=== PATIENT | male | born 1980 | race Caucasian/White ===

== ENCOUNTER 2023-01-18 10:36 | Outpatient (OUT) | payer OTHER, SELFPAY ==
--- NOTE | 2023-01-18 | MR_ITS ---
The [address] [address] Patient Name: SHERIN WHITE MRN: [id number] date: 1980 Sex: M Assigned Patient Location: [facility] Current Patient Location: [facility] Accession/Order Number: [id number] Exam Date: 01/18/2023 11:15 Report Date: 01/18/2023 23:07 At the request of: NOHEMY ALFORD Procedure: MR ankle RT wo con EXAM: MR ankle RT wo con HISTORY: Postoperative ankle pain. COMPARISON: X-rays 07/14/2021 TECHNIQUE: Multiplanar, multi sequential MRI sequences were performed. FINDINGS: Patient is undergone prior open reduction internal fixation of the distal fibula. There appears to been removal of the hardware. The screw tracks are still clearly visualized within the distal aspect of the lateral malleolus as well as the distal fibula. Postoperative changes within the overlying subcutaneous soft tissues. No visualized fracture, dislocation, subluxation or osseous lesion. No joint effusion. The superficial subcutaneous soft tissues are free of edema, hematoma, mass or cyst. The tarsal tunnel and carlyn pedis exhibit no edema, hematoma, mass or cyst. The visualized articular surfaces exhibit no discrete chondral or osteochondral abnormality. The posterior tibial, flexor digitorum longus, flexor hallucis longus, peroneus longus, peroneus brevis and anterior tendons exhibit no thickening, tear, edema or tenosynovial collections. The anterior talofibular, calcaneofibular, posterior talofibular, anterior and posterior inferior tibiofibular, intermalleolar, deltoid and spring ligamentous complexes exhibit no thickening, tear or edema. No gross visualized irregularity of the syndesmotic ligament. The Achilles tendon, sinus tarsi and plantar aponeurosis exhibit no thickening, tear or edema. No muscle edema, hematoma, atrophy or fatty infiltration. MR/MR ankle RT wo con IMPRESSION: Postoperative changes with no visualized abnormality. Electronically authenticated by: BRANDO PITT Date: 01/18/2023 23:07
--- NOTE | 2023-01-18 | XR_ITS ---
[address] [address] Patient Name: SHERIN WHITE MRN: [id number] date: 1980 Sex: M Assigned Patient Location: [facility] Current Patient Location: [facility] Accession/Order Number: [id number] Exam Date: 01/18/2023 10:52 Report Date: 01/18/2023 11:13 At the request of: NOHEMY ALFORD Procedure: XR foreign body eye EXAMINATION: XR foreign body eye HISTORY: Foreign body eye COMPARISON: No relevant comparison available. FINDINGS: ORBITS: Negative for a metallic foreign body. OTHER: Negative. XR/XR foreign body eye IMPRESSION: No metallic foreign body in the orbits Electronically authenticated by: BRANDO SMITH Date: 01/18/2023 11:13
== END 2023-01-18 10:37 | disposition home or self-care (01) ==
LOC: RAD 10:39
PROVIDERS: PCP Nurse Practitioner; Visit Provider Nurse Practitioner Family
DX: S82.831A Other fracture of upper and lower end of right fibula, initial encounter for closed fracture (principal)
CPT/HCPCS: 70030; 73721

== ENCOUNTER 2023-01-29 13:59 | Outpatient (OUT) | payer OTHER, SELFPAY ==
--- NOTE | 2023-01-29 16:12 | PM.CN ---
Consult Note: HPI Data of Consult Patient: new to practice Consult date: 01/29/23 Requesting Physician: Catarino Palafox MD Primary Care Provider: Shaikh Meet MD Consult Narrative Reason for consult: right ankle pain Narrative: 42yom who presents for evaluation. worsening right ankle pain. previous workplace injury in july 2021, has had subsequent ankle surgeries. continues to have right ankle pain. has undergone 62 sessions of physical therapy, which have not provided lasting relief. uses flexeril, cymbalta, tramadol, with some benefit. ankle MRI reviewed, which shows only expected postoperative changes. cc:: CC: Catarino Palafox MD Review of Systems ROS Status of ROS 10 or more systems reviewed and unremarkable except as noted in history and below Meds Home Medications and Allergies Home Medications Medication Instructions Recorded Confirmed Type cyclobenzaprine 10 mg tablet 10 mg PO DAILY PRN muscle spasm 01/29/23 01/29/23 History duloxetine 60 mg capsule,delayed 60 mg PO DAILY 01/29/23 01/29/23 History release sildenafil 25 mg tablet 25 mg PO DAILY PRN sexual activity 01/29/23 01/29/23 History sumatriptan 10 mg/actuation nasal 20 mg intranasal Q2H PRN migraine 01/29/23 01/29/23 History spray headache Allergies Allergy/AdvReac Type Severity Reaction Status Date / Time No Known Drug Allergies Allergy Verified 01/29/23 15:33 Exam Narrative Exam Narrative: Psych-alert and oriented x 3. Attentive and appropriate, constitutionally normal, displays normal mood and affect per situation.? There are no obvious deficits in memory, reasoning, or intellect.? Skin-no obvious rashes, bruising, erythema noted to the patient's area of pain. Extremities- extremities are warm with minimal edema and palpable pulses. Tenderness to palpation in right ankle. Slight discoloring and cool temperature noted in right ankle. Lumbar-no significant tenderness to palpation noted in the lumbar spine and paraspinal musculature.? Pain is elicited with extension, and lateral rotation of the lumbar spine. Range of motion is slightly diminished with these motions due to pain. Coordination remains intact.? Gait remains non-antalgic. Assessment and Plan Assessment and Plan (1) Other fracture of upper and lower end of right fibula, initial encounter for closed fracture: Plan 42yom who presents for evaluation. failed conservative measures, as noted. imaging reviewed. given symptoms and injury history, prudent to attempt right lumbar sympathetic nerve block x2 with minimal sedation to provide analgesia. he is in agreement. medications reviewed. will have him trial lyrica 50mg tid. follow up after procedure.
== END 2023-01-29 14:00 | disposition home or self-care (01) ==
LOC: PM 14:00
PROVIDERS: PCP Internal Medicine; Visit Provider Anesthesiology
DX: S82.831A Other fracture of upper and lower end of right fibula, initial encounter for closed fracture (principal)
CPT/HCPCS: G0463

== ENCOUNTER 2023-02-19 06:29 | Day surgery (SDC) | payer OTHER, SELFPAY ==
[2023-02-19 07:03] VITALS: BP 137/87; PULSE 71; RESP 16; TEMP 36.8; O2SAT 97
[2023-02-19] MEDS: 0.9 % SODIUM CHLORIDE 500 ML IV (07:08)
[2023-02-19] MEDS: 0.9 % SODIUM CHLORIDE 10 ML 5 ML INJ (07:36)
[2023-02-19] MEDS: LIDOCAINE HCL 2% PF 100 MG/5 ML VIAL INJ (07:37)
[2023-02-19] MEDS: IOHEXOL 240 MG/ML - 10 ML VIAL INJ (07:37)
[2023-02-19] MEDS: BUPIVACAINE HCL 0.25% PF 25 MG/10 ML VIAL 5 ML INJ (07:37)
[2023-02-19] MEDS: TRIAMCINOLONE ACETONIDE 40 MG/ML VIAL INJ (07:38)
--- NOTE | 2023-02-19 07:41 | W.PM.PROCNOT ---
Date of procedure: 02/19/23 Pre-op diagnosis: CRPS, right lower extremity Post-op diagnosis: same as pre-op Procedure: Procedure: Right lumbar sympathetic plexus block Medications: Bupivacaine 0.25% 4cc, normal saline 0.9% 5cc, dexamethasone 10mg The patient was seen and examined in the preoperative holding area.? Informed consent was obtained and placed on the chart.? Patient was brought to the medical procedure unit and placed in the prone position where a timeout was completed verifying the correct patient, procedure site, position, and planned special equipment using sterile aseptic technique.? Under direct fluoroscopic visualization a 25-gauge Quincke tipped spinal needle was advanced to the right anterolateral aspect of the L3 vertebral body where Omnipaque dye was injected to show adequate spread.? There was no evidence of vascular or neurologic uptake.? The above-mentioned injectate was then placed in five 2 mL aliquots preceded by negative aspiration. The needle was removed and the surgery site was covered. The same procedure, with the same steps, was then completed on the opposite side. Patient was taken to the postprocedural recovery area and monitored for an appropriate length of time before found suitable for discharge in the accompaniment of a responsible adult. Anesthesia: Moderate Sedation Surgeon: Catarino Palafox Pathology: none sent Condition: stable Disposition: same day
[2023-02-19 07:43] VITALS: BP 113/70; PULSE 76; RESP 13; TEMP 36.6; O2SAT 96
[2023-02-19 07:44] VITALS: BP 118/67; PULSE 77; RESP 14; TEMP 36.6; O2SAT 96
== END 2023-02-19 08:08 | disposition home or self-care (01) ==
PROVIDERS: PCP Nurse Practitioner; Visit Provider Anesthesiology
DX: S82.831A Other fracture of upper and lower end of right fibula, initial encounter for closed fracture (principal)
CPT/HCPCS: 64520; 77002; J2704; Q9966

== ENCOUNTER 2023-03-12 06:53 | Day surgery (SDC) | payer OTHER, SELFPAY ==
[2023-03-12 07:13] VITALS: BP 149/85; PULSE 82; RESP 16; TEMP 36.9; O2SAT 98
[2023-03-12] MEDS: 0.9 % SODIUM CHLORIDE 500 ML IV (07:26)
[2023-03-12] MEDS: BUPIVACAINE HCL 0.25% PF 25 MG/10 ML VIAL 9 ML INJ (07:38)
[2023-03-12] MEDS: TRIAMCINOLONE ACETONIDE 40 MG/ML VIAL INJ (07:39)
[2023-03-12] MEDS: LIDOCAINE HCL 2% PF 100 MG/5 ML VIAL INJ (07:39)
[2023-03-12] MEDS: IOHEXOL 240 MG/ML - 10 ML VIAL INJ (07:40)
--- NOTE | 2023-03-12 07:43 | W.PM.PROCNOT ---
Date of procedure: 03/12/23 Pre-op diagnosis: Complex regional pain syndrome, right lower extremity Post-op diagnosis: same as pre-op Procedure: Procedure: Right lumbar sympathetic nerve block Medications: Bupivacaine 0.25% 8cc, kenalog 80mg The patient was seen and examined in the preoperative holding area.? Informed consent was obtained and placed on the chart.? Patient was brought to the medical procedure unit and placed in the prone position where a timeout was completed verifying the correct patient, procedure site, position, and planned special equipment using sterile aseptic technique.? Under direct fluoroscopic visualization a 25-gauge Quincke tipped spinal needle was advanced to the right anterolateral aspect of the L3 vertebral body where Omnipaque dye was injected to show adequate spread.? There was no evidence of vascular or neurologic uptake.? The above-mentioned injectate was then placed in five 2 mL aliquots preceded by negative aspiration. The needle was removed and the surgery site was covered. The same procedure, with the same steps, was then completed on the opposite side. Patient was taken to the postprocedural recovery area and monitored for an appropriate length of time before found suitable for discharge in the accompaniment of a responsible adult. Anesthesia: Moderate Sedation Surgeon: Catarino Palafox Pathology: none sent Condition: stable Disposition: no change
[2023-03-12 07:46] VITALS: BP 125/79; PULSE 77; RESP 15; TEMP 36.3; O2SAT 97
[2023-03-12 07:55] VITALS: BP 132/82; PULSE 82; RESP 16; TEMP 36.3; O2SAT 98
== END 2023-03-12 08:10 | disposition home or self-care (01) ==
PROVIDERS: PCP Nurse Practitioner; Visit Provider Anesthesiology
DX: S82.831A Other fracture of upper and lower end of right fibula, initial encounter for closed fracture (principal)
CPT/HCPCS: 64520; J2704; Q9966

== ENCOUNTER 2023-03-21 08:58 | Outpatient (OUT) | payer OTHER, SELFPAY ==
--- NOTE | 2023-03-21 | XR_ITS ---
The [address] [address] Patient Name: SHERIN WHITE MRN: [id number] date: 1980 Sex: M Assigned Patient Location: RAD Current Patient Location: [facility] Accession/Order Number: [id number] Exam Date: 03/21/2023 09:15 Report Date: 03/21/2023 17:57 At the request of: WILLIAM BOBBY Procedure: XR ankle RT min 3V Exam: Radiographs: XR ankle RT min 3V Reason for exam: Right ankle pain Comparison: MRI dated 01/18/2023 XR/XR ankle RT min 3V IMPRESSION: Changes of prior distal fibula plate and screw internal fixation. Tiny retained metallic foreign bodies along the distal fibula. Remainder of the right ankle radiographs is unremarkable. Electronically authenticated by: MAITE JOHNSON Date: 03/21/2023 17:57
== END 2023-03-21 08:59 | disposition home or self-care (01) ==
LOC: RAD 08:58
PROVIDERS: PCP Nurse Practitioner; Visit Provider Podiatrist Foot & Ankle Surgery
DX: M25.571 Pain in right ankle and joints of right foot (principal)
CPT/HCPCS: 73610

== ENCOUNTER 2023-03-22 13:06 | Outpatient (OUT) | payer SELFPAY ==
--- NOTE | 2023-03-22 13:25 | P.CN_ITS ---
Consult Note: HPI Data of Consult Patient: known to practice within the last 3 years Consult date: 01/29/23 Requesting Physician: Kerry Connolly NP Primary Care Provider: MEGHAN BAIN Consult Narrative Reason for consult: f/u Narrative: 42yom who presents for evaluation. worsening right ankle pain. previous workplace injury in july 2021, has had subsequent ankle surgeries. continues to have right ankle pain. has undergone 62 sessions of physical therapy, which have not provided lasting relief. uses flexeril, cymbalta, tramadol, with some benefit. Pain today 5/10 and CRISTHIAN improved at 26% today. Patient reporting 40% ongoing improvement as a result of sympathetic nerve blocks. Is now considering surgical repair with Dr Stafford. Has been tolerating lyrica 75mg BID well without side effects. cc:: CC: Kerry Connolly NP Review of Systems ROS Status of ROS 10 or more systems reviewed and unremarkable except as noted in history and below PFSH PFSH Medical History Asthma ?J45.909 - Unspecified asthma, uncomplicated (ICD-10) Surgical History History of ankle surgery ?Z98.890 - Other specified postprocedural states (ICD-10) History of appendectomy ?Z90.49 - Acquired absence of other specified parts of digestive tract (ICD- 10) History of carpal tunnel release ?Z98.890 - Other specified postprocedural states (ICD-10) History of elbow surgery ?Z98.890 - Other specified postprocedural states (ICD-10) History of kidney surgery ?Z98.890 - Other specified postprocedural states (ICD-10) Meds Home Medications and Allergies Home Medications Medication Instructions Recorded Confirmed Type cyclobenzaprine 10 mg tablet 10 mg PO DAILY PRN muscle spasm 01/29/23 03/12/23 History duloxetine 60 mg capsule,delayed 60 mg PO DAILY 01/29/23 03/12/23 History release sildenafil 25 mg tablet 25 mg PO DAILY PRN sexual activity 01/29/23 03/12/23 History sumatriptan 10 mg/actuation nasal 20 mg intranasal Q2H PRN migraine 01/29/23 03/12/23 History spray headache pregabalin 50 mg capsule 50 mg PO Q8H 02/14/23 03/12/23 History tramadol 50 mg tablet 50 mg PO Q8H PRN pain 02/14/23 03/12/23 History ibuprofen 800 mg tablet 800 mg PO Q12H PRN pain 02/19/23 03/12/23 History Allergies Allergy/AdvReac Type Severity Reaction Status Date / Time No Known Drug Allergies Allergy Verified 03/12/23 07:10 Exam Narrative Exam Narrative: Psych-alert and oriented x 3. Attentive and appropriate, constitutionally normal, displays normal mood and affect per situation.? There are no obvious deficits in memory, reasoning, or intellect.? Skin-no obvious rashes, bruising, erythema noted to the patient's area of pain. Extremities- extremities are warm with minimal edema and palpable pulses. Tenderness to palpation in right ankle. Slight discoloring and cool temperature noted in right ankle. Lumbar-no significant tenderness to palpation noted in the lumbar spine and paraspinal musculature.? Pain is elicited with extension, and lateral rotation of the lumbar spine. Range of motion is slightly diminished with these motions due to pain. Coordination remains intact.? Gait remains non-antalgic. Assessment and Plan Assessment and Plan (1) Other fracture of upper and lower end of right fibula, initial encounter for closed fracture: Plan continue f/u with Dr Stafford, pt considering surgical repair increase lyrica to 100mg BID discussed topical lidocaine if transdermal therapeutics cream 6a to right ankle TID does not get approved f/u 3 months for medication management, pt will call sooner if needed
== END 2023-03-22 13:07 | disposition home or self-care (01) ==
LOC: PM 13:08
PROVIDERS: PCP Nurse Practitioner; Visit Provider Nurse Practitioner
DX: S82.831A Other fracture of upper and lower end of right fibula, initial encounter for closed fracture (principal)
CPT/HCPCS: G0463

== ENCOUNTER 2023-07-05 12:18 | Outpatient (OUT) | payer OTHER, SELFPAY ==
--- OUTSIDE RECORDS SUMMARY | 2023-07-05 12:22 | XMS_ITS | CCD ---
Author Name Unknown Address [address] [place] [address] Organization [facility] Care Team Providers Care Operating Room Technician Name Role Phone FAWRAISSA, PARSONS Consulting Unavailable FAWWAD, PARSONS Primary Care Unavailable FAWWAD, PARSONS Admitting Unavailable FAWRAISSA, PARSONS Attending Unavailable MARKER, DR ESCUDERO Attending Unavailable MARKER, DR ESCUDERO Consulting Unavailable MARKER, DR ESCUDERO Admitting Unavailable FAWWAD, PARSONS Primary Care Unavailable ANDREINA KWAN Consulting Unavailable SAUL, DR TWYLA Lauren Admitting Unavailable FAWWAD, PARSONS Primary Care Unavailable SAUL, DR TWYLA Lauren Attending Unavailable SAUL, DR TWYLA Lauren Consulting Unavailable FAWWAD, PARSONS Primary Care Unavailable SAUL, DR TWYLA Lauren Admitting Unavailable SAUL, DR TWYLA Lauren Attending Unavailable SAUL, DR TWYLA Lauren Consulting Unavailable TARAN SAUNDERS Consulting Unavailable FAWWAD, PARSONS Attending Unavailable FAWWAD, PARSONS Primary Care Unavailable FAWWAD, PARSONS Admitting Unavailable EBRAHEIM, DREW Admitting Unavailable SELF, REFERRED Primary Care Unavailable EBRAHEIM, DREW Attending Unavailable SELF, REFERRED Referring Unavailable Yolande Chapman Primary Care Physician VENKAT SIFUENTES Attending Unavailable VENKAT SIFUENTES Attending Unavailable LUCERO ROGERS Attending Unavailable BEAR, VENKAT Attending Unavailable LUCERO ROGERS Admitting Unavailable ROGERS, LUCERO Attending Unavailable ROGERS, CHRISTOPHER Attending Unavailable ROGERS, CHRISTOPHER Attending Unavailable BEAR, VENKAT Referring Unavailable BEAR, VENKAT Referring Unavailable BEAR, VENKAT Referring Unavailable BEAR, VENKAT Referring Unavailable Vivienne CAMEJO, Catarino Anton Attending Unavailable Vivienne CAMEJO, Catarino Anton Attending Unavailable Vivienne CAMEJO, Catarino Anton Attending Unavailable Wittenauer, DO Aishwarya S. Attending Unavaila ble Adela, MANAGER CARDIOVASCULAR Yolande L Attending Unavailable Adela, MANAGER CARDIOVASCULAR Yolande L Attending Unavailable Wittenauer, DO Aishwarya S. Admitting Unavaila ble Wittenauer, DO Aishwarya S. Attending Unavaila ble Wittenauer, DO Aishwarya S. Referring Unavaila ble Adela, MANAGER CARDIOVASCULAR Yolande L Admitting Unavailable Adela, MANAGER CARDIOVASCULAR Yolande L Attending Unavailable Adela, MANAGER CARDIOVASCULAR Yolande L Admitting Unavailable Adela, MANAGER CARDIOVASCULAR Yolande L Attending Unavailable Medications Current Medications Medication Drug Class(es) Dates Sig (Normalized) Sig (Original) cyclobenzaprine hydrochloride 10 mg oral tablet (3 sources) Muscle Relaxant Start: 11-28-2022 cyclobenzaprine 10 mg Tab See Instructions, PRN for spasm, 1 tab(s) Oral at work for spasm, # 30 tab(s), Refills(s) 1, Pharmacy: [facility]/pharmacy #[id number], 183.5, cm, 11/13/22 11:51:00 EDT, Height/Length Dosing, 75, kg, 11/13/22 11:51:00 EDT, Weight Dosing Start Date: 11/28/22 Status: Ordered Start: 11-13-2022 take 1 tablet by mya th three times daily cyclobenzaprine 10 mg Tab 10 mg = 1 tab(s), Oral, TID, PRN for spasm, pt taking one when at work, # 30 tab(s), Refills(s) 0 Start Date: 11/13/22 Status: Ordered SUMAtriptan 100 mg oral tablet (3 sources) Serotonin-1b and Serotonin-1d Receptor Agonist Start: 12-19-2022 take 1 tablet by mouth every two hours as needed for headache, then take 2 tablets by mouth once daily as needed for headache Imitrex 100 mg Tab 100 mg = 1 tab(s), Oral, As Directed, PRN Migraine headache, may repeat dose in 2 hours if needed . take onset migraine. max 200mg per day, # 18 tab(s), Refills(s) 1, Pharmacy: [facility]/pharmacy #[id number], 183.5, cm, 11/13/22 11:51:00 EDT, Height/Length Dosing... Start Date: 12/19/22 Status: Ordered Start: 11-13-2022 take 1 tablet by mya th every two hours as needed for headache SUMAtriptan 25 mg Tab 25 mg = 1 tab(s), Oral, As Directed, PRN Migraine headache, may repeat dose in 2 hours if needed, # 9 tab(s), Refills(s) 0, Pharmacy: [facility]/pharmacy #[id number], 183.5, cm, 11/13/22 11:51:00 EDT, Height/Length Dosing, 75, kg, 11/13/22 11:51:00 EDT, Weight Dosing Start Date: 11/13/22 Status: Ordered Vitamin D3 2000 intl units oral Tab (1 source) Start: 11-13-2022 take 1 tablet by mouth once daily Vitamin D3 2000 intl units oral Tab 50 mcg, Oral, Daily, tab(s), Refills(s) 0 Start Date: 11/13/22 Status: Ordered Completed/Discontinued Medications Medication Drug Class(es) Dates Sig (Normalized) Sig (Original) DULoxetine 60 mg delayed release oral capsule (3 sources) Serotonin and Norepinephrine Reuptake Inhibitor Start: 11-13-2022 take 1 capsule by mouth once daily duloxetine 60 mg oral delayed release capsule 30 EA, TAKE 1 CAPSULE BY MOUTH EVERY DAY, Refills(s) 0 Start Date: 11/13/22 Status: Ordered ibuprofen 800 mg oral tablet (3 sources) Nonsteroidal Anti-inflammatory Drug Start: 11-13-2022 take 1 tablet by mouth three times daily as needed for pain ibuprofen 800 mg Tab 90 EA, TAKE 1 TABLET BY MOUTH THREE TIMES A DAY NEEDED FOR MILD PAIN, Refills(s) 0 Start Date: 11/13/22 Status: Ordered traMADol hydrochloride 50 mg oral tablet (3 sources) Opioid Agonist Start: 11-13-2022 take 1-2 tablets by mouth three times daily as needed traMADOL 50 mg Tab 42 EA, TAKE 1 TO 2 TABLETS BY MOUTH 3 TIMES A DAY NEEDED, Refills(s) 0 Start Date: 11/13/22 Status: Ordered Problems Active Problems Problem Classification Problem Date Documented Date Episodic/Chronic E Codes: Other specified and classifiable (1 source) Caught, crushed, jammed, or pinched between moving objects, initial encounter; Translations: [CAUGHT CRUSH/PINCH BTWN MOV OBJ INT] Onset: 07-15-2021 Episodic Headache; including migraine (4 sources) Migraine; Translations: [Migraine, unspecified, not intractable, without status migrainosus] Onset: 12-19-2022 11-13-2022 Chronic Malaise and fatigue (3 sources) Fatigue 11-13-2022 Episodic Other male genital disorders (3 sources) Impotence 11-13-2022 Chronic Other nervous system disorders (1 source) Other chronic pain; Translations: [OTHER CHRONIC PAIN] Onset: 06-27-2021 Chronic Residual codes; unclassified (2 sources) Presence of functional implant, unspecified; Translations: [Presence of functional implant, unspecified] Onset: 08-04-2022 Chronic Spondylosis; intervertebral disc disorders; other back problems (1 source) Intervertebral disc prolapse; Translations: [Other intervertebral disc displacement, lumbar region] Onset: 12-19-2022 Chronic Spondylosis; intervertebral disc disorders; other back problems (8 sources) Intervertebral disc disorders with radiculopathy, lumbar region; Translations: [Radiculopathy, lumbar region] Onset: 05-10-2021 Episodic Unclassified (1 source) LOW BACK PAIN, UNSPECIFIED; Translations: [LOW BACK PAIN, UNSPECIFIED] Onset: 06-27-2021 Unclassified (3 sources) Displacement of lumbar intervertebral disc 11-13-2022 Unclassified (3 sources) Patient encounter status 11-13-2022 Past or Other Problems Problem Classification Problem Date Documented Da te Episodic/Chronic Fracture of lower limb (12 sources) Other fracture of upper and lower end of right fibula, initial encounter for closed fracture; Translations: [Other fracture of upper and lower end of right fibula, subsequent encounter for closed fracture with routine healing] Onset: 07-14-2021 Episodic Other non-traumatic joint disorders (2 sources) Pain in right ankle and joints of right foot; Translations: [Pain in right ankle and joints of right foot] Onset: 04-18-2022 Episodic Other non-traumatic joint disorders (2 sources) Effusion, right ankle; Translations: [Effusion, right ankle] Onset: 04-18-2022 Episodic Results Test Name Value Interpretation Reference Range Facil jose d RAD - MISCon 03-22-2023 RAD - MISC [id number] #1.00TIFF Normal [facility] Operative Reporton 3 Operative Report [id number] #1.00TIFF Normal [facility] Operative Reporton 3 Operative Report [id number] #1.00TIFF Normal [facility] RAD - MRI Reporton 3 RAD - MRI Report [id number] #1.00CD:127 Normal [facility] Refillon 01-14-2023 Refill [id number] Sulaiman White 1980 M Date Provider Department Center 01/14/2023 VENKAT DEL ANGEL MP ORTHO [facility] No family history on file Reason for Visit and Comments: Med Refill [[id number]] Normal [facility] CT Head or Brain w/o Contras ton 01-12-2023 CT Head or Brain w/o Contrast Exam Date/Time: 01/11/2023 12:15 EDT Reason for Exam: G43.909;Headache Report IMPRESSION: NEGATIVE CT SCAN OF THE BRAIN. CLINICAL HISTORY: Headache, G43.909. COMMENT: Unenhanced images were obtained. The ventricles and basal cisterns and cortical sulci appear within normal limits. There is no mass effect nor midline shift. No abnormal attenuation within the brain is noted. There is no evidence of recent intracranial hemorrhage nor extra-axial hematoma. No mass lesion is evident. No skull fracture is noted. All CT scans at this facility use dose modulation, iterative reconstruction, and/or weight based dosing when appropriate to reduce radiation dose to as low as reasonably achievable. Ordering Provider: Aishwarya Montano FINAL REPORT Dictated: 01/12/2023 3:23 pm Godfrey Keys M.D. Signed (Electronic Signature): 01/12/2023 3:23 pm Signed by: Godfrey Keys M.D. Transcribed by: ARUN Technologist: JENNIFER Normal [facility] Consent for Treatmenton 12-14 Consent for Treatment [id number] #1.00CD:127 Normal [facility] Family Medicine Video Visit - Telehealthon 01-07-2023 Family Medicine Video Visit - Telehealth Chief Complaint Telehealth Visit HPI Staff Pt is c/o a migraine that started yesterday morning, states he had to call off of work. He is c/o sound and light sensitivity. Pt states he is having shooting pains from his head into his neck.He tried the Sumatriptan twice yesterday with no relief. Then tried Tramadol and Flexeril with no relief, finally he tried Ibuprofen 800 mg and Tylenol which did give him enough relief to fall asleep last night. Pt states he is laying in bed taking it easy trying to keep the pain at a minimum. Pt will need a work note. Pt will get a fax number to his HR, will call with it after the visit. History of Present Illness Patient presents today for migraine and herniated disc. The patient reports experiencing discomfort in his shoulder and back, and he is currently experiencing tunnel vision that impairs his ability to see clearly. He mentions using sumatriptan for relief, taking it 2 times, which provided partial relief initially. However, his symptoms reemerged after something triggered them again. He had a delayed sleep schedule, going to bed at around 4:30 AM. He tried various methods to alleviate his symptoms. The patient has a long history of experiencing headaches, although yesterday's episode, 12/18/2022, was particularly distressing. He appeared to be extremely debilitated, and his discomfort was so severe that he was unable to lie down. The pressure associated with the headache prevented him from finding relief through resting. As the day progressed, the intensity of the headache seemed to ease a bit, especially later in the afternoon during dinner. During this time, he did not experience nausea or vomiting. He is new to using sumatriptan. While the pain appears to be somewhat reduced today, 12/19/2022, he has not been very mobile. His partner thinks that unfavorable weather conditions might have played a role in exacerbating his symptoms. His partner described his appearance as quite concerning and mentioned being awake all night to monitor him. At one point, he was observed in a sitting-up position, suggesting that even sleep was disrupted due to the pain. The severity of this migraine episode has left the patient in an incredibly debilitated state, possibly one of the worst migraines he has experienced. He suffered a severe ankle injury on 07/2022, leading to a shattered ankle while at work. Following this injury, he faced challenges with lower back issues, likely influenced by his ankle recovery. He continues to consult with an industrial automation specialist for his ankle condition. Given his recent migraine episode, there was a query about dosing for the migraine medication sumatriptan. He had already taken 2 doses of 50 mg each within a timeframe of fewer than 24 hours. He and his partner were unsure whether to consider an increase in dosage, particularly since he only had 25 mg tablets. They recognized the intricacies of migraine medications and were contemplating the best course of action. They wondered if consulting with the nurse practitioner before would be necessary to adjust the prescription, or if it could be done through a new prescription request. The patient's preferred pharmacy is [facility] in [place]. Physical Exam GENERAL: He is alert and oriented x3. He seems to be in good physical condition. EYES: He does hold his eyelids slightly low like he is in pain. THROAT: Trachea appears to be midline. NEUROLOGIC: Cranial nerves II through XII look grossly intact. INTEGUMENTARY: Skin is in good color. MUSCULOSKELETAL: He has good muscle mass on video exam. EXTREMITIES: Upper extremities have a normal range of motion. Assessment/Plan 1. Migraine (G43.909: Migraine, unspecified, not intractable, without status migrainosus) CT of the head ordered. Increased his dose of his Imitrex to 100 mg up to 200 mg daily. Advised how to use the Imitrex based on the insert package. Excused to work for up to 5 days as needed but may return to work if he becomes migraine free and has a release. Recommended that he follow up with his PCP especially if he is not improving on a daily basis. 2. Herniated intervertebral disc of lumbar spine (M51.26: Other intervertebral disc displacement, lumbar region) He has his Ultram and takes ibuprofen products as needed. Currently stable, but this may also be triggering some of his migraines medications problems. Patient to follow up with his regularly yearly wellness exams. Total time spent preparing the chart, conducting of the encounter with the patient and family and time spent documenting, reviewing, and ordering tests was 25 minutes. Portions of this record may have been created with voice recognition artificial intelligence software, specifically Jamgo, Ziptr and or Thera[employer] Experience. Substitutions may have occurred due to the inherent limitations of voice recognition and artificial intelligence software. Documentation s (more content not included)... Normal [facility] Comment on above: Result Comment: Elec tronically Signed By: Aishwarya Montano DO\.br\Date and Time Signed: 01/07/23 18:21 EDT Insurance Correspondenceon 0 12-21-2022 Insurance Correspondence [id number] #1.00CD:127 Normal [facility] Ambulatory Visit Summaryon 0 12-19-2022 Ambulatory Visit Summary SAIRA WHITE :1980 Visit Date:12/19/2022 Ambulatory Visit Instructions Your Diagnosis Migraine Herniated intervertebral disc of lumbar spine Your Care Team Attending Physician - Aishwarya Mnotano DO Primary Care Physician - Yolande Carmnoa This Is Your Medications List cyclobenzaprine (cyclobenzaprine 10 mg Tab) duloxetine (duloxetine 60 mg oral delayed release capsule) ibuprofen (ibuprofen 800 mg Tab) sumatriptan (Imitrex 100 mg Tab) tramadol (traMADOL 50 mg Tab) Procedures Performed Right ankle injury (2022), Right ankle injury (2021), Appendectomy, Carpal tunnel, Right elbow. What to do next You Need to Complete the Following CT Head or Brain w/o Contrast, 12/19/22, Routine, Order for future visit, Transport Mode: Ambulatory, Reason: Headache, No, No, Migraine Normal Worsening headaches, pp_set_radiology_ subspecialty, [facility]\.br\ Medications\.br\ What How Much When Instructions\.br\ Changed sumatriptan (Imitrex 100 mg Tab) 1 Tablets By Mouth As Directed as needed for Migraine headache may repeat dose in 2 hours if needed . take onset migraine. max 200mg per day Pickup at [facility]/pharmacy #[id number]\.br\ Unchanged cyclobenzaprine (cyclobenzaprine 10 mg Tab) See instructions 1 tab(s) Oral at work for spasm \.br\ Unchanged duloxetine (duloxetine 60 mg oral delayed release capsule) 30 EA, TAKE 1 CAPSULE BY MOUTH EVERY DAY \.br\ Unchanged ibuprofen (ibuprofen 800 mg Tab) 90 EA, TAKE 1 TABLET BY MOUTH THREE TIMES A DAY NEEDED FOR MILD PAIN \.br\ Unchanged tramadol (traMADOL 50 mg Tab) 42 EA, TAKE 1 TO 2 TABLETS BY MOUTH 3 TIMES A DAY NEEDED \.br\ Pharmacy Information\.br\ [id number]: [address], [place] [id number] [phone]\.br\ Allergies\.br\ No Known Allergies\.br\ Problems\.br\ Ongoing - Any problem that you are currently receiving treatment for.\.br\ Erectile disorder\.br\ Fatigue\.br\ Herniated intervertebral disc of lumbar spine\.br\ Migraine\.br\ Wellness examination\.br\ \.br\ [facility] Patient Letter FTon 2022 Patient Letter [address] [place] [address] [phone] December 19, 2022 SAIRA [place]ITE [address] [place] [address] : 1980 12/19/2022 Dear Employer, Please excuse patient up to 5 days with Migraine. If migraine resolves early please allow patient back to work early. Electronically Signed Aishwarya Montano D.O. Normal [facility] 36on 12-18-2022 36 Approving, but needs appt for additional refills. Normal [facility] Follow-Upon 12-01-2022 Follow-Up [id number] Sulaiman White 1980 M Date Provider Department Center 12/01/2022 Dee-LUCERO ROGERS MP [facility] No family history on file Level of Service:65717 [place] OFFICE/OUTPATIENT ESTABLISHED LOW MDM 20-29 MIN (GC) Reason for Visit and Comments: Follow-up [236913] Normal [facility] Auto Diffon 11-21-2022 Basophils/100 WBC (Bld) 0.8 % Normal 0.0-2.0 [facility] Comment on above: Order Comment: Order Added by Discern Expert. Performed By: #### 2 [id number], [id number] ####[facility] [address] [place] [address] Basophils/Leukocyte s Auto (Bld) [Pure # fraction] 0.1 E9/L Normal 0.0-0.2 [facility] Comment on above: Order Comment: Order Added by Discern Expert. Performed By: #### 2 908975, [id number] ####[address] [address] Eosinophils/100 WBC (Bld) 4.3 % Normal 0.0-8.0 [facility] Comment on above: Order Comment: Order Added by Discern Expert. Performed By: #### 2 856474, [id number] ####[address] [address] Eosinophils/Leukocy edwige Auto (Bld) [Pure # fraction] 0.4 E9/L Normal 0.0-0.5 [facility] Comment on above: Order Comment: Order Added by Shirley Expert. Performed By: #### 2 622411, [id number] ####[address] [address] Lymphocytes/100 WBC (Bld) 29.0 % Normal 14.0-50.0 [facility] Comment on above: Order Comment: Order Added by Shirley Expert. Performed By: #### 2 893758, [id number] ####[address] [address] Lymphocytes/Leukocy edwige Auto (Bld) [Pure # fraction] 2.4 E9/L Normal 1.0-4.0 [facility] Comment on above: Order Comment: Order Added by Discern Expert. Performed By: #### 2 244780, [id number] ####[address] [address] Monocytes/100 WBC (Bld) 8.7 % Normal 4.0-14.0 [facility] Comment on above: Order Comment: Order Added by Shirley Expert. Performed By: #### 2 777905, [id number] ####[address] [address] Monocytes/Leukocyte s Auto (Bld) [Pure # fraction] 0.7 E9/L Normal 0.2-1.0 [facility] Comment on above: Order Comment: Order Added by Discern Expert. Performed By: #### 2 669539, [id number] ####[address] [address] Neutrophils/100 WBC (Bld) 57.2 % Normal 36.0-75.0 [facility] Comment on above: Order Comment: Order Added by Discern Expert. Performed By: #### 2 378915, [id number] ####[address] [address] Neutrophils/Leukocy edwige Auto (Bld) [Pure # fraction] 4.8 E9/L Normal 2.0-7.5 [facility] Comment on above: Order Comment: Order Added by Discern Expert. Performed By: #### 2 237760, [id number] ####[address] [address] CBC w/ Auto Diffon 3 Erythrocyte distribution width (RBC) [Ratio] 12.9 % Normal 10.9-14.2 [facility] Comment on above: Performed By: #### 2 539617, [id number] ####[address] [address] Hematocrit (Bld) [Volume fraction] 40.0 % Normal 37.7-49.0 [facility] Comment on above: Performed By: #### 2 218120, 8558170 ####[address] [address] Hemoglobin (Bld) [Mass/Vol] 13.7 g/dL Normal 13.5-17.5 [facility] Comment on above: Performed By: #### 2 607445, 2262711 ####[address] [address] MCH (RBC) [Entitic mass] 32.1 pg Normal 27.0-34.0 [facility] Comment on above: Performed By: #### 2 124590, [id number] ####[address] [address] MCHC (RBC) [Mass/Vol] 34.2 g/dL Normal 31.4-36.0 [facility] Comment on above: Performed By: #### 2 020376, [id number] ####[address] [address] MCV (RBC) [Entitic vol] 94.1 fL Normal 80.0-100.0 [facility] Comment on above: Performed By: #### 2 353976, 3265396 ####[address] [address] Platelet mean volume (Bld) [Entitic vol] 8.5 fL Normal 6.4-10.8 [facility] Comment on above: Performed By: #### 2 509267, 9855152 ####[address] [address] Platelets (Bld) [#/Vol] 261.0 E9/L Normal 150.0-500.0 [facility] Comment on above: Performed By: #### 2 330909, 7295104 ####[place] [id number] RBC (Bld) [#/Vol] 4.2 E12/L Low 4.3-5.9 [facility] Comment on above: Performed By: #### 2 624631, 0767406 ####[address] [address] WBC corrected for nucl RBC Auto (Bld) [#/Vol] 8.4 E9/L Normal 4.0-11.0 [facility] Comment on above: Performed By: #### 2 802330, 8613990 ####[address] [address] Nurse Consultation Noteon Nurse Consultation Note Physical Exam pt here for re draw due to lavender tube not being sent to lab. This visit no charge Assessment/Plan Fatigue (R53.83: Other fatigue) Wellness examination (Z00.00: Encounter for general adult medical examination without abnormal findings) Medications cyclobenzaprine 10 mg Tab, 10 mg= 1 tab(s), Oral, TID, PRN duloxetine 60 mg oral delayed release capsule ibuprofen 800 mg Tab SUMAtriptan 25 mg Tab, 25 mg= 1 tab(s), Oral, As Directed, PRN traMADOL 50 mg Tab Vitamin D3 2000 intl units oral Tab, 50 mcg, Oral, Daily Allergies No Known Allergies Normal [facility] Physician Orderon 11-21-2022 Physician Order [id number]#1.00CD:127 Normal [facility] Provider Letteron 11-21-2022 Provider Letter November 21, 2022 SAIRA WHITE [address] [place] [id number] : 1980 Dear Saira , We have been trying to reach you with no success. It is important that you return our call regarding your referral to our office from Safia Chapman upon receiving this letter. Also, at the time of your call, please provide us with your current information. Thank you for your prompt attention to this matter. Sincerely, [facility] [phone] Normal [facility] Physician Referralon 023 Physician Referral [id number]#1.00CD:127 Normal [facility] Testost Totalon 11-16-2022 Testosterone [Mass/Vol] 630 ng/dL Invalid Interpretation Code [id number] [facility] Comment on above: Result Comment: Adul t male reference interval is based on a population of healthy nonobese males (BMI <30) between 19 and 39 years old. Kiley et.al. JCEM 2017,102;0643-6699. PMID: [id number]. Performed at: [facility] [id number] PhD Giovanny Bahena Performed By: #### 2 [id number], [id number], [id number], [id number], [id number], [id number] ####[facility] [address] [place] [address] Ambulatory Visit Summaryon 0 11-13-2022 Ambulatory Visit Summary SAIRA WHITE :1980 Visit Date:11/13/2022 Ambulatory Visit Instructions Your Diagnosis Wellness examination Fatigue Erectile disorder Migraine Herniated intervertebral disc of lumbar spine BMI 22.0-22.9, adult Smoker Your Care Team Attending Physician - Yolande Carmona Primary Care Physician - Yolande Carmona This Is Your Medications List cholecalciferol (Vitamin D3 2000 intl units oral Tab) cyclobenzaprine (cyclobenzaprine 10 mg Tab) duloxetine (duloxetine 60 mg oral delayed release capsule) ibuprofen (ibuprofen 800 mg Tab) sumatriptan (SUMAtriptan 25 mg Tab) tramadol (traMADOL 50 mg Tab) Procedures Performed Right ankle injury (2022), Right ankle injury (2021), Appendectomy, Carpal tunnel, Right elbow. Discharge Vitals Temperature (Oral) 36.7 ?C Heart Rate (Peripheral) 98 Respiratory Rate 18 Blood Pressure 130/90 Height 183.5 cm Height 72 in Weight 75.0 kg Weight 165 lb BMI 22.27 Medications What How Much When Why Instructions New sumatriptan (SUMAtriptan 25 mg Tab) 1 Tablets By Mouth As Directed as needed for Migraine headache Wellness examination Fatigue Erectile disorder Migraine BMI 22.0-22.9, adult Smoker may repeat dose in 2 hours if needed Pickup at [facility]/pharmacy #[id number] Unchanged cholecalciferol (Vitamin D3 2000 intl units oral Tab) 50 Microgram By Mouth Every day Unchanged cyclobenzaprine (cyclobenzaprine 10 mg Tab) 1 Tablets By Mouth 3 times a day as needed for for spasm pt taking one when at work Unchanged duloxetine (duloxetine 60 mg oral delayed release capsule) 30 EA, TAKE 1 CAPSULE BY MOUTH EVERY DAY Unchanged ibuprofen (ibuprofen 800 mg Tab) 90 EA, TAKE 1 TABLET BY MOUTH THREE TIMES A DAY NEEDED FOR MILD PAIN Unchanged tramadol (traMADOL 50 mg Tab) 42 EA, TAKE 1 TO 2 TABLETS BY MOUTH 3 TIMES A DAY NEEDED Pharmacy Information [id number]: [address] [place] [address], [place] [phone] Allergies No Known Allergies Problems Ongoing - Any problem that you are currently receiving treatment for. Erectile disorder Fatigue Herniated intervertebral disc of lumbar spine Migraine Wellness examination Normal [facility] CHEMISTRYOrdered By: SYSTEM SYSTEM on 11-13-2022 Albumin [Mass/Vol] 4.4 g/dL Normal 3.3 - 5.0 gm/dL [facility]isol Albumin/Globulin [Mass ratio] 1.3 {ratio} Normal 1.1 - 2.2 [facility] ALP [Catalytic activity/Vol] 58 [iU]/d Normal 21 - 98 Int._Unit/L [facility] ALT No additional P-5'-P [Catalytic activity/Vol] 16 [iU]/d Normal 6 - 46 Int._Unit/L [facility] Anion gap [Moles/Vol] 14 mmol/L Normal 6 - 16 mEq/L [facility] AST [Catalytic activity/Vol] 23 [iU]/d Normal 5 - 43 Int._Unit/L [facility] Bilirubin [Mass/Vol] 0.4 mg/dL Normal 0.0 - 1.1 mg/dL [facility] Calcium [Mass/Vol] 9.5 mg/dL Normal 8.9 - 11.1 mg/dL [facility] Chloride [Moles/Vol] 102 mmol/L Normal 101 - 111 mmol/L [facility] Cholesterol [Mass/Vol] 233 mg/dL High 120 - 200 mg/dL [facility] Cholesterol in HDL [Mass/Vol] 46 mg/dL Invalid Interpretation Code [facility] Cholesterol in LDL [Mass/Vol] 167 mg/dL High <=129mg/dL [facility] Cholesterol in VLDL [Mass/Vol] 19 mg/dL Normal 7 - 40 mg/dL [facility] CO2 [Moles/Vol] 27 mmol/L Normal 21 - 31 mmol/L [facility] Creatinine [Mass/Vol] 1.2 mg/dL Normal 0.5 - 1.3 mg/dL [facility] GFR/1.73 sq M.predicted among non-blacks MDRD (S/P/Bld) [Vol rate/Area] 76 mL/min/1.73 m2 Normal >=59mL/min/1.73 m2 [facility] Chem S Globulin (S) [Mass/Vol] 3.3 g/dL Normal 1.4 - 4.0 gm/dL [facility] Glucose [Mass/Vol] 77 mg/dL Normal 55 - 199 mg/dL [facility] Potassium [Moles/Vol] 4.7 mmol/L Normal 3.5 - 5.3 mmol/L [facility] Prostate specific Ag [Mass/Vol] 0.6 ng/mL Normal 0.1 - 3.5 ng/mL [facility] Protein [Mass/Vol] 7.7 g/dL Normal 6.0 - 7.8 gm/dL [facility] Sodium [Moles/Vol] 138 mmol/L Normal 135 - 145 mmol/L [facility] Triglyceride [Mass/Vol] 95 mg/dL Normal <=149mg/dL [facility] TSH Qn 3.86 m[IU]/L Normal 0.34 - 5.60 mcIU/mL [facility] Urea nitrogen [Mass/Vol] 18 mg/dL Normal 5 - 21 mg/dL [facility] Urea nitrogen/Creatinine [Mass ratio] 15 mg/mg Normal 10 - 20 [facility] CMPon 11-13-2022 Albumin [Mass/Vol] 4.4 g/dL Normal 3.3-5.0 [facility] Comment on above: Performed By: #### 2 173223, [id number], 4586654, 22635125, 83963012, 0568693 ####[facility] [address] [place] [address] Albumin/Globulin (S) [Mass conc ratio] 1.3 Normal 1.1-2.2 [facility] Comment on above: Performed By: #### 2 991944, 76275675, 7970180, 05495885, 46545589, 8824440 ####[facility] [address] [place] [address] ALP [Catalytic activity/Vol] 58 Int._Unit/L Normal 21-98 [facility] Comment on above: Performed By: #### 2 872064, 44911405, 3878375, 32994411, 43114262, 7570025 ####[facility] [address] [place] [address] ALT No additional P-5'-P [Catalytic activity/Vol] 16 Int._Unit/L Normal 6-46 [facility] Comment on above: Performed By: #### 2 606910, 29672049, 8887419, 88317302, 96767822, 6085004 ####[facility] [address] [place] [address] Anion gap [Moles/Vol] 14 mmol/L Normal 6-16 [facility] Comment on above: Performed By: #### 2 527779, 54766006, 9999367, 45591408, 92550297, 3080997 ####[facility] [address] [place] [address] AST [Catalytic activity/Vol] 23 Int._Unit/L Normal 5-43 [facility] Comment on above: Performed By: #### 2 323912, 26642424, 3596614, 15434098, 48758941, 1575482 ####[facility] [address] [place] [address] Bilirubin [Mass/Vol] 0.4 mg/dL Normal 0.0-1.1 [facility] Comment on above: Performed By: #### 2 473129, 49825647, 0258782, 63036416, 31803713, 6269117 ####[facility] [address] [place] [address] Calcium [Mass/Vol] 9.5 mg/dL Normal 8.9-11.1 [facility] Comment on above: Performed By: #### 2 224004, 30208295, 9706268, 78415127, 41557145, 1367363 ####[facility] [address] [place] [address] Chloride [Moles/Vol] 102 mmol/L Normal 101-111 [facility] Comment on above: Performed By: #### 2 144854, 03542443, 9264226, 82412982, 33147163, 6593205 ####[facility] [address] [place] [address] CO2 [Moles/Vol] 27 mmol/L Normal 21-31 [facility] Comment on above: Performed By: #### 2 093442, 24016961, 2708339, 78157970, 51440860, 6481071 ####[facility] [address] [place] [address] Creatinine [Mass/Vol] 1.2 mg/dL Normal 0.5-1.3 [facility] Comment on above: Performed By: #### 2 855978, 76683104, 1128992, 31192956, 71340852, 6797383 ####[facility] [address] [place] [address] Globulin (S) [Mass/Vol] 3.3 g/dL Normal 1.4-4.0 [facility] Comment on above: Performed By: #### 2 076516, 91000657, 5867357, 08321912, 91363297, 2729203 ####[facility] [address] [place] [address] Glucose [Mass/Vol] 77 mg/dL Normal 55-199 [facility] Comment on above: Result Comment: If t his glucose result represents a fasting glucose, interpretation should refer to the following reference range: 55-99 mg/dL Performed By: #### 2 630569, 30721369, 8205728, 82935177, 25631810, 7265455 ####[facility] [address] [place] [address] Potassium [Moles/Vol] 4.7 mmol/L Normal 3.5-5.3 [facility] Comment on above: Performed By: #### 2 548318, 45160426, 4819502, 26918422, 73727613, 6023022 ####[facility] [address] [place] [address] Protein [Mass/Vol] 7.7 g/dL Normal 6.0-7.8 [facility] Comment on above: Performed By: #### 2 811335, 51481767, 5735933, 32096796, 49955180, 2940336 ####[facility] [address] [place] [address] Sodium [Moles/Vol] 138 mmol/L Normal 135-145 [facility] Comment on above: Performed By: #### 2 910862, 38053675, 1384478, 03351311, 39317979, 7588144 ####[facility] [address] [place] [address] Urea nitrogen [Mass/Vol] 18 mg/dL Normal 5-21 [facility] Comment on above: Performed By: #### 2 005982, 59773628, 4493237, 85729895, 98861979, 3934541 ####[facility] [address] [place] [address] Urea nitrogen/Creatinine [Mass ratio] 15 No Units Normal 10-20 [facility] Comment on above: Performed By: #### 2 852634, 05506332, 1058953, 19031389, 58110895, 2709599 ####[facility] [address] [place] [address] Family Medicine Office/Clini c Noteon 11-13-2022 Family Medicine Office/Clinic Note Chief Complaint pt here to establish care HPI Staff Saira is a 42 year old male presenting to establish care Establish Care: History: Any previous diagnosis: Migraines History of seeing any specialist: Has When was your last doctors visit: Last provider: Dr fink in [place] Any recent labs: Over a year ago Health Maintenance UTD: Colonoscopy: no PSA: no Acute: Current issues/complaints: Migraines- Intermittent 4 or 5 a month does, light does bother him a dark room is helpful, caffeine and Excedrin migraine. Will sometimes get tunnel vision. Back pain: Has been seen by pain management has herniated Disc L4/L5 did see Orthopedic surgeon once in [place] but missed second appointment due to a broken ankle. Would like referral to another Orthopedic surgeon . Pt had dry needling done about 4 times and helped for at least 3 or 4 days after. pt has done therapy in the past History of Present Illness pt presents today to establish care. has several issues he would like to discuss. mostly he is in need of a referral for herniated disc at l4/L5 Review of Systems PHQ Score Initial Depression Screen Score: 0 ROS - Provider Constitutional: no fever, no chills, no sweats, no fatigue, low sex drive Respiratory: no shortness of breath, no cough, no orthopnea, no wheezing. Cardiovascular: no chest pain, no palpitations, no edema. Neurologic: yes headache, no dizziness, no numbness, no weakness. migraine headaches GI: diarrhea after eating musculoskeletal: low to mid back pain Physical Exam Vitals & Measurements T: 36.7 ?C(Oral) HR: 98(Peripheral) RR: 18 BP: 130/90 SpO2: 97% HT: 72 in HT: 183.5 cm WT: 75.0 kg WT: 165 lb BMI: 22.27 General: alert, no acute distress ENMT: oral mucosa moist, no pharyngeal erythema or exudate Cardiovascular: regular rate and rhythm, normal peripheral perfusion Respiratory: Lungs CTA, respirations non labored Extremities: no deformity, no trauma Neurological: oriented x 4, LOC appropriate for age, CN II-XII intact, motor strength equal & normal bilaterally, speech normal Assessment/Plan 1. Wellness examination (Z00.00: Encounter for general adult medical examination without abnormal findings) pt presents today to establish care Ordered: sumatriptan, 25 mg = 1 tab(s), Oral, As Directed, PRN Migraine headache, may repeat dose in 2 hours if needed, # 9 tab(s), Refills(s) 0, Pharmacy: [facility]/pharmacy #[id number], 183.5, cm, 11/13/22 11:51:00 EDT, Height/Length Dosing, 75, kg, 11/13/22 11:51:00 EDT, Weight Dosing CBC w/ Auto Diff Comprehensive Metabolic Panel [facility] External Ambulatory Referral [facility] Internal Ambulatory Referral Lab Specimen Collect [id number] Lipid Panel PSA Screen, Total Testosterone Level Total TSH With T4fr Reflex 2. Fatigue (R53.83: Other fatigue) pt c/o fatigue Ordered: sumatriptan, 25 mg = 1 tab(s), Oral, As Directed, PRN Migraine headache, may repeat dose in 2 hours if needed, # 9 tab(s), Refills(s) 0, Pharmacy: [facility]/pharmacy #[id number], 183.5, cm, 11/13/22 11:51:00 EDT, Height/Length Dosing, 75, kg, 11/13/22 11:51:00 EDT, Weight Dosing CBC w/ Auto Diff Comprehensive Metabolic Panel [facility] External Ambulatory Referral [facility] Internal Ambulatory Referral Lab Specimen Collect [id number] Lipid Panel PSA Screen, Total Testosterone Level Total TSH With T4fr Reflex 3. Erectile disorder (N52.9: Male erectile dysfunction, unspecified) pt is taking cymbalta. educted him that ED is a side effect. but will check labs today Ordered: sumatriptan, 25 mg = 1 tab(s), Oral, As Directed, PRN Migraine headache, may repeat dose in 2 hours if needed, # 9 tab(s), Refills(s) 0, Pharmacy: [facility]/pharmacy #[id number], 183.5, cm, 11/13/22 11:51:00 EDT, Height/Length Dosing, 75, kg, 11/13/22 11:51:00 EDT, Weight Dosing CBC w/ Auto Diff Comprehensive Metabolic Panel [facility] External Ambulatory Referral [facility] Internal Ambulatory Referral Lab Specimen Collect [id number] Lipid Panel PSA Screen, Total Testosterone Level Total TSH With T4fr Reflex 4. Migraine (G43.909: Migraine, unspecified, not intractable, without status migrainosus) pt gets migraines has tunnel vision sometimes. takes OTC migraine medication and will drink caffeine with little relief. Ordered: sumatriptan, 25 mg = 1 tab(s), Oral, As Directed, PRN Migraine headache, may repeat dose in 2 hours if needed, # 9 tab(s), Refills(s) 0, Pharmacy: [facility]/pharmacy #[id number], 183.5, cm, 11/13/22 11:51:00 EDT, Height/Length Dosing, 75, kg, 11/13/22 11:51:00 EDT, Weight Dosing [facility] External Ambulatory Referral [facility] Internal Ambulatory Referral 5. Herniated intervertebral disc of lumbar spine (M51.26: Other intervertebral disc displacement, lumbar region) pt had MRI at [facility] in [place] and was seeing someone for herniated L4/L5. Had one appointment then injured his ankle and had to have surgery and PT for that so he but the back pain on the back burner. He would like to see someone local. Will refer to [facility] access ortho Ordered (more content not included)... Normal [facility] Comment on above: Result Comment: Elec tronically Signed By: Yoladne Carmona\.br\Date and Time Signed: 11/13/22 12:57 EDT Lipid Panelon 11-13-2022 Cholesterol [Mass/Vol] 233 mg/dL High 120-200 [facility] Comment on above: Performed By: #### 2 132691, 23877453, 3455329, 57981648, 94217351, 5677703 ####[facility] [address] [place] [address] Cholesterol in HDL [Mass/Vol] 46 mg/dL Invalid Interpretation Code [facility] Comment on above: Result Comment: HDL > or equal to 60 mg/dL: Low cardiovascular risk HDL < 40 mg/dL : High cardiovascular risk Performed By: #### 2 891591, 34145459, 7374914, 78357743, 89347816, 1318150 ####[facility] [address] [place] [address] Cholesterol in LDL [Mass/Vol] 167 mg/dL High <=129 [facility] Comment on above: Performed By: #### 2 254159, 92423314, 7290848, 55966484, 95309624, 6985351 ####[facility] [address] [place] [address] Cholesterol in VLDL [Mass/Vol] 19 mg/dL Normal 7-40 [facility] Comment on above: Performed By: #### 2 289962, 52510128, 7600151, 27948790, 90202417, 3330196 ####[facility] [address] [place] [address] Triglyceride [Mass/Vol] 95 mg/dL Normal <=149 [facility] Comment on above: Performed By: #### 2 363111, 34636125, 4790223, 34298327, 70994250, 4377235 ####[facility] [address] [place] [address] PSA Screen, Totalon 11-14-19 23 Prostate specific Ag [Mass/Vol] 0.6 ng/mL Normal 0.1-3.5 [facility] Comment on above: Result Comment: The concentration of PSA determined by different manufacturers can vary due to differences in assay methods and reagent specificity. Values obtained from different assay methods cannot be used interchangeably. The methodology used for this result was chemiluminescence using [employer]'s Access Hy[employer]itech PSA reagent. Performed By: #### 2 000265, 73472981, 7742107, 01365716, 47656054, 0733728 ####[facility] [address] [place] [address] TSH With T4fr Reflexon 11-13 TSH Qn 3.86 m[IU]/L Normal 0.34-5.60 [facility] Comment on above: Performed By: #### 2 693220, 94697611, 3533682, 72657361, 43804774, 2626612 ####[facility] [address] [place] [address] eGFRon 11-13-2022 GFR/1.73 sq M.predicted among non-blacks MDRD (S/P/Bld) [Vol rate/Area] 76 mL/min/1.73 m2 Normal >=59 [facility] Comment on above: Order Comment: Order added by Discern Expert. Result Comment: Pipefitter Helper amita kidney disease could be indicated at eGFR's of less than 60 mL/min/1.73m2. Kidney failure is indicated at less than 15 mL/min/1.73m2. Performed By: #### 2 755646, 15723354, 8274378, 70390924, 22470023, 8783803 ####[facility] [address] [place] [address] Follow-Upon 08-30-2022 Follow-Up [id number] Sulaiman White 1980 M Date Provider Department Center 08/30/2022 421-LUCERO ROGERS MP ORTHO MPORTHO No family history on file Level of Service:30719 [place] POSTOP FOLLOW UP VISIT RELATED TO ORIGINAL PX Reason for Visit and Comments: Follow-up [056657] - [facility] R ankle follow up [facility] 36on 08-21-2022 36 Approving, but needs appt for additional refills. [facility] HPon 08-16-2022 HP H&P reviewed. The patient was examined and there are no changes to the H&P. [facility] OPNOTEon 08-16-2022 [facility] ORTHOPAEDIC SURGERY OPERATIVE REPORT Date of Surgery: 08/16/2022 Surgeon: Lucero Rogers MD Squaring Machine Operator: Smita Burton MD Preoperative Diagnosis: Symptomatic retained orthopedic hardware in right ankle Postoperative Diagnosis: Symptomatic retained orthopedic hardware in right ankle Procedures Performed: Removal of hardware from right distal fibula Anesthesia: General anesthesia IV Fluids: Per anesthesia record Tourniquet Time: n/a Estimated Blood Loss: Minimal Complications: None immediately apparent Implants: None implanted. Yohan 8-hole 1/3rd semitubular plate with 6 corresponding screws removed. Specimens: None Intraoperative Findings: Hardware in left distal fibula successfully removed. No immediate complications. Indications For Procedure: Sulaiman White is a 42 y.o. male who sustained a right distal fibula fracture at work in July 2021. He subsequently underwent ORIF on 07/20/[address] Howard. Over the last few months, he has had increasing lateral ankle pain with a popping sensation. Removal of hardware was offered to help improve his symptoms. Risks, benefits, and alternatives were discussed at length, and patient agreed to proceed with surgery. Procedure Detail: The patient was met in the preoperative holding area where their identity, procedure to be performed, and correct operative site were identified. The operative site was marked with the attending's initials. The patient was taken back to the operative theater where they were placed under general anesthesia without complication. The patient's right lower extremity was then prepped and draped in the usual sterile fashion. A preoperative timeout was performed, confirming the patient's identity, procedure to be performed, and correct operative site. Everyone present was in agreement. Preoperative antibiotics were administered. Prior to incision, 7mL of 0.5% marcaine with epinephrine were injected into the soft tissues over the lateral ankle. Using the patient's previous incisions, 2 incisions over the distal fibula were made, each measuring about 5 cm in length. Distally, sharp dissection was carried out down to the lateral malleolus, where the plate and screws were identified. More proximally, blunt dissection was used to dissect through the scar tissue and avoid potential damage to the superficial peroneal nerve, which was not identified during the case. Once the level of the plate had been reached both proximally and distally, the overlying soft tissue was stripped off with a Vaughan. The screw heads were revealed, and a hand screwdriver was used to remove the 3 screws in the distal fibula shaft and 3 screws in the lateral malleolus (6 screws total). A freer was then inserted under the plate proximally and was levered up to loosen it from the bone. This was then able to be removed through the distal incision. A rongeur was used to remove any bony protrusions. Both wounds were copiously irrigated. A deep dermal layer was approximated with 2-0 Vicryl, and the skin was closed with 3-0 Nylon. A sterile dry dressing was applied. The drapes were taken down and the patient was awoken from anesthesia without complication. They were transferred back to their hospital bed and taken to PACU in stable condition. Postoperative Plan: Patient will be discharged from PACU once medically appropriate. He will be weightbearing as tolerated to the right lower extremity, although we did recommend decreasing his activity over the next few days while recovering from surgery. He may remove his dressing from the right ankle in 5 days. He will be prescribed a short course of narcotic pain medications per protocol. He should also ice and elevate his right ankle as needed. Patient will follow-up with Dr. Rogers in clinic in 2 weeks for suture removal and clinical check. Dr. Lucero Rogers MD was present for the entirety of the case. Smita Burton MD Orthopaedic Surgery Resident, PGY-2 08/16/22 Normal [facility] POCT GLUCOSE METER UNSOLICIT ED RESULTSon 08-16-2022 Glucose [Mass/Vol] 98 mg/dL Normal 70-105 [facility] Comment on above: Result Comment: lweb [email or web address] Performed By: #### L [id number] ####[facility] ([facility]AK[facility])[address] [place] [address] Follow-Upon 08-04-2022 Follow-Up [id number] Sulaiman White 1980 M Date Provider Department Center 08/04/2022 421-LUCERO ROGERS MP ORTHO MPORTHO No family history on file Level of Service:04228 [place] OFFICE/OUTPATIENT ESTABLISHED MOD MDM 30-39 MIN (GC,57) Reason for Visit and Comments: Pain [136] Normal [facility] HPon 08-04-2022 HP Subjective Chief complaint: Chief Complaint Patient presents with Right Ankle - Pain 08/04/22 Sulaiman White is a 42 y.o. year old male [facility] presenting for evaluation of right ankle pain and popping s/p right distal fibula ORIF, DOS: 07/20/2021. Patient reports that over the past couple of months he has been having increasing pain localized to the lateral aspect of the ankle as well as some symptoms of popping or clicking over one of his lateral tendons. He states that this has been getting progressively worse. Activity makes this pain worse. Patient has been weightbearing as tolerated to his right lower extremity. He is also been attending physical therapy and home exercises without much relief of his symptoms. Denies any radiation of this pain proximally or distally into the toes. Denies any numbness or tingling of the right ankle or foot. Denies any fevers, chills, shortness of breath, chest pain. Previous Treatments: physical therapy and home exercises ROS: Denies fevers, chills, and other constitutional symptoms. Denies shortness of breath. One half PPD smoker. Patient History History reviewed. No pertinent surgical history. History reviewed. No pertinent past medical history. Objective General: Body mass index is 21.77 kg/m???. There were no vitals filed for this visit. No acute distress, comfortable Respiratory: Unlabored breathing with normal rate, no cough Cardiovascular: Warm well perfused extremities Psych: Appropriate mood behavior Right Foot: Inspection- no ecchymosis, no edema, prior surgical incision appears well-healed and well approximated without signs of dehiscence. No surrounding erythematous changes. no hind foot deformity, no midfoot deformity, no forefoot deformity Tender to palpation over posterior and anterior aspects of lateral malleolus Nontender to palpation over rest of ankle and foot. Ankle ROM: Dorsiflexion- 15??? Plantarflexion- 40??? Inversion-deferred Eversion-deferred No overt signs of peroneal tendon subluxation on exam. However, some evidence of Strength: Ankle Dorsiflexion 4/5 Plantarflexion 4/5 Sensation: intact over superficial peroneal, deep peroneal and tibial nerve distributions Gait: heel toe pattern Imaging: We have personally reviewed the following images and our independent interpretation is as follows: Radiographs of right ankle taken on 07/25/2022 demonstrate(s) stable hardware without osteolysis Assessment/Plan Sulaiman White is a 42 y.o. year old male with Retained orthopedic hardware s/p ORIF right distal fibula fracture, DOS: 07/20/2021. Discussed the nature of the disease as well as treatment options including conservative vs surgical interventions Conservative interventions including: Continued PT, stretching, home exercises Surgical interventions including: Hardware removal right ankle -Following long discussion of the risk, benefits, and alternatives to surgical treatment, patient has elected to proceed with hardware removal of the right ankle - C9 completed 08/02 -Preop labs pending -Consent obtained today in clinic, electronic -Return to clinic for surgical intervention, tentatively plan for August 16, 2022 -Call the orthopedic office any questions or concerns Cody Brock MD Orthopedic Surgery Resident Physician Pager: [phone] 08/04/22 9:04 AM By using the attestations below, the signing clinician agrees that I have read and verify that the documentation has been personally reviewed by me and ensure that the documentation accurately reflects the encounter. GC: I personally saw this patient on the day of the encounter, performed the urban portion(s) of the service and participated in the management and confirm the resident's documentation. Please note there may be an additional personal documentation from me. Normal [facility] Labon 08-04-2022 Lab [id number] Sulaiman White 1980 M Date Provider Department Center 08/04/2022 2244-[facility] MP LAB RESOURCE MP DRAW Medical Pavi No family history on file Normal [facility] MRSA/MSSA DNA NASALon 2022 MRSA DNA Negative Normal Negative [facility] Comment on above: Performed By: #### L [id number] ####[facility] H[facility] LAB (BEAKER)[address] [place] [address] MSSA DNA Negative Normal Negative [facility] Comment on above: Performed By: #### L [id number] ####[facility] LAB (GEOVANNY)[address] [place] [address] Prep for Procedureon 023 Prep for Procedure [id number] Melvin Whiteel 1980 M Date Provider Department Center 08/04/2022 LUCERO MUÑOZ MP ORTHO MPORTHO No family history on file [facility] Follow-Upon 07-25-2022 Follow-Up [id number] Melvin Whiteel 1980 M Date Provider Department Center 07/25/2022 VENKAT DEL ANGEL MP ORTHO MPORTHO No family history on file Level of Service:39493 [place] OFFICE/OUTPATIENT ESTABLISHED LOW MDM 20-29 MIN Reason for Visit and Comments: Follow-up [[id number]] - Review of xr [facility] 36on 07-19-2022 36 Approving, but needs appt for additional refills. [facility] 36on 06-19-2022 36 Approving, but needs appt for additional refills. [facility] 36on 05-22-2022 36 Approving, but needs appt for additional refills. [facility] 36on 04-24-2022 36 Approving, but needs appt for additional refills. [facility] Follow-Upon 04-18-2022 Follow-Up [id number] Melvin Whiteel 1980 M Date Provider Department Center 04/18/2022 VENKAT DEL ANGEL MP ORTHO MPORTHO No family history on file Level of Service:51983 [place] OFFICE/OUTPATIENT ESTABLISHED LOW MDM 20-29 MIN Reason for Visit and Comments: Follow-up [[id number]] - [facility] Pt here today for right ankle follow up with xr [facility] Refillon 03-28-2022 Refill [id number] Sulaiman White 1980 M Date Provider Department Center 03/28/2022 VENKAT DEL ANGEL MP ORTHO MPORTHO No family history on file Reason for Visit and Comments: Med Refill [[id number]] [facility] Follow-Upon 02-14-2022 Follow-Up [id number] Sulaiman White 1980 M Date Provider Department Center 02/14/2022 490-VENKAT SIFUENTES MP ORTHO MPORTHO No family history on file Level of Service:70427 [place] OFFICE/OUTPATIENT ESTABLISHED LOW MDM 20-29 MIN Reason for Visit and Comments: Follow-up [[id number]] - Pt present for right ankle pain, with review of xrays Normal [facility] ANKLE RIGHT 3 VWSon 12-24-19 22 ANKLE RIGHT 3 VWS [facility] Department of Radiology [address] [place] [id number] Patient Name: SULAIMAN WHITE : 1980 Sex: M Age: Race: White Pt. Location: 84 Patient Status: D Ordered Date: 12/23/2021 2:15:00 PM Completed Date: 12/23/2021 02:16 PM Requesting Provider: VENKAT SIFUENTES Attending Provider: VENKAT SIFUENTES Report Copy To: Signs & Symptoms: M25.571 Pain in right ankle and joints of right foot I10 History: Christy Comments: Exam: ANKLE RIGHT 3 [facility] ANKLE RIGHT 3 S 12/23/2021 2:16 PM CLINICAL INDICATIONS: M25.571 Pain in right ankle and joints of right foot I10 TECHNOLOGIST COMMENTS: follow/up surgery 07/20/2021 to right ankle QUESTION FOR THE RADIOLOGIST: PROTOCOL: AP,Lateral and Oblique views were obtained. COMPARISON: 11/11/2021 IMPRESSION: Sclerosis and remodeling indicates ongoing healing of the fractured fibula. Plate and screw fixation remains intact. No acute complication. Alignment is maintained Electronically signed: Lexy Burnett. Transcribed by: [email or web address], User Resident: Electronically Signed by: LEXY BURNETT @ 12/25/2021 02:51 PM Normal [facility] ANKLE RIGHT 3 Son 11-12-19 22 ANKLE RIGHT 3 S [facility] Department of Radiology [address] [place] [id number] Patient Name: SULAIMAN WHITE : 1980 Sex: M Age: Race: White Pt. Location: Patient Status: D Ordered Date: 11/11/2021 10:40:00 AM Completed Date: 11/11/2021 10:41 AM Requesting Provider: VENKAT SIFUENTES Attending Provider: VENKAT SIFUENTES Report Copy To: SELF, REFERRED Signs & Symptoms: M25.571 Pain in right ankle and joints of right foot I10 History: Christy Comments: Exam: ANKLE RIGHT 3 [facility] ANKLE RIGHT 3 [facility] 11/11/2021 10:41 AM SIGNS AND SYMPTOMS: M25.571 Pain in right ankle and joints of right foot I10 TECHNOLOGIST COMMENTS: History of right ankle surgery July 20, 2021. Ortho follow up. QUESTION FOR THE RADIOLOGIST: PROTOCOL: AP,Lateral and Oblique views were obtained. COMPARISON: October 12, 2021 FINDINGS: Side plate and screws fixate distal fibular fracture. Fracture lines remain visible. There is been some minor trabecular reorganization however no significant bony bridging. Hardware appears uncomplicated. Minor amount of residual lateral soft tissue swelling. IMPRESSION: * Stable alignment of incompletely healed distal fibular fracture and adjacent soft tissue swelling. Electronically signed: Brent Dooley. Transcribed by: [email or web address], User Resident: BRENT DOOLEY Electronically Signed by: BRENT DOOLEY @ 11/13/2021 02:39 PM I personally read this/these film(s) with this resident Normal [facility] ANKLE RIGHT 3 [facility] 10-13-19 22 ANKLE RIGHT 3 [facility] Department of Radiology [address] [place] [id number] Patient Name: SULAIMAN WHITE : 1980 Sex: M Age: Race: White Pt. Location: Patient Status: D Ordered Date: 10/12/2021 1:20:00 PM Completed Date: 10/12/2021 01:53 PM Requesting Provider: VENKAT SIFUENTES Attending Provider: VENKAT SIFUENTES Report Copy To: SELF, REFERRED Signs & Symptoms: S82.831A Oth fracture of upper and lower end of right fibula, init I10 History: Comments: evaluate Exam: ANKLE RIGHT 3 [facility] ANKLE RIGHT 3 [facility] 10/12/2021 1:53 PM CLINICAL INDICATIONS: S82.831A Oth fracture of upper and lower end of right fibula, init I10 TECHNOLOGIST COMMENTS: right ankle surgery 07/20/21 follow up QUESTION FOR THE RADIOLOGIST: evaluate PROTOCOL: AP,Lateral and Oblique views were obtained. COMPARISON: September 14, 2021 FINDINGS: Hardware is stable. Fracture alignment is stable. No acute complication IMPRESSION: No interval change Electronically signed: Lexy Peterson. Transcribed by: [email or web address], User Resident: Electronically Signed by: LEXY PETERSON @ 10/13/2021 02:03 PM Normal [facility] Comment on above: Order Comment: Evalu ate ANKLE RIGHT 3 [facility] 09-15-19 ANKLE RIGHT 3 [facility] Department of Radiology [address] [place] [phone] Patient Name: SULAIMAN WHITE : 1980 Sex: M Age: Race: White Pt. Location: Patient Status: D Ordered Date: 09/14/2021 1:30:00 PM Completed Date: 09/14/2021 01:34 PM Requesting Provider: VENKAT SIFUENTES Attending Provider: VENKAT SIFUENTES Report Copy To: SELF, REFERRED Signs & Symptoms: S82.831A Oth fracture of upper and lower end of right fibula, init I10 History: Christy Comments: Exam: ANKLE RIGHT 3 [facility] ANKLE RIGHT 3 [facility] 09/14/2021 1:34 PM CLINICAL INDICATIONS: S82.831A Oth fracture of upper and lower end of right fibula, init I10 TECHNOLOGIST COMMENTS: right ankle pain surgery - 07/20/21 f/u Subsequent follow-up of distal right fibular fracture. QUESTION FOR THE RADIOLOGIST: PROTOCOL: AP,Lateral and Oblique views were obtained. COMPARISON: Right ankle radiographs dated 08/29/2021 FINDINGS: No progressive healing appreciated at the site of comminuted fracture through the distal diaphysis of the right fibula. No hardware complications. Ankle mortise is maintained. IMPRESSION: No progressive healing at the site of comminuted fracture through the distal diaphysis of the right fibula. No hardware complications. Electronically signed: Carline Alejandre. Transcribed by: [email or web address], User Resident: Electronically Signed by: CARLINE ALEJANDRE @ 09/16/2021 10:25 AM Normal [facility] ANKLE RIGHT 3 [facility] 08-30-19 ANKLE RIGHT 3 [facility] Department of Radiology [address] [place] [phone] Patient Name: SULAMIAN WHITE : 1980 Sex: M Age: Race: White Pt. Location: Patient Status: D Ordered Date: 07/18/2021 10:05:00 AM Completed Date: 08/29/2021 01:52 PM Requesting Provider: DREW HOWARD Attending Provider: DREW HOWARD Report Copy To: Signs & Symptoms: S82.831A Oth fracture of upper and lower end of right fibula, init I10 History: Comments: Evaluate Exam: ANKLE RIGHT 3 [facility] ANKLE RIGHT 3 [facility] 08/29/2021 1:52 PM CLINICAL INDICATIONS: S82.831A Oth fracture of upper and lower end of right fibula, init I10 TECHNOLOGIST COMMENTS: right ankle surgery 07/20/21 follow up QUESTION FOR THE RADIOLOGIST: Evaluate PROTOCOL: AP,Lateral and Oblique views were obtained. COMPARISON: 08/01/2021 FINDINGS: Lateral plate-screw fixation of comminuted distal fibular fracture unchanged in alignment. Fracture lucencies remain visible. Ankle mortise is intact. No marked soft tissue swelling. Interval removal of the posterior plaster splint IMPRESSION: * Lateral plate-screw fixation of comminuted distal fibular fracture unchanged in alignment. Approved by:Gallo Bonilla08/30/2021 7:42 AM. I, Radha Lane,have reviewed the image(s) and agree with the findings in this report. Electronically signed: Radha Lane. Transcribed by: [email or web address], User Resident: GALLO HAIR Electronically Signed by: RADHA LANE @ 08/30/2021 11:45 AM I personally read this/these film(s) with this resident Normal [facility] Comment on above: Order Comment: Evalu ate FOOT RIGHT 2 [facility] 2 FOOT RIGHT 2 [facility] Department of Radiology [address] [place] [phone] Patient Name: SULAIMAN WHITE : 1980 Sex: M Age: Race: White Pt. Location: Patient Status: D Ordered Date: 08/29/2021 1:15:00 PM Completed Date: 08/29/2021 01:52 PM Requesting Provider: VENKAT SIFUENTES Attending Provider: Report Copy To: Signs & Symptoms: M79.671 Pain in right foot I10 History: Comments: evaluate Exam: FOOT RIGHT 2 [facility] FOOT RIGHT 2 S 08/29/2021 1:52 PM CLINICAL INDICATIONS: M79.671 Pain in right foot I10 TECHNOLOGIST COMMENTS: right ankle surgery 07/20/21 follow up QUESTION FOR THE RADIOLOGIST: evaluate PROTOCOL: AP(PA) and Lateral views were obtained. COMPARISON: 08/01/2021 FINDINGS: No acute fracture. No marked soft tissue swelling. Joint spaces are well-maintained. Lateral plate-screw fixation of distal fibular fracture without evidence of hardware complication. IMPRESSION: * No acute findings. Approved by:Gallo Bonilla08/30/2021 7:39 AM. I, Radha Lane,have reviewed the image(s) and agree with the findings in this report. Electronically signed: Radha Lane. Transcribed by: [email or web address], User Resident: GALLO HAIR Electronically Signed by: RADHA LANE @ 08/30/2021 11:44 AM I personally read this/these film(s) with this resident Normal [facility] Comment on above: Order Comment: Evalu ate ANKLE RIGHT 3 [facility] 08-02-19 22 ANKLE RIGHT 3 S [facility] Department of Radiology [address] [place] [phone] Patient Name: SULAIMAN WHITE : 1980 Sex: M Age: Race: White Pt. Location: Patient Status: Ordered Date: 08/01/2021 9:25:00 AM Completed Date: 08/01/2021 09:40 AM Requesting Provider: DREW HOWARD Attending Provider: Report Copy To: Signs & Symptoms: Z48.89 Encounter for other specified surgical aftercare I10 History: Comments: Evaluate Exam: ANKLE RIGHT 3 [facility] ANKLE RIGHT 3 S 08/01/2021 9:40 AM CLINICAL INDICATIONS: Z48.89 Encounter for other specified surgical aftercare I10 TECHNOLOGIST COMMENTS: Follow up right ankle surgery 07/20/21 QUESTION FOR THE RADIOLOGIST: Evaluate PROTOCOL: AP,Lateral and Oblique views were obtained. COMPARISON: 07/14/2021 FINDINGS: Lateral plate fixation of a comminuted distal fibular fracture in satisfactory alignment. No bony callus formation or osseous bridging noted. Surgical hardware is unremarkable appearing. The ankle mortise and talar dome appear intact. No additional acute fractures are identified. The tibiotalar, talonavicular, and subtalar joints are unremarkable. IMPRESSION: * Interval fixation of a comminuted distal fibular fracture in satisfactory alignment. Approved by:Aristeo Beltrán08/01/2021 9:56 AM. I, Rafy Trejo,have reviewed the image(s) and agree with the findings in this report. Electronically signed: Rafy Trejo. Transcribed by: [email or web address], User Resident: ARISTEO MEYER Electronically Signed by: RAFY TREJO @ 08/01/2021 10:04 AM I personally read this/these film(s) with this resident Normal [facility] Comment on above: Order Comment: Evalu ate FOOT RIGHT 2 [facility] 2 FOOT RIGHT 2 [facility] Department of Radiology [address] [place] [phone] Patient Name: SULAIMAN WHITE : 1980 Sex: M Age: Race: White Pt. Location: 84 Patient Status: O Ordered Date: 08/01/2021 10:10:00 AM Completed Date: 08/01/2021 10:29 AM Requesting Provider: VENKAT SIFUENTES Attending Provider: DREW HOWARD Report Copy To: Signs & Symptoms: M79.671 Pain in right foot I10 History: [place] Comments: Evaluate Exam: FOOT RIGHT 2 VWS FOOT RIGHT 2 VWS 08/01/2021 10:29 AM CLINICAL INDICATIONS: M79.671 Pain in right foot I10 TECHNOLOGIST COMMENTS: Patient complains of right foot pain since 07/20/2021. QUESTION FOR THE RADIOLOGIST: Evaluate PROTOCOL: AP(PA) and Lateral views were obtained. COMPARISON: None Impression: 1. There is no evidence of a fracture, subluxation, or dislocation. Joint space is well-preserved. Electronically signed: Rafy Trejo. Transcribed by: [email or web address], User Resident: Electronically Signed by: RAFY TREJO @ 08/01/2021 10:35 AM Normal [facility] Comment on above: Order Comment: Evalu ate *MRSA/MSSA DNA NASALon 07-20 *MRSA/MSSA DNA NASAL Clinical Report: (D) Specimen: NASAL SWAB Collected: 07/20/2021 17:31 Status: Final Last Updated: 07/20/2021 21:23 (1) No collection time noted on specimen or requisition. The collection time recorded is the time of receipt in the lab. MSSA DNA (Final) Negative MRSA DNA (Final) Negative Normal [facility] Comment on above: Order Comment: Evalu ate Performed By: #### [id number] ####[facility] ANKLE RIGHT 2 Son 07-21-19 ANKLE RIGHT 2 S [facility] Department of Radiology [address] [place] [address] Patient Name: SULAIMAN WHITE : 1980 Sex: M Age: Race: White Pt. Location: OUTP Patient Status: D Ordered Date: 07/20/2021 12:00:00 PM Completed Date: 07/20/2021 01:11 PM Requesting Provider: DREW HOWARD Attending Provider: DREW HOWARD Report Copy To: Signs & Symptoms: ORIF RIGHT FIBULA History: Comments: ORIF RIGHT FIBULA Exam: ANKLE RIGHT 2 [facility] EXAMINATION: ANKLE RIGHT 2 [facility] 07/20/2021 1:11 PM CLINICAL HISTORY: ORIF RIGHT FIBULA TECHNOLOGIST COMMENTS: Dr Howard used 29 seconds of fluoro time for right fibula orif singh c-arm in 1230 out 1310 QUESTION FOR THE RADIOLOGIST: ORIF RIGHT FIBULA TECHNIQUE: AP(PA) and Lateral views were obtained. COMPARISON: Comparison is made with the preoperative right ankle radiographs of 07/14/2021. FINDINGS: C-arm fluoroscopic assistance was provided. 28.6 seconds of the fluoroscopy time was utilized. Estimated radiation dose is 0.8 mGy. Multiple right ankle images in OR are obtained. There is open reduction internal fixation of the distal fibular fracture with plate and screws in place. IMPRESSION: See the discussion above. Electronically signed: Joe Freeman. Transcribed by: [email or web address], User Resident: Electronically Signed by: JOE FREEMAN @ 07/21/2021 07:59 AM Normal [facility] Comment on above: Order Comment: ORIF RIGHT FIBULA Operative Reporton 2 Operative Report MR#: [id number] S [facility] Pt. Name: Sulaiman White Room #: 0C Discharge Date: Birthdate: 1980 OPERATIVE REPORT DATE OF SURGERY: 07/20/2021 SURGEON: Drew Howard M.D. ASSISTANTS: 1. Smita Dean M.D. 2. Kelby Gamez M.D. 3. Andreas Henderson M.D. PREOPERATIVE DIAGNOSIS: Right distal fibular fracture. POSTOPERATIVE DIAGNOSIS: Right distal fibular fracture. PROCEDURE PERFORMED: Open reduction and internal fixation of right distal fibular fracture. ANESTHESIA: General. IV FLUIDS: Per anesthesia record. ESTIMATED BLOOD LOSS: 20 mL. COMPLICATIONS: None. SPECIMENS: None. IMPLANTS: [employer] 8-hole 1/3rd semitubular plate with associated 3.5 mm cortical and 4.0 mm cancellous screws. INDICATIONS FOR PROCEDURE: This is a 41-year-old male who sustained a right distal fibular fracture during a work related injury. The patient was initially seen at outside facility where he was provisionally splinted and referred to our clinic for followup. Upon evaluation in clinic, the patient was confirmed to have a distal fibular fracture. After discussing the risks, benefits, and alternatives to the procedure, the patient elected to proceed with open reduction and internal fixation of his right distal fibula as well as possible syndesmotic fixation if needed. PROCEDURE IN DETAIL: The patient was met in the preoperative holding area where his identity, procedure performed, correct operative site were identified. The operative extremity was marked by the attending initials. The patient was taken back to the operating theater and placed under general anesthesia without complication. The patient's right lower extremity was then prepped and draped in usual sterile fashion. A preoperative time-out was performed confirming the patient's identity, procedure being performed, and correct operative site. Everyone present was in agreement. Preoperative antibiotics were administered. We began by 1st localizing the location of the fracture with fluoroscopy. Due to the significant amount of comminution at the fracture site, we elected to bridge this area and perform [address] our lateral plate in order to preserve fracture hematoma. Once we had identified the levels for incisions, we exsanguinated the limb with the use of an Esmarch bandage followed by inflation of a nonsterile tourniquet. We began by 1st making our 2 laterally based incisions through skin and subcutaneous tissue. Blunt dissection was then taken down to the level of the bone. Care was taken to look for the superficial peroneal nerve, but it was not identified during the approach. Once we had reached bone, we incised the periosteum and bluntly removed this from the bone in the distal and proximal incisions with the use of a urban elevator. We did not disturb the periosteum between the incisions at the level of fracture site. At this time, we selected our 8-hole [employer] 1/3 semitubular plate and passed it along the bone in the 2 incisions from proximal to distal. We then confirmed appropriate plate length and position with AP and lateral fluoroscopy. We did contour the plate distally and proximally to provide good fit on the bone. Once we were confirmed in appropriate position, both upon direct visualization of fluoroscopy, we then placed 2 unicortical cancellous screws distally. These did have adequate purchase. Traction was then applied to the foot in order to restore fibular length. Once this was achieved, we then placed 3 bicortical screws in the proximal aspect of the plate. At this time, fluoroscopy demonstrate continued appropriate reduction. We then placed an additional cancellous screw in the distal aspect of the plate. At this time, we obtained our final AP and lateral images, which demonstrate appropriate fracture reduction and hardware placement. We then performed a stress exam of the ankle and there was no medial clear space widening, nor was there widening of the tibiofibular joint, indicating that the patient did not have a syndesmotic injury at this time that would require stabilization. We then copiously irrigated the wounds with dilute Betadine followed by normal saline. The wounds were then closed in layers with 2-0 Vicryl for the deep dermal layer and 3-0 Novafil for the skin. Sterile dressings were then applied and a well-padded short-leg splint was applied as well. Sterile drapes were taken down and the tourniquet was deflated. The patient was then awoken from anesthesia and transferred to PACU in stable condition. POSTOPERATIVE PLAN: The patient will be nonweightbearing to the right lower extremity. He will be discharged home per PACU once appropriate. The patient was discharged home in a short course of narcotic pain medication protocol as well as stool softener, and short course of antibiotics. The patient will be also b (more content not included)... Normal [facility] POC GLUCOSE LABon 07-20-2021 Glucose [Mass/Vol] 106 mg/dL High 70-100 [facility] Comment on above: Performed By: #### [id number] #### [facility] [address] [facility]. [address] POC SARS COV2 IDon 2 SARS-CoV-2 (COVID-19) RNA RONIT+probe Ql (Unsp spec) Negative Normal NEGATIVE [facility] Comment on above: Result Comment: ID N OW COVID-19 assay performed on the ID NOW Instrument is a rapid molecular in vitro diagnostic test utilizing an isothermal nucleic acid amplification technology intended for the qualitative detection of nucleic acid from the SARS-CoV-2 virus in direct anterior nasal (nasal), nasopharyngeal or throat swabs from individuals who are suspected of COVID-19 by their healthcare provider within the first seven days of the onset of symptoms. Testing is limited to laboratories certified under the Clinical Laboratory Improvement Amendments of 1988 (CLIA), 42 U.S.C. ???263a,that meet the requirements to perform high, moderate, or waived complexity tests. The ID NOW COVID-19 assay is also authorized for use at the Point of Care (POC), i.e., in patient care settings operating under a CLIA Certificate of Waiver, Certificate of Compliance, or Certificate of Accreditation. Performed By: #### 3 1921 #### [facility] [address] *MRSA/MSSA DNA NASALon 07-18 *MRSA/MSSA DNA NASAL Clinical Report: (D) Specimen: NASAL SWAB Collected: 07/18/2021 10:21 Status: Final Last Updated: 07/18/2021 15:35 MSSA DNA (Final) Negative MRSA DNA (Final) Negative Normal [facility] Comment on above: Performed By: #### 3 [id number] #### [facility] [address] [facility]. [address] *SARS-CoV-2 COVID-19on 07-18 SARS-CoV-2 (COVID-19) RNA RONIT+probe Ql (Unsp spec) Not detected Normal Not Detected [facility] Comment on above: Order Comment: The A ptima SARS-CoV-2 assay is a nucleic acid amplification test intended for the qualitative detection of RNA from SARS-CoV-2 isolated and purified from nasopharyngeal (PUBLIC HEALTH EPIDEMIOLOGIST),oropharyngeal (OP), nasal swab, sputum, and bronchoalveolar lavage (BAL) specimens from patients with signs and symptoms of infection who are suspected of COVID-19. Results are for the identification of SARS-CoV-2 RNA. The SARS-CoV-2 RNA is generally detectable during the acute phase of infection. The Aptima SARS-CoV-2 Assay on the [employer] [place] [employer] [place] Fusion system is intended for use by laboratory personnel specifically instructed and trained in the operation of the [place] and [place] system. The Aptima SARS-CoV-2 assay is only for use under the Food and Drug Administration Emergency Use Authorization. Testing is limited to laboratories certified under the Clinical Laboratory Improvement Amendments of 1988 (CLIA), 42 U.S.C. ???263a, to perform high complexity tests. Not Detected: Not detected does not preclude SARS-CoV-2 infection and should not be used as the sole basis for patient management decisions. Not detected results must be combined with clinical observations, patient history, and epidemiological information. Performed By: #### 3 [id number] #### [facility] [address] APTTon 07-18-2021 aPTT Coag (Bld) [Time] 28.9 s Normal 25.0-35.0 [facility] Comment on above: Result Comment: ALL RESULTS MUST BE INTERPRETED WITH RESPECT TO BLOOD DRAWING ARTIFACT OR DILUTION ERROR OF ANTICOAGULANT AT THE TIME OF SAMPLING. THE APTT SHOULD NOT BE USED TO MONITOR UNFRACTIONATED HEPARIN THERAPY, THIS LABORATORY NO LONGER HAS AN ESTABLISHED THERAPEUTIC RANGE BASED ON THE APTT. IT IS RECOMMENDED THAT THE UFH - HEPARIN ASSAY (ANTI-XA ACTIVITY) BE USED FOR THIS PURPOSE. Performed By: #### 5 7307, [id number] ####[facility] [place] [address], [facility] BASIC METABOLIC PANELon 03-0 Calcium [Mass/Vol] 8.9 mg/dL Normal 8.6-10.3 [facility] Comment on above: Performed By: #### 3 727, 75442 ####[facility] [place] [address], [facility] [place] Chloride [Moles/Vol] 102 mmol/L Normal 98-107 [facility] Comment on above: Performed By: #### 3 727, 23422 ####[facility] [place] [address], [facility] [place] CO2 [Moles/Vol] 26 mmol/L Normal 21-31 [facility] Comment on above: Performed By: #### 3 727, 89103 ####[facility] [place] [address], [facility] [place] Creatinine [Mass/Vol] 1.10 mg/dL Normal 0.70-1.30 [facility] Comment on above: Performed By: #### 3 727, 07659 ####[facility] [place] [address], [place] GFR/1.73 sq M.predicted among blacks MDRD (S/P/Bld) [Vol rate/Area] mL/min/{1.73_m2} Normal >60 [facility] Comment on above: Performed By: #### 3 727, 61022 ####[place] [address] [place] [address], [place] GFR/1.73 sq M.predicted among non-blacks MDRD (S/P/Bld) [Vol rate/Area] mL/min/{1.73_m2} Normal >60 [facility] Comment on above: Performed By: #### 3 727, 00745 ####[facility] Glucose [Mass/Vol] 99 mg/dL Normal 70-100 [facility] Comment on above: Performed By: #### 3 727, 73827 ####[facility] [facility].[address] Potassium [Moles/Vol] 4.2 mmol/L Normal 3.5-5.1 [facility] Comment on above: Performed By: #### 3 727, 20525 ####[facility] [facility].[address] Sodium [Moles/Vol] 135 mmol/L Low 136-145 [facility] Comment on above: Performed By: #### 3 727, 67041 ####[facility] [facility].[address] Urea nitrogen [Mass/Vol] 19 mg/dL Normal 7-25 [facility] Comment on above: Performed By: #### 3 727, 46241 ####[facility] [facility].[address] CBC W/DIFFon 07-18-2021 ABS IMM GRANS 0.0 10*3/uL Normal 0.0-0.2 [facility] Comment on above: Performed By: #### 5 3 ####[facility] [facility].[address] ABS NEUTROPHILS 5.5 10*3/uL Normal 1.6-7.6 [facility] Comment on above: Performed By: #### 5 3 ####[facility] Basophils (Bld) [#/Vol] 0.0 10*3/uL Normal 0.0-0.2 [facility] Comment on above: Performed By: #### 5 0103 ####[facility]3000 [facility] [place] [address], [facility] [place] Basophils/100 WBC (Bld) 0.5 % Normal 0.0-1.0 [facility] Comment on above: Performed By: #### 5 3 ####[facility] [place] [address], [facility] [place] Eosinophils (Bld) [#/Vol] 0.2 10*3/uL Normal 0.0-0.5 [facility] Comment on above: Performed By: #### 102 ####[facility] Eosinophils/100 WBC (Bld) 2.9 % Normal 0.0-6.0 [facility] Comment on above: Performed By: #### 5 3 ####[facility] Erythrocyte distribution width (RBC) [Ratio] 12.5 % Normal 11.5-15.0 [facility] Comment on above: Performed By: #### 3 ####[facility] Hematocrit (Bld) [Volume fraction] 38.5 % Low 39.0-50.0 [facility] Comment on above: Performed By: #### 5 3 ####[facility] Hemoglobin (Bld) [Mass/Vol] 13.0 g/dL Normal 13.0-17.0 [facility] Comment on above: Performed By: #### 5 3 ####[facility] IMMATURE GRANS 0.5 % Normal 0.0-1.0 [facility] Comment on above: Performed By: #### 5 0103 ####[address] Lymphocytes (Bld) [#/Vol] 1.8 10*3/uL Normal 1.2-4.0 [facility] Comment on above: Performed By: #### 5 0103 ####[address] Lymphocytes/100 WBC (Bld) 21.9 % Normal 20.0-45.0 [facility] Comment on above: Performed By: #### 5 3 ####[address] MCH (RBC) [Entitic mass] 31.1 pg Normal 27.0-33.0 [facility] Comment on above: Performed By: #### 5 3 ####[address] MCHC (RBC) [Mass/Vol] 33.8 g/dL Normal 32.0-35.0 [facility] Comment on above: Performed By: #### 5 3 ####[address] MCV (RBC) [Entitic vol] 92.1 fL Normal 82.0-98.0 [facility] Comment on above: Performed By: #### 5 3 ####[address] Monocytes (Bld) [#/Vol] 0.6 10*3/uL Normal 0.1-1.0 [facility] Comment on above: Performed By: #### 5 3 ####[facility] [place] [address], [facility] [place] MONOS 7.5 % Normal 5.0-12.0 [facility] Comment on above: Performed By: #### 5 0103 ####[facility] [facility] [place] [address], [facility] [place] Neutrophils/100 WBC (Bld) 66.7 % Normal 40.0-72.0 [facility] Comment on above: Performed By: #### 5 0103 ####[facility] [facility] [place] [address], [facility] [place] Nucleated RBC/100 WBC (Bld) [Ratio] 0 % Normal 0-0 [facility] Comment on above: Performed By: #### 5 0103 ####[facility] [facility] [place] [address], [facility] [place] PLAT CNT 283 10*3/uL Normal 150-400 [facility] Comment on above: Performed By: #### 5 0103 ####[facility] [facility] [place] [address], [facility] [place] RBC (Bld) [#/Vol] 4.18 10*6/uL Low 4.20-5.70 [facility] Comment on above: Performed By: #### 5 0103 ####[facility] [facility] [place] [address], [facility] [place] WBC (Bld) [#/Vol] 8.23 10*3/uL Normal 4.00-10.60 [facility] Comment on above: Performed By: #### 5 0103 ####[facility] [facility].[address] PROTHROMBIN TIMEon 2 INR Coag (PPP) [Relative time] 0.96 {INR} Normal 0.91-1.16 [facility] Comment on above: Result Comment: ACCC P RECOMMENDED INR FOR WARFARIN THERAPY ------ ------- CONDITION INR PROPHYLAXIS OF VENOUS THROMBOSIS 2-3 (HIGH-RISK SURGERY) TREATMENT OF VENOUS THROMBOSIS 2-3 TREATMENT OF PULMONARY EMBOLISM 2-3 PREVENTION OF SYSTEMIC EMBOLISM: 2-3 ACUTE MYOCARDIAL INFARCTION TISSUE HEART VALVES VALVULAR HEART DISEASE ATRIAL FIBRILLATION RECURRENT SYSTEMIC EMBOLISM MECHANICAL HEART VALVE 2.5-3.5 FROM: ORAL ANTICOAGULANTS. MECHANISM OF ACTION, CLINICAL EFFECTIVENESS, AND OPTIMAL THERAPEUTIC RANGE. CHEST 1995;108:231S-246S. Performed By: #### 5 7307, [id number] ####[place] [address] PT Coag (PPP) [Time] 12.7 s Normal 12.3-14.8 [facility] Comment on above: Result Comment: ALL RESULTS MUST BE INTERPRETED WITH RESPECT TO BLOOD DRAWING ARTIFACT OR DILUTION ERROR OF ANTICOAGULANT AT THE TIME OF SAMPLING. Performed By: #### 5 7307, 57025 ####[place] [address] VITAMIN D 25-HYDROXYon 07-18 VITAMIN D 25-OH 18.8 ng/mL Low 30.0-80.0 [facility] Comment on above: Result Comment: >80. 0 Toxicity possible Performed By: #### 3 0728, 34177 ####[address] XR ANKLE RT MIN 3 VIEWSon XR ANKLE RT MIN 3 VIEWS EXAM: XR ANKLE RT MIN 3 VIEWS HISTORY: Arthralgia of the ankle and/or foot COMPARISON: None. TECHNIQUE: 3 views of the right ankle were obtained. FINDINGS: There is a mildly comminuted and minimally displaced fracture through the distal right fibular diametaphysis. The ankle mortise appears to be congruent. There is soft tissue edema overlying the lateral malleolus. There is no significant right ankle joint effusion. IMPRESSION: 1. Mildly comminuted and minimally displaced fracture through the distal right fibular diametaphysis. Electronically authenticated by: Estrellita KWAN Date: 2021-07-14 05:45 Normal [facility] XR Hip Complete Righton 04-13 XR Hip Complete Right HISTORY: Pain, popping FINDINGS: Normal hip joint space. No pincer or CAM deformities. No cortical or stress fracture. IMPRESSION: Minimal arthritis. 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 Martha Schmid Basophils/100 WBC (Bld) 0.4 % Normal 0.2-2.0 [facility] Comment on above: Performed By: #### C BC #### [facility] [address] [place] [address] Dr. Martha Schmid EO # 0.3 103/ul Normal 0.0-0.7 [facility] Comment on above: Performed By: #### C BC #### [facility] [address] [place] [address] [address] Martha Schmid Eosinophils/100 WBC (Bld) 4.2 % Normal 0.9-7.0 [facility] Comment on above: Performed By: #### C BC #### [facility] [address] [place] [address] [address] Martha Schmid Erythrocyte distribution width (RBC) [Ratio] 12.5 % Normal 11.0-15.0 [facility] Comment on above: Performed By: #### C BC #### [facility] [address] [place] [address] Dr. Martha Schmid Hematocrit (Bld) [Volume fraction] 39.7 % Critically low 42.0-54.0 [facility] Comment on above: Performed By: #### C BC #### [facility] [address] [place] [address] Dr. Martha Schmid Hemoglobin (Bld) [Mass/Vol] 13.1 g/dL Critically low 14.0-18.0 [facility] Comment on above: Performed By: #### C BC #### [facility] [address] [place] [address] Dr. Martha Schmid IG # 0.02 10e3/ul Normal 0.00-0.03 [facility] Comment on above: Performed By: #### C BC #### [facility] [address] [place] [address] Dr. Martha Schmid IG % 0.3 % Normal 0.0-0.5 [facility] Comment on above: Performed By: #### C BC #### [facility] [address] [place] [address] Dr. Martha Schmid LYMPH # 1.9 103/ul Normal 1.2-3.8 [facility] Comment on above: Performed By: #### C BC #### [facility] [address] [place] [address] Dr. Martha Schmid Lymphocytes/100 WBC (Bld) 24.4 % Normal 20.5-60.0 [facility] Comment on above: Performed By: #### C BC #### [facility] [address] [place] [address] Dr. Martha Schmid MANUAL DIFF REQ NO Normal [facility] Comment on above: Performed By: #### C BC #### [facility] [address] [place] [address] Dr. Martha Schmid MCH (RBC) [Entitic mass] 31.3 pg Normal 25.9-34.0 [facility] Comment on above: Performed By: #### C BC #### [facility] [address] [place] [address] Dr. Martha Schmid MCHC (RBC) [Mass/Vol] 33.0 g/dL Normal 29.9-35.2 [facility] Comment on above: Performed By: #### C BC #### [facility] [address] [place] [address] [address] Martha Schmid MCV (RBC) [Entitic vol] 94.7 fL Critically high 80.0-94.0 [facility] Comment on above: Performed By: #### C BC #### [facility] [address] [place] [address] [address] Martha Schmid MONO # 0.6 103/ul Normal 0.3-0.8 [facility] Comment on above: Performed By: #### C BC #### [facility] [address] [place] [address] [address] Martha Schmid Monocytes/100 WBC (Bld) 8.2 % Normal 1.7-12.0 [facility] Comment on above: Performed By: #### C BC #### [facility] [address] [place] [address] [address] Martha Schmid NEUT # 4.9 103/ul Normal 1.4-6.5 [facility] Comment on above: Performed By: #### C BC #### [facility] [address] [place] [address] [address] Martha Schmid Neutrophils/100 WBC (Bld) 62.5 % Normal 43.0-75.0 [facility] Comment on above: Performed By: #### C BC #### [facility] [address] [place] [address] [address] Martha Schmid Platelet mean volume (Bld) [Entitic vol] 9.6 fL Normal 9.5-13.5 [facility] Comment on above: Performed By: #### C BC #### [facility] [address] [place] [address] [address] Martha Schmid PLT 247 103/ul Normal 150-450 [facility] Comment on above: Performed By: #### C BC #### [facility] [address] [place] [address] [address] Martha Schmid RBC 4.19 106/ul Critically low 4.70-6.10 [facility] Comment on above: Performed By: #### C BC #### [facility] [address] [place] [address] Dr. Martha Schmid WBC 7.8 103/ul Normal 4.0-11.0 [facility] Comment on above: Performed By: #### C BC #### [facility] [address] [place] [address] [address] Martha Schmid GLYCOHEMOGLOBIN A1Con 2020 ADA RECOMMENDATION ADA THERAPEUTIC TARGET 6.0 - 7.0 ACTION SUGGESTED > 7.0 Normal [facility] Comment on above: Performed By: #### A 1C #### [facility] [address] [place] [address] Dr. Martha Schmid Glucose [Mass/Vol] 108 mg/dL Normal [facility] Comment on above: Performed By: #### A 1C #### [facility] [address] [place] [address] Dr. Martha Schmid HbA1c (Bld) [Mass fraction] 5.4 % Normal <=6.0 [facility] Comment on above: Performed By: #### A 1C #### [facility] [address] [place] [address] Dr. Martha Schmid LIPID PROFILEon 04-12-2021 CHOL-HDL RATIO NORM SEE BELOW Normal [facility] Comment on above: Result Comment: 3.3 - 4.4 LOW RISK 4.4 - 7.1 AVERAGE RISK 7.1 - 11.0 MODERATE RISK >11.0 HIGH RISK Performed By: #### C MP, LIPID #### [facility] [address] [place] [address] Dr. Martha Schmid Cholesterol [Mass/Vol] 181 mg/dL Normal <=200 [facility] Comment on above: Performed By: #### C MP, LIPID #### [facility] [address] [place] [address] Dr. Martha Schmid Cholesterol in HDL [Mass/Vol] 44 mg/dL Normal [facility] Comment on above: Performed By: #### C MP, LIPID #### [facility] [address] [place] [address] Dr. Martha Schmid Cholesterol in LDL [Mass/Vol] 118.4 mg/dL Normal [facility] Comment on above: Performed By: #### C MP, LIPID #### [facility] [address] [place] [address] Dr. Martha Schmid Cholesterol.total/C holesterol in HDL [Mass ratio] 4.1 {ratio} Normal [facility] Comment on above: Performed By: #### C MP, LIPID #### [facility] [address] [place] [address] Dr. Martha Schmid HDL NORMAL > or = 60 mg/dl - LOW CARDIOVASCULAR RISK <40 mg/dl - HIGH CARDIOVASCULAR RISK Normal [facility] Comment on above: Performed By: #### C MP, LIPID #### [facility] [address] [place] [address] Dr. Martha Schmid LDL CALC NORMAL SEE BELOW Normal [facility] Comment on above: Result Comment: <100 mg/dl OPTIMAL 100 - 129 mg/dl NEAR OR ABOVE OPTIMAL 130 - 159 mg/dl BORDERLINE HIGH 160 - 189 mg/dl HIGH >190 mg/dl VERY HIGH Performed By: #### C MP, LIPID #### [facility] [address] [place] [address] Dr. Martha Schmid Triglyceride [Mass/Vol] 93 mg/dL Normal <=150 [facility] Comment on above: Performed By: #### C MP, LIPID #### [facility] [address] [place] [address] Dr. Martha Schmid VLDL CALC 18.6 mg/dL Normal [facility] Comment on above: Performed By: #### C MP, LIPID #### [facility] [address] [place] [address] Dr. Martha Schmid PROF 14(COMP METB)on 021 Albumin [Mass/Vol] 3.9 g/dL Normal 3.5-5.0 [facility] Comment on above: Performed By: #### C MP, LIPID #### [facility] [address] [place] [address] Dr. Martha Schmid Albumin/Globulin [Mass ratio] 1.1 {ratio} Normal [facility] Comment on above: Performed By: #### C MP, LIPID #### [facility] [address] [place] [address] [address] Martha Schmid ALP [Catalytic activity/Vol] 53 U/L Normal 38-126 [facility] Comment on above: Performed By: #### C MP, LIPID #### [facility] [address] [place] [address] [address] Martha Schmid ALT [Catalytic activity/Vol] 25 U/L Normal 21-72 [facility] Comment on above: Performed By: #### C MP, LIPID #### [facility] [address] [place] [address] [address] Martha Schmid Anion gap [Moles/Vol] 10.4 mmol/L Normal [facility] Comment on above: Performed By: #### C MP, LIPID #### [facility] [address] [place] [address] Dr. Martha Schmid AST [Catalytic activity/Vol] 18 U/L Normal 17-59 [facility] Comment on above: Performed By: #### C MP, LIPID #### [facility] [address] [place] [address] [address] Martha Schmid Bilirubin [Mass/Vol] 0.4 mg/dL Normal 0.2-1.3 [facility] Comment on above: Performed By: #### C MP, LIPID #### [facility] [address] [place] [address] [address] Martha Schmid Calcium [Mass/Vol] 9.4 mg/dL Normal 8.4-10.2 [facility] Comment on above: Performed By: #### C MP, LIPID #### [facility] [address] [place] [address] [address] Martha Schmid Chloride [Moles/Vol] 102 mmol/L Normal 98-107 [facility] Comment on above: Performed By: #### C MP, LIPID #### [facility] [address] [place] [address] [address] Martha Schmid CO2 [Moles/Vol] 29.9 mmol/L Normal 22.0-30.0 [facility] Comment on above: Performed By: #### C MP, LIPID #### [facility] [address] [place] [address] [address] Martha Schmid Creatinine [Mass/Vol] 0.98 mg/dL Normal 0.66-1.25 [facility] Comment on above: Performed By: #### C MP, LIPID #### [facility] [address] [place] [address] [address] Martha Schmid EGFR-AF BURMESE >60 Normal >=60 [facility] Comment on above: Performed By: #### C MP, LIPID #### [facility] [address] [place] [address] [address] Martha Schmid EGFR-NON AF BURMESE >60 Normal >=60 [facility] Comment on above: Performed By: #### C MP, LIPID #### [facility] [address] [place] [address] [address] Martha Schmdi Globulin (S) [Mass/Vol] 3.6 g/dL Normal [facility] Comment on above: Performed By: #### C MP, LIPID #### [facility] [address] [place] [address] [address] Martha Schmid Glucose [Mass/Vol] 89 mg/dL Normal 74-106 [facility] Comment on above: Performed By: #### C MP, LIPID #### [facility] [address] [place] [address] [address] Martha Schmid Potassium [Moles/Vol] 4.3 mmol/L Normal 3.4-5.0 [facility] Comment on above: Performed By: #### C MP, LIPID #### [facility] [address] [place] [address] [address] Martha Schmid Protein [Mass/Vol] 7.5 g/dL Normal 6.1-8.2 [facility] Comment on above: Performed By: #### C MP, LIPID #### [facility] [address] [place] [address] [address] Martha Schmid Sodium [Moles/Vol] 138 mmol/L Normal 137-145 [facility] Comment on above: Performed By: #### C MP, LIPID #### [facility] [address] [place] [address] [address] Martha Schmid Urea nitrogen [Mass/Vol] 16.0 mg/dL Normal 9.0-20.0 [facility] Comment on above: Performed By: #### C MP, LIPID #### [facility] [address] [place], [place] [address] Dr. Martha Schmid Urea nitrogen/Creatinine [Mass ratio] 16.3 mg/mg Normal [facility] Comment on above: Performed By: #### C MP, LIPID #### [facility] [address] [address] [address] Martha Schmid Encounters Encounter Date Encounter Type Care Provider Facility Start: 03-12-2023 End: 03-13-2023 ambulatory Catarino Palafox MD Facility:[facility] Start: 02-19-2023 End: 02-20-2023 ambulatory Catarino Palafox MD Facility:[facility] Start: 01-29-2023 End: 01-30-2023 ambulatory Catarino Palafox MD Facility:[facility] Start: 01-11-2023 End: 01-12-2023 ambulatory DO Aishwarya S. Nareshauer Facility[facility] [place] [facility] [place] Start: 01-11-2023 End: 01-11-2023 Patient encounter procedure Aishwarya S. Nareshauer [facility] Start: 12-19-2022 End: 12-20-2022 ambulatory DO Aishwarya S. Yulytenauer Facility:[facility] Start: 12-19-2022 End: 12-19-2022 Off-Site [facility] [place] Start: 12-01-[address] [facility] Start: 11-21-2022 End: 11-22-2022 ambulatory BERNIE Chapman Facility:[facility] Start: 11-16-2022 ambulatory DO Gorham Wittenauer Fac ility:[facility] Start: 11-13-2022 End: 11-14-2022 ambulatory MANAGER CARDIOVASCULAR Yolande L Adela Facility:[facility] Start: 11-13-2022 End: 11-13-2022 Lab Drop off Yolande L Adela [facility] Start: 11-10-2022 ambulatory DO Aishwarya Montano Fac ility:[facility] Start: 08-30-2022 ambulatory [facility] Start: 08-16-2022 End: 08-16-2022 ambulatory [facility] Start: 08-04-2022 ambulatory [facility] Start: 07-25-2022 End: 07-26-2022 ambulatory [facility] Start: 07-24-2022 End: 07-25-2022 ambulatory [facility] Start: 04-18-2022 End: 04-19-2022 ambulatory [facility] Start: 02-14-2022 End: 02-15-2022 ambulatory [facility] Start: 07-20-2021 End: 07-21-2021 ambulatory DREW HOWARD Facility:[facility] Start: 07-14-2021 End: 07-14-[address] KOTA VARGHESE Facility: Start: 06-21-2021 End: 06-22-2021 ambulatory SHAIKH CHARITO Facility: Start: 05-13-2021 ambulatory SHAIKH CHARITO Facility: [facility] Start: 05-10-2021 End: 05-11-[address] TWYLA HUGHES Facility:[facility] Start: 04-16-2021 Encounter for genera l adult medical examination without abnormal findings SHAIKH CHARITO [facility] Start: 04-12-2021 End: 04-13-2021 ambulatory SHAIKH CHARITO Facility:[facility] Start: 04-12-2021 End: 04-13-2021 Encounter for general adult medical examination without abnormal findings SHAIKH CHARITO Facility: Procedures Date Procedure Procedure Detail Performing Clinician Start: 12-01-2022 Follow-up visit Follow-up RUBY ROGERS Start: 05-14-2022 Injury of right ankle J bimal Adela Start: 05-14-2021 Injury of right ankle J bimal Adela Appendectomy Yolande Orad Right elbow region structure (body structure) Yolande Adela Structure of carpal canal (body structure) Yolande Adela Payers Date Payer Category Payer Unknown [id number] 2021 Worker's Compensation 1978 Unknown [id number] 2.16.84 [id number] 1978 Unknown [id number] 2.16.84 [id number] 1978 Unknown [id number] 2.16.84 [id number] 1978 Unknown [id number] 2.16.84 [id number] 1978 Unknown [id number] 2.16.84 [id number] 1978 Unknown [id number] 2.16.8 [id number] 1978 Unknown [id number] 2.16. [id number] 1978 Unknown [id number] 2.16. [id number] 1978 Unknown [id number] 2.16. 840.1.036486.3.579.2.196 1978 Unknown [id number] 2.16.8 40.1.825130.3.579.2.727 1978 Unknown [id number] 2.16.8 40.1.049150.3.579.2.727 1978 Unknown [id number] 2.16.8 40.1.468463.3.579.2.727 1978 Unknown [id number] 2.16.8 40.1.890536.3.579.2.727 1978 Unknown [id number] 2.16.8 40.1.179809.3.579.2.727 1978 Unknown [id number] 2.16.8 [id number] 1978 Unknown [id number] 2.16.8 [id number] 1959 Self-pay 1959 Unknown [id number] 1959 Unknown [id number] Social History Date Type Detail Facility Start: 11-13-2022 End: 12-19-2022 Tobacco smoking status Light tobacco smoker (finding) [facility] Tobacco smoking status Never [facility] Sex Assigned At Male [facility] Clinical Notes 04-22-2021 to 12-19-2022 Radiology Note Date & Type Note Facility 12-19-2022 Evaluation + Plan note Future Scheduled TestsCT Head or Brain w/o Contrast 12/19/22 [facility] [place] 12-01-2022 Note Orthopedic Surgery Subjective Chief complaint: Chief Complaint Patient presents with Right Ankle - Follow-up Sulaiman White is a 42 y.o. year old male presenting for follow up from removal of right distal fibula hardware 08/16/22. He reports doing well with minimal pain unless he has to walk or stand for a long time. His pain only gets to a 4/10. He takes tramadol and Ibuprofen for pain that helps. He is not in PT anymore but was approved for dry needling. He has only had one appointment so far. He mentions that he feels a rubbing and rolling sensation of the tendon posterior the the lateral malleolus with associated popping. This only happens when he everts his ankle. He is continuing ROM exercises. He is also back to work on hour restrictions. 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 Patient History Past Surgical History: Procedure Laterality Date ANKLE SURGERY Right 07/20/2021 APPENDECTOMY CARPAL TUNNEL RELEASE KIDNEY SURGERY LACERATION REPAIR Past Medical History: Diagnosis Date Fractures Joint pain Objective General: Body mass index is 21.31 kg/m???. No acute distress, comfortable Respiratory: Unlabored breathing with normal rate, no cough Cardiovascular: Warm well perfused extremities Psych: Appropriate mood behavior Foot/Ankle Musculoskeletal Exam Gait Antalgic: right Limp: right Limp comment: mild Inspection Right Erythema: none Edema: none Ecchymosis: none Deformity: none Previous ankle incision: lateral Incision: well-healed Palpation Right Increased warmth: none Masses: none Crepitus: none Range of Motion Right Right foot/ankle range of motion is normal and full. Active Dorsiflexion: 15 Active Plantar Flexion: 45 Left Active Dorsiflexion: 20 Active Plantar Flexion: 50 Strength Right Tibialis anterior: 4+/5. Gastroc/soleus: 4+/5. Tibialis posterior: 4+/5. Peroneals: 4+/5. Neurovascular Right Right foot/ankle neurovascular exam is normal. General Scleral icterus: no Labored breathing: no Psychiatric: no acute distress Neurological: alert Skin: intact No dislocation of the peroneal tendons. Possibly some subtle subluxation and with clicking/popping with eversion. Imaging: None done today Assessment/Plan Sulaiman White is a 42 y.o. year old male is 3 months post op from removal of ankle hardware. He has great ROM and seems to be doing well. Incision completely healed. [place] some peroneal popping without dislocation on eversion of the ankle. PLAN: - continue ROM and dry needling appointments - Follow up in 6 months for clinical evaluation and to see if improvement to his symptoms and peroneal irritation. Jossie Bedoya MS3 [facility] 11-13-2022 Evaluation + Plan note [facility]/13[facility]22Testosterone Level Total 11/13/22 [facility] 08-30-2022 Note 42 yo M here today 2 weeks s/p right distal fibula HWR. No acute issues. Notes pain and swelling. Has been WBAT. Set to return to work in early September. Set to begin PT up again soon. Incisions healing well. No sign of infection. Motion from 5 degrees past neutral to 35 of PF. Ambulating in regular shoewear with no assistive devices. Sutures removed. PT. Motion and strengthening as tolerated. Follow in 3 months for clinical evaluation. [facility] 08-16-2022 Note Patient: Sulaiman Camilo icestrellita Procedure Summary Date: 08/16/22 Room / Location: [facility] OPERATING ROOM 04 / [facility] Operating Room Anesthesia Start: 1219 Anesthesia Stop: 1331 Procedure: REMOVAL, HARDWARE, ANKLE (Right: Ankle) Diagnosis: Retained orthopedic hardware (Retained orthopedic hardware [Z96.9]) Surgeons: Lucero Rogers MD Responsible Provider: Canelo Gallagher MD Anesthesia Type: general ASA Status: 2 Anesthesia Type: general Vitals Value Taken Time BP 159/92 08/16/22 1500 Temp 36.2 ???C (97.2 ???F) 08/16/22 1325 Pulse 64 08/16/22 1500 Resp 20 08/16/22 1445 SpO2 98 % 08/16/22 1410 Anesthesia Post Evaluation Patient location during evaluation: PACU Patient participation: complete - patient participated Level of consciousness: awake and alert Pain management: adequate Multimodal analgesia pain management approach Airway patency: patent Cardiovascular status: acceptable and stable Respiratory status: acceptable, room air, nonlabored ventilation and spontaneous ventilation Hydration status: acceptable Comments: Pt acceptable for discharge from PACU There were no known notable events for this encounter. [facility] 08-16-2022 Note Airway Date/Time: 08/16/2022 12:28 PM Urgency: elective Airway not difficult General Information and Staff Patient location during procedure: OR Anesthesiologist: Canelo Gallagher MD Performed: other anesthesia staff Learner assisted: Canelo Pena MS3 Indications and Patient Condition Indications for airway management: anesthesia Spontaneous Ventilation: absent Sedation level: deep Preoxygenated: yes Patient position: sniffing Mask difficulty assessment: 1 - vent by mask Final Airway Details Final airway type: endotracheal airway Successful airway: ETT Cuffed: yes Successful intubation technique: video laryngoscopy Blade: Pham Blade size: #3 ETT size (mm): 7.5 Cormack-Lehane Classification: grade I - full view of glottis Placement verified by: chest auscultation and capnometry Cuff volume (mL): 9 Measured from: lips ETT to lips (cm): 23 Number of attempts at approach: 1 Number of other approaches attempted: 0 [facility] 08-16-2022 Note Patient: Sulaiman hood Procedure Information Date/Time: 08/16/22 1200 Procedure: REMOVAL, HARDWARE, ANKLE (Right: Ankle) - c-arm / 12:00pm start / Location: [facility] OPERATING ROOM 04 / [facility] Operating Room Surgeons: Lucero Rogers MD Relevant Problems No relevant active problems Clinical information reviewed: Tobacco Allergies Meds Med Hx Surg Hx Fam Hx Soc Hx Physical Exam Airway Mallampati: II TM distance: >3 FB Neck ROM: full Cardiovascular Rhythm: regular Rate: normal Dental Pulmonary - normal exam Abdominal - normal exam Anesthesia Plan ASA 2 general The patient is a current smoker. Education provided regarding risk of obstructive sleep apnea. intravenous induction Anesthetic plan and risks discussed with patient. Additional Equipment Requests [facility] 08-04-2022 Note Subjective Chief complaint: Chief Complaint Patient presents with Right Ankle - Pain 08/04/22 Sulaiman White is a 42 y.o. year old male [facility] presenting for evaluation of right ankle pain and popping s/p right distal fibula ORIF, DOS: 07/20/2021. Patient reports that over the past couple of months he has been having increasing pain localized to the lateral aspect of the ankle as well as some symptoms of popping or clicking over one of his lateral tendons. He states that this has been getting progressively worse. Activity makes this pain worse. Patient has been weightbearing as tolerated to his right lower extremity. He is also been attending physical therapy and home exercises without much relief of his symptoms. Denies any radiation of this pain proximally or distally into the toes. Denies any numbness or tingling of the right ankle or foot. Denies any fevers, chills, shortness of breath, chest pain. Previous Treatments: physical therapy and home exercises ROS: Denies fevers, chills, and other constitutional symptoms. Denies shortness of breath. One half PPD smoker. Patient History History reviewed. No pertinent surgical history. History reviewed. No pertinent past medical history. Objective General: Body mass index is 21.77 kg/m???. There were no vitals filed for this visit. No acute distress, comfortable Respiratory: Unlabored breathing with normal rate, no cough Cardiovascular: Warm well perfused extremities Psych: Appropriate mood behavior Right Foot: Inspection- no ecchymosis, no edema, prior surgical incision appears well-healed and well approximated without signs of dehiscence. No surrounding erythematous changes. no hind foot deformity, no midfoot deformity, no forefoot deformity Tender to palpation over posterior and anterior aspects of lateral malleolus Nontender to palpation over rest of ankle and foot. Ankle ROM: Dorsiflexion- 15??? Plantarflexion- 40??? Inversion-deferred Eversion-deferred No overt signs of peroneal tendon subluxation on exam. However, some evidence of Strength: Ankle Dorsiflexion 4/5 Plantarflexion 4/5 Sensation: intact over superficial peroneal, deep peroneal and tibial nerve distributions Gait: heel toe pattern Imaging: We have personally reviewed the following images and our independent interpretation is as follows: Radiographs of right ankle taken on 07/25/2022 demonstrate(s) stable hardware without osteolysis Assessment/Plan Sulaiman White is a 42 y.o. year old male with Retained orthopedic hardware s/p ORIF right distal fibula fracture, DOS: 07/20/2021. Discussed the nature of the disease as well as treatment options including conservative vs surgical interventions Conservative interventions including: Continued PT, stretching, home exercises Surgical interventions including: Hardware removal right ankle -Following long discussion of the risk, benefits, and alternatives to surgical treatment, patient has elected to proceed with hardware removal of the right ankle - C9 completed 08/02 -Preop labs pending -Consent obtained today in clinic, electronic -Return to clinic for surgical intervention, tentatively plan for August 16, 2022 -Call the orthopedic office any questions or concerns Cody Brock MD Orthopedic Surgery Resident Physician Pager: [phone] 08/04/22 9:04 AM By using the attestations below, the signing clinician agrees that I have read and verify that the documentation has been personally reviewed by me and ensure that the documentation accurately reflects the encounter. GC: I personally saw this patient on the day of the encounter, performed the urban portion(s) of the service and participated in the management and confirm the resident's documentation. Please note there may be an additional personal documentation from me. [facility] 07-25-2022 Note Date of Surgery: VALENTIN E OF SURGERY: 07/20/2021 SURGEON: Drew Howard M.D. ASSISTANTS: 1. Smita Dean M.D. 2. Kelby Gamez M.D. 3. Andreas Henderson M.D. PREOPERATIVE DIAGNOSIS: Right distal fibular fracture. POSTOPERATIVE DIAGNOSIS: Right distal fibular fracture. PROCEDURE PERFORMED: Open reduction and internal fixation of right distal fibular fracture. ANESTHESIA: General. IV FLUIDS: Per anesthesia record. ESTIMATED BLOOD LOSS: 20 mL. COMPLICATIONS: None. SPECIMENS: None. IMPLANTS: [employer] 8-hole 1/3rd semitubular plate with associated 3.5 mm cortical and 4.0 mm cancellous screws. Location: right Quality: dull Severity: mild Alleviating Factors: rest Associated Symptoms: no redness; no warmth; no fever; no chills Notes: Returns today reports aching pain in lateral aspect of ankle, also reports a popping sensation with certain motions. Pain is intermittent worse with increased activity and better with rest. Review of Systems Constitutional: Negative for chills, fatigue and fever. Musculoskeletal: Positive for back pain. Neurological: Positive for numbness. Foot/Ankle Musculoskeletal Exam Gait Gait is normal. Inspection Right Erythema: none Effusion: none Edema: none Ecchymosis: none Palpation Right Increased warmth: none Tenderness: present Strength Right Tibialis anterior: 5/5. Extensor hallucis longus: 5/5. Flexor hallucis longus: 5/5. Neurovascular Right Pulses - DP: normal Dorsalis pedis: 2+ Capillary refill: brisk General Constitutional: well-developed and well-nourished Psychiatric: normal mood and affect and no acute distress Neurological: alert and oriented x3 Skin: intact Xrays ordered and reviewed show healing distal fibula fracture 2. 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 [facility] 04-18-2022 Note Date of Surgery: VALENTIN E OF SURGERY: 07/20/2021 SURGEON: Drew Howard M.D. ASSISTANTS: 1. Smita Dean M.D. 2. Kelby Gamez M.D. 3. Andreas Henderson M.D. PREOPERATIVE DIAGNOSIS: Right distal fibular fracture. POSTOPERATIVE DIAGNOSIS: Right distal fibular fracture. PROCEDURE PERFORMED: Open reduction and internal fixation of right distal fibular fracture. ANESTHESIA: General. IV FLUIDS: Per anesthesia record. ESTIMATED BLOOD LOSS: 20 mL. COMPLICATIONS: None. SPECIMENS: None. IMPLANTS: [employer] 8-hole /3rd semitubular plate with associated 3.5 mm cortical and 4.0 mm cancellous screws. Location: right Quality: dull Severity: mild Alleviating Factors: rest Associated Symptoms: no redness; no warmth; no fever; no chills Notes: Overall is well has some ankle pain with increased activity, wears an ankle sleeve to prevent boot from rubbing his ankle. He is taking Tramadol, Ibuprofen and Duloxetine Post Operative Exam: General Appearance: no swelling, tenderness, or warmth and wound clean and dry, appropriate range of motion, and neurovascular intact; calf soft n/t. Constitutional: General Appearance: healthy-appearing, NAD, and normal body habitus. Psychiatric: Orientation: oriented to time, place, and person. Mood and Affect: normal mood and affect and active and alert. Cardiovascular System: Arterial Pulses Left: dorsalis pedis normal. Edema Left: no edema. Varicosities Left: capillary refill test normal. Gait and Station: Appearance: no limp and ambulating with no assistive devices. Ankles and Feet: Inspection Left: no erythema or warmth. Bony Palpation of the Ankle/Foot Left: no tenderness of the metatarsals, the head of talus, the inferior tibiofibular joint, or the achilles tendon insertion and tenderness of the lateral ankle-mild. Soft Tissue Palpation of the Ankle/Foot Left: no tenderness of the tibialis posterior, the tibialis anterior, the plantar fascia, or the achilles tendon. Active Range of Motion Left: dorsiflexion normal, plantar flexion normal, inversion normal, and eversion normal. Strength Left: posterior tibialis (5/5), extensor hallucis longus (5/5), tibialis anterior (5/5), and gastrocnemius (5/5). Palpation and Stability of the Toes Left: no tenderness of the great toe, the second toe, the third toe, the fourth toe, or the fifth toe. Neurological System: Sensation on the Left: normal distal extremities. Skin: Left Lower Extremity: normal. Xrays ordered and reviewed show healing distal fibula fracture 2. 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 ASSISTANTS: 1. Smita Dean M.D. 2. Kelby Gamez M.D. 3. Andreas Henderson M.D. PREOPERATIVE DIAGNOSIS: Right distal fibular fracture. POSTOPERATIVE DIAGNOSIS: Right distal fibular fracture. PROCEDURE PERFORMED: Open reduction and internal fixation of right distal fibular fracture. ANESTHESIA: General. IV FLUIDS: Per anesthesia record. ESTIMATED BLOOD LOSS: 20 mL. COMPLICATIONS: None. SPECIMENS: None. IMPLANTS: [employer] 8-hole 1/3rd semitubular plate with associated 3.5 mm cortical and 4.0 mm cancellous screws. Location: right Quality: dull Severity: mild Alleviating Factors: rest Associated Symptoms: no redness; no warmth; no fever; no chills Notes: Is doing PT, reports he is walking much better has some pain Post Operative Exam: General Appearance: no swelling, tenderness, or warmth and wound clean and dry, appropriate range of motion, and neurovascular intact; calf soft n/t. Constitutional: General Appearance: healthy-appearing, NAD, and normal body habitus. Psychiatric: Orientation: oriented to time, place, and person. Mood and Affect: normal mood and affect and active and alert. Cardiovascular System: Arterial Pulses Left: dorsalis pedis normal. Edema Left: no edema. Varicosities Left: capillary refill test normal. Gait and Station: Appearance: no limp and ambulating with no assistive devices. Ankles and Feet: Inspection Left: no erythema or warmth. Bony Palpation of the Ankle/Foot Left: no tenderness of the metatarsals, the head of talus, the inferior tibiofibular joint, or the achilles tendon insertion and tenderness of the lateral ankle. Soft Tissue Palpation of the Ankle/Foot Left: no tenderness of the tibialis posterior, the tibialis anterior, the plantar fascia, or the achilles tendon. Active Range of Motion Left: dorsiflexion normal, plantar flexion normal, inversion normal, and eversion normal. Strength Left: posterior tibialis (5/5), extensor hallucis longus (5/5), tibialis anterior (5/5), and gastrocnemius (5/5). Palpation and Stability of the Toes Left: no tenderness of the great toe, the second toe, the third toe, the fourth toe, or the fifth toe. Neurological System: Sensation on the Left: normal distal extremities. Skin: Left Lower Extremity: normal. Xrays ordered and reviewed show healing distal fibula fracture 1. Swelling of right ankle joint - XR ankle 2 views right; Future 2. 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 HISTORY OF PRESENT ILLNESS: This is a very pleasant 41-year-old gentleman who we had requested a neurosurgical consult by Dr. Gonzales. The patient has a large herniated disk, especially at the level of L5. The patient states Dr. Gonzales has recommended we proceed with a lumbar epidural steroid injection. The patient rates the pain as a 7 over 10, a burning, stabbing pain. Depending on his activity level at work, twisting, pushing, walking, bending, shoveling aggravate the patient's pain. The patient was changed from Baclofen to Flexeril 10 mg b.i.d., gabapentin 300 mg t.i.d., Percocet 5/325 b.i.d. on a p.r. n. basis. The patient also has been performing inversion table which he finds helpful. PAST MEDICAL HISTORY, SURGICAL HISTORY, REVIEW OF SYSTEMS ARE NOTED ON THE CHART ALONG WITH THE MEDICATION LIST, ALLERGIES AND RADIOLOGICAL IMAGES. PHYSICAL EXAMINATION: Upon physical examination this is a pleasant, cooperative gentleman who does not appear to be in any acute distress. VITAL SIGNS: Stable at 137/80, heart rate of 96, height of 6'2 , weighs 70 kg. FOCUSED EVALUATION: The patient has good range of motion. The patient is aesthetically built. Extension, compression and direct palpation aggravates the patient pain at the level of L5-S1; however, not extreme. Hypoesthesia along the L5 distribution is present in the right lower extremity EXTREMITES: No pedal edema. MUSCULOSKELETAL: Intact in the lower extremity at 4+/5 bilaterally. PSYCHIATRIC: Affect is appropriate. IMPRESSION: Lumbar herniated disk, chronic spinoaxial pain, lumbar radiculopathy. PLAN: The patient is to continue with the inversion table. Physical therapy has been prescribed. The patient will be scheduled for a lumbar epidural steroid injection under fluoroscopy. The patient understands and would like to proceed. [facility] Signed and Approved by: DR TWYLA HUGHES . 06/28/2021 07:59:00 [facility] 05-10-2021 Note PAIN MANAGEMENT Consultation Date: 05-10-21 CHIEF COMPLAINT: 1. Low back pain. 2. Left leg pain. HISTORY OF PRESENT ILLNESS: Today in the office I saw Sulaiman White. This is a 40 year-old gentleman who is referred to us by Dr. Dsouza. The patient has had chronic low back pain. The patient is a recent transfer to Dr. Dsouza. The patient describes the pain as a 7-8/10, a throbbing, stabbing sensation. The patient states subsequent to work, pain starts to increase substantially. ADL: Twisting, pushing, standing, walking aggravate the pain as does lifting. Lying down, sitting down mitigate the pain. MEDICATIONS: The patient takes Motrin 800 mg daily, Tylenol, gabapentin 100 mg t.i.d. without any help. Osteo Bi-Flex. The patient has tried inversion and also uses a TENS unit to help with his pain. The pt has attended chiropractic treatment in March of 2021. The patient feels a popping sensation to his back and pain in his left leg. He states even lifting the left leg at times becomes problematic. He pushes through the pain. The pain has gotten worse over the last six months. The patient recently had a MRI performed at [facility]. The report is noted on the chart which shows a large herniated disc with impingement along the L5 nerve root. PAST MEDICAL HISTORY / PAST SURGICAL HISTORY and REVIEW OF SYSTEMS are noted on the chart along with the MEDICATIONS, ALLERGIES, and radiological images. PHYSICAL EXAM: GENERAL:This is a pleasant, cooperative gentleman who is well groomed. VITALS:Stable at 131/89 with a heart rate of 96. At a height of 6'2 the patient weighs 68 kg. FOCUSED EVALUATION BACK:No overt paravertebral spasming is noted. Tenderness is present along the posterior elements, however, not significant. Straight leg raise is positive. The patient has an esthetic build. MUSCULOSKELETAL:Motor is within functional limits. NEUROLOGICALLY:Hypoesthesia along L5 on the left hand side. IMPRESSION: 1. As noted on the MRI, large herniated disc, 6 mm. 2. L5 radiculitis. PLAN: 1. We will start the patient on baclofen 10 mg p.o. q.p.m. 2. Gabapentin would be increased to 300 mg b.i.d. every evening and night. 3. Percocet 5/325 mg on a b.i.d. basis will be given. 4. The patient will continue with the inversion table. Education was done with regards to this. 5. We shall request a neurosurgical consult, various options are given to the patient. Dr. Rodriguez orthopedic spine surgeon has been suggested. cc:Dr. Dsouza. [facility] Signed and Approved by: DR TWYLA HUGHES . 2021 09:03:00 [facility] 04-22-2021 Note PROCEDURE: DinnDinned VCT 64, 5.0 mm slice axial images were acquire with coronal reconstruction through lumbar spine without contrast. HISTORY: Chronic low back pain, right leg radiation, weakness FINDINGS: Normal lumbar vertebral body height and alignment. No bone marrow edema, vertebral body or pedicle fracture. Normal conus medullaris and filum terminale. Normal paravertebral soft tissues. T12-L1 through L2-3: Normal disc volume, no disc herniation, spinal canal or neuroforaminal stenosis. L3-4: Normal disc volume. Broad based central disc bulging with a small central disc herniation minimal caudad extension posterior to the L4 vertebral body centrally. No spinal canal stenosis. Mild facet arthropathy, minimal neuroforaminal stenosis. L4-5: Normal disc volume. 6 x 11 mm right-sided disc herniation epicenter within the right lateral recess impressing upon the right L5 nerve roots. No extension into the neuroforaminal zone. Mild facet arthropathy, minimal left neuroforaminal stenosis. L5-S1: Normal disc volume. Mild central disc bulging. No spinal canal or neurorforaminal stenosis. Mild facet arthropathy. IMPRESSION: 1. L4-5 right lateral recess disc herniation, stenosis. Report reported and signed by Sánchez Briscoe on 04/22/2021 1428 [facility] course Narrative No data available for this section [facility] Hospital Discharge instructions No data available for this section [facility] Progress note No data available for this section [facility] Summary Purpose Family History No Family History Records FoundNo Family History Records FoundNo Family History Records FoundNo Family History Records FoundNo Family History Records FoundNo Family History Records Found Advance Directives No Advanced Directives Records FoundNo Advanced Directives Records FoundNo Advanced Directives Records FoundNo Advanced Directives Records FoundNo Advanced Directives Records FoundNo Advanced Directives Records Found Additional Source Comments (unrecognized sect ion and content) No Status Records FoundNo Status Records FoundNo Status Records FoundNo Status Records FoundNo Status Records FoundNo Status Records Found INFORMATION SOURCE (unrecogn ized section and content) DATE CREATED AUTHOR 04/23/2021 [facility] dical Specialist DATE CREATED AUTHOR AUTHOR'S ORGANIZ ATION 07/15/2021 [facility] DATE CREATED AUTHOR AUTHOR'S ORGANIZ ATION 01/04/2022 [facility] DATE CREATED AUTHOR AUTHOR'S ORGANIZ ATION 01/24/[address] [facility] DATE CREATED AUTHOR AUTHOR'S ORGANIZ ATION 03/18/2023 [facility] DATE CREATED AUTHOR AUTHOR'S ORGANIZ ATION 03/24/2023 [facility] Patient Care team informatio n (unrecognized section and content) Personnel Name: Yolande Carmona Address: Address: [address] [place] [address]- Personnel Name: Yolande Carmona Address: Address: [address] [place] [address]- Personnel Name: Yolande Carmona Address: Address: [address] [place] [address]- FOR RECORDS PERTAINING TO PATIENTS WHO ARE OR HAVE BEEN ENROLLED IN A CHEMICAL DEPENDENCY/SUBSTANCEABUSE PROGRAM, SOME INFORMATION MAY BE OMITTED. This clinical summary was aggregated from multiple sources. Caution should be exercised in using it in the provision of clinical care. This summary normalizes information from multiple sources, and as a consequence, information in this document may materially change the coding, format and clinical context of patient data. In addition, data may be omitted in some cases. CLINICAL DECISIONS SHOULD BE BASED ON THE PRIMARY CLINICAL RECORDS. [facility], [facility]. provides no warranty or guarantee of the accuracy or completeness of information in this document.
--- NOTE | 2023-07-05 12:35 | P.CN_ITS ---
Consult Note: HPI Data of Consult Patient: known to practice within the last 3 years Consult date: 01/29/23 Requesting Physician: Kerry Connolly NP Primary Care Provider: MEGHAN BAIN Consult Narrative Reason for consult: f/u Narrative: 42yom who presents for evaluation. worsening right ankle pain. previous workplace injury in july 2021, has had subsequent ankle surgeries. continues to have right ankle pain. has undergone >62 sessions of physical therapy, which have not provided lasting relief. uses flexeril, cymbalta, tramadol, with some benefit. Pain today 5/10 and CRISTHIAN improved at 26% today. Is now considering surgical repair with Dr Stafford. Has been tolerating lyrica 100 mg BID well without side effects, does notice mid day the lyrica wears off. cc:: CC: Kerry Connolly NP Review of Systems ROS Status of ROS 10 or more systems reviewed and unremark able except as noted in history and below Musculoskeletal Reports: extremity pain and joint pain PFSH PFSH Medical History Asthma ?J45.909 - Unspecified asthma, uncomplicated (ICD-10) Surgical History History of kidney surgery ?Z98.890 - Other specified postprocedural states (ICD-10) History of carpal tunnel release ?Z98.890 - Other specified postprocedural states (ICD-10) History of elbow surgery ?Z98.890 - Other specified postprocedural states (ICD-10) History of ankle surgery ?Z98.890 - Other specified postprocedural states (ICD-10) History of appendectomy ?Z90.49 - Acquired absence of other specified parts of digestive tract (ICD- 10) Meds Home Medications and Allergies Home Medications Medication Instructions Recorded Confirmed Type cyclobenzaprine 10 mg tablet 10 mg PO DAILY PRN muscle spasm 01/29/23 03/12/23 History duloxetine 60 mg capsule,delayed 60 mg PO DAILY 01/29/23 03/12/23 History release sildenafil 25 mg tablet 25 mg PO DAILY PRN sexual activity 01/29/23 03/12/23 History sumatriptan 10 mg/actuation nasal 20 mg intranasal Q2H PRN migraine 01/29/23 03/12/23 History spray headache pregabalin 50 mg capsule 50 mg PO Q8H 02/14/23 03/12/23 History tramadol 50 mg tablet 50 mg PO Q8H PRN pain 02/14/23 03/12/23 History ibuprofen 800 mg tablet 800 mg PO Q12H PRN pain 02/19/23 03/12/23 History Allergies Allergy/AdvReac Type Severity Reaction Status Date / Time No Known Drug Allergies Allergy Verified 03/12/23 07:10 Exam Narrative Exam Narrative: Psych-alert and oriented x 3. Attentive and appropriate, constitutionally normal, displays normal mood and affect per situation.? There are no obvious deficits in memory, reasoning, or intellect.? Skin-no obvious rashes, bruising, erythema noted to the patient's area of pain. Extremities- extremities are warm with minimal edema and palpable pulses. Tenderness to palpation in right ankle. Slight discoloring and cool temperature noted in right ankle. Lumbar-no significant tenderness to palpation noted in the lumbar spine and paraspinal musculature.? Pain is elicited with extension, and lateral rotation of the lumbar spine. Range of motion is slightly diminished with these motions due to pain. Coordination remains intact.? Gait remains non-antalgic. Constitutional Documenting provider has reviewed patient's vital signs: yes Common normals: no apparent distress, oriented x3, healthy appearing, alert and well nourished General appearance: cooperative HENMT Common normals: normocephalic, hearing grossly normal bilaterally and moist oral mucous membranes Head and scalp: normocephalic Eye Common normals: PERRL Pupil: PERRL Neck & C-Spine Common normals: full ROM General: normal visual inspection Chest Common normals: inspection of chest normal Respiratory Common normals: normal respiratory effort, no retractions and no use of accessory muscles Neuro Common normals: oriented x3, CN's II-XII intact bilaterally, moves all extremities, no focal motor deficits, no sensory deficits noted and deep tendon reflexes 2+ bilaterally Sensorium/orientation: alert Motor exam: strength 5/5 throughout and no movement abnormalities noted Psych Common normals: mental status grossly normal, thought process normal, cooperative, affect normal, speech normal and activity/motor behavior normal Speech: normal speech Thought process: normal thought process Results Additional Findings Additional findings: I have checked an [place]AR[place] report on this patient today and there are no aberrancies noted in the prescribing history.?? A drug screen was completed and reviewed within the last year, and if there has not been a drug screen completed we ordered one today to monitor higher risk, state monitored pain medication use. As part of providing excellent, safe, comprehensive care, the following was completed at our patient's visit: 1. A medication reconciliation and review to ensure accurate knowledge of current/active medications, including asking our patients to inform us about any [id number] medications or herbal remedies/nutritional supplements/alternative remedies. 2. A review to specifically ensure our patients have had annual screening for: elevated body mass index (BMI), tobacco use, screening for depression, and screening for unhealthy alcohol use. When screening is concerning, patients are provided with education and the specific recommendation to discuss the concerning health issue and treatment options with their primary care provider. Assessment and Plan Assessment and Plan (1) Other fracture of upper and lower end of right fibula, initial encounter for closed fracture: Plan continue f/u with Dr Stafford, pt considering surgical repair increase lyrica to 100mg TID f/u 3 months for medication management, pt will call sooner if needed
== END 2023-07-05 12:19 | disposition home or self-care (01) ==
PROVIDERS: PCP Nurse Practitioner; Visit Provider Nurse Practitioner
DX: S82.831A Other fracture of upper and lower end of right fibula, initial encounter for closed fracture (principal)
CPT/HCPCS: G0463

== ENCOUNTER 2023-10-03 12:29 | Outpatient (OUT) | payer SELFPAY ==
--- OUTSIDE RECORDS SUMMARY | 2023-10-03 12:34 | XMS_ITS | CCD ---
Author Organization [facility] Care Team Providers Care [employer]ision Structural [employer] Fitter Name Role Phone CHARITO, PARSONS Consulting Unavailable FAWWAD, PARSONS Primary Care Unavailable FAWWAD, PARSONS Admitting Unavailable FAWWAD, PARSONS Attending Unavailable MARKER, DR ESCUDERO Attending [...] Unavailable SAUL, DR TWYLA Lauren Consulting Unavailable SAUNDERSTARAN NICE Consulting Unavailable FAWWAD, PARSONS Attending Unavailable FAWWAD, PARSONS Primary Care Unavailable FAWWAD, PARSONS Admitting Unavailable EBRAHEIM, THANIA Admitting Unavailable SELF, REFERRED Primary Care Unavailable EBRAHEIM, THANIA Attending Unavailable SELF, REFERRED Referring Unavailable AdelaYolande marin Primary Care Physician VENKAT SIFUENTES Attending Unavailable BEAR, VENKAT Attending Unavailable ROGERSLUCERO Attending Unavailable VENKAT SIFUENTES Attending Unavailable ROGERS CHRISTSORAIDAER Admitting Unavailable ROGERS, CHRISTOPHMAURICE Attending Unavailable ROGERS, CHRISTOPHER Attending Unavailable ROGERS, CHRISTOPHER Attending Unavailable BEAR, VENKAT Referring Unavailable BEAR, VENKAT Referring Unavailable BEAR, VENKAT Referring Unavailable BEAR, VENKAT Referring Unavailable Vivienne CAMEJO, Catarino Anton Attending Unavailable Vivienne CAMEJO, Catarino Anton Attending Unavailable Vivienne CAMEJO, Catarino Anton Attending Unavailable Adela, PRODUCE SPECIALIST Yolande L Admitting Unavailable Adela, PRODUCE SPECIALIST Yolande L Attending Unavailable Wittenauer, Pleasanton S. Attending Unavailable Adela, PRODUCE SPECIALIST Yolande L Attending Unavailable Adela, PRODUCE SPECIALIST Yolande L Attending Unavailable Adela, PRODUCE SPECIALIST Yolande L Attending Unavailable Adela, PRODUCE SPECIALIST Yolande L Attending Unavailable Adela, PRODUCE SPECIALIST Yolande L Attending Unavailable Wittenauer, Pleasanton S. Referring Unavailable Wittenauer, Aishwarya S. Attending Unavailable Wittenauer, Pleasanton S. Admitting Unavailable Adela, PRODUCE SPECIALIST Yolande L Attending Unavailable Adela, PRODUCE SPECIALIST Yolande L Admitting Unavailable Medications Current Medications Medication Drug Class(es) Dates Sig (Normalized) Sig (Original) cyclobenzaprine hydrochloride 10 mg oral tablet (3 sources) Muscle Relaxant Start: 11-28-2022 cyclobenzaprine 10 mg Tab See Instructions, PRN for spasm, 1 tab(s) Oral at work for spasm, # 30 tab(s), Refills(s) 1, Pharmacy: [facility]/pharmacy #[id number], 183.5, cm, 11/13/22 11:51:00 EDT, Height/Length [...] day, # 18 tab(s), Refills(s) 1, Pharmacy: [facility]/pharmacy #[id number], 183.5, cm, 11/13/22 11:51:00 EDT, Height/Length Dosing... Start Date: 12/19/22 Status: Ordered Start: 11-13-2022 take 1 tablet by mya th every two hours as needed for headache SUMAtriptan 25 mg Tab 25 mg = 1 tab(s), Oral, As Directed, PRN Migraine headache, may repeat dose in 2 hours if needed, # 9 tab(s), Refills(s) 0, Pharmacy: [facility]/pharmacy #[id number], 183.5, cm, 11/13/22 11:51:00 EDT, Height/Length [...] Results Test Name Value Interpretation Reference Range Tayo jeffery Family Medicine Office/Clini c Noteon 10-02-2023 Family Medicine Office/Clinic Note HPI Staff Saira is a 43 year old male presenting for follow up Migraine's Migraine: Pt has FMLA for this, Pt states in a month time will get 2-3 migraines can last up to all day and getting 5-6 times a month where he is able to catch it before it was to bad. Will have light sensitivity, tunnel vision, hurts to open eyes, can't focus. Will lay down cover head and feels he has to lay in a different position with his neck to help. History of Present Illness pt presents today for migraine follow up Review of Systems PHQ Score Initial Depression Screen Score: 0 SCORE Physical Exam Vitals & Measurements HR: 78(Peripheral) RR: 18 BP: 140/86 SpO2: 98% HT: 72 in HT: 183.5 cm WT: 79.3 kg WT: 174.46 lb BMI: 23.55 General: alert, no acute distress ENMT: oral mucosa moist, no pharyngeal erythema or exudate Cardiovascular: regular rate and rhythm, normal peripheral perfusion Respiratory: Lungs CTA, respirations non labored Extremities: no deformity, no trauma Neurological: oriented x 4, LOC appropriate for age, CN II-XII intact, motor strength equal & normal bilaterally, speech normal Assessment/Plan 1. Migraine (G43.909: Migraine, unspecified, not intractable, without status migrainosus) pt having more frequent headaches. will start qulipta daily. in conjunction with sumatriptan as needed. will complete [place] paperwork. Ordered: atogepant, 60 mg = 1 tab(s), Oral, Daily, # 30 tab(s), Refills(s) 2, Pharmacy: [facility]/pharmacy #[id number], 183.5, cm, 10/02/23 13:13:00 EDT, Height/Length Dosing, 79.3, kg, 10/02/23 13:13:00 EDT, Weight Dosing 2. BMI 23.0-23.9, adult (Z68.23: Body mass index [BMI] 23.0-23.9, adult) BMI education complete Ordered: atogepant, 60 mg = 1 tab(s), Oral, Daily, # 30 tab(s), Refills(s) 2, Pharmacy: [facility]/pharmacy #[id number], 183.5, cm, 10/02/23 13:13:00 EDT, Height/Length Dosing, 79.3, kg, 10/02/23 13:13:00 EDT, Weight Dosing 3. Smoker (F17.200: Nicotine dependence, unspecified, uncomplicated) consider not smoking Ordered: atogepant, 60 mg = 1 tab(s), Oral, Daily, # 30 tab(s), Refills(s) 2, Pharmacy: [facility]/pharmacy #[id number], 183.5, cm, 10/02/23 13:13:00 EDT, Height/Length Dosing, 79.3, kg, 10/02/23 13:13:00 EDT, Weight Dosing Follow-up No qualifying data available Problem List/Past Medical History Ongoing Erectile disorder Fatigue Herniated intervertebral disc of lumbar spine Migraine Wellness examination Historical No qualifying data Procedure/Surgical History Right ankle injury (2022), Right ankle injury (2021), Appendectomy, Carpal tunnel, Right elbow. Medications cyclobenzaprine 10 mg Tab, See Instructions, PRN, 1 refills duloxetine 60 mg oral delayed release capsule ibuprofen 800 mg Tab Imitrex 100 mg Tab, 100 mg= 1 tab(s), Oral, As Directed, PRN, 1 refills pregabalin 100 mg Cap, 100 mg= 1 cap(s), Oral, TID Qulipta 60 mg oral tablet, 60 mg= 1 tab(s), Oral, Daily, 2 refills sildenafil 50 mg Tab, 50 mg= 1 tab(s), Oral, Daily, PRN traMADOL 50 mg Tab Allergies No Known Allergies Social History Tobacco 5-9 cigarettes (between 1/4 to 1/2 pack)/day in last 30 days Tobacco Use:. Never Smokeless Tobacco Use:. Cigarettes, Ready to change: No. Household tobacco concerns: No. Yes, 10/02/2023 Family History Diabetes mellitus type 2: Father. Hodgkin's disease: Father. [facility] Comment on above: Result Comment: Elec tronically Signed By: Yolande Carmona\.br\Date and Time Signed: 10/02/23 14:33 EDT Formson 10-02-2023 Forms [id number]# 1.00TIFF [facility] Consultation Noteon 07-10-19 Consultation Note [id number] #1.00TIFF [facility] RAD - MISCon 03-22-2023 RAD - MISC [id number] #1.00TIFF Normal [facility] Operative Reporton 3 Operative Report [id number] #1.00TIFF Normal [facility] Operative Reporton 3 Operative Report [id number] #1.00TIFF Normal [facility] RAD - MRI Reporton 3 RAD - MRI Report [id number] #1.00CD:127 Normal [facility] Refillon 01-14-2023 Refill [id number] LesleeSulaiman hood 1980 M Date Provider Department Center 01/14/2023 VENKAT DEL ANGEL MP ORTHO MPORTHO No family history on file Reason for Visit and Comments: Med Refill [[id number]] Normal [facility] CT Head or Brain w/o Contras [...] M.D. Transcribed by: ARUN Technologist: JENNIFER Normal [facility] Consent for Treatmenton 12-14 Consent for Treatment [id number] #1.00CD:127 Normal [facility] Family Medicine Video Visit - Telehealthon [...] recovery. He continues to consult with an cash control specialist for his ankle condition. Given his [...] prescription request. The patient's preferred pharmacy is [facility] in [place]. Physical Exam GENERAL: He is alert and [...] with voice recognition artificial intelligence software, specifically [email or web address], Zizerones and or EyeVerify. Substitutions may have occurred due to the inherent limitations of voice recognition and artificial intelligence software. Documentation s (more content not included)... Normal [facility] Comment on above: Result Comment: Elec tronically Signed By: Aishwarya Montano DO\.br\Date and Time Signed: 01/07/23 18:21 EDT Insurance Correspondenceon 0 12-21-2022 Insurance Correspondence [id number] #1.00CD:127 Normal [facility] Ambulatory Visit Summaryon 0 12-19-2022 Ambulatory Visit Summary SAIRA WHITE :1980 Visit Date:12/19/2022 Ambulatory Visit Instructions Your Diagnosis Migraine Herniated intervertebral disc of lumbar spine Your Care Team Attending Physician - Aishwarya Montano DO Primary Care Physician - Yolande Carmona This Is Your Medications List cyclobenzaprine (cyclobenzaprine [...] No, Migraine Normal Worsening headaches, pp_set_radiology_ subspecialty, [facility]\.br\ Medications\.br\ What How Much When Instructions\.br\ Changed sumatriptan (Imitrex 100 mg Tab) 1 Tablets By Mouth As Directed as needed for Migraine headache may repeat dose in 2 hours if needed . take onset migraine. max 200mg per day Pickup at [facility]/pharmacy #[id number]\.br\ Unchanged cyclobenzaprine (cyclobenzaprine 10 mg Tab) See [...] NEEDED \.br\ Pharmacy Information\.br\ [id number]: [address], [place] [phone]\.br\ Allergies\.br\ No Known Allergies\.br\ Problems\.br\ Ongoing - Any problem that you are currently receiving treatment for.\.br\ Erectile disorder\.br\ Fatigue\.br\ Herniated intervertebral disc of lumbar spine\.br\ Migraine\.br\ Wellness examination\.br\ \.br\ [facility] Patient Letter FTon 2022 Patient Letter [facility] [address] [place] [address] [id number] December 19, 20[address] SAIRA WHITE [address] [place] [phone] : 1980 12/19/2022 Dear Employer, Please excuse patient up to 5 days with Migraine. If migraine resolves early please allow patient back to work early. Electronically Signed Aishwarya Montano D.O. [facility] 36on 12-18-2022 36 Approving, but needs appt for additional refills. Normal [facility] Follow-Upon 12-01-2022 Follow-Up [id number] Sulaiman White 1980 M Date Provider Department Center 12/01/2022 Dee-LUCERO ROGERS MP ORTHO MPORTHO No family history on file Level of Service:40847 [place] OFFICE/OUTPATIENT ESTABLISHED LOW MDM 20-29 MIN (GC) Reason for Visit and Comments: Follow-up [[id number]] Normal [facility] Auto Diffon 11-21-2022 Basophils/100 WBC (Bld) 0.8 % Normal 0.0-2.0 [facility] Comment on above: Order Comment: Order Added by Discern Expert. Performed By: #### 2 729156, [id number] ####[address] [address] Basophils/Leukocyte s Auto (Bld) [Pure # fraction] 0.1 E9/L Normal 0.0-0.2 [facility] Comment on above: Order Comment: Order Added by Discern Expert. Performed By: #### 2 185249, [id number] ####[address] [address] Eosinophils/100 WBC (Bld) 4.3 % Normal 0.0-8.0 [facility] Comment on above: Order Comment: Order Added by Discern Expert. Performed By: #### 2 180014, 0678409 ####[address] [address] Eosinophils/Leukocy edwige Auto (Bld) [Pure # fraction] 0.4 E9/L Normal 0.0-0.5 [facility] Comment on above: Order Comment: Order Added by Discern Expert. Performed By: #### 2 005393, 8103991 ####[address] [address] Lymphocytes/100 WBC (Bld) 29.0 % Normal 14.0-50.0 [facility] Comment on above: Order Comment: Order Added by Discern Expert. Performed By: #### 2 469391, 4491582 ####[address] [address] Lymphocytes/Leukocy edwige Auto (Bld) [Pure # fraction] 2.4 E9/L Normal 1.0-4.0 [facility] Comment on above: Order Comment: Order Added by Discern Expert. Performed By: #### 2 948761, 2993301 ####[address] [address] Monocytes/100 WBC (Bld) 8.7 % Normal 4.0-14.0 [facility] Comment on above: Order Comment: Order Added by Discern Expert. Performed By: #### 2 153895, 3790339 ####[address] [address] Monocytes/Leukocyte s Auto (Bld) [Pure # fraction] 0.7 E9/L Normal 0.2-1.0 [facility] Comment on above: Order Comment: Order Added by Discern Expert. Performed By: #### 2 857478, 2410677 ####[address] [address] Neutrophils/100 WBC (Bld) 57.2 % Normal 36.0-75.0 [facility] Comment on above: Order Comment: Order Added by Discern Expert. Performed By: #### 2 795591, 1637900 ####[address] [address] Neutrophils/Leukocy edwige Auto (Bld) [Pure # fraction] 4.8 E9/L Normal 2.0-7.5 [facility] Comment on above: Order Comment: Order Added by Discern Expert. Performed By: #### 2 207387, 4163189 ####[address] [address] CBC w/ Auto Diffon 3 Erythrocyte distribution width (RBC) [Ratio] 12.9 % Normal 10.9-14.2 [facility] Comment on above: Performed By: #### 2 887945, 2120920 ####[address] [address] Hematocrit (Bld) [Volume fraction] 40.0 % Normal 37.7-49.0 [facility] Comment on above: Performed By: #### 2 761533, 6369365 ####[address] [address] Hemoglobin (Bld) [Mass/Vol] 13.7 g/dL Normal 13.5-17.5 [facility] Comment on above: Performed By: #### 2 369498, 4335004 ####[address] [address] MCH (RBC) [Entitic mass] 32.1 pg Normal 27.0-34.0 [facility] Comment on above: Performed By: #### 2 548728, 5475205 ####[address] [address] MCHC (RBC) [Mass/Vol] 34.2 g/dL Normal 31.4-36.0 [facility] Comment on above: Performed By: #### 2 696631, 2657322 ####[address] [address] MCV (RBC) [Entitic vol] 94.1 fL Normal 80.0-100.0 [facility] Comment on above: Performed By: #### 2 845134, 2527799 ####[address] [address] Platelet mean volume (Bld) [Entitic vol] 8.5 fL Normal 6.4-10.8 [facility] Comment on above: Performed By: #### 2 118963, 8928976 ####[address] [address] Platelets (Bld) [#/Vol] 261.0 E9/L Normal 150.0-500.0 [facility] Comment on above: Performed By: #### 2 273904, 1080577 ####[address] [address] RBC (Bld) [#/Vol] 4.2 E12/L Low 4.3-5.9 [facility] Comment on above: Performed By: #### 2 689239, 2307280 ####[address] [address] WBC corrected for nucl RBC Auto (Bld) [#/Vol] 8.4 E9/L Normal 4.0-11.0 [facility] Comment on above: Performed By: #### 2 209639, 5564424 ####[address] [address] Nurse Consultation Noteon Nurse Consultation Note Physical [...] Oral, Daily Allergies No Known Allergies Normal [facility] Physician Orderon 11-21-2022 Physician Order [id number]#1.00CD:127 Normal [facility] Provider Letteron 11-21-2022 Provider Letter November 21, 2022 SAIRA WHITE [address] [place] [phone] : 1980 Dear Saira , We have been trying to reach you with no success. It is important that you return our call regarding your referral to our office from Safia Chapman upon receiving this letter. Also, at the time of your call, please provide us with your current information. Thank you for your prompt attention to this matter. Sincerely, [facility] [phone] Normal [facility] Physician Referralon 023 Physician Referral [id number] 8#1.00CD:127 Normal [facility] Testost Totalon 11-16-2022 Testosterone [Mass/Vol] 630 ng/dL Invalid Interpretation Code [id number] [facility] Comment on above: Result Comment: Adul t male reference interval is based on a population of healthy nonobese males (BMI <30) between 19 and 39 years old. sweta Cao.al. JCEM 2017,102;9600-0131. PMID: [id number]. Performed at: [address] [id number] PhD Giovanny Bahena Performed By: #### 2 113797, 06830620, 0146182, 61714673, 27891391, 9301463 ####[address] [place] [address] Ambulatory Visit Summaryon 0 11-13-2022 Ambulatory Visit [...] in 2 hours if needed Pickup at [facility]/pharmacy #[id number] Unchanged cholecalciferol (Vitamin D3 2000 intl units [...] 3 TIMES A DAY NEEDED Pharmacy Information [facility]/pharmacy #[id number]: [address] [place], [place] [phone] Allergies No Known Allergies Problems Ongoing - Any problem that you are currently receiving treatment for. Erectile disorder Fatigue Herniated intervertebral disc of lumbar spine Migraine Wellness examination Normal [facility] CHEMISTRYOrdered By: SYSTEM SYSTEM on 11-13-2022 [...] rate/Area] 76 mL/min/1.73 m2 Normal >=59mL/min/1.73 m2 FT Chem S Globulin (S) [Mass/Vol] 3.3 g/dL Normal 1.4 - 4.0 gm/dL FT Remisol Glucose [Mass/Vol] 77 mg/dL Normal 55 - 199 mg/dL FT Remisol Potassium [Moles/Vol] 4.7 mmol/L Normal 3.5 - 5.3 mmol/L FT Remisol Prostate specific Ag [Mass/Vol] 0.6 ng/mL Normal 0.1 - 3.5 ng/mL FT Remisol Protein [Mass/Vol] 7.7 g/dL Normal 6.0 - 7.8 gm/dL F [facility] Remisol Sodium [Moles/Vol] 138 mmol/L Normal 135 - 145 mmol/L FT Remisol Triglyceride [Mass/Vol] 95 mg/dL Normal <=149mg/dL FT Remisol TSH Qn 3.86 m[IU]/L Normal 0.34 - 5.60 mcIU/mL FT Remisol Urea nitrogen [Mass/Vol] 18 mg/dL Normal 5 - 21 mg/dL FT Remisol Urea nitrogen/Creatinine [Mass ratio] 15 mg/mg Normal 10 - 20 FT Remisol CMPon 11-13-2022 Albumin [Mass/Vol] 4.4 g/dL Normal 3.3-5.0 [facility] Comment on above: Performed By: #### 2 684982, 43153619, 4783302, 38476836, 74205779, 9686152 ####[facility] [address] [place] [address] Albumin/Globulin (S) [Mass conc ratio] 1.3 Normal 1.1-2.2 [facility] Comment on above: Performed By: #### 2 367473, 45249837, 3420764, 77620893, 05667033, 3605416 ####[facility] [address] [place] [address] ALP [Catalytic activity/Vol] 58 Int._Unit/L Normal 21-98 [facility] Comment on above: Performed By: #### 2 576110, 68441841, 6746988, 67897433, 68910113, 5360954 ####[facility] [address] [place] [address] ALT No additional P-5'-P [Catalytic activity/Vol] 16 Int._Unit/L Normal 6-46 [facility] Comment on above: Performed By: #### 2 838810, 64044084, 1424481, 34010654, 33576611, 9020995 ####[facility] [address] [place] [address] Anion gap [Moles/Vol] 14 mmol/L Normal 6-16 [facility] Comment on above: Performed By: #### 2 447950, 09390587, 9437014, 71774793, 71854655, 4983375 ####[facility] [address] [place] [address] AST [Catalytic activity/Vol] 23 Int._Unit/L Normal 5-43 [facility] Comment on above: Performed By: #### 2 288267, 79342537, 1959590, 37842821, 38321657, 1364538 ####[facility] [address] [place] [address] Bilirubin [Mass/Vol] 0.4 mg/dL Normal 0.0-1.1 [facility] Comment on above: Performed By: #### 2 024844, 15354698, 9214335, 00271737, 09387886, 7775605 ####[facility] [address] [place] [address] Calcium [Mass/Vol] 9.5 mg/dL Normal 8.9-11.1 [facility] Comment on above: Performed By: #### 2 823266, 28929213, 5938975, 89494119, 02199317, 8131467 ####[facility] [address] [place] [address] Chloride [Moles/Vol] 102 mmol/L Normal 101-111 [facility] Comment on above: Performed By: #### 2 673261, 04523891, 0587914, 73089057, 04418261, 1112701 ####[facility] [address] [place] [address] CO2 [Moles/Vol] 27 mmol/L Normal 21-31 [facility] Comment on above: Performed By: #### 2 523847, 34623835, 3442370, 05347067, 36722840, 1031795 ####[facility] [address] [place] [address] Creatinine [Mass/Vol] 1.2 mg/dL Normal 0.5-1.3 [facility] Comment on above: Performed By: #### 2 937004, 21417828, 2112318, 10309434, 06792303, 2715131 ####[facility] [address] [place] [address] Globulin (S) [Mass/Vol] 3.3 g/dL Normal 1.4-4.0 [facility] Comment on above: Performed By: #### 2 864850, 21711550, 3629251, 61232403, 82342050, 3444475 ####[facility] [address] [place] [address] Glucose [Mass/Vol] 77 mg/dL Normal 55-199 [facility] Comment on above: Result Comment: If t his glucose result represents a fasting glucose, interpretation should refer to the following reference range: 55-99 mg/dL Performed By: #### 2 531932, 36972645, 4973446, 46425438, 44714423, 2321967 ####[facility] [address] [place] [address] Potassium [Moles/Vol] 4.7 mmol/L Normal 3.5-5.3 [facility] Comment on above: Performed By: #### 2 880018, 58538369, 0134839, 06945570, 17796443, 1418990 ####[facility] [address] [place] [address] Protein [Mass/Vol] 7.7 g/dL Normal 6.0-7.8 [facility] Comment on above: Performed By: #### 2 203766, 96265583, 7505047, 50960612, 28975489, 4540639 ####[facility] [address] [place] [address] Sodium [Moles/Vol] 138 mmol/L Normal 135-145 [facility] Comment on above: Performed By: #### 2 774243, 11453101, 1590173, 63904732, 08403881, 4170253 ####[facility] [address] [place] [address] Urea nitrogen [Mass/Vol] 18 mg/dL Normal 5-21 [facility] Comment on above: Performed By: #### 2 735050, 79995210, 3780480, 21927780, 56244652, 3194260 ####[facility] [address] [place] [address] Urea nitrogen/Creatinine [Mass ratio] 15 No Units Normal 10-20 [facility] Comment on above: Performed By: #### 2 558441, 26318403, 3841130, 45376690, 57524058, 2233148 ####[facility] [address] [place] [address] Family Medicine Office/Clini c Noteon 11-13-2022 Family Medicine Office/Clinic Note Chief Complaint pt here to establish care HPI Staff Saria is a 42 year old male presenting to establish care Establish Care: History: Any previous diagnosis: Migraines History of seeing any specialist: Has When was your last doctors visit: Last provider: Dr fink in [place] Any recent labs: Over a year ago Health Maintenance UTD: Colonoscopy: no PSA: no Acute: Current issues/complaints: Migraines- Intermittent 4 or 5 a month does, light does bother him a dark room is helpful, caffeine and Excedrin migraine. Will sometimes get tunnel vision. Back pain: Has been seen by pain management has herniated Disc L4/L5 did see Orthopedic surgeon once in [place] but missed second appointment due to a [...] needed, # 9 tab(s), Refills(s) 0, [id number], 183.5, cm, 11/13/22 11:51:00 EDT, Height/Length Dosing, 75, kg, 11/13/22 11:51:00 EDT, Weight Dosing CBC w/ Auto Diff Comprehensive Metabolic Panel [facility] External Ambulatory Referral [facility] Internal Ambulatory Referral Lab Specimen Collect [address] Lipid Panel PSA Screen, Total Testosterone Level Total TSH With T4fr Reflex 2. Fatigue (R53.83: Other fatigue) pt c/o fatigue Ordered: sumatriptan, 25 mg = 1 tab(s), Oral, As Directed, PRN Migraine headache, may repeat dose in 2 hours if needed, # 9 tab(s), Refills(s) 0, [facility] [id number], 183.5, cm, 11/13/22 11:51:00 EDT, Height/Length Dosing, 75, kg, 11/13/22 11:51:00 EDT, Weight Dosing CBC w/ Auto Diff Comprehensive Metabolic Panel [facility] External Ambulatory Referral [facility] Internal Ambulatory Referral Lab Specimen Collect [id number] Lipid Panel PSA Screen, Total Testosterone Level [...] needed, # 9 tab(s), Refills(s) 0, Pharmacy: [facility]/pharmacy #[id number], 183.5, cm, 11/13/22 11:51:00 EDT, Height/Length Dosing, 75, kg, 11/13/22 11:51:00 EDT, Weight Dosing CBC w/ Auto Diff Comprehensive Metabolic Panel [facility] External Ambulatory Referral [facility] Internal Ambulatory Referral Lab Specimen Collect [id number] Lipid Panel PSA Screen, Total Testosterone Level [...] needed, # 9 tab(s), Refills(s) 0, Pharmacy: [facility]/pharmacy #[id number], 183.5, cm, 11/13/22 11:51:00 EDT, Height/Length Dosing, 75, kg, 11/13/22 11:51:00 EDT, Weight Dosing [facility] External Ambulatory Referral [facility] Internal Ambulatory Referral 5. Herniated intervertebral disc of lumbar spine (M51.26: Other intervertebral disc displacement, lumbar region) pt had MRI at [facility] in [place] and was seeing someone for herniated L4/L5. Had one appointment then injured his ankle and had to have surgery and PT for that so he but the back pain on the back burner. He would like to see someone local. Will refer to [facility] access [facility] Ordered (more content not included)... Normal [facility] Comment on above: Result Comment: Elec tronically Signed By: Yolande Carmona\.br\Date and Time Signed: 11/13/22 12:57 EDT Lipid Panelon 11-13-2022 Cholesterol [Mass/Vol] 233 mg/dL High 120-200 [facility] Comment on above: Performed By: #### 2 649358, [id number], 4860856, [id number], 85635265, 5241263 ####[facility] [address] [place] [address] Cholesterol in HDL [Mass/Vol] 46 mg/dL Invalid Interpretation Code [facility] Comment on above: Result Comment: HDL > or equal to 60 mg/dL: Low cardiovascular risk HDL < 40 mg/dL : High cardiovascular risk Performed By: #### 2 100256, [id number], 1035191, 20448128, [id number], 2404855 ####[facility] [address] [place] [address] Cholesterol in LDL [Mass/Vol] 167 mg/dL High <=129 [facility] Comment on above: Performed By: #### 2 659472, [id number], 3388007, 04417175, 05602028, 5188677 ####[facility] [address] [place] [address] Cholesterol in VLDL [Mass/Vol] 19 mg/dL Normal 7-40 [facility] Comment on above: Performed By: #### 2 492454, 49434421, 2650458, 56556237, 16406434, 8961578 ####[facility] [address] [place] [address] Triglyceride [Mass/Vol] 95 mg/dL Normal <=149 [facility] Comment on above: Performed By: #### 2 151025, 14997881, 5389574, 95412819, 41791149, 3515382 ####[facility] [address] [place] [address] PSA Screen, Totalon 11-14-19 23 Prostate specific Ag [Mass/Vol] 0.6 ng/mL Normal 0.1-3.5 [facility] Comment on above: Result Comment: The concentration of PSA determined by different manufacturers can vary due to differences in assay methods and reagent specificity. Values obtained from different assay methods cannot be used interchangeably. The methodology used for this result was chemiluminescence using [employer] Access Hybritech PSA reagent. Performed By: #### 2 284000, [id number], 4084590, 43188305, 27281038, 7724066 ####[facility] [address] [place] [address] TSH With T4fr Reflexon 11-13 TSH Qn 3.86 m[IU]/L Normal 0.34-5.60 [facility] Comment on above: Performed By: #### 2 480698, 80673212, 3756974, 66977148, 82020274, 8965835 ####[facility] [address] [place] [address] eGFRon 11-13-2022 GFR/1.73 sq M.predicted among non-blacks MDRD (S/P/Bld) [Vol rate/Area] 76 mL/min/1.73 m2 Normal >=59 [facility] Comment on above: Order Comment: Order added by Discern Expert. Result Comment: Toby Maker amita kidney disease could be indicated at eGFR's of less than 60 mL/min/1.73m2. Kidney failure is indicated at less than 15 mL/min/1.73m2. Performed By: #### 2 942793, 10771865, 1378883, 60527853, 23382964, 7539551 ####[facility] [address] [place] [address] Follow-Upon 08-30-2022 Follow-Up [id number] Sulaiman White 1980 M Date Provider Department Center 08/30/2022 LUCERO MUÑOZ MP ORTHO MPORTHO No family history on file Level of Service:47978 [place] POSTOP FOLLOW UP VISIT RELATED TO ORIGINAL PX Reason for Visit and Comments: Follow-up [019856] - [facility] R ankle follow up [facility] 36on 08-21-2022 36 Approving, but needs appt for additional refills. [facility] HPon 08-16-2022 HP H&P reviewed. The patient was examined and there are no changes to the H&P. [facility] Date of Surgery: 08/16/2022 Surgeon: Lucero Rogers MD Cat Sitter: Smita Burton MD Preoperative Diagnosis: Symptomatic retained [...] MD Orthopaedic Surgery Resident, PGY-2 08/16/22 Normal [facility] POCT GLUCOSE METER UNSOLICIT ED RESULTSon 08-16-2022 Glucose [Mass/Vol] 98 mg/dL Normal 70-105 [facility] Comment on above: Result Comment: lweb er4 Performed By: #### L [id number] ####[facility] ([facility])[address] [place] [address] Follow-Upon 08-04-2022 Follow-Up [id number] Sulaiman White 1980 M Date Provider Department Center 08/04/2022 421-LUCERO ROGERS MP ORTHO MPORTHO No family history on file Level of Service:01809 [place] OFFICE/OUTPATIENT ESTABLISHED MOD MDM 30-39 MIN (GC,57) Reason for Visit and Comments: Pain [136] Normal [facility] HPon 08-04-2022 HP Subjective Chief complaint: Chief Complaint Patient presents with Right Ankle - Pain 08/04/22 Sulaiman White is a 42 y.o. year old male [facility] presenting for evaluation of right ankle pain [...] Brock MD Orthopedic Surgery Resident Physician Pager: [phone] 08/04/22 9:04 AM By using the attestations [...] an additional personal documentation from me. Normal [facility] Labon 08-04-2022 Lab [id number] Sulaiman White 1980 M Date Provider Department Center 08/04/2022 2244-[facility] MP LAB RESOURCE MP DRAW Medical Pavi No family history on file Normal [facility] MRSA/MSSA DNA NASALon 2022 MRSA DNA Negative Normal Negative [facility] Comment on above: Performed By: #### L [id number] ####[facility] (BEAKER)[address] [place] [address] MSSA DNA Negative Normal Negative [facility] Comment on above: Performed By: #### L [id number] ####[facility] (BEARACELIS)[address] [place] [address] Prep for Procedureon 023 Prep for Procedure [id number] Melvin Whiteel 1980 M Date Provider Department [place] 08/04/2022 LUCERO MUÑOZ MP ORTHO MPORTHO No family history on file [facility] Follow-Upon 07-25-2022 Follow-Up [id number] Melvin Whiteel 1980 M Date Provider Department [place] 07/25/2022 VENKAT DEL ANGEL MP ORTHO MPORTHO No family history on file Level of Service:97529 [place] OFFICE/OUTPATIENT ESTABLISHED LOW MDM 20-29 MIN Reason for Visit and Comments: Follow-up [044303] - Review of xr [facility] 36on 07-19-2022 36 Approving, but needs appt for additional refills. [facility] 36on 06-19-2022 36 Approving, but needs appt for additional refills. [facility] 36on 05-22-2022 36 Approving, but needs appt for additional refills. [facility] 36on 04-24-2022 36 Approving, but needs appt for additional refills. Normal [facility] Follow-Upon 04-18-2022 Follow-Up [id number] LesleeerwinSulaiman 1980 M Date Provider Department Center 04/18/2022 VENKAT DEL ANGEL MP ORTHO MPORTHO No family history on file Level of Service:01934 [place] OFFICE/OUTPATIENT ESTABLISHED LOW MDM 20-29 MIN Reason for Visit and Comments: Follow-up [750696] - [facility] Pt here today for right ankle follow up with xr [facility] Refillon 03-28-2022 Refill [id number] LesleeerwinSulaiman 1980 M Date Provider Department Center 03/28/2022 VENKAT DEL ANGEL MP ORTHO MPORTHO No family history on file Reason for Visit and Comments: Med Refill [586266] Normal [facility] Follow-Upon 02-14-2022 Follow-Up [id number] Sulaiman White 1980 M Date Provider Department Center 02/14/2022 Carolyn-VENKAT SIFUENTES MP ORTHO MPORTHO No family history on file Level of Service:43628 [place] OFFICE/OUTPATIENT ESTABLISHED LOW MDM 20-29 MIN Reason for Visit and Comments: Follow-up [737348] - Pt present for right ankle pain, with review of xrays Normal [facility] ANKLE RIGHT 3 VWSon 12-24-19 22 ANKLE RIGHT 3 VWS [facility] Department of Radiology [address] [place] [phone] Patient Name: SULAIMAN WHITE : 1980 Sex: M Age: Race: White Pt. Location: Patient Status: D Ordered Date: 12/23/2021 2:15:00 PM Completed Date: 12/23/2021 02:16 PM Requesting Provider: VENKAT SIFUENTES Attending Provider: VENKAT SIFUENTES Report Copy To: Signs & Symptoms: M25.571 Pain in right ankle and joints of right foot I10 History: Jarratt Comments: Exam: ANKLE RIGHT 3 VWS ANKLE RIGHT 3 VWS 12/23/2021 2:16 PM CLINICAL INDICATIONS: M25.571 Pain [...] maintained Electronically signed: Lexy Burnett. Transcribed by: [email or web address], User Resident: Electronically Signed by: LEXY BURNETT @ 12/25/2021 02:51 PM Normal [facility] ANKLE RIGHT 3 [facility] 11-12-19 22 ANKLE RIGHT 3 [facility] Department of Radiology [address] [place] [phone] Patient Name: SULAIMAN WHITE : 1980 Sex: M Age: Race: White Pt. Location: Patient Status: D Ordered Date: 11/11/2021 10:40:00 AM Completed Date: 11/11/2021 10:41 AM Requesting Provider: VENKAT SIFUENTES Attending Provider: VENKAT SIFUENTES Report Copy To: SELF, REFERRED Signs & Symptoms: M25.571 Pain in right ankle and joints of right foot I10 History: Jarratt Comments: Exam: ANKLE RIGHT 3 [facility] ANKLE RIGHT 3 [facility] 11/11/2021 10:41 AM SIGNS AND [...] swelling. Electronically signed: Brent Dooley. Transcribed by: [email or web address], User Resident: BRENT DOOLEY Electronically Signed by: BRENT DOOLEY @ 11/13/2021 02:39 PM I personally read this/these film(s) with this resident Normal [facility] ANKLE RIGHT 3 [facility] 10-13-19 22 ANKLE RIGHT 3 [facility] Department of Radiology [address] [place] [phone] Patient Name: SULAIMAN WHITE : 1980 Sex: M Age: Race: White Pt. Location: Patient Status: D Ordered Date: 10/12/2021 1:20:00 PM Completed Date: 10/12/2021 01:53 PM Requesting Provider: VENKAT SIFUENTES Attending Provider: VENKAT SIFUENTES Report Copy To: SELF, REFERRED Signs & Symptoms: S82.831A Oth fracture of upper and lower end of right fibula, init I10 History: Comments: evaluate Exam: ANKLE RIGHT 3 [facility] ANKLE RIGHT 3 [facility] 10/12/2021 1:53 PM CLINICAL INDICATIONS: [...] change Electronically signed: Lexy Peterson. Transcribed by: [email or web address], User Resident: Electronically Signed by: LEXY PETERSON @ 10/13/2021 02:03 PM Normal [facility] Comment on above: Order Comment: Evalu ate ANKLE RIGHT 3 VWSon 09-15-19 ANKLE RIGHT 3 [facility] Department of Radiology [address] [place] [phone] Patient Name: SULAIMAN WHITE : 1980 Sex: M Age: Race: White Pt. Location: Patient Status: D Ordered Date: 09/14/2021 1:30:00 PM Completed Date: 09/14/2021 01:34 PM Requesting Provider: VENKAT SIFUENTES Attending Provider: VENKAT SIFUENTES Report Copy To: SELF, REFERRED Signs & Symptoms: S82.831A Oth fracture of upper and lower end of right fibula, init I10 History: Christy Comments: Exam: ANKLE RIGHT 3 VWS ANKLE RIGHT 3 VWS 09/14/2021 1:34 PM CLINICAL INDICATIONS: S82.831A Oth [...] complications. Electronically signed: Carline Alejandre. Transcribed by: [email or web address], User Resident: Electronically Signed by: CARLINE ALEJANDRE @ 09/16/2021 10:25 AM [place] [facility] ANKLE RIGHT 3 [facility] 08-30-19 ANKLE RIGHT 3 [facility] Department of Radiology [address] [place] [phone] Patient Name: SULAIMAN WHITE : 1980 Sex: M Age: Race: White Pt. Location: Patient Status: D Ordered Date: 07/18/2021 10:05:00 AM Completed Date: 08/29/2021 01:52 PM Requesting Provider: THANIA HOWARD Attending Provider: THANIA HOWARD Report Copy To: Signs & Symptoms: S82.831A Oth fracture of upper and lower end of right fibula, init I10 History: Comments: Evaluate Exam: ANKLE RIGHT 3 [facility] ANKLE RIGHT 3 S 08/29/2021 1:52 PM CLINICAL INDICATIONS: S82.831A Oth [...] report. Electronically signed: Radha Lane. Transcribed by: [email or web address], User Resident: GALLO HAIR Electronically Signed by: RADHA LANE @ 08/30/2021 11:45 AM I personally read this/these film(s) with this resident Normal [facility] Comment on above: Order Comment: Evalu ate FOOT RIGHT 2 [facility] 2 FOOT RIGHT 2 [facility] Department of Radiology [address] [place] [phone] Patient Name: SULAIMAN WHITE : 1980 Sex: M Age: Race: White Pt. Location: Patient Status: D Ordered Date: 08/29/2021 1:15:00 PM Completed Date: 08/29/2021 01:52 PM Requesting Provider: VENKAT SIFUENTES Attending Provider: Report Copy To: Signs & Symptoms: M79.671 Pain in right foot I10 History: Comments: evaluate Exam: FOOT RIGHT 2 S FOOT RIGHT 2 S 08/29/2021 1:52 PM [...] report. Electronically signed: Radha Lane. Transcribed by: [email or web address], User Resident: GALLO HAIR Electronically Signed by: RADHA LANE @ 08/30/2021 11:44 AM I personally read this/these film(s) with this resident Normal [facility] Comment on above: Order Comment: Evalu ate ANKLE RIGHT 3 Son 08-02-19 22 ANKLE RIGHT 3 S [facility] Department of Radiology [address] [place] [phone] Patient Name: SULAIMAN WHITE : 1980 Sex: M Age: Race: White Pt. Location: Patient Status: Ordered Date: 08/01/2021 9:25:00 AM Completed Date: 08/01/2021 09:40 AM Requesting Provider: THANIA HOWARD Attending Provider: Report Copy To: Signs & Symptoms: Z48.89 Encounter for other specified surgical aftercare I10 History: Comments: Evaluate Exam: ANKLE RIGHT 3 [facility] ANKLE RIGHT 3 [facility] 08/01/2021 9:40 AM CLINICAL INDICATIONS: Z48.89 Encounter [...] report. Electronically signed: Rafy Trejo. Transcribed by: [email or web address], User Resident: ARISTEO MEYER Electronically Signed by: RAFY TREJO @ 08/01/2021 10:04 AM I personally read this/these film(s) with this resident Normal [facility] Comment on above: Order Comment: Evalu ate FOOT RIGHT 2 [facility] 2 FOOT RIGHT 2 [facility] Department of Radiology [address] [place] [phone] Patient Name: SULAIMAN WHITE : 1980 Sex: M Age: Race: White Pt. Location: 84 Patient Status: O Ordered Date: 08/01/2021 10:10:00 AM Completed Date: 08/01/2021 10:29 AM Requesting Provider: VENKAT SIFUENTES Attending Provider: THANIA HOWARD Report Copy To: Signs & Symptoms: M79.671 Pain in right foot I10 History: Christy Comments: Evaluate Exam: FOOT RIGHT 2 VWS [...] well-preserved. Electronically signed: Rafy Trejo. Transcribed by: [email or web address], User Resident: Electronically Signed by: RAFY TREJO @ 08/01/2021 10:35 AM [place] [facility] Comment on above: Order Comment: Evalu ate *MRSA/MSSA DNA NASALon 07-20 *MRSA/MSSA DNA NASAL Clinical Report: (D) Specimen: NASAL SWAB Collected: 07/20/2021 17:31 Status: Final Last Updated: 07/20/2021 21:23 (1) No collection time noted on specimen or requisition. The collection time recorded is the time of receipt in the lab. MSSA DNA (Final) Negative MRSA DNA (Final) Negative Normal [facility] Comment on above: Order Comment: Evalu ate Performed By: #### 3 1595 ####[address] ANKLE RIGHT 2 [facility] 07-21-19 22 ANKLE RIGHT 2 [facility] Department of Radiology [address] [place] [phone] Patient Name: SULAIMAN WHITE : 1980 Sex: M Age: Race: White Pt. Location: OUTP Patient Status: D Ordered Date: 07/20/2021 12:00:00 PM Completed Date: 07/20/2021 01:11 PM Requesting Provider: THANIA HOWARD Attending Provider: THANIA HOWARD Report Copy To: Signs & Symptoms: ORIF RIGHT FIBULA History: Comments: ORIF RIGHT FIBULA Exam: ANKLE RIGHT 2 [facility] EXAMINATION: ANKLE RIGHT 2 S 07/20/2021 1:11 PM CLINICAL HISTORY: ORIF RIGHT [...] above. Electronically signed: Joe Freeman. Transcribed by: [email or web address], User Resident: Electronically Signed by: JOE FREEMAN @ 07/21/2021 07:59 AM Normal [facility] Comment on above: Order Comment: ORIF RIGHT FIBULA Operative Reporton 2 Operative Report MR#: [id number] S [facility] Pt. Name: Sulaiman White Room #: 0C Discharge Date: Birthdate: 1980 OPERATIVE REPORT DATE OF SURGERY: 07/20/2021 SURGEON: Thania Howard M.D. ASSISTANTS: 1. Smita Dean M.D. [...] b (more content not included)... Normal [facility] POC GLUCOSE LABon 07-20-2021 Glucose [Mass/Vol] 106 mg/dL High 70-100 [facility] Comment on above: Performed By: #### 8 5499 #### [facility] [address] [facility]. [address] POC SARS COV2 IDon 2 SARS-CoV-2 (COVID-19) RNA RONIT+probe Ql (Unsp spec) Negative Normal NEGATIVE [facility] Comment on above: Result Comment: ID [...] Accreditation. Performed By: #### 3 1921 #### [facility] [address] [facility]. [address] *MRSA/MSSA DNA NASALon 07-18 *MRSA/MSSA DNA NASAL Clinical Report: (D) Specimen: NASAL SWAB Collected: 07/18/2021 10:21 Status: Final Last Updated: 07/18/2021 15:35 MSSA DNA (Final) Negative MRSA DNA (Final) Negative Normal [facility] Comment on above: Performed By: #### 3 1595 #### [facility] [address] [facility]. [place], [place] [id number] [place] [address] *SARS-CoV-2 COVID-19on 07-18 SARS-CoV-2 (COVID-19) RNA RONIT+probe Ql (Unsp spec) Not detected Normal Not Detected [facility] Comment on above: Order Comment: The A ptima SARS-CoV-2 assay is a nucleic acid amplification test intended for the qualitative detection of RNA from SARS-CoV-2 isolated and purified from nasopharyngeal (WHEELMAN),oropharyngeal (OP), nasal swab, sputum, and bronchoalveolar lavage (BAL) specimens from patients with signs and symptoms of infection who are suspected of COVID-19. Results are for the identification of SARS-CoV-2 RNA. The SARS-CoV-2 RNA is generally detectable during the acute phase of infection. The Aptima SARS-CoV-2 Assay on the [employer] and [employer] Fusion system is intended for use by laboratory personnel specifically instructed and trained in the operation of the [place] and [employer] Fusion system. The Aptima SARS-CoV-2 assay is [...] information. Performed By: #### 3 1792 #### [facility] [address] [facility] [place] [address], [facility] APTTon 07-18-2021 aPTT Coag (Bld) [Time] 28.9 s Normal 25.0-35.0 [facility] Comment on above: Result Comment: ALL [...] THIS PURPOSE. Performed By: #### 5 7307, 66771 ####[facility] [facility].[address] BASIC METABOLIC PANELon 03-0 Calcium [Mass/Vol] 8.9 mg/dL Normal 8.6-10.3 [facility] Comment on above: Performed By: #### 3 28, 48[address] ####[facility] [facility] [place] [address], [facility] Chloride [Moles/Vol] 102 mmol/L Normal 98-107 [facility] Comment on above: Performed By: #### 3 727, 94596 ####[facility] [facility] [place] [address], [facility] CO2 [Moles/Vol] 26 mmol/L Normal 21-31 [facility] Comment on above: Performed By: #### 3 28, 19392 ####[facility] [facility] [place] [address], [facility] Creatinine [Mass/Vol] 1.10 mg/dL Normal 0.70-1.30 [facility] Comment on above: Performed By: #### 3 28, [address] ####[place] [address] [facility] [place] [address], [facility] GFR/1.73 sq M.predicted among blacks MDRD (S/P/Bld) [Vol rate/Area] mL/min/{1.73_m2} Normal >60 [facility] Comment on above: Performed By: #### 3 727, 75725 ####[facility] [facility] [place] [address], [facility] GFR/1.73 sq M.predicted among non-blacks MDRD (S/P/Bld) [Vol rate/Area] mL/min/{1.73_m2} Normal >60 [facility] Comment on above: Performed By: #### 3 727, 88919 ####[facility] [facility].[address] Glucose [Mass/Vol] 99 mg/dL Normal 70-100 [facility] Comment on above: Performed By: #### 3 727, 34690 ####[facility] [facility] [place] [address], [facility] Potassium [Moles/Vol] 4.2 mmol/L Normal 3.5-5.1 [facility] Comment on above: Performed By: #### 3 727, 83484 ####[facility] [facility].[address] Sodium [Moles/Vol] 135 mmol/L Low 136-145 [facility] Comment on above: Performed By: #### 3 727, 01331 ####[facility] [facility].[address] Urea nitrogen [Mass/Vol] 19 mg/dL Normal 7-25 [facility] Comment on above: Performed By: #### 3 727, 02588 ####[facility] [facility] [place] [address], [facility] CBC W/DIFFon 07-18-2021 ABS IMM GRANS 0.0 10*3/uL Normal 0.0-0.2 [facility] Comment on above: Performed By: #### 5 0103 ####[facility] [facility] [place] [address], [facility] ABS NEUTROPHILS 5.5 10*3/uL Normal 1.6-7.6 [facility] Comment on above: Performed By: #### 5 0103 ####[facility]3000 [facility] [place] [address], [facility] Basophils (Bld) [#/Vol] 0.0 10*3/uL Normal 0.0-0.2 [facility] Comment on above: Performed By: #### 5 0103 ####[facility] [place] [address], [facility] Basophils/100 WBC (Bld) 0.5 % Normal 0.0-1.0 [facility] Comment on above: Performed By: #### 5 0103 ####[facility] [place] [address], [facility] Eosinophils (Bld) [#/Vol] 0.2 10*3/uL Normal 0.0-0.5 [facility] Comment on above: Performed By: #### 5 0103 ####[facility] [place] [address], [facility] Eosinophils/100 WBC (Bld) 2.9 % Normal 0.0-6.0 [facility] Comment on above: Performed By: #### 5 0103 ####[facility] [facility].[address] Erythrocyte distribution width (RBC) [Ratio] 12.5 % Normal 11.5-15.0 [facility] Comment on above: Performed By: #### 5 0103 ####[facility] [facility] [place] [address], [facility] Hematocrit (Bld) [Volume fraction] 38.5 % Low 39.0-50.0 [facility] Comment on above: Performed By: #### 5 0103 ####[facility] [place] [address], [facility] Hemoglobin (Bld) [Mass/Vol] 13.0 g/dL Normal 13.0-17.0 [facility] Comment on above: Performed By: #### 5 0103 ####[facility] IMMATURE GRANS 0.5 % Normal 0.0-1.0 [facility] Comment on above: Performed By: #### 5 3 ####[facility] Lymphocytes (Bld) [#/Vol] 1.8 10*3/uL Normal 1.2-4.0 [facility] Comment on above: Performed By: #### 5 3 ####[place] [id number] Lymphocytes/100 WBC (Bld) 21.9 % Normal 20.0-45.0 [facility] Comment on above: Performed By: #### 5 3 ####[facility] MCH (RBC) [Entitic mass] 31.1 pg Normal 27.0-33.0 [facility] Comment on above: Performed By: #### 5 3 ####[facility] MCHC (RBC) [Mass/Vol] 33.8 g/dL Normal 32.0-35.0 [facility] Comment on above: Performed By: #### 3 ####[facility] MCV (RBC) [Entitic vol] 92.1 fL Normal 82.0-98.0 [facility] Comment on above: Performed By: #### 5 3 ####[facility] [place] [address], [facility] Monocytes (Bld) [#/Vol] 0.6 10*3/uL Normal 0.1-1.0 [facility] Comment on above: Performed By: #### 5 3 ####[facility] [facility] [place] [address], [facility] MONOS 7.5 % Normal 5.0-12.0 [facility] Comment on above: Performed By: #### 5 3 ####[facility] [facility].[address] Neutrophils/100 WBC (Bld) 66.7 % Normal 40.0-72.0 [facility] Comment on above: Performed By: #### 5 102 ####[facility] [facility].[address] Nucleated RBC/100 WBC (Bld) [Ratio] 0 % Normal 0-0 [facility] Comment on above: Performed By: #### 5 102 ####[facility] [facility] [place] [address], [facility] PLAT CNT 283 10*3/uL Normal 150-400 [facility] Comment on above: Performed By: #### 5 3 ####[facility] [facility].[address] RBC (Bld) [#/Vol] 4.18 10*6/uL Low 4.20-5.70 [facility] Comment on above: Performed By: #### 5 3 ####[facility] [facility] [place] [address], [facility] WBC (Bld) [#/Vol] 8.23 10*3/uL Normal 4.00-10.60 [facility] Comment on above: Performed By: #### 102 ####[facility] [facility].[address] PROTHROMBIN TIMEon 03-07-202 2 INR Coag (PPP) [Relative time] 0.96 {INR} Normal 0.91-1.16 [facility] Comment on above: Result Comment: ACCC P [...] CHEST 1995;108:[id number]. Performed By: #### 5 7307, [id number] ####[facility] [facility].[address] PT Coag (PPP) [Time] 12.7 s Normal 12.3-14.8 [facility] Comment on above: Result Comment: ALL RESULTS MUST BE INTERPRETED WITH RESPECT TO BLOOD DRAWING ARTIFACT OR DILUTION ERROR OF ANTICOAGULANT AT THE TIME OF SAMPLING. Performed By: #### 5 7307, [id number] ####[facility] [place] [address], [facility] VITAMIN D 25-HYDROXYon 07-18 VITAMIN D 25-OH 18.8 ng/mL Low 30.0-80.0 [facility] Comment on above: Result Comment: >80. 0 Toxicity possible Performed By: #### 3 0728, [id number] ####[facility] [facility] [place] [address], [facility] XR ANKLE RT MIN 3 VIEWSon XR [...] distal right fibular diametaphysis. Electronically authenticated by: Eron KWAN Date: 2021-07-14 05:45 Normal [facility] XR Hip Complete Righton 04-13 XR Hip Complete Right HISTORY: Pain, popping FINDINGS: Normal hip joint space. No pincer or CAM deformities. No cortical or stress fracture. IMPRESSION: Minimal arthritis. Report reported and signed by Sánchez Briscoe on 04/22/2021 1103 Normal [facility] Display Manager CBC AUTO DIFFon 04-12-2021 BASO # 0.0 103/ul Normal 0.0-0.1 [facility] Comment on above: Performed By: #### C BC #### [facility] [address] [place] [address] [address] Martha Schmid Basophils/100 WBC (Bld) 0.4 % Normal 0.2-2.0 [facility] Comment on above: Performed By: #### C BC #### [facility] [address] [place] [address] [address] Martha Schmid EO # 0.3 103/ul Normal 0.0-0.7 [facility] Comment on above: Performed By: #### C BC #### [facility] [address] [place] [address] [address] Martha Schmid Eosinophils/100 WBC (Bld) 4.2 % Normal 0.9-7.0 [facility] Comment on above: Performed By: #### C BC #### [facility] [address] [place] [address] [address] Martha Schmid Erythrocyte distribution width (RBC) [Ratio] 12.5 % Normal 11.0-15.0 [facility] Comment on above: Performed By: #### C BC #### [facility] [address] [place] [address] Dr. Martha Schmid Hematocrit (Bld) [Volume fraction] 39.7 % Critically low 42.0-54.0 [facility] Comment on above: Performed By: #### C BC #### [facility] [address] [place] [address] Dr. Martha Schmid Hemoglobin (Bld) [Mass/Vol] 13.1 g/dL Critically low 14.0-18.0 [facility] Comment on above: Performed By: #### C BC #### [facility] [address] [place] [address] Dr. Martha Schmid IG # 0.02 10e3/ul Normal 0.00-0.03 [facility] Comment on above: Performed By: #### C BC #### [facility] [address] [place] [address] Dr. Martha Schmid IG % 0.3 % Normal 0.0-0.5 [facility] Comment on above: Performed By: #### C BC #### [facility] [address] [place] [address] Dr. Martha Schmid LYMPH # 1.9 103/ul Normal 1.2-3.8 [facility] Comment on above: Performed By: #### C BC #### [facility] [address] [place] [address] Dr. Martha Schmid Lymphocytes/100 WBC (Bld) 24.4 % Normal 20.5-60.0 [facility] Comment on above: Performed By: #### C BC #### [facility] [address] [place] [address] Dr. Martha Schmid MANUAL DIFF REQ NO Normal [facility] Comment on above: Performed By: #### C BC #### [facility] [address] [place] [address] Dr. Martha Schmid MCH (RBC) [Entitic mass] 31.3 pg Normal 25.9-34.0 [facility] Comment on above: Performed By: #### C BC #### [facility] [address] [place] [address] [address] Martha Schmid MCHC (RBC) [Mass/Vol] 33.0 g/dL Normal 29.9-35.2 [facility] Comment on above: Performed By: #### C BC #### [facility] [address] [place] [address] [address] Martha Schmid MCV (RBC) [Entitic vol] 94.7 fL Critically high 80.0-94.0 [facility] Comment on above: Performed By: #### C BC #### [facility] [address] [place] [address] Dr. Martha Schmid MONO # 0.6 103/ul Normal 0.3-0.8 [facility] Comment on above: Performed By: #### C BC #### [facility] [address] [place] [address] Dr. Martha Schmid Monocytes/100 WBC (Bld) 8.2 % Normal 1.7-12.0 [facility] Comment on above: Performed By: #### C BC #### [facility] [address] [place] [address] Dr. Martha Schmid NEUT # 4.9 103/ul Normal 1.4-6.5 [facility] Comment on above: Performed By: #### C BC #### [facility] [address] [place] [address] Dr. Martha Schmid Neutrophils/100 WBC (Bld) 62.5 % Normal 43.0-75.0 [facility] Comment on above: Performed By: #### C BC #### [facility] [address] [place] [address] Dr. Martha Schmid Platelet mean volume (Bld) [Entitic vol] 9.6 fL Normal 9.5-13.5 [facility] Comment on above: Performed By: #### C BC #### [facility] [address] [place] [address] Dr. Martha Schmid PLT 247 103/ul Normal 150-450 [facility] Comment on above: Performed By: #### C BC #### [facility] [address] [place] [address] [address] Martha Schmid RBC 4.19 106/ul Critically low 4.70-6.10 [facility] Comment on above: Performed By: #### C BC #### [facility] [address] [place] [address] [address] Martha Schmid WBC 7.8 103/ul Normal 4.0-11.0 [facility] Comment on above: Performed By: #### C BC #### [facility] [address] [place] [address] [address] Martha Schmid GLYCOHEMOGLOBIN A1Con 2020 ADA RECOMMENDATION ADA THERAPEUTIC TARGET 6.0 - 7.0 ACTION SUGGESTED > 7.0 Normal [facility] Comment on above: Performed By: #### A 1C #### [facility] [address] [place] [address] Dr. Martha Schmid Glucose [Mass/Vol] 108 mg/dL Normal [facility] Comment on above: Performed By: #### A 1C #### [facility] [address] [place] [address] Dr. Martha Schmid HbA1c (Bld) [Mass fraction] 5.4 % Normal <=6.0 [facility] Comment on above: Performed By: #### A 1C #### [facility] [address] [place] [address] Dr. Martha Schmid LIPID PROFILEon 04-12-2021 CHOL-HDL RATIO NORM SEE BELOW Normal [facility] Comment on above: Result Comment: 3.3 - 4.4 LOW RISK 4.4 - 7.1 AVERAGE RISK 7.1 - 11.0 MODERATE RISK >11.0 HIGH RISK Performed By: #### C MP, LIPID #### [facility] [address] [place] [address] Dr. Martha Schmid Cholesterol [Mass/Vol] 181 mg/dL Normal <=200 [facility] Comment on above: Performed By: #### C MP, LIPID #### [facility] [address] [address] [address] Martha Schmid Cholesterol in HDL [Mass/Vol] 44 mg/dL Normal [facility] Comment on above: Performed By: #### C MP, LIPID #### [facility] [address] [place] [address] Dr. Martha Schmid Cholesterol in LDL [Mass/Vol] 118.4 mg/dL Normal [facility] Comment on above: Performed By: #### C MP, LIPID #### [facility] [address] [place] [address] Dr. Martha Schmid Cholesterol.total/C holesterol in HDL [Mass ratio] 4.1 {ratio} Normal [facility] Comment on above: Performed By: #### C MP, LIPID #### [facility] [address] [place] [address] Dr. Martha Schmid HDL NORMAL > or = 60 mg/dl - LOW CARDIOVASCULAR RISK <40 mg/dl - HIGH CARDIOVASCULAR RISK Normal [facility] Comment on above: Performed By: #### C MP, LIPID #### [facility] [address] [place] [address] Dr. Martha Schmid LDL CALC NORMAL SEE BELOW Normal [facility] Comment on above: Result Comment: <100 mg/dl OPTIMAL 100 - 129 mg/dl NEAR OR ABOVE OPTIMAL 130 - 159 mg/dl BORDERLINE HIGH 160 - 189 mg/dl HIGH >190 mg/dl VERY HIGH Performed By: #### C MP, LIPID #### [facility] [address] [place] [address] Dr. Martha Schmid Triglyceride [Mass/Vol] 93 mg/dL Normal <=150 [facility] Comment on above: Performed By: #### C MP, LIPID #### [facility] [address] [place] [address] Dr. Martha Schmid VLDL CALC 18.6 mg/dL Normal [facility] Comment on above: Performed By: #### C MP, LIPID #### [facility] [address] [place] [address] Dr. Martha Schmid PROF 14(COMP METB)on 021 Albumin [Mass/Vol] 3.9 g/dL Normal 3.5-5.0 [facility] Comment on above: Performed By: #### C MP, LIPID #### [facility] [address] [address] [address] Martha Schmid Albumin/Globulin [Mass ratio] 1.1 {ratio} Normal [facility] Comment on above: Performed By: #### C MP, LIPID #### [facility] [address] [address] [address] Martha Schmid ALP [Catalytic activity/Vol] 53 U/L Normal 38-126 [facility] Comment on above: Performed By: #### C MP, LIPID #### [facility] [address] [place] [address] Dr. Martha Schmid ALT [Catalytic activity/Vol] 25 U/L Normal 21-72 [facility] Comment on above: Performed By: #### C MP, LIPID #### [facility] [address] [place] [address] Dr. Martha Schmid Anion gap [Moles/Vol] 10.4 mmol/L Normal [facility] Comment on above: Performed By: #### C MP, LIPID #### [facility] [address] [place] [address] Dr. Martha Schmid AST [Catalytic activity/Vol] 18 U/L Normal 17-59 [facility] Comment on above: Performed By: #### C MP, LIPID #### [facility] [address] [place] [address] Dr. Martha Schmid Bilirubin [Mass/Vol] 0.4 mg/dL Normal 0.2-1.3 [facility] Comment on above: Performed By: #### C MP, LIPID #### [facility] [address] [place] [address] Dr. Martha Schmid Calcium [Mass/Vol] 9.4 mg/dL Normal 8.4-10.2 [facility] Comment on above: Performed By: #### C MP, LIPID #### [facility] [address] [place] [address] Dr. Martha Schmid Chloride [Moles/Vol] 102 mmol/L Normal 98-107 [facility] Comment on above: Performed By: #### C MP, LIPID #### [facility] [address] [address] [address] Martha Schmid CO2 [Moles/Vol] 29.9 mmol/L Normal 22.0-30.[address] [facility] Comment on above: Performed By: #### C MP, LIPID #### [facility] [address] [address] [address] Martha Schmid Creatinine [Mass/Vol] 0.98 mg/dL Normal 0.66-1.25 [facility] Comment on above: Performed By: #### C MP, LIPID #### [facility] [address] [place] [address] Dr. Martha Schmid EGFR-AF VENEZUELAN >60 Normal >=[address] [facility] Comment on above: Performed By: #### C MP, LIPID #### [facility] [address] [place] [address] Dr. Martha Schmid EGFR-NON AF VENEZUELAN >60 Normal >=60 [facility] Comment on above: Performed By: #### C MP, LIPID #### [facility] [address] [place] [address] Dr. Martha Schmid Globulin (S) [Mass/Vol] 3.6 g/dL Normal [facility] Comment on above: Performed By: #### C MP, LIPID #### [facility] [address] [place] [address] Dr. Martha Schmid Glucose [Mass/Vol] 89 mg/dL Normal 74-106 [facility] Comment on above: Performed By: #### C MP, LIPID #### [facility] [address] [address] [address] Martha Schmid Potassium [Moles/Vol] 4.3 mmol/L Normal 3.4-5.0 [facility] Comment on above: Performed By: #### C MP, LIPID #### [facility] [address] [place] [address] Dr. Martha Schmid Protein [Mass/Vol] 7.5 g/dL Normal 6.1-8.2 [facility] Comment on above: Performed By: #### C MP, LIPID #### [facility] [address] [place] [address] Dr. Martha Schmid Sodium [Moles/Vol] 138 mmol/L Normal 137-145 [facility] Comment on above: Performed By: #### C MP, LIPID #### [facility] [address] [address] [address] Martha Schmid Urea nitrogen [Mass/Vol] 16.0 mg/dL Normal 9.0-20.0 [facility] Comment on above: Performed By: #### C MP, LIPID #### [facility] [address] [address] [address] Martha Schmid Urea nitrogen/Creatinine [Mass ratio] 16.3 mg/mg Normal [facility] Comment on above: Performed By: #### C MP, LIPID #### [facility] [address] [address] [address] Martha Schmid Encounters Encounter Date Encounter Type Care Provider Facility Start: 10-30-2023 ambulatory PRODUCE SPECIALIST Yolande L Adela Facil ity:[facility]3] Start: 10-02-2023 End: 10-03-2023 ambulatory PRODUCE SPECIALIST Yolande L Adela Facility:[facility]3] Start: 09-28-2023 End: 09-29-2023 ambulatory PRODUCE SPECIALIST Yolande L Adela Facility:[facility]3] Start: 03-12-2023 End: 03-13-2023 ambulatory Catarino Palafox MD Facility:[facility] Start: 02-19-2023 End: 02-20-2023 ambulatory [facility] Start: 01-29-2023 End: 01-30-2023 ambulatory [facility] Start: 01-11-2023 End: 01-12-2023 ambulatory Aishwarya Montano Facility[facility] Start: 01-11-2023 End: 01-11-2023 Patient encounter procedure Aishwarya Montano [facility] Start: 12-19-2022 End: 12-20-2022 ambulatory Aishwarya Montano Facility:[facility] Start: 12-19-2022 End: 12-19-2022 Off-Site Aishwarya Marta Montano [facility] [place] Start: 12-01-2022 ambulatory [facility] Start: 11-21-2022 End: 11-22-2022 ambulatory PRODUCE SPECIALIST Yolande L Adela Facility:[facility] Start: 11-16-2022 ambulatory PRODUCE SPECIALIST Yolande Adela Facilit y:[facility] Start: 11-13-2022 End: 11-14-2022 ambulatory PRODUCE SPECIALIST Yolande L Adela Facility:[facility] Start: 11-13-2022 End: 11-13-2022 Lab Drop off Yolande L Adela [facility] Start: 11-10-2022 ambulatory PRODUCE SPECIALIST Yolande Adela Facilit y:[facility] Start: 08-30-2022 ambulatory [facility] Start: 08-16-2022 End: 08-16-2022 ambulatory [facility] Start: 08-04-2022 ambulatory [facility] Start: 07-25-2022 End: 07-26-2022 ambulatory [facility] Start: 07-24-2022 End: 07-25-2022 ambulatory [facility] Start: 04-18-2022 End: 04-19-2022 ambulatory [facility] Start: 02-14-2022 End: 02-15-2022 ambulatory [facility] Start: 07-20-2021 End: 07-21-2021 ambulatory THANIA HOWARD Facility:[facility] Start: 07-14-2021 End: 07-14-[address] KOTA VARGHESE Facility: Start: 06-21-2021 End: 06-22-2021 ambulatory SHAIKH CHARITO Facility: Start: 05-13-2021 ambulatory SHAIKH CHARITO Facility: [facility] Start: 05-10-2021 End: 05-11-[address] TWYLA HUGHES Facility:[facility] Start: 04-16-2021 Encounter for genera l adult medical examination without abnormal findings [facility] Start: 04-12-2021 End: 04-13-2021 [facility] Start: 04-12-2021 End: 04-13-2021 Encounter for general adult medical examination without abnormal [facility] Procedures Date Procedure Procedure Detail Performing Clinician Start: 12-01-2022 Follow-up visit Follow-up RUBY ROGERS Start: 05-14-2022 Injury of right ankle J bimal Adela Start: 05-14-2021 Injury of right ankle J bimal Adela Appendectomy Yolande Adela Right elbow region structure (body structure) Yolande Adela Structure of carpal canal (body structure) Yolande Adela Payers Date Payer Category Payer Unknown [id number] 2021 Unknown [id number] 2021 Worker's Compensation 1978 Unknown [id number] 2.16.84 [id number] 1978 Unknown [id number] 2.16.84 0.1.401364.3.579.2.593 1978 Unknown [id number] 2.16.84 0.1.519511.3.579.2.593 1978 Unknown [id number] .16.84 0.1.541951.3.579.2.593 1978 Unknown [id number] 2.16.84 0.1.860704.3.579.2.593 1978 Unknown [id number] 2.16.8 40.1.148628.3.579.2.647 1978 Unknown [id number] 2.16. 840.1.108158.3.579.2.196 1978 Unknown [id number] 2.16. 840.1.016829.3.579.2.196 1978 Unknown [id number] 2.16. 840.1.688587.3.579.2.196 1978 Unknown [id number] 2.16.8 40.1.803131.3.579.2.727 1978 Unknown [id number] 2.16.8 40.1.586245.3.579.2.727 1978 Unknown [id number] 2.16.8 40.1.420086.3.579.2.727 1978 Unknown [id number] 2.16.8 40.1.559698.3.579.2.727 1978 Unknown [id number] 2.16.8 40.1.234017.3.579.2.727 1978 Unknown [id number] 2.16.8 40.1.617086.3.579.2.727 1978 Unknown [id number] 2.16.8 40.1.251178.3.579.2.727 1978 Unknown [id number] 2.16.8 40.1.468474.3.579.2.727 1978 Unknown [id number] 2.16.8 40.1.779495.3.579.2.727 1978 Unknown [id number] 2.16.8 40.1.202374.3.579.2.727 1959 Self-pay 1959 Unknown [id number] 1959 Unknown [id number] Social History Date Type Detail Facility Start: 11-13-2022 End: 12-19-2022 Tobacco smoking status Light tobacco smoker (finding) [facility] Tobacco smoking status Never [facility] Sex Assigned At Male [facility] Clinical Notes 04-22-2021 to 12-19-2022 Radiology Note Date & Type Note Facility 12-19-2022 Evaluation + Plan note Future Scheduled TestsCT Head or Brain w/o Contrast 12/19/22 [facility] [place] 12-01-2022 Note Orthopedic Surgery Subjective Chief complaint: Chief Complaint Patient presents with Right Ankle - Follow-up Sulaiman White is a 42 y.o. year old male presenting for follow up from removal of right distal fibula hardware 08/16/22. He reports doing well with minimal pain unless he has to walk or stand for a long time. His pain only gets to a 08/21. He takes tramadol and Ibuprofen for pain [...] to be doing well. Incision completely healed. Joice some peroneal popping without dislocation on eversion of the ankle. PLAN: - continue ROM and dry needling appointments - Follow up in 6 months for clinical evaluation and to see if improvement to his symptoms and peroneal irritation. Jossie Bedoya MS3 [facility] 11-13-2022 Evaluation + Plan note [facility] 11/13/22Testosterone Level Total 11/13/22 [facility] 08-30-2022 Note 42 yo M here today [...] Follow in 3 months for clinical evaluation. [facility] 08-16-2022 Note Patient: Sulaiman Camilo ick Procedure Summary Date: 08/16/22 Room / Location: [facility] 04 / [facility] Operating Room Anesthesia Start: 1219 Anesthesia [...] no known notable events for this encounter. [facility] 08-16-2022 Note Airway Date/Time: 08/16/2022 12:28 PM Urgency: elective Airway not difficult General Information and Staff Patient location during procedure: OR Anesthesiologist: Canelo Gallagher MD Performed: other anesthesia staff Learner assisted: GAGE Whiting Indications and Patient Condition Indications for airway [...] 1 Number of other approaches attempted: 0 [facility] 08-16-2022 Note Patient: Sulaiman hood Procedure Information Date/Time: 08/16/22 1200 Procedure: REMOVAL, HARDWARE, ANKLE (Right: Ankle) - c-arm / 12:00pm start / Location: [facility] 04 / [facility] Operating Room Surgeons: Lucero Rogers MD [...] risks discussed with patient. Additional Equipment Requests [facility] 08-04-2022 Note Subjective Chief complaint: Chief Complaint Patient presents with Right Ankle - Pain 08/04/22 Sulaiman White is a 42 y.o. year old male [facility] presenting for evaluation of right ankle pain [...] Brock MD Orthopedic Surgery Resident Physician Pager: [phone] 08/04/22 9:04 AM By using the attestations [...] be an additional personal documentation from me. [facility] 07-25-2022 Note Date of Surgery: VALENTIN E OF SURGERY: 07/20/2021 SURGEON: Thania Howard M.D. ASSISTANTS: 1. Smita Dean M.D. [...] for scheduling once approved for hardware removal. [facility] 04-18-2022 Note Date of Surgery: VALENTIN E OF SURGERY: 07/20/2021 SURGEON: Thania Howard M.D. ASSISTANTS: 1. Smita Dean M.D. [...] bone Stim F/U 3 months repeat xrays [facility] 02-14-2022 Note Date of Surgery: VALENTIN E OF SURGERY: 07/20/2021 SURGEON: Thania Howard M.D. ASSISTANTS: 1. Smita Dean M.D. [...] bone Stim F/U 2 months repeat xrays [facility] 06-21-2021 Note CONSULTATION PAIN MANAGEMENT CONSULTATION [...] patient understands and would like to proceed. [facility] Signed and Approved by: DR TWYLA HUGHES . 06/28/2021 07:59:00 [facility] 05-10-2021 Note PAIN MANAGEMENT Consultation Date: 05-10-21 [...] patient recently had a MRI performed at [facility]. The report is noted on the [...] options are given to the patient. Dr. [place] orthopedic spine surgeon has been suggested. cc:Dr. Dsouza. [facility] Signed and Approved by: DR TWYLA HUGHES . 2021 09:03:00 [facility] 04-22-2021 Note PROCEDURE: DogVacayed VCT 64, 5.0 mm slice axial images [...] signed by Sánchez Briscoe on 04/22/2021 1428 [facility] course Narrative No data available for this section [facility] Hospital Discharge instructions No data available for this section [facility] Progress note No data available for this section [facility] Summary Purpose Family History No Family History [...] section and content) DATE CREATED AUTHOR 04/23/2021 [facility] dical Specialist DATE CREATED AUTHOR AUTHOR'S ORGANIZ ATION 07/15/2021 [facility] DATE CREATED AUTHOR AUTHOR'S ORGANIZ ATION 01/04/2022 [facility] DATE CREATED AUTHOR AUTHOR'S ORGANIZ ATION 01/24/2023 [facility] DATE CREATED AUTHOR AUTHOR'S ORGANIZ ATION 03/18/2023 [facility] DATE CREATED AUTHOR AUTHOR'S ORGANIZ ATION 10/03/2023 [place] [facility] team informatio n (unrecognized section and content) Personnel Name: Yolande Carmona Address: Address: [address] [place] [address]- Personnel Name: Yolande Carmona Address: Address: [address] [place] [address]- Personnel Name: AdelaYolande Schwab Address: Address: [address] [place] [address]- FOR RECORDS PERTAINING TO PATIENTS WHO ARE [...] BE BASED ON THE PRIMARY CLINICAL RECORDS. [facility] [employer] provides no warranty or guarantee of the accuracy or completeness of information in this document.
--- NOTE | 2023-10-03 12:44 | P.CN_ITS ---
Consult Note: HPI Data of Consult Patient: known to practice within the last 3 years Consult date: 01/29/23 Requesting Physician: Kerry Connolly NP Primary Care Provider: MEGHAN BAIN Consult Narrative Reason for consult: f/u Narrative: 42yom who presents for evaluation. worsening right ankle pain. previous workplace injury in july 2021, has had subsequent ankle surgeries. continues to have right ankle pain. has undergone >62 sessions of physical therapy, which have not provided lasting relief. uses flexeril, cymbalta, tramadol, ibuprofen with some benefit. Pain today 4-5/10 and CRISTHIAN improved at 27% today. Is now considering surgical repair with Dr Stafford. Has been tolerating lyrica 100 mg TID well without side effects cc:: CC: Kerry Connolly NP Review of Systems ROS Status of ROS 10 or more systems reviewed and unremark able except as noted in history and below Musculoskeletal Reports: extremity pain and joint pain PFSH PFSH Medical History Asthma ?J45.909 - Unspecified asthma, uncomplicated (ICD-10) Surgical History History of kidney surgery ?Z98.890 - Other specified postprocedural states (ICD-10) History of carpal tunnel release ?Z98.890 - Other specified postprocedural states (ICD-10) History of elbow surgery ?Z98.890 - Other specified postprocedural states (ICD-10) History of ankle surgery ?Z98.890 - Other specified postprocedural states (ICD-10) History of appendectomy ?Z90.49 - Acquired absence of other specified parts of digestive tract (ICD- 10) Meds Home Medications and Allergies Home Medications ?Medication ?Instructions ?Recorded ?Confirmed ?Type cyclobenzaprine 10 mg tablet 10 mg PO DAILY PRN muscle spasm 01/29/23 03/12/23 History duloxetine 60 mg capsule,delayed 60 mg PO DAILY 01/29/23 03/12/23 History release sildenafil 25 mg tablet 25 mg PO DAILY PRN sexual activity 01/29/23 03/12/23 History sumatriptan 10 mg/actuation nasal 20 mg intranasal Q2H PRN migraine 01/29/23 03/12/23 History spray headache pregabalin 50 mg capsule 50 mg PO Q8H 02/14/23 03/12/23 History tramadol 50 mg tablet 50 mg PO Q8H PRN pain 02/14/23 03/12/23 History ibuprofen 800 mg tablet 800 mg PO Q12H PRN pain 02/19/23 03/12/23 History Allergies Allergy/AdvReac Type Severity Reaction Status Date / Time No Known Drug Allergies Allergy Verified 03/12/23 07:10 Exam Narrative Exam Narrative: Psych-alert and oriented x 3. Attentive and appropriate, constitutionally normal, displays normal mood and affect per situation.? There are no obvious deficits in memory, reasoning, or intellect.? Skin-no obvious rashes, bruising, erythema noted to the patient's area of pain. Extremities- extremities are warm with minimal edema and palpable pulses. Ten derness to palpation in right ankle. Slight discoloring and cool temperature noted in right ankle. Lumbar-no significant tenderness to palpation noted in the lumbar spine and paraspinal musculature.? Pain is elicited with extension, and lateral rotation of the lumbar spine. Range of motion is slightly diminished with these motions due to pain. Coordination remains intact.? Gait remains non-antalgic. Constitutional Documenting provider has reviewed patient's vital signs: yes Common normals: no apparent distress, oriented x3, healthy appearing, alert and well nourished General appearance: cooperative HENNJ Common normals: normocephalic, hearing grossly normal bilaterally and moist oral mucous membranes Head and scalp: normocephalic Eye Common normals: PERRL Pupil: PERRL Neck & C-Spine Common normals: full ROM General: normal visual inspection Chest Common normals: inspection of chest normal Respiratory Common normals: normal respiratory effort, no retractions and no use of accessory muscles Neuro Common normals: oriented x3, CN's II-XII intact bilaterally, moves all extremities, no focal motor deficits, no sensory deficits noted and deep tendon reflexes 2+ bilaterally Sensorium/orientation: alert Motor exam: strength 5/5 throughout and no movement abnormalities noted Psych Common normals: mental status grossly normal, thought process normal, cooperative, affect normal, speech normal and activity/motor behavior normal Speech: normal speech Thought process: normal thought process Results Additional Findings Additional findings: If on a controlled substance or opioids, I have checked an [place] report on this patient and there are no aberrancies noted in the prescribing history.??If on a controlled substance or opioid a drug screen was completed and reviewed within the last year, and if there has not been a drug screen completed we ordered one today to monitor higher risk, state monitored pain medication use. As part of providing excellent, safe, comprehensive care, the following was completed at our patient's visit: 1. A medication reconciliation and review to ensure accurate knowledge of current/active medications, including asking our patients to inform us about any [id number] medications or herbal remedies/nutritional supplements/alternative remedies. 2. A review to specifically ensure our patients have had annual screening for screening for depression, screening for tobacco use, and screening for unhealthy alcohol use. For concerning screenings had a discussion with the patient, provided patient education, and recommended follow-up with primary care provider when appropriate. If patient noted with a risk of falling, they received educati on on strength, gait, and balance training to prevent future risk of falling. Assessment and Plan Assessment and Plan (1) Other fracture of upper and lower end of right fibula, initial encounter for closed fracture: Plan continue f/u with Dr Stafford, pt considering surgical repair continue lyrica to 100mg TID continue ibuprofen 800mg BID-TID PRN pain, denies side effects f/u 6 months, sooner if needed
== END 2023-10-03 12:30 | disposition home or self-care (01) ==
LOC: PM 12:29
PROVIDERS: PCP Nurse Practitioner; Visit Provider Nurse Practitioner
DX: S82.831D Other fracture of upper and lower end of right fibula, subsequent encounter for closed fracture with routine healing (principal)
CPT/HCPCS: G0463

== ENCOUNTER 2023-12-21 10:40 | Outpatient (RCR) | payer BC, SELFPAY | END 2024-01-10 12:53 | disposition home or self-care (01) | LOC: PT 10:40 | PROVIDERS: PCP Nurse Practitioner; Visit Provider Nurse Practitioner | DX: M51.26 Other intervertebral disc displacement, lumbar region (principal); M54.41 Lumbago with sciatica, right side | CPT/HCPCS: 20561; 97012; 97110; 97161 ==

== ENCOUNTER 2023-12-25 11:56 | Outpatient (OUT) | payer BC, SELFPAY ==
--- NOTE | 2023-12-25 | XR_ITS ---
The [address] [address] Patient Name: SHERIN WHITE MRN: [id number] date: 1980 Sex: M Assigned Patient Location: Current Patient Location: Accession/Order Number: [id number] Exam Date: 12/25/2023 11:56 Report Date: 12/27/2023 13:06 At the request of: WILLIAM BOBBY Procedure: XR ankle RT min 3V PROCEDURE: XR ankle RT min 3V HISTORY: RIGHT ANKLE PAIN COMPARISON: XR ankle right 03/21/2023 FINDINGS: BONES:No fracture, dislocation, articular surface irregularity, or appreciable joint space narrowing. Prior repair of distal fibula and subsequent hardware removal. SOFT TISSUES:Stable tiny metallic foreign body/fiber within lateral soft tissues. No soft tissue swelling. EFFUSION:None visible. OTHER: Negative. XR/XR ankle RT min 3V IMPRESSION: 1. No acute bone abnormality or significant degenerative joint disease. 2. Stable remote postoperative changes. Electronically authenticated by: JESUSITA MORA Date: 12/27/2023 13:06
== END 2023-12-25 11:57 | disposition home or self-care (01) ==
LOC: EC 11:56
PROVIDERS: PCP Nurse Practitioner; Visit Provider Podiatrist Foot & Ankle Surgery
DX: M25.571 Pain in right ankle and joints of right foot (principal)
CPT/HCPCS: 73610

== ENCOUNTER 2024-01-30 09:50 | Outpatient (OUT) | payer BC, SELFPAY ==
--- OUTSIDE RECORDS SUMMARY | 2024-01-30 10:03 | XMS_ITS | CCD ---
Author Organization [facility] Care Team Providers Care Forestry Extension Specialist Name Role Phone KAYLID, PARSONS Consulting Unavailable FAWWAD, PARSONS Primary Care [...] Admitting Unavailable SELF, REFERRED Primary Care Unavailable EBHEIM, THANIA Attending Unavailable SELF, REFERRED Referring Unavailable Yolande Chapman Primary Care Physician VENKAT SIFUENTES Attending Unavailable BEAR, VENKAT Attending Unavailable ROGERSLUCERO Attending Unavailable VENKAT SIFUENTES Attending Unavailable ROGERSPARISH BRAVOOPHMAURICE Admitting Unavailable ROGERS, CHRISTOPHMAURICE Attending Unavailable ROGERS, CHRISTOPHMAURICE Attending Unavailable ROGERS, CHRISTOPHER Attending Unavailable BEAR, VENKAT Referring Unavailable BEAR, VENKAT Referring Unavailable BEAR, VENKAT Referring Unavailable BEAR, VENKAT Referring Unavailable Vivienne CAMEJO, Catarino Anton Attending Unavailable Vivienne CAMEJO, Catarino Anton Attending Unavailable Vivienne CAMEJO, Catarino Anton Attending Unavailable DO Aishwarya Montano Attending UnavailBERNIE Lechugadi L Attending Unavailable Adela, DEBT COLLECTION SPECIALIST Yolande L Attending Unavailable Adela, DEBT COLLECTION SPECIALIST Yolande L Attending Unavailable Adela, DEBT COLLECTION SPECIALIST Yolande L Attending Unavailable Adela, DEBT COLLECTION SPECIALIST Yolande L Attending Unavailable Wittenauer, DO [place] S. Referring Baron Montano DO Aishwarya S. Attending Baron Montano, DO Aishwraya SJb Admitting Unavaila ble Medications Current Medications Medication Drug Class(es) Dates Sig (Normalized) Sig (Original) cyclobenzaprine hydrochloride 10 mg oral tablet (3 sources) Muscle Relaxant Start: 11-28-2022 cyclobenzaprine 10 mg Tab See Instructions, PRN for spasm, 1 tab(s) Oral at work for spasm, # 30 tab(s), Refills(s) 1, Pharmacy: [facility]/pharmacy #[id number], 183.5, cm, 11/13/22 11:51:00 EDT, Height/Length [...] day, # 18 tab(s), Refills(s) 1, Pharmacy: [facility]/pharmacy #[id number], 183.5, cm, 11/13/22 11:51:00 EDT, Height/Length Dosing... Start Date: 12/19/22 Status: Ordered Start: 11-13-2022 take 1 tablet by mya th every two hours as needed for headache SUMAtriptan 25 mg Tab 25 mg = 1 tab(s), Oral, As Directed, PRN Migraine headache, may repeat dose in 2 hours if needed, # 9 tab(s), Refills(s) 0, Pharmacy: [facility]/pharmacy #[id number], 183.5, cm, 11/13/22 11:51:00 EDT, Height/Length [...] Test Name Value Interpretation Reference Range Facil ity Ambulatory Visit Summaryon 0 12-11-2023 Ambulatory Visit Summary Ambulatory Visit Summary SULAIMAN WHIET :1980 Visit Date:12/11/2023 Ambulatory Visit Instructions Your Diagnosis Smoker BMI 22.0-22.9, adult Your Care Team Attending Physician - Yolande Carmona Primary Care Physician - Yolande Carmona This Is Your Medications List atogepant (Qulipta 60 mg oral tablet) busPIRone (busPIRone 7.5 mg oral tablet) cyclobenzaprine (cyclobenzaprine 10 mg Tab) duloxetine (duloxetine 60 mg oral delayed release capsule) ibuprofen (ibuprofen 800 mg Tab) pregabalin (pregabalin 100 mg Cap) sildenafil (sildenafil 50 mg Tab) sumatriptan (Imitrex 100 mg Tab) tramadol (traMADOL 50 mg Tab) Procedures Performed Right ankle injury (2022), Right ankle injury (2021), Appendectomy, Carpal tunnel, Right elbow. Discharge Vitals Temperature (Temporal Artery) 37.0 ?C Heart Rate (Peripheral) 84 Respiratory Rate 18 Blood Pressure 118/80 Height 183.5 cm Height 72 in Weight 76.55 kg Weight 168.41 lb BMI 22.73 Medications What How Much When Why Instructions Unchanged atogepant (Qulipta 60 mg oral tablet) 1 Tablets By Mouth Every day Migraine BMI 23.0-23.9, adult Smoker Unchanged busPIRone (busPIRone 7.5 mg oral tablet) See instructions TAKE 1 TABLET BY MOUTH THREE TIMES A DAY Unchanged cyclobenzaprine (cyclobenzaprine 10 mg Tab) See instructions 1 tab(s) Oral at work for spasm Unchanged duloxetine (duloxetine 60 mg oral delayed release capsule) 2 Capsules By Mouth Every day Duration: 90 Days 30 EA, TAKE 1 CAPSULE BY MOUTH EVERY DAY Unchanged ibuprofen (ibuprofen 800 mg Tab) 90 EA, TAKE 1 TABLET BY MOUTH THREE TIMES A DAY NEEDED FOR MILD PAIN Unchanged pregabalin (pregabalin 100 mg Cap) 1 Capsules By Mouth 3 times a day TAKE 1 TABLET BY MOUTH 3 TIMES A DAY Unchanged sildenafil (sildenafil 50 mg Tab) 1 Tablets By Mouth Every day as needed for for erectile dysfunction 1 hour before sexual activity Unchanged sumatriptan (Imitrex 100 mg Tab) 1 Tablets By Mouth As Directed as needed for Migraine headache may repeat dose in 2 hours if needed . take onset migraine. max 200mg per day Unchanged tramadol (traMADOL 50 mg Tab) 42 EA, TAKE 1 TO 2 TABLETS BY MOUTH 3 TIMES A DAY NEEDED Allergies No Known Allergies Problems Ongoing - Any problem that you are currently receiving treatment for. Anxiety Erectile disorder Fatigue Herniated intervertebral disc of lumbar spine Migraine Wellness examination Patient Survey You may receive a survey via text or e-mail asking about your office visit. Please share your experience with us by completing your survey. We appreciate your feedback and thank you for choosing us for your care. Endy Costello [facility] Family Medicine Office/Clini c Noteon 12-11-2023 Family Medicine Office/Clinic Note Family Medicine Office/Clinic Note HPI Staff Sulaiman is a 43 year old male presenting with 4 week f/u Follow up for Mental Status: Medication adherence- Yes, takes medication as prescribed Medication refill needed: _ no Suicidal thoughts-Not at this time Most recent GAURI: 7 Most recent PHQ: 4 History of Present Illness pt presents today for follow up on anxiety and migraines Review of Systems PHQ Score Initial Depression Screen Score: 0 SCORE Physical Exam Vitals & Measurements T: 37.0 ?C(Temporal Artery) HR: 84(Peripheral) RR: 18 BP: 118/80 SpO2: 96% HT: 72 in HT: 183.5 cm WT: 76.55 kg WT: 168.41 lb BMI: 22.73 General: alert, no acute distress ENMT: oral mucosa moist, no pharyngeal erythema or exudate Cardiovascular: regular rate and rhythm, normal peripheral perfusion Respiratory: Lungs CTA, respirations non labored Extremities: no deformity, no trauma Neurological: oriented x 4, LOC appropriate for age, CN II-XII intact, motor strength equal & normal bilaterally, speech normal Assessment/Plan 1. Anxiety (F41.9: Anxiety disorder, unspecified) GAURI is 7 today. pt is feeling much better. does not need refills at this time. RTC as needed. 2. Herniated intervertebral disc of lumbar spine (M51.26: Other intervertebral disc displacement, lumbar region) pt still having low back pain and right sided sciatica. pt states steroid did not really help. requesting referral for dry needling. he had this done in [place] a while back and it helped. 3. Migraine (G43.909: Migraine, unspecified, not intractable, without status migrainosus) pt still having migraines 4. Smoker (F17.200: Nicotine dependence, unspecified, uncomplicated) consider not smoking 5. BMI 22.0-22.9, adult (Z68.22: Body mass index [BMI] 22.0-22.9, adult) BMI education given Orders: busPIRone, See Instructions, TAKE 1 TABLET BY MOUTH THREE TIMES A DAY, # 90 tab(s), Refills(s) 0, Pharmacy: [facility] STORE [id number], 183.5, cm, 12/11/23 13:58:00 EDT, Height/Length Dosing, 76.5, kg, 12/11/23 13:58:00 EDT, Weight Dosing busPIRone, See Instructions, TAKE 1 TABLET BY MOUTH THREE TIMES A DAY, # 270 tab(s), Refills(s) 1, Pharmacy: [facility] STORE [id number], 183.5, cm, 11/13/23 14:06:00 EDT, Height/Length Dosing, 78.2, kg, 11/13/23 14:06:00 EDT, Weight Dosing duloxetine, 120 mg = 2 cap(s), Oral, Daily, 30 EA, TAKE 1 CAPSULE BY MOUTH EVERY DAY, # 60 cap(s), Refills(s) 1, [id number] 183.5, cm, 11/13/23 14:06:00 EDT, Height/Length Dosing, 78.2, kg, 11/13/23 14:06:00 EDT, Weight Dosing duloxetine, 120 mg = 2 cap(s), Oral, Daily, 30 EA, TAKE 1 CAPSULE BY MOUTH EVERY DAY, X 90 day(s), # 180 cap(s), Refills(s) 3, [id number] 183.5, cm, 11/13/23 14:06:00 EDT, Height/Length Dosing, 78.2, kg, 11/13/23 14:06:00 EDT, Weight Dosing Follow-up No qualifying data available Problem List/Past Medical History Ongoing Anxiety Erectile disorder Fatigue Herniated intervertebral disc of lumbar spine Migraine Wellness examination Historical No qualifying data Procedure/Surgical History Right ankle injury (2022), Right ankle injury (2021), Appendectomy, Carpal tunnel, Right elbow. Medications busPIRone 7.5 mg oral tablet, See Instructions busPIRone 7.5 mg oral tablet, See Instructions cyclobenzaprine 10 mg Tab, See Instructions, PRN, 1 refills duloxetine 60 mg oral delayed release capsule, 120 mg= 2 cap(s), Oral, Daily, 3 refills ibuprofen 800 mg Tab Imitrex 100 mg Tab, 100 mg= 1 tab(s), Oral, As Directed, PRN, 1 refills pregabalin 100 mg Cap, 100 mg= 1 cap(s), Oral, TID Qulipta 60 mg oral tablet, 60 mg= 1 tab(s), Oral, Daily, 5 refills sildenafil 50 mg Tab, 50 mg= 1 tab(s), Oral, Daily, PRN traMADOL 50 mg Tab Ubrelvy 100 mg oral tablet, 100 mg= 1 tab(s), Oral, Once Allergies No Known Allergies Social History Tobacco 5-9 cigarettes (between 1/4 to 1/2 pack)/day in last 30 days Tobacco Use:. Never Smokeless Tobacco Use:. Cigarettes, Ready to change: No. Household tobacco concerns: No. Yes, 12/11/2023 Family History Diabetes mellitus type 2: Father. Hodgkin's disease: Father. Immunizations Vaccine Date Status Comments SARS-CoV-2 (COVID-19) mRNA BNT-162b2 vax 08/27/2020 Recorded 2023-12-05: TPV40 SARS-CoV-2 (COVID-19) mRNA BNT-162b2 vax 08/06/2020 Recorded 2023-12-05: TPV40 diphtheria/pertussi s, acel/tetanus adult 12/31/2019 Recorded Normal [facility] Comment on above: Result Comment: Elec tronically Signed By: Yolande Carmona\.br\Date and Time Signed: 12/11/23 14:38 EDT Ambulatory Visit Summaryon 0 11-13-2023 Ambulatory Visit Summary Ambulatory Visit Summary SULAIMAN WHITE :1980 Visit Date:11/13/2023 Ambulatory Visit Instructions Your Diagnosis BMI 23.0-23.9, adult Smoker Your Care Team Attending Physician - Yolande Carmona Primary Care Physician - Yolande Carmona This Is Your Medications List atogepant (Qulipta 60 mg oral tablet) cyclobenzaprine (cyclobenzaprine 10 mg Tab) duloxetine (duloxetine 60 mg oral delayed release capsule) ibuprofen (ibuprofen 800 mg Tab) pregabalin (pregabalin 100 mg Cap) sildenafil (sildenafil 50 mg Tab) sumatriptan (Imitrex 100 mg Tab) tramadol (traMADOL 50 mg Tab) Procedures Performed Right ankle injury (2022), Right ankle injury (2021), Appendectomy, Carpal tunnel, Right elbow. 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 Is having a hard time even walking into work and unable to sleep at night. GAURI: 19 Pt would like to discuss if there is any other options for his back, has been using the Flexeril when he goes to work and tramadol isn't touching the pain. Has tried dry needling in the past and that did seem to help. He may look into that. History of Present Illness pt presents today for anxiety. a co worker was killed at work the other day Review of Systems PHQ Score Initial Depression Screen Score: 0 SCORE Physical Exam Vitals & Measurements HR: 86(Peripheral) RR: 18 BP: 150/90 SpO2: 99% HT: 72 in HT: 183.5 cm WT: 78.2 kg WT: 172.04 lb BMI: 23.22 General: alert, no acute distress ENMT: oral mucosa moist, no pharyngeal erythema or exudate Cardiovascular: regular rate and rhythm, normal peripheral perfusion Respiratory: Lungs CTA, respirations non labored Extremities: no deformity, no trauma Neurological: oriented x 4, LOC appropriate for age, CN II-XII intact, motor strength equal & normal bilaterally, speech normal Assessment/Plan 1. Anxiety (F41.9: Anxiety disorder, unspecified) GAURI 19. Patient's co worker was killed on the job and he is really struggling with his . will send buspar and escitalopram. pt to return in 4 weeks for follow up. also increased cymbalta to 120mg daily Ordered: busPIRone, 7.5 mg = 1 tab(s), Oral, TID, # 90 tab(s), Refills(s) 0, [id number] 183.5, cm, 11/13/23 14:06:00 EDT, Height/Length Dosing, 78.2, kg, 11/13/23 14:06:00 EDT, Weight Dosing methylPREDNISolone, = 1 packet(s), Oral, As Directed, as directed on package labeling, X 6 day(s), # 21 tab(s), Refills(s) 0, [id number], 183.5, cm, 11/13/23 14:06:00 EDT, Height/Length Dosing, 78.2, kg, 11/13/23 14:06:00 EDT, Weight Dosing 2. Herniated intervertebral disc of lumbar spine (M51.26: Other intervertebral disc displacement, lumbar region) pt still having back pain. will order medrol dose pack. may consider dry needling at [facility]. that helped the last time. Ordered: methylPREDNISolone, = 1 packet(s), Oral, As Directed, as directed on package labeling, X 6 day(s), # 21 tab(s), Refills(s) 0, [id number], 183.5, cm, 11/13/23 14:06:00 EDT, Height/Length Dosing, 78.2, kg, 11/13/23 14:06:00 EDT, Weight Dosing 3. BMI 23.0-23.9, adult (Z68.23: Body mass index [BMI] 23.0-23.9, adult) BMI education given Ordered: busPIRone, 7.5 mg = 1 tab(s), Oral, TID, # 90 tab(s), Refills(s) 0, [id number], 183.5, cm, 11/13/23 14:06:00 EDT, Height/Length Dosing, 78.2, kg, 11/13/23 14:06:00 EDT, Weight Dosing methylPREDNISolone, = 1 packet(s), Oral, As Directed, as directed on package labeling, X 6 day(s), # 21 tab(s), Refills(s) 0, [id number], 183.5, cm, 11/13/23 14:06:00 EDT, Height/Length Dosing, 78.2, kg, 11/13/23 14:06:00 EDT, Weight Dosing 4. Smoker (F17.200: Nicotine dependence, unspecified, uncomplicated) consider not smoking Ordered: busPIRone, 7.5 mg = 1 tab(s), Oral, TID, # 90 tab(s), Refills(s) 0, [id number], 183.5, cm, 11/13/23 14:06:00 EDT, Height/Length Dosing, 78.2, kg, 11/13/23 14:06:00 EDT, Weight Dosing methylPREDNISolone, = 1 packet(s), Oral, As Directed, as directed on package labeling, X 6 day(s), # 21 tab(s), Refills(s) 0, [id number], 183.5, cm, 11/13/23 14:06:00 EDT, Height/Length Dosing, 78.2, kg, 11/13/23 14:06:00 EDT, Weight Dosing Orders: duloxetine, 120 mg = 2 cap(s), Oral, Daily, 30 EA, TAKE 1 CAPSULE BY MOUTH EVERY DAY, # 60 cap(s), Refills(s) 1, [id number], 183.5, cm, 11/13/23 14:06:00 EDT, Height/Length Dosing, 78.2, kg, 11/13/23 14:06:00 EDT, Weight Dosing Follow-up No qualifying data available Problem List/Past Medical History Ongoing Anxiety Erectile disorder Fatigue Herniated intervertebral disc of lumbar spine Migraine Wellness examination Historical No qualifying data Procedure/Surgical History Right ankle injury (2022), Right ankle injury (2021), Appendectomy, Carpal tunnel, Right elbow. Medications busPIRone 7.5 mg oral tablet, 7.5 mg= 1 tab(s), Oral, TID cyclobenzaprine 10 mg Tab, See Instructions, PRN, 1 refills duloxetine 60 mg oral delayed release capsule, 120 mg= 2 cap(s), Oral, Daily, 1 refills ibuprofen 800 mg Tab Imitrex 100 mg Tab, 100 mg= 1 tab(s), Oral, As Directed, PRN, 1 refills Medrol 4 mg Tab, 1 packet(s), Oral, As Directed pregabalin 100 mg Cap, 100 mg= 1 cap(s), Oral, TID Qulipta 60 mg oral tablet, 60 mg= 1 tab(s), Oral, Daily, 5 refills sildenafil 50 mg Tab, 50 mg= 1 tab(s), Oral, Daily, PRN traMADOL 50 mg Tab Allergies No Known Allergies Social History Tobacco 5-9 cigarettes (between 1/4 to 1/2 pack)/day in last 30 days (more content not included)... Normal [facility] Comment on above: Result Comment: Elec tronically Signed By: Yolande Carmona\.br\Date and Time Signed: 11/13/23 15:56 EDT Ambulatory Visit Summaryon 0 10-30-2023 Ambulatory Visit Summary VIVIENNE WHITEEL Leonidas :1980 Visit Date:10/30/2023 Ambulatory Visit Instructions Your Care Team Attending Physician - Yolande Carmona Primary Care Physician - Yolande Carmona This Is Your Medications List atogepant (Qulipta 60 mg oral tablet) cyclobenzaprine (cyclobenzaprine 10 mg Tab) duloxetine (duloxetine 60 mg oral delayed release capsule) ibuprofen (ibuprofen 800 mg Tab) pregabalin (pregabalin 100 mg Cap) sildenafil (sildenafil 50 mg Tab) sumatriptan (Imitrex 100 mg Tab) tramadol (traMADOL 50 mg Tab) Procedures Performed Right ankle injury (2022), Right ankle injury (2021), Appendectomy, Carpal tunnel, Right elbow. Discharge Vitals Heart Rate (Peripheral) 86 Respiratory Rate 18 Blood Pressure 136/70 Height 183.5 cm Height 72 in Weight 78.2 kg Weight 172.04 lb BMI 23.22 Medications What How Much When Why Instructions Unchanged atogepant (Qulipta 60 mg oral tablet) 1 Tablets By Mouth Every day Migraine BMI 23.0-23.9, adult Smoker Unchanged cyclobenzaprine (cyclobenzaprine 10 mg Tab) See instructions 1 tab(s) Oral at work for spasm Unchanged duloxetine (duloxetine 60 mg oral delayed release capsule) 30 EA, TAKE 1 CAPSULE BY MOUTH EVERY DAY Unchanged ibuprofen (ibuprofen 800 mg Tab) 90 EA, TAKE 1 TABLET BY MOUTH THREE TIMES A DAY NEEDED FOR MILD PAIN Unchanged pregabalin (pregabalin 100 mg Cap) 1 Capsules By Mouth 3 times a day TAKE 1 TABLET BY MOUTH 3 TIMES A DAY Unchanged sildenafil (sildenafil 50 mg Tab) 1 Tablets By Mouth Every day as needed for for erectile dysfunction 1 hour before sexual activity Unchanged sumatriptan (Imitrex 100 mg Tab) 1 Tablets By Mouth As Directed as needed for Migraine headache may repeat dose in 2 hours if needed . take onset migraine. max 200mg per day Unchanged tramadol (traMADOL 50 mg Tab) 42 EA, TAKE 1 TO 2 TABLETS BY MOUTH 3 TIMES A DAY NEEDED Allergies No Known Allergies Problems Ongoing - Any problem that you are currently receiving treatment for. Erectile disorder Fatigue Herniated intervertebral disc of lumbar spine Migraine Wellness examination Patient Survey You may receive a survey via text or e-mail asking about your office visit. Please share your experience with us by completing your survey. We appreciate your feedback and thank you for choosing us for your care. Normal Costello [facility] Family Medicine Office/Clini c Noteon 10-30-2023 Family Medicine Office/Clinic Note HPI Staff Sulaiman is a 43 year old male presenting for 1 month follow up LEANDRA 10/02/23 started Qulipta daily Pt states he has had 2 migraines in the month has noticed a difference. Before medication he was having 6-7 a month. History of Present Illness pt presents today for follow up on migraines Review of Systems PHQ Score Initial Depression Screen Score: 0 SCORE Physical Exam Vitals & Measurements HR: 86(Peripheral) RR: 18 BP: 136/70 HT: 72 in HT: 183.5 cm WT: 78.2 kg WT: 172.04 lb BMI: 23.22 General: alert, no acute distress ENMT: oral [...] unspecified, not intractable, without status migrainosus) pt went from 6-7 migraines per month to 1-2 per month. pt is very pleased with this improvement. will send refills. RTC 6 months to update [facility] paperwork Ordered: atogepant, 60 mg = 1 tab(s), Oral, Daily, # 30 tab(s), Refills(s) 5, [id number] 183.5, cm, 10/30/23 13:58:00 EDT, Height/Length Dosing, 78.2, kg, 10/30/23 13:58:00 EDT, Weight Dosing atogepant, 60 mg = 1 tab(s), Oral, Daily, # 30 tab(s), Refills(s) 2, [id number], 183.5, cm, 10/02/23 13:13:00 EDT, Height/Length Dosing, 79.3, kg, 10/02/23 13:13:00 EDT, Weight Dosing BMI 23.0-23.9, adult (Z68.23: Body mass index [BMI] 23.0-23.9, adult) BMI education given Ordered: atogepant, 60 mg = 1 tab(s), Oral, Daily, # 30 tab(s), Refills(s) 5, [id number], 183.5, cm, 10/30/23 13:58:00 EDT, Height/Length Dosing, 78.2, kg, 10/30/23 13:58:00 EDT, Weight Dosing atogepant, 60 mg = 1 tab(s), Oral, Daily, # 30 tab(s), Refills(s) 2, [id number], 183.5, cm, 10/02/23 13:13:00 EDT, Height/Length Dosing, 79.3, kg, 10/02/23 13:13:00 EDT, Weight Dosing Smoker (F17.200: Nicotine dependence, unspecified, uncomplicated) consider not smoking Ordered: atogepant, 60 mg = 1 tab(s), Oral, Daily, # 30 tab(s), Refills(s) 5, Pharmacy: [facility]/pharmacy #[id number], 183.5, cm, 10/30/23 13:58:00 EDT, Height/Length Dosing, 78.2, kg, 10/30/23 13:58:00 EDT, Weight Dosing atogepant, 60 mg = 1 tab(s), Oral, Daily, # 30 tab(s), Refills(s) 2, Pharmacy: [facility]/pharmacy #[id number], 183.5, cm, 10/02/23 13:13:00 EDT, Height/Length Dosing, 79.3, kg, 10/02/23 13:13:00 EDT, Weight Dosing Orders: sumatriptan, 100 mg = 1 tab(s), Oral, As Directed, PRN Migraine headache, may repeat dose in 2 hours if needed . take onset migraine. max 200mg per day, # 18 tab(s), Refills(s) 1, Pharmacy: [facility]/pharmacy #[id number], 183.5, cm, 11/13/22 11:51:00 EDT, Height/Length Dosing... sumatriptan, 100 mg = 1 tab(s), Oral, As Directed, PRN Migraine headache, may repeat dose in 2 hours if needed . take onset migraine. max 200mg per day, # 18 tab(s), Refills(s) 1, Pharmacy: [facility]/pharmacy #[id number], 183.5, cm, 10/30/23 13:58:00 EDT, Height/Length Dosing... Follow-up No qualifying data available Problem List/Past [...] tablet, 60 mg= 1 tab(s), Oral, Daily, 5 refills sildenafil 50 mg Tab, 50 mg= 1 tab(s), Oral, Daily, PRN traMADOL 50 mg Tab Allergies No Known Allergies Social History Tobacco 5-9 cigarettes (between 1/4 to 1/2 pack)/day in last 30 days Tobacco Use:. Never Smokeless Tobacco Use:. Cigarettes, Ready to change: No. Household tobacco concerns: No. Yes, 10/30/2023 Family History Diabetes mellitus type 2: Father. Hodgkin's disease: Father. [facility] Comment on above: Result Comment: Elec tronically Signed By: Yolande Carmona\.br\Date and Time Signed: 10/30/23 14:19 EDT Physician Orderon 10-05-2023 Physician Order [id number] DD#1.00TIFF [facility] Consultation Noteon 10-03-19 Consultation Note [id number] 2#1.00TIFF [facility] Pre-Certification Formon Pre-Certification Form [id number] 85#1.00TIFF [facility] Family Medicine Office/Clini c Noteon 10-02-2023 Family [...] Daily, # 30 tab(s), Refills(s) 2, Pharmacy: [facility]/pharmacy #[id number], 183.5, cm, 10/02/23 13:13:00 EDT, Height/Length Dosing, 79.3, kg, 10/02/23 13:13:00 EDT, Weight Dosing 2. BMI 23.0-23.9, adult (Z68.23: Body mass index [BMI] 23.0-23.9, adult) BMI education complete Ordered: atogepant, 60 mg = 1 tab(s), Oral, Daily, # 30 tab(s), Refills(s) 2, Pharmacy: [facility]/pharmacy #[id number], 183.5, cm, 10/02/23 13:13:00 EDT, Height/Length Dosing, 79.3, kg, 10/02/23 13:13:00 EDT, Weight Dosing 3. Smoker (F17.200: Nicotine dependence, unspecified, uncomplicated) consider not smoking Ordered: atogepant, 60 mg = 1 tab(s), Oral, Daily, # 30 tab(s), Refills(s) 2, Pharmacy: [facility]/pharmacy #[id number], 183.5, cm, 10/02/23 13:13:00 EDT, Height/Length [...] mellitus type 2: Father. Hodgkin's disease: Father. [facility] Comment on above: Result Comment: Elec tronically Signed By: Yolande Carmona.br\Date and Time Signed: 10/02/23 14:33 EDT [employer] 10-02-2023 Forms [id number] E#1.00TIFF [facility] Consultation Noteon 07-10-19 24 Consultation Note [id number] 64#1.00TIFF [facility] RAD - MISCon 03-22-2023 RAD - MISC [id number] 30#1.00TIFF [facility] Operative Reporton 3 Operative Report [id number] 32#1.00TIFF [facility] Operative Reporton 3 Operative Report [id number] 19#1.00TIFF [facility] RAD - MRI Reporton 3 RAD - MRI Report [id number] 24#1.00CD:127 [facility] Refillon 01-14-2023 Refill [id number] Sulaiman White 1980 M Date Provider Department Center 01/14/2023 VENKAT DEL ANGEL ANGELA ORTHO MPORTHO No family history on file Reason for Visit and Comments: Med Refill [[id number]] Normal [facility] CT Head or Brain w/o Contras ton [...] Keys M.D. Transcribed by: ARUN Technologist: JENNIFER [facility] Consent for Treatmenton 12-14 Consent for Treatment [id number] 97#1.00CD:127 [facility] Video Visit - Telehealthon 01-07-2023 [...] recovery. He continues to consult with an security management specialist for his ankle condition. Given his [...] prescription request. The patient's preferred pharmacy is [facility] in [place]. Physical Exam GENERAL: He is alert and [...] with voice recognition artificial intelligence software, specifically iOnRoad, MarketPage and or TeleFlip. Substitutions may have occurred due to the inherent limitations of voice recognition and artificial intelligence software. Documentation s (more content not included)... Normal [facility] Comment on above: Result Comment: Elec tronically Signed By: Aishwarya Montano DO\.br\Date and Time Signed: 01/07/23 18:21 EDT Insurance Correspondenceon 0 12-21-2022 Insurance Correspondence [id number] 10#1.00CD:127 Normal [facility] Ambulatory Visit Summaryon 0 12-19-2022 Ambulatory Visit Summary SAIRA WHITE:1980 Visit Date:12/19/2022 Ambulatory Visit Instructions Your Diagnosis [...] Headache, No, No, Migraine Normal Worsening headaches, pp_set_radiology_s ubspecialty, [place]\.br\ Medications\.br\ What How Much When Instructions\.br\ Changed sumatriptan (Imitrex 100 mg Tab) 1 Tablets By Mouth As Directed as needed for Migraine headache may repeat dose in 2 hours if needed . take onset migraine. max 200mg per day Pickup at [facility]/pharmacy #[id number]\.br\ Unchanged cyclobenzaprine (cyclobenzaprine 10 mg Tab) See [...] TIMES A DAY NEEDED \.br\ Pharmacy Information\.br\ [facility]/pharmacy #[id number]: [address], [place] [phone]\.br\ Allergies\.br\ No Known Allergies\.br\ Problems\.br\ Ongoing - Any problem that you are currently receiving treatment for.\.br\ Erectile disorder\.br\ Fatigue\.br\ Herniated intervertebral disc of lumbar spine\.br\ Migraine\.br\ Wellness examination\.br\ \.br\ [facility] Patient Letter FTMCon 2022 Patient Letter [facility] [address] [place] [address] [id number] December 19, 20[address] SAIRA WHITE [address] [place] [id number] : 1980 12/19/2022 Dear Employer, Please excuse patient up to 5 days with Migraine. If migraine resolves early please allow patient back to work early. Electronically Signed [place] Charmaine Rushing Normal [facility] 36on 12-18-2022 36 Approving, but needs appt for additional refills. Normal [facility] Follow-Upon 12-01-2022 Follow-Up [id number] Sulaiman White 1980 M Date Provider Department Center 12/01/2022 LUCERO MUÑOZ MP ORTHO MPORTHO No family history on file Level of Service:67353 [place] OFFICE/OUTPATIENT ESTABLISHED LOW MDM 20-29 MIN (GC) Reason for Visit and Comments: Follow-up [[id number]] Normal [facility] CHEMISTRYOrdered By: SYSTEM SYSTEM on 11-13-2022 Albumin [...] 3.3 g/dL Normal 1.4 - 4.0 gm/dL [facility]isol Glucose [Mass/Vol] 77 mg/dL Normal 55 - 199 mg/dL [facility] Potassium [Moles/Vol] 4.7 mmol/L Normal 3.5 - 5.3 mmol/L [facility] Prostate specific Ag [Mass/Vol] 0.6 ng/mL Normal 0.1 - 3.5 ng/mL [facility] Protein [Mass/Vol] 7.7 g/dL Normal 6.0 - 7.8 gm/dL [facility] Sodium [Moles/Vol] 138 mmol/L Normal 135 - 145 mmol/L [facility] Triglyceride [Mass/Vol] 95 mg/dL Normal <=149mg/dL [facility] TSH Qn 3.86 m[IU]/L Normal 0.34 - 5.60 mcIU/mL [facility] Urea nitrogen [Mass/Vol] 18 mg/dL Normal 5 - 21 mg/dL [facility] Urea nitrogen/Creatinine [Mass ratio] 15 mg/mg Normal 10 - 20 [facility] Follow-Upon 08-30-2022 Follow-Up [id number] Sulaiman White 1980 M Date Provider Department Center 08/30/2022 421-LUCERO ROGERS MP ORTHO MPORTHO No family history on file Level of Service:66498 [place] POSTOP FOLLOW UP VISIT RELATED TO ORIGINAL PX Reason for Visit and Comments: Follow-up [[id number]] - [facility] R ankle follow up [facility] 36on 08-21-2022 36 Approving, but needs appt for additional refills. [facility] HPon 08-16-2022 HP H&P reviewed. The patient was examined and there are no changes to the H&P. [facility] OPNOTEon 08-16-2022 OPNOTE ORTHOPAEDIC SURGERY OPERATIVE REPORT Date of Surgery: 08/16/2022 Surgeon: Lucero Rogers MD Agriculture Department Chair: Smita Burton MD Preoperative Diagnosis: Symptomatic retained orthopedic hardware in right ankle Postoperative Diagnosis: Symptomatic retained orthopedic hardware in right ankle Procedures Performed: Removal of hardware from right distal fibula Anesthesia: General anesthesia IV Fluids: Per anesthesia record Tourniquet Time: n/a Estimated Blood Loss: Minimal Complications: None immediately apparent Implants: None implanted. Yohan 8-hole / semitubular plate with 6 corresponding screws removed. [...] MD Orthopaedic Surgery Resident, PGY-2 08/16/22 Normal [facility] POCT GLUCOSE METER UNSOLICIT ED RESULTSon 08-16-2022 Glucose [Mass/Vol] 98 mg/dL Normal 70-105 [facility] Comment on above: Result Comment: lweb er4 Performed By: #### L [id number] ####[facility] ([place])[address] [place] [address] Follow-Upon 08-04-2022 Follow-Up [id number] Sulaiman White 1980 M Date Provider Department Center 08/04/2022 LUCERO MUÑOZ MP ORTHO MPORTHO No family history on file Level of Service:95227 [place] OFFICE/OUTPATIENT ESTABLISHED MOD MDM 30-39 MIN (GC,57) Reason for Visit and Comments: Pain [136] Normal [facility] HPon 08-04-2022 HP Subjective Chief complaint: Chief [...] Brock MD Orthopedic Surgery Resident Physician Pager: [phone] 08/04/22 9:04 AM By using the attestations [...] an additional personal documentation from me. Normal [facility] Labon 08-04-2022 Lab [id number] Sulaiman White 1980 M Date Provider Department Center 08/04/2022 2244-[facility] MP LAB RESOURCE MP DRAW Medical Pavi No family history on file Normal [facility] MRSA/MSSA DNA NASALon 2022 MRSA DNA Negative Normal Negative [facility] Comment on above: Performed By: #### L [id number] ####[facility] ([place])[address] [place] [address] MSSA DNA Negative Normal Negative [facility] Comment on above: Performed By: #### L [id number] ####[facility] ([place])[address] [place] [address] Prep for Procedureon 023 Prep for Procedure [id number] Sulaiman White 1980 M Date Provider Department Center 08/04/2022 LUCERO MUÑOZ MP ORTHO MPORTHO No family history on file [facility] Follow-Upon 07-25-2022 Follow-Up [id number] Sulaiman White 1980 M Date Provider Department Center 07/25/2022 VENKAT DEL ANGEL MP ORTHO MPORTHO No family history on file Level of Service:01077 [place] OFFICE/OUTPATIENT ESTABLISHED LOW MDM 20-29 MIN Reason for Visit and Comments: Follow-up [109013] - Review of xr [facility] 36on 07-19-2022 36 Approving, but needs appt for additional refills. [facility] 36on 06-19-2022 36 Approving, but needs appt for additional refills. [facility] 36on 05-22-2022 36 Approving, but needs appt for additional refills. [facility] 36on 04-24-2022 36 Approving, but needs appt for additional refills. [facility] Follow-Upon 04-18-2022 Follow-Up [id number] Sulaiman White 1980 M Date Provider Department Center 04/18/2022 VENKAT DEL ANGEL MP ORTHO MPORTHO No family history on file Level of Service:12956 [place] OFFICE/OUTPATIENT ESTABLISHED LOW MDM 20-29 MIN Reason for Visit and Comments: Follow-up [167391] - C Pt here today for right ankle follow up with xr [facility] Refillon 03-28-2022 Refill [id number] Sulaiman White 1980 Date Provider Department [place] 03/28/2022 VENKAT DEL ANGEL MP ORTHO MPORTHO No family history on file Reason for Visit and Comments: Med Refill [[id number]] Normal [facility] Follow-Upon 02-14-2022 Follow-Up [id number] Sulaiman White 1980 [facility] Provider Department [place] 02/14/2022 VENKAT DEL ANGEL MP ORTHO MPORTHO No family history on file Level of Service:48704 [place] OFFICE/OUTPATIENT ESTABLISHED LOW MDM 20-29 MIN Reason for Visit and Comments: Follow-up [968101] - Pt present for right ankle pain, with review of xrays [facility] ANKLE RIGHT 3 VWSon 12-24-19 22 ANKLE RIGHT 3 VWS [facility] Department of Radiology [address] [place] [phone] Patient Name: SULAIMAN WHITE : 1980 [...] maintained Electronically signed: Lexy Burnett. Transcribed by: [email or web address], User Resident: Electronically Signed by: LEXY BURNETT @ 12/25/2021 02:51 PM Normal [facility] ANKLE RIGHT 3 [facility] 11-12-19 22 ANKLE RIGHT 3 [facility] Department of Radiology [address] [place] [phone] Patient Name: SULAIMAN WHITE : 1980 Sex: M Age: Race: White Pt. Location: Patient Status: D Ordered Date: 11/11/2021 10:40:00 AM Completed Date: 11/11/2021 10:41 AM Requesting Provider: VENKAT SIFUENTES Attending Provider: VENKAT SIFUENTES Report Copy To: SELF, REFERRED Signs & Symptoms: M25.571 Pain in right ankle and joints of right foot I10 History: [place] Comments: Exam: ANKLE RIGHT 3 [facility] ANKLE RIGHT 3 [facility] 11/11/2021 10:41 AM SIGNS AND SYMPTOMS: M25.571 [...] swelling. Electronically signed: Brent Dooley. Transcribed by: [email or web address], User Resident: BRENT DOOLEY Electronically Signed by: BRENT DOOLEY @ 11/13/2021 02:39 PM I personally read this/these film(s) with this resident Normal [facility] ANKLE RIGHT 3 [facility] 10-13-19 ANKLE RIGHT 3 [facility] Department of Radiology [address] [place] [phone] Patient Name: SULAIMAN WHITE : 1980 Sex: M Age: Race: White Pt. Location: Patient Status: D Ordered Date: 10/12/2021 1:20:00 PM Completed Date: 10/12/2021 01:53 PM Requesting Provider: VENKAT SIFUENTES Attending Provider: VENKAT SIFUENTES Report Copy To: SELF, REFERRED Signs & Symptoms: S82.831A Oth fracture of upper and lower end of right fibula, init I10 History: Comments: evaluate Exam: ANKLE RIGHT 3 S ANKLE RIGHT 3 S 10/12/2021 1:53 PM CLINICAL INDICATIONS: S82.831A Oth fracture of upper and lower end of right fibula, init I10 TECHNOLOGIST COMMENTS: right ankle surgery 07/20/21 follow up QUESTION FOR THE RADIOLOGIST: evaluate PROTOCOL: AP,Lateral and Oblique views were obtained. COMPARISON: September 14, 2021 FINDINGS: Hardware is stable. Fracture alignment is stable. No acute complication IMPRESSION: No interval change Electronically signed: Lexy Peterson. Transcribed by: [email or web address], User Resident: Electronically Signed by: LEXY PETERSON @ 10/13/2021 02:03 PM Normal [facility] Comment on above: Order Comment: Evalu ate ANKLE RIGHT 3 Son 09-15-19 ANKLE RIGHT 3 S [facility] Department of Radiology [address] [place] [phone] Patient Name: SULAIMAN WHITE : 1980 Sex: M Age: Race: White Pt. Location: Patient Status: D Ordered Date: 09/14/2021 1:30:00 PM Completed Date: 09/14/2021 01:34 PM Requesting Provider: VENKAT SIFUENTES Attending Provider: VENKAT SIFUENTES Report Copy To: SELF, REFERRED Signs & Symptoms: S82.831A Oth fracture of upper and lower end of right fibula, init I10 History: Christy Comments: Exam: ANKLE RIGHT 3 S ANKLE RIGHT 3 S 09/14/2021 1:34 PM CLINICAL INDICATIONS: S82.831A Oth [...] complications. Electronically signed: Carline Alejandre. Transcribed by: [email or web address], User Resident: Electronically Signed by: CARLINE ALEJANDRE @ 09/16/2021 10:25 AM Normal [facility] ANKLE RIGHT 3 [facility] 08-30-19 ANKLE RIGHT 3 [facility] Department of Radiology [address] [place] [phone] Patient Name: SULAIMAN WHITE : 1980 Sex: M Age: Race: White Pt. Location: Patient Status: D Ordered Date: 07/18/2021 10:05:00 AM Completed Date: 08/29/2021 01:52 PM Requesting Provider: THANIA HOWARD Attending Provider: THANIA HOWARD Report Copy To: Signs & Symptoms: S82.831A Oth fracture of upper and lower end of right fibula, init I10 History: Comments: Evaluate Exam: ANKLE RIGHT 3 [facility] ANKLE RIGHT 3 VWS 08/29/2021 1:52 PM CLINICAL INDICATIONS: S82.831A Oth [...] report. Electronically signed: Radha Lane. Transcribed by: [email or web address], User Resident: GALLO HAIR Electronically Signed by: RADHA LANE @ 08/30/2021 11:45 AM I personally read this/these film(s) with this resident Normal [facility] Comment on above: Order Comment: Evalu ate FOOT RIGHT 2 [facility] 2 FOOT RIGHT 2 [facility] Department of Radiology [address] [place] [phone] Patient Name: SULAIMAN WHITE : 1980 [...] report. Electronically signed: Radha Lane. Transcribed by: [email or web address], User Resident: GALLO HAIR Electronically Signed by: RADHA LANE @ 08/30/2021 11:44 AM I personally read this/these film(s) with this resident Normal [facility] Comment on above: Order Comment: Evalu ate ANKLE RIGHT 3 [facility] 08-02-19 22 ANKLE RIGHT 3 S [facility] Department of Radiology [address] [place] [phone] Patient Name: SULAIMAN WHITE : 1980 Sex: M Age: Race: White Pt. Location: 84 Patient Status: Ordered Date: 08/01/2021 9:25:00 AM Completed Date: 08/01/2021 09:40 AM Requesting Provider: THANIA HOWARD Attending Provider: Report Copy To: Signs & Symptoms: Z48.89 Encounter for other specified surgical aftercare I10 History: Comments: Evaluate Exam: ANKLE RIGHT 3 [facility] ANKLE RIGHT 3 S 08/01/2021 9:40 AM [...] report. Electronically signed: Rafy Trejo. Transcribed by: [email or web address], User Resident: ARISTEO MEYER Electronically Signed by: RAFY TREJO @ 08/01/2021 10:04 AM I personally read this/these film(s) with this resident Normal [facility] Comment on above: Order Comment: Evalu ate FOOT RIGHT 2 [place] 03-21-202 2 FOOT RIGHT 2 S [facility] Department of Radiology [address] [place] [phone] Patient Name: SULAIMAN WHITE : 1980 Sex: M Age: Race: White Pt. Location: Patient Status: O Ordered Date: 08/01/2021 10:10:00 AM Completed Date: 08/01/2021 10:29 AM Requesting Provider: VENKAT SIFUENTES Attending Provider: THANIA HOWARD Report Copy To: Signs & Symptoms: M79.671 Pain in right foot I10 History: Christy Comments: Evaluate Exam: FOOT RIGHT 2 [facility] FOOT RIGHT 2 S 08/01/2021 10:29 AM CLINICAL INDICATIONS: M79.671 Pain in right foot I10 TECHNOLOGIST COMMENTS: Patient complains of right foot pain since 07/20/2021. QUESTION FOR THE RADIOLOGIST: Evaluate PROTOCOL: AP(PA) and Lateral views were obtained. COMPARISON: None Impression: 1. There is no evidence of a fracture, subluxation, or dislocation. Joint space is well-preserved. Electronically signed: Rafy Trejo. Transcribed by: [email or web address], User Resident: Electronically Signed by: RAFY TREJO @ 08/01/2021 10:35 AM Normal [facility] Comment on above: Order Comment: Evalu ate *MRSA/MSSA DNA NASALon 07-20 *MRSA/MSSA DNA NASAL Clinical Report: (D) Specimen: NASAL SWAB Collected: 07/20/2021 17:31 Status: Final Last Updated: 07/20/2021 21:23 (1) No collection time noted on specimen or requisition. The collection time recorded is the time of receipt in the lab. MSSA DNA (Final) Negative MRSA DNA (Final) Negative Normal [facility] Comment on above: Order Comment: Evalu ate Performed By: #### 3 1595 ####[facility] ANKLE RIGHT 2 Son 07-21-19 ANKLE RIGHT 2 [facility] Department of Radiology [address] [place] [address] Patient Name: SULAIMAN WHITE : 1980 Sex: M Age: Race: White Pt. Location: OUTP Patient Status: D Ordered Date: 07/20/2021 12:00:00 PM Completed Date: 07/20/2021 01:11 PM Requesting Provider: THANIA HOWARD Attending Provider: THANIA HOWARD Report Copy To: Signs & Symptoms: ORIF RIGHT FIBULA History: Comments: ORIF RIGHT FIBULA Exam: ANKLE RIGHT 2 S EXAMINATION: ANKLE RIGHT 2 S 07/20/2021 1:11 [...] above. Electronically signed: Joe Freeman. Transcribed by: [email or web address], User Resident: Electronically Signed by: JOE FREEMAN @ 07/21/2021 07:59 AM Normal [facility] Comment on above: Order Comment: ORIF RIGHT FIBULA Operative Reporton 2 Operative Report MR#: [id number] S [facility] Pt. Name: Sulaiman White Room #: 0C [...] b (more content not included)... Normal [facility] POC GLUCOSE LABon 07-20-2021 Glucose [Mass/Vol] 106 mg/dL High 70-100 [facility] Comment on above: Performed By: #### 8 5499 #### [facility] [address] POC SARS COV2 IDon 2 SARS-CoV-2 (COVID-19) RNA RONIT+probe Ql (Unsp spec) Negative Normal NEGATIVE [facility] Comment on above: Result Comment: ID N [...] Accreditation. Performed By: #### 3 1921 #### [facility] [address] [facility]. [address] *MRSA/MSSA DNA NASALon 07-18 *MRSA/MSSA DNA NASAL Clinical Report: (D) Specimen: NASAL SWAB Collected: 07/18/2021 10:21 Status: Final Last Updated: 07/18/2021 15:35 MSSA DNA (Final) Negative MRSA DNA (Final) Negative Normal [facility] Comment on above: Performed By: #### 3 1595 #### [facility] [address] [facility]. [address] *SARS-CoV-2 COVID-19on 07-18 SARS-CoV-2 (COVID-19) RNA RONIT+probe Ql (Unsp spec) Not detected Normal Not Detected [facility] Comment on above: Order Comment: The A ptima SARS-CoV-2 assay is a nucleic acid amplification test intended for the qualitative detection of RNA from SARS-CoV-2 isolated and purified from nasopharyngeal (NAVY SENIOR OFFICER),oropharyngeal (OP), nasal swab, sputum, and bronchoalveolar lavage (BAL) specimens from patients with signs and symptoms of infection who are suspected of COVID-19. Results are for the identification of SARS-CoV-2 RNA. The SARS-CoV-2 RNA is generally detectable during the acute phase of infection. The Aptima SARS-CoV-2 Assay on the Part[employer] Marketplace and [employer] Marketplace Fusion system is intended for use by laboratory personnel specifically instructed and trained in the operation of the [place] and [employer] Marketplace Fusion system. The Aptima SARS-CoV-2 assay is [...] information. Performed By: #### 3 1792 #### [facility] [address] [place] [address], [facility] APTTon 07-18-2021 aPTT Coag (Bld) [Time] 28.9 s Normal 25.0-35.0 [facility] Comment on above: Result Comment: ALL RESULTS [...] THIS PURPOSE. Performed By: #### 5 7307, 50091 ####[facility] [place] [address], [facility] BASIC METABOLIC PANELon Calcium [Mass/Vol] 8.9 mg/dL Normal 8.6-10.3 [facility] Comment on above: Performed By: #### 3 0728, 88917 ####[facility] [place] [address], [facility] Chloride [Moles/Vol] 102 mmol/L Normal 98-107 [facility] Comment on above: Performed By: #### 3 0728, 74325 ####[facility] [place] [address], [facility] CO2 [Moles/Vol] 26 mmol/L Normal 21-31 [facility] Comment on above: Performed By: #### 3 0728, 96545 ####[facility] [place] [address], [facility] Creatinine [Mass/Vol] 1.10 mg/dL Normal 0.70-1.30 [facility] Comment on above: Performed By: #### 3 0728, 53319 ####[facility] [facility] [place] [address], [facility] GFR/1.73 sq M.predicted among blacks MDRD (S/P/Bld) [Vol rate/Area] mL/min/{1.73_m2} Normal >60 [facility] Comment on above: Performed By: #### 3 727, 28086 ####[facility] GFR/1.73 sq M.predicted among non-blacks MDRD (S/P/Bld) [Vol rate/Area] mL/min/{1.73_m2} Normal >60 [facility] Comment on above: Performed By: #### 3 727, 07481 ####[facility] [address] Glucose [Mass/Vol] 99 mg/dL Normal 70-100 [facility] Comment on above: Performed By: #### 3 727, 39460 ####[facility] [address] Potassium [Moles/Vol] 4.2 mmol/L Normal 3.5-5.1 [facility] Comment on above: Performed By: #### 3 727, 96899 ####[facility] Sodium [Moles/Vol] 135 mmol/L Low 136-145 [facility] Comment on above: Performed By: #### 3 727, 24999 ####[facility] Urea nitrogen [Mass/Vol] 19 mg/dL Normal 7-25 [facility] Comment on above: Performed By: #### 3 727, 29787 ####[facility] [facility].[address] CBC W/DIFFon 07-18-2021 ABS IMM GRANS 0.0 10*3/uL Normal 0.0-0.2 [facility] Comment on above: Performed By: #### 5 0103 ####[facility] [place] [address], [facility] ABS NEUTROPHILS 5.5 10*3/uL Normal 1.6-7.6 [facility] Comment on above: Performed By: #### 5 0103 ####[facility] [place] [address], [facility] Basophils (Bld) [#/Vol] 0.0 10*3/uL Normal 0.0-0.2 [facility] Comment on above: Performed By: #### 5 0103 ####[facility] [place] [address], [facility] Basophils/100 WBC (Bld) 0.5 % Normal 0.0-1.0 [facility] Comment on above: Performed By: #### 5 3 ####[facility] [place] [address], [facility] Eosinophils (Bld) [#/Vol] 0.2 10*3/uL Normal 0.0-0.5 [facility] Comment on above: Performed By: #### 5 0103 ####[facility] Eosinophils/100 WBC (Bld) 2.9 % Normal 0.0-6.0 [facility] Comment on above: Performed By: #### 5 3 ####[facility] Erythrocyte distribution width (RBC) [Ratio] 12.5 % Normal 11.5-15.0 [facility] Comment on above: Performed By: #### 5 3 ####[facility] Hematocrit (Bld) [Volume fraction] 38.5 % Low 39.0-50.0 [facility] Comment on above: Performed By: #### 5 3 ####[facility] Hemoglobin (Bld) [Mass/Vol] 13.0 g/dL Normal 13.0-17.0 [facility] Comment on above: Performed By: #### 102 ####[facility] [address] IMMATURE GRANS 0.5 % Normal 0.0-1.0 [facility] Comment on above: Performed By: #### 102 ####[address] Lymphocytes (Bld) [#/Vol] 1.8 10*3/uL Normal 1.2-4.0 [facility] Comment on above: Performed By: #### 102 ####[address] Lymphocytes/100 WBC (Bld) 21.9 % Normal 20.0-45.0 [facility] Comment on above: Performed By: #### 102 ####[address] MCH (RBC) [Entitic mass] 31.1 pg Normal 27.0-33.0 [facility] Comment on above: Performed By: #### 102 ####[address] MCHC (RBC) [Mass/Vol] 33.8 g/dL Normal 32.0-35.0 [facility] Comment on above: Performed By: #### 102 ####[address] MCV (RBC) [Entitic vol] 92.1 fL Normal 82.0-98.0 The [facility] Comment on above: Performed By: #### 102 ####[facility] [address], [facility] Monocytes (Bld) [#/Vol] 0.6 10*3/uL Normal 0.1-1.0 [facility] Comment on above: Performed By: #### 102 ####[facility] [address], [facility] MONOS 7.5 % Normal 5.0-12.0 [facility] Comment on above: Performed By: #### 102 ####[facility] [place] [address], [facility] Neutrophils/100 WBC (Bld) 66.7 % Normal 40.0-72.0 [facility] Comment on above: Performed By: #### 102 ####[facility] [place] [address], [facility] Nucleated RBC/100 WBC (Bld) [Ratio] 0 % Normal 0-0 [facility] Comment on above: Performed By: #### 102 ####[facility] [place] [address], [facility] PLAT CNT 283 10*3/uL Normal 150-400 [facility] Comment on above: Performed By: #### 102 ####[facility] [place] [address], [facility] RBC (Bld) [#/Vol] 4.18 10*6/uL Low 4.20-5.70 [facility] Comment on above: Performed By: #### 102 ####[facility] [address], [facility] WBC (Bld) [#/Vol] 8.23 10*3/uL Normal 4.00-10.60 [facility] Comment on above: Performed By: #### 102 ####[facility] [address] PROTHROMBIN TIMEon INR Coag (PPP) [Relative time] 0.96 {INR} Normal 0.91-1.16 [facility] Comment on above: Result Comment: ACCC P [...] CHEST 1995;108:231S-246S. Performed By: #### 5 [id number], [id number] ####[place] [id number] PT Coag (PPP) [Time] 12.7 s Normal 12.3-14.8 [facility] Comment on above: Result Comment: ALL RESULTS MUST BE INTERPRETED WITH RESPECT TO BLOOD DRAWING ARTIFACT OR DILUTION ERROR OF ANTICOAGULANT AT THE TIME OF SAMPLING. Performed By: #### 5 [id number], [id number] ####[place] [id number] VITAMIN D 25-HYDROXYon 07-18 VITAMIN D 25-OH 18.8 ng/mL Low 30.0-80.0 [facility] Comment on above: Result Comment: >80. 0 Toxicity possible Performed By: #### 3 [id number], [id number] ####[facility] [place] [address], [facility] XR ANKLE RT MIN 3 VIEWSon XR [...] Eron KWAN Date: 2021-07-14 05:45 Normal [facility] XR Hip Complete Righton 04-13 XR Hip Complete Right HISTORY: Pain, popping FINDINGS: Normal hip joint space. No pincer or CAM deformities. No cortical or stress fracture. IMPRESSION: Minimal arthritis. Report reported and signed by Sánchez Briscoe on 04/22/2021 1103 Normal [facility] [employer] CBC AUTO DIFFon 04-12-2021 BASO # 0.0 103/ul Normal 0.0-0.1 [facility] Comment on above: Performed By: #### C BC #### [facility] [address] [place] [address] Dr. Martha Schmid Basophils/100 WBC (Bld) 0.4 % Normal 0.2-2.0 [facility] Comment on above: Performed By: #### C BC #### [facility] [address] [place] [address] Dr. Martha Schmid EO # 0.3 103/ul Normal 0.0-0.7 [facility] Comment on above: Performed By: #### C BC #### [facility] [address] [place] [address] [address] Martha Schmid Eosinophils/100 WBC (Bld) 4.2 % Normal 0.9-7.0 [facility] Comment on above: Performed By: #### C BC #### [facility] [address] [place] [address] Dr. Martha Schmid Erythrocyte distribution width (RBC) [Ratio] 12.5 % Normal 11.0-15.0 [facility] Comment on above: Performed By: #### C BC #### [facility] [address] [place] [address] Dr. Martha Schmid Hematocrit (Bld) [Volume fraction] 39.7 % Critically low 42.0-54.0 [facility] Comment on above: Performed By: #### C BC #### [facility] [address] [place] [address] Dr. Martha Schmid Hemoglobin (Bld) [Mass/Vol] 13.1 g/dL Critically low 14.0-18.0 [facility] Comment on above: Performed By: #### C BC #### [facility] [address] [place] [address] Dr. Martha Schmid IG # 0.02 10e3/ul Normal 0.00-0.03 [facility] Comment on above: Performed By: #### C BC #### [facility] [address] [place] [address] Dr. Martha Schmid IG % 0.3 % Normal 0.0-0.5 [facility] Comment on above: Performed By: #### C BC #### [facility] [address] [place] [address] Dr. Martha Schmid LYMPH # 1.9 103/ul Normal 1.2-3.8 [facility] Comment on above: Performed By: #### C BC #### [facility] [address] [place] [address] Dr. Martha Schmid Lymphocytes/100 WBC (Bld) 24.4 % Normal 20.5-60.0 [facility] Comment on above: Performed By: #### C BC #### [facility] [address] [place] [address] Dr. Martha Schmid MANUAL DIFF REQ NO Normal [facility] Comment on above: Performed By: #### C BC #### [facility] [address] [place] [address] Dr. Martha Schmid MCH (RBC) [Entitic mass] 31.3 pg Normal 25.9-34.0 [facility] Comment on above: Performed By: #### C BC #### [facility] [address] [place] [address] Dr. Martha Schmid MCHC (RBC) [Mass/Vol] 33.0 g/dL Normal 29.9-35.2 [facility] Comment on above: Performed By: #### C BC #### [facility] [address] [place] [address] Dr. Martha Schmid MCV (RBC) [Entitic vol] 94.7 fL Critically high 80.0-94.0 [facility] Comment on above: Performed By: #### C BC #### [facility] [address] [place] [address] Dr. Martha Schmid MONO # 0.6 103/ul Normal 0.3-0.8 [facility] Comment on above: Performed By: #### C BC #### [facility] [address] [place] [address] Dr. Martha Schmid Monocytes/100 WBC (Bld) 8.2 % Normal 1.7-12.0 [facility] Comment on above: Performed By: #### C BC #### [facility] [address] [place] [address] Dr. Martha Schmid NEUT # 4.9 103/ul Normal 1.4-6.5 [facility] Comment on above: Performed By: #### C BC #### [facility] [address] [place] [address] Dr. Martha Schmid Neutrophils/100 WBC (Bld) 62.5 % Normal 43.0-75.0 [facility] Comment on above: Performed By: #### C BC #### [facility] [address] [place] [address] Dr. Martha Schmid Platelet mean volume (Bld) [Entitic vol] 9.6 fL Normal 9.5-13.5 [facility] Comment on above: Performed By: #### C BC #### [facility] [address] [place] [address] Dr. Martha Schmid PLT 247 103/ul Normal 150-450 [facility] Comment on above: Performed By: #### C BC #### [facility] [address] [place] [address] [address] Martha Schmid RBC 4.19 106/ul Critically low 4.70-6.10 [facility] Comment on above: Performed By: #### C BC #### [facility] [address] [place] [address] [address] Martha Schmid WBC 7.8 103/ul Normal 4.0-11.0 [facility] Comment on above: Performed By: #### C BC #### [facility] [address] [place] [address] [address] Martha Schmid GLYCOHEMOGLOBIN A1Con 2020 ADA RECOMMENDATION ADA THERAPEUTIC TARGET 6.0 - 7.0 ACTION SUGGESTED > 7.0 Normal [facility] Comment on above: Performed By: #### A 1C #### [facility] [address] [place] [address] Dr. Martha Schmid Glucose [Mass/Vol] 108 mg/dL Normal [facility] Comment on above: Performed By: #### A 1C #### [facility] [address] [place] [address] [address] Martha Schmid HbA1c (Bld) [Mass fraction] 5.4 % Normal <=6.0 [facility] Comment on above: Performed By: #### A 1C #### [facility] [address] [place] [address] Dr. Martha Schmid LIPID PROFILEon 04-12-2021 CHOL-HDL RATIO NORM SEE BELOW Normal [facility] Comment on above: Result Comment: 3.3 - 4.4 LOW RISK 4.4 - 7.1 AVERAGE RISK 7.1 - 11.0 MODERATE RISK >11.0 HIGH RISK Performed By: #### C MP, LIPID #### [facility] [address] [place] [address] [address] Martha Schmid Cholesterol [Mass/Vol] 181 mg/dL Normal <=200 [facility] Comment on above: Performed By: #### C MP, LIPID #### [facility] [address] [place] [address] [address] Martha Schmid Cholesterol in HDL [Mass/Vol] 44 mg/dL Normal [facility] Comment on above: Performed By: #### C MP, LIPID #### [facility] [address] [place] [address] [address] Martha Schmid Cholesterol in LDL [Mass/Vol] 118.4 mg/dL Normal [facility] Comment on above: Performed By: #### C MP, LIPID #### [facility] [address] [place] [address] Dr. Martha Schmid Cholesterol.total/C holesterol in HDL [Mass ratio] 4.1 {ratio} Normal [facility] Comment on above: Performed By: #### C MP, LIPID #### [facility] [address] [place] [address] Dr. Martha Schmid HDL NORMAL > or = 60 mg/dl - LOW CARDIOVASCULAR RISK <40 mg/dl - HIGH CARDIOVASCULAR RISK Normal [facility] Comment on above: Performed By: #### C MP, LIPID #### [facility] [address] [place] [address] Dr. Martha Schmid LDL CALC NORMAL SEE BELOW Normal [facility] Comment on above: Result Comment: <100 mg/dl OPTIMAL 100 - 129 mg/dl NEAR OR ABOVE OPTIMAL 130 - 159 mg/dl BORDERLINE HIGH 160 - 189 mg/dl HIGH >190 mg/dl VERY HIGH Performed By: #### C MP, LIPID #### [facility] [address] [place] [address] Dr. Martha Schmid Triglyceride [Mass/Vol] 93 mg/dL Normal <=150 [facility] Comment on above: Performed By: #### C MP, LIPID #### [facility] [address] [place] [address] [address] Martha Schmid VLDL CALC 18.6 mg/dL Normal [facility] Comment on above: Performed By: #### C MP, LIPID #### [facility] [address] [place] [address] Dr. Martha Schmid PROF 14(COMP METB)on 021 Albumin [Mass/Vol] 3.9 g/dL Normal 3.5-5.0 [facility] Comment on above: Performed By: #### C MP, LIPID #### [facility] [address] [place] [address] [address] Martha Schmid Albumin/Globulin [Mass ratio] 1.1 {ratio} Normal [facility] Comment on above: Performed By: #### C MP, LIPID #### [facility] [address] [place] [address] [address] Martha Schmid ALP [Catalytic activity/Vol] 53 U/L Normal 38-126 [facility] Comment on above: Performed By: #### C MP, LIPID #### [facility] [address] [place] [address] [address] Martha Schmid ALT [Catalytic activity/Vol] 25 U/L Normal 21-72 [facility] Comment on above: Performed By: #### C MP, LIPID #### [facility] [address] [place] [address] [address] Martha Schmid Anion gap [Moles/Vol] 10.4 mmol/L Normal [facility] Comment on above: Performed By: #### C MP, LIPID #### [facility] [address] [place] [address] [address] Martha Schmid AST [Catalytic activity/Vol] 18 U/L Normal 17-59 [facility] Comment on above: Performed By: #### C MP, LIPID #### [facility] [address] [place] [address] [address] Martha Schmid Bilirubin [Mass/Vol] 0.4 mg/dL Normal 0.2-1.3 [facility] Comment on above: Performed By: #### C MP, LIPID #### [facility] [address] [address] [address] Martha Schmid Calcium [Mass/Vol] 9.4 mg/dL Normal 8.4-10.2 [facility] Comment on above: Performed By: #### C MP, LIPID #### [facility] [address] [place] [address] [address] Martha Schmid Chloride [Moles/Vol] 102 mmol/L Normal 98-107 [facility] Comment on above: Performed By: #### C MP, LIPID #### [facility] [address] [address] [address] Martha Schmid CO2 [Moles/Vol] 29.9 mmol/L Normal 22.0-30.0 [facility] Comment on above: Performed By: #### C MP, LIPID #### [facility] [address] [address] [address] Martha Schmid Creatinine [Mass/Vol] 0.98 mg/dL Normal 0.66-1.25 [facility] Comment on above: Performed By: #### C MP, LIPID #### [facility] [address] [address] [address] Martha Schmid EGFR-AF SENEGALESE >60 Normal >=60 [facility] Comment on above: Performed By: #### C MP, LIPID #### [facility] [address] [address] [address] Martha Schmid EGFR-NON AF SENEGALESE >60 Normal >=60 [facility] Comment on above: Performed By: #### C MP, LIPID #### [facility] [address] [address] [address] Martha Schmid Globulin (S) [Mass/Vol] 3.6 g/dL Normal [facility] Comment on above: Performed By: #### C MP, LIPID #### [facility] [address] [address] [address] Martha Schmid Glucose [Mass/Vol] 89 mg/dL Normal 74-106 [facility] Comment on above: Performed By: #### C MP, LIPID #### [facility] [address] [address] [address] Martha Schmid Potassium [Moles/Vol] 4.3 mmol/L Normal 3.4-5.0 [facility] Comment on above: Performed By: #### C MP, LIPID #### [facility] [address] [place] [address] [address] Martha Schmid Protein [Mass/Vol] 7.5 g/dL Normal 6.1-8.2 [facility] Comment on above: Performed By: #### C MP, LIPID #### [facility] [address] [place] [address] [address] Martha Schmid Sodium [Moles/Vol] 138 mmol/L Normal 137-145 [facility] Comment on above: Performed By: #### C MP, LIPID #### [facility] [address] [address] [address] Martha Schmid Urea nitrogen [Mass/Vol] 16.0 mg/dL Normal 9.0-20.0 [facility] Comment on above: Performed By: #### C MP, LIPID #### [facility] [address] [address] [address] Martha Schmid Urea nitrogen/Creatinine [Mass ratio] 16.3 mg/mg Normal [facility] Comment on above: Performed By: #### C MP, LIPID #### [facility] [address] [address] [address] Martha Schmid Encounters Encounter Date Encounter Type Care Provider Facility Start: 12-11-2023 End: 12-11-2023 ambulatory DEBT COLLECTION SPECIALIST Yolande L Adela Facility:[facility] Start: 11-13-2023 End: 11-13-2023 ambulatory DEBT COLLECTION SPECIALIST Yolande L Adela Facility:[facility] Start: 10-30-2023 End: 10-30-2023 ambulatory DEBT COLLECTION SPECIALIST Yolande L Adela Facility:[facility] Start: 10-02-2023 End: 10-02-2023 ambulatory DEBT COLLECTION SPECIALIST Yolande L Adela Facility:[facility] Start: 09-28-2023 End: 09-28-2023 ambulatory DEBT COLLECTION SPECIALIST Yolande L Adela Facility:[facility] Start: 03-12-2023 End: 03-13-2023 ambulatory Catarino Palafox [facility] Start: 02-19-2023 End: 02-20-2023 [facility] Start: 01-29-2023 End: 01-30-2023 ambulatory [facility]arino [facility]afox [facility] Start: 01-11-2023 End: 01-11-2023 ambulatory DO Aishwarya Leonidas. Charmaine Facility:[facility] Start: 01-11-2023 End: 01-11-2023 Patient encounter procedure Aishwarya Lauren. Nareshauer [facility] Start: 12-19-2022 End: 12-19-2022 ambulatory DO Aishwarya S. Nareshauer Facility:[facility] Start: 12-19-2022 End: 12-19-2022 Off-Site [place] S. Nareshauer [facility] Start: 12-01-2022 ambulatory [facility] Start: 11-13-2022 End: 11-13-2022 Lab Drop off Yolande Kennedyab [facility] Start: 08-30-2022 ambulatory [facility] Start: 08-16-2022 End: 08-16-2022 ambulatory [facility] Start: 08-04-2022 ambulatory [facility] Start: 07-25-2022 End: 07-26-2022 ambulatory [facility] Start: 07-24-2022 End: 07-25-2022 ambulatory [facility] Start: 04-18-2022 End: 04-19-2022 ambulatory [facility] Start: 02-14-2022 End: 02-15-2022 ambulatory [facility] Start: 07-20-2021 End: 07-21-2021 ambulatory THANIA HOWARD Facility:[facility] Start: 07-14-2021 End: 07-14-[address] KOTA VARGHESE Facility: Start: 06-21-2021 End: 06-22-2021 ambulatory SHAIKH CHARITO Facility: Start: 05-13-2021 ambulatory SHAIKH CHARITO Facility: [facility] Start: 05-10-2021 End: 05-11-[address] TWYLA HUGHES Facility:[facility] Start: 04-16-2021 Encounter for genera l adult medical examination without abnormal findings SHAIKH CHARITO [facility] Start: 04-12-2021 End: 04-13-2021 ambulatory SHAIKH KATERINAPAHill Facility:[facility] Start: 04-12-2021 End: 04-13-2021 Encounter for general adult medical examination without abnormal findings [facility] KATERINAPAHill Facility:[facility] Procedures Date Procedure Procedure Detail Performing Clinician Start: 12-01-2022 Follow-up visit Follow-up RUBY ROGERS Start: 05-14-2022 Injury of right ankle J bimal Adela Start: 05-14-2021 Injury of right ankle J bimal Adela Appendectomy Yolande Adela Right elbow region structure (body structure) Yolande Adela Structure of carpal canal (body structure) Yolande Adela Payers Date Payer Category Payer Unknown [id number] 2021 Unknown [id number] 2021 Worker's Compensation 1978 Unknown [id number] 2.16.84 [id number] 1978 Unknown [id number] 2.16.84 [id number] 1978 Unknown [id number] 2.16.84 [id number] 1978 Unknown [id number] 2.16.84 0.1.691011.3.579.2.593 1978 Unknown [id number] 2.16.84 [id number] 1978 Unknown [id number] 2.16.8 40.1.757377.3.579.2.647 1978 Unknown [id number] 2.16. 840.1.816253.3.579.2.196 1978 Unknown [id number] 2.16. 840.1.076173.3.579.2.196 1978 Unknown [id number] 2.16. 840.1.139041.3.579.2.196 1978 Unknown [id number] 2.16.8 40.1.338257.3.579.2.727 1978 Unknown [id number] 2.16.8 40.1.733484.3.579.2.727 1978 Unknown [id number] 2.16.8 40.1.970566.3.579.2.727 1978 Unknown [id number] 2.16.8 40.1.870608.3.579.2.727 1978 Unknown [id number] 2.16.8 40.1.286326.3.579.2.727 1978 Unknown [id number] 2.16.8 40.1.334308.3.579.2.727 1978 Unknown [id number] 2.16.8 40.1.842613.3.579.2.727 1959 Self-pay 1959 Unknown [id number] 1959 Unknown [id number] Social History Date Type Detail Facility Start: 11-13-2022 End: 12-19-2022 Tobacco smoking status Light tobacco smoker (finding) [facility] Tobacco smoking status Never [facility] Sex Assigned At Male [facility] Clinical Notes 04-22-2021 to 12-19-2022 Radiology Note Date & Type Note Facility 12-19-2022 Evaluation + Plan note Future Scheduled TestsCT Head or Brain w/o Contrast 12/19/22 [facility] 12-01-2022 Note Orthopedic Surgery Subjective Chief complaint: [...] to be doing well. Incision completely healed. [place] some peroneal popping without dislocation on eversion of the ankle. PLAN: - continue ROM and dry needling appointments - Follow up in 6 months for clinical evaluation and to see if improvement to his symptoms and peroneal irritation. Jossie Bedoya MS3 [facility] 11-13-2022 Evaluation + Plan note [facility] 11/13/22Testosterone Level Total 11/13/22 [facility] 08-30-2022 Note 42 yo M here [...] Follow in 3 months for clinical evaluation. [facility] 08-16-2022 Note Patient: Sulaiman Camilo iceron Procedure Summary Date: 08/16/22 Room / Location: [facility] OPERATING ROOM 04 / [facility] Operating Room Anesthesia Start: 1219 Anesthesia Stop: [...] no known notable events for this encounter. [facility] 08-16-2022 Note Airway Date/Time: 08/16/2022 12:28 PM [...] 1 Number of other approaches attempted: 0 [facility] 08-16-2022 Note Patient: Sulaiman hood Procedure Information Date/Time: 08/16/22 1200 Procedure: REMOVAL, HARDWARE, ANKLE (Right: Ankle) - c-arm / 12:00pm start / Location: [facility] OPERATING ROOM 04 / [facility] Operating Room Surgeons: Lucero Rogers MD Relevant [...] risks discussed with patient. Additional Equipment Requests [facility] 08-04-2022 Note Subjective Chief complaint: Chief Complaint [...] Brock MD Orthopedic Surgery Resident Physician Pager: [phone] 08/04/22 9:04 AM By using the attestations [...] be an additional personal documentation from me. [facility] 07-25-2022 Note Date of Surgery: VALENTIN E [...] for scheduling once approved for hardware removal. [facility] 04-18-2022 Note Date of Surgery: VALENTIN E [...] bone Stim F/U 3 months repeat xrays [facility] 02-14-2022 Note Date of Surgery: VALENTIN E [...] bone Stim F/U 2 months repeat xrays [facility] 06-21-2021 Note CONSULTATION PAIN MANAGEMENT CONSULTATION CHIEF [...] patient understands and would like to proceed. [facility] Signed and Approved by: DR TWYLA HUGHES . 06/28/2021 07:59:00 [facility] 05-10-2021 Note PAIN MANAGEMENT Consultation [...] patient recently had a MRI performed at [facility]. The report is noted on the [...] spine surgeon has been suggested. cc:Dr. Dsouza. [facility] Signed and Approved by: DR TWYLA HUGHES . 2021 09:03:00 [facility] 04-22-2021 Note PROCEDURE: Shooger VCT 64, 5.0 mm slice axial images [...] signed by Sánchez Briscoe on 04/22/2021 1428 [facility] course Narrative No data available for this section [facility] Hospital Discharge instructions No data available for this section [facility] Progress note No data available for this section [facility] Summary Purpose Family History No Family [...] section and content) DATE CREATED AUTHOR 04/23/2021 [facility] dical Specialist DATE CREATED AUTHOR AUTHOR'S ORGANIZ ATION 07/15/2021 [facility] DATE CREATED AUTHOR AUTHOR'S ORGANIZ ATION 01/04/2022 [facility] DATE CREATED AUTHOR AUTHOR'S ORGANIZ ATION 01/24/[address] [facility] DATE CREATED AUTHOR AUTHOR'S ORGANIZ ATION 03/18/2023 [facility] DATE CREATED AUTHOR AUTHOR'S STELLA ATION 12/14/2023 [facility] Patient Care team informkartiko n (unrecognized section and content) Personnel Name: Yolande Carmona Address: Address: [address] [place] [address]- Personnel Name: Yolande Carmona Address: Address: [address] [place] [address]- Personnel Name: Yolande Carmona Address: Address: [address] [place] [address]- FOR RECORDS PERTAINING TO PATIENTS WHO ARE [...] BE BASED ON THE PRIMARY CLINICAL RECORDS. [employer] [facility]. provides no warranty or guarantee of the accuracy or completeness of information in this document.
--- NOTE | 2024-01-30 10:04 | ECG_ITS ---
[facility] Test Date: 2024-01-30 Pat Name: SHERIN WHITE Department: Room: - Gender: Male Jacker: : 1980 Requested By: WILLIAM BOBBY Order Number: [id number] Reading MD: JACKIE VICENTE Measurements Intervals [place] Rate: 61 P: -9 NM: 143 QRS: 65 QRSD: 98 T: 64 QT: 378 QTc: 382 Interpretive Statements SINUS RHYTHM w/ early repolarization No previous ECG available for comparison Electronically Signed On 01-30-2024 23:11:10 EDT by JACKIE VICENTE
--- NOTE | 2024-01-30 10:39 | PM.PRESUREVA ---
History of Present Illness History of Present Illness Chief complaint: peroneal tendon dislocation, fibular fracture Narrative: Patient presents for preadmission testing. The patient states he had a work injury with a right ankle fracture in 2021 followed by emergency surgery for ORIF of the right ankle. He subsequently had the hardware removed in approximately August 2022. He states he continues to have right ankle pain and instability which is worse after standing and walking for long periods of time. The patient also has low back pain and migraines. He denies any new trauma or injury, numbness, tingling, weakness, or any other complaints. Review of Systems ROS Narrative REVIEW OF SYSTEMS: Negative except as stated in HPI, ten or more systems reviewed. Constitutional: No fever, chills, weakness ENT: No sore throat or epistaxis Cardiovascular: No edema, chest pain, palpitations, or activity intolerance Respiratory: No shortness of breath, cough, or wheezing Gastrointestinal: No abdominal pain, constipation, diarrhea, or vomiting Genitourinary: No dysuria or hematuria Neurological: No numbness, tingling, weakness, or headache Psychiatric: No mood changes [facility] Medical History (Updated 01/30/24 @ 10:45 by Renetta Hernandez NP) Right ankle pain ?M25.571 - Pain in right ankle and joints of right foot (ICD-10) Back pain ?M54.9 - Dorsalgia, unspecified (ICD-10) Migraine ?G43.909 - Migraine, unspecified, not intractable, without status migrainosus (ICD-10) Diarrhea ?R19.7 - Diarrhea, unspecified (ICD-10) Sciatica ?M54.30 - Sciatica, unspecified side (ICD-10) Peroneal tendon injury ?S86.309A - Unspecified injury of muscle(s) and tendon(s) of peroneal muscle group at lower leg level, unspecified leg, initial encounter (ICD-10) Fibula fracture ?S82.409A - Unspecified fracture of shaft of unspecified fibula, initial encounter for closed fracture (ICD-10) Asthma ?J45.909 - Unspecified asthma, uncomplicated (ICD-10) Surgical History (Updated 01/30/24 @ 10:32 by Renetta Hernandez NP) History of kidney surgery ?Z98.890 - Other specified postprocedural states (ICD-10) History of carpal tunnel release ?Z98.890 - Other specified postprocedural states (ICD-10) History of elbow surgery ?Z98.890 - Other specified postprocedural states (ICD-10) History of ankle surgery (~07/2021) ?Z98.890 - Other specified postprocedural states (ICD-10) History of appendectomy ?Z90.49 - Acquired absence of other specified parts of digestive tract (ICD-10) Family History (Updated 01/30/24 @ 10:20 by Renetta Hernandez NP) Other Cancer Family history of diabetes mellitus Family history of hypertension Social History (Updated 01/30/24 @ 10:15 by Renetta Hernandez NP) Within the past year, how often did you have a drink containing alcohol: 2-3 times a week 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 Highest level of school completed/degree received: high school graduate Meds Home Medications and Allergies Home Medications ?Medication ?Instructions ?Recorded ?Confirmed ?Type cyclobenzaprine 10 mg tablet 10 mg PO DAILY PRN muscle spasm 01/29/23 01/30/24 History duloxetine 60 mg capsule,delayed 60 mg PO DAILY 01/29/23 01/30/24 History release tramadol 50 mg tablet 50 mg PO Q8H PRN pain 02/14/23 01/30/24 History ibuprofen 800 mg tablet 800 mg PO Q12H PRN pain 02/19/23 01/30/24 History atogepant 60 mg tablet (Qulipta) 60 mg PO DAILY 01/30/24 01/30/24 History meloxicam 7.5 mg tablet 7.5 mg PO BID PRN pain 01/30/24 01/30/24 History multivitamin (Daily Multi-Vitamin 1 tab PO DAILY 01/30/24 01/30/24 History tablet) pregabalin 100 mg capsule 100 mg PO Q8H 01/30/24 01/30/24 History sumatriptan succinate 100 mg tablet 100 mg PO Q2H PRN migraine headache 01/30/24 01/30/24 History vitamin B complex 1 tab PO DAILY 01/30/24 01/30/24 History Allergies Allergy/AdvReac Type Severity Reaction Status Date / Time No Known Drug Allergies Allergy Verified 01/30/24 10:10 Exam Narrative Exam Narrative: Constitutional: Awake, alert, comfortable, well-appearing, nontoxic, interactive, vital signs as charted Head: Normocephalic, atraumatic Neck: Supple, normal appearance, normal range of motion, no meningeal signs, no lymphadenopathy Respiratory: No respiratory distress, breath sounds clear Cardiovascular: Regular rate and rhythm, strong and regular heart tones Musculoskeletal: No swelling or edema, right anterior lateral ankle tenderness, range of motion limited due to pain, good capillary refill, sensation intact Skin: No rashes or induration, no lesions, only visible skin inspected Neuro: No neurological deficits, normal sensation Psychiatric: Oriented ?3, normal affect Assessment and Plan Assessment and Plan (1) Fibula fracture: (2) Peroneal tendon injury: (3) Right ankle pain: Plan Right ankle arthroscopy, stress examination of ankle, possible lateral ankle stabilization, peroneal tendon repair with possible groove deepening and peroneal retinaculum repair/augmentation scheduled with Dr. Stafford February 14, 2024.
== END 2024-01-30 09:51 | disposition home or self-care (01) ==
LOC: PST 09:52
PROVIDERS: PCP Nurse Practitioner; Visit Provider Podiatrist Foot & Ankle Surgery
DX: Z01.810 Encounter for preprocedural cardiovascular examination (principal); S82.831A Other fracture of upper and lower end of right fibula, initial encounter for closed fracture
CPT/HCPCS: 93005; G0463

== ENCOUNTER 2024-02-14 10:00 | Day surgery (SDC) | payer OTHER, BC, SELFPAY ==
[2024-01-30 10:30] VITALS: BP 145/84; PULSE 79; TEMP 36.5; O2SAT 98; BMI 21.0
[2024-02-14] VITALS (13 sets, daily range): BP systolic 127–158; BP diastolic 79–97; PULSE 64–98; TEMP 36.4–36.7; O2SAT 95–98; BMI 21.1
--- NOTE | 2024-02-14 | FL_ITS ---
[address] [address] Patient Name: SHERIN WHITE MRN: [id number] date: 1980 Sex: M Assigned Patient Location: [facility] Current Patient Location: Accession/Order Number: [id number] Exam Date: 02/14/2024 11:51 Report Date: 02/19/2024 09:57 At the request of: WILLIAM BOBBY Procedure: FL fluoroscopy <1hr NON-READ EXAM: FL fluoroscopy <1hr NON-READ HISTORY: TECHNIQUE: FINDINGS: Please see Operative Report. Electronically authenticated by: RADIOLOGIST NO Date: 02/19/2024 09:57
--- OUTSIDE RECORDS SUMMARY | 2024-02-14 10:06 | XMS_ITS | CCD ---
Author Organization [facility] Care Team Providers Care Patch Driller Name Role Phone FAPASCALED, PARSONS Consulting Unavailable FAWWAD, PARSONS Primary Care [...] Attending UnavailBERNIE Lechugadi L Attending Unavailable Adela, ELECTRONIC PARTS SALESPERSON Yolande L Attending Unavailable Adela, ELECTRONIC PARTS SALESPERSON Yolande L Attending Unavailable Adela, ELECTRONIC PARTS SALESPERSON Yolande L Attending Unavailable Adela, ELECTRONIC PARTS SALESPERSON Yolande L Attending Unavailable Wittenauer, DO Aishwarya S. Referring Baron Montano DO Greer S. Attending Baron Montano, DO Aishwarya SJb Admitting Unavaila ble Medications Current Medications [...] Ambulatory Visit Summary SULAIMAN WHITE :1980 Visit Date:12/11/2023 Ambulatory Visit Instructions Your [...] choosing us for your care. Endy Costello [facility] Family Medicine Office/Clini c Noteon [...] dry needling. he had this done in [place] a while back and it helped. 3. Migraine (G43.909: Migraine, unspecified, not intractable, without status migrainosus) pt still having migraines 4. Smoker (F17.200: Nicotine dependence, unspecified, uncomplicated) consider not smoking 5. BMI 22.0-22.9, adult (Z68.22: Body mass index [BMI] 22.0-22.9, adult) BMI education given Orders: busPIRone, See Instructions, TAKE 1 TABLET BY MOUTH THREE TIMES A DAY, # 90 tab(s), Refills(s) 0, Pharmacy: [facility] STORE 58954, 183.5, cm, 12/11/23 13:58:00 EDT, Height/Length Dosing, 76.5, kg, 12/11/23 13:58:00 EDT, Weight Dosing busPIRone, See Instructions, TAKE 1 TABLET BY MOUTH THREE TIMES A DAY, # 270 tab(s), Refills(s) 1, Pharmacy: [facility] ST[facility] 41822, 183.5, cm, 11/13/23 14:06:00 EDT, Height/Length Dosing, 78.2, kg, 11/13/23 14:06:00 EDT, Weight Dosing duloxetine, 120 mg = 2 cap(s), Oral, Daily, 30 EA, TAKE 1 CAPSULE BY MOUTH EVERY DAY, # 60 cap(s), Refills(s) 1, [facility], 183.5, cm, 11/13/23 14:06:00 EDT, Height/Length Dosing, 78.2, kg, 11/13/23 14:06:00 EDT, Weight Dosing duloxetine, 120 mg = 2 cap(s), Oral, Daily, 30 EA, TAKE 1 CAPSULE BY MOUTH EVERY DAY, X 90 day(s), # 180 cap(s), Refills(s) 3, [facility], 183.5, cm, 11/13/23 14:06:00 EDT, Height/Length [...] diphtheria/pertussi s, acel/tetanus adult 12/31/2019 Recorded Normal [facility] Comment on above: Result Comment: Elec [...] 1:40 PM EDT With: Yolande Carmona Where: [facility] [place] Normal [facility] Family Medicine Office/Clini c Noteon 11-13-2023 Family [...] TID, # 90 tab(s), Refills(s) 0, [id number], 183.5, cm, 11/13/23 14:06:00 EDT, Height/Length Dosing, 78.2, kg, 11/13/23 14:06:00 EDT, Weight Dosing methylPREDNISolone, = 1 packet(s), Oral, As Directed, as directed on package labeling, X 6 day(s), # 21 tab(s), Refills(s) 0, [id number], 183.5, cm, 11/13/23 14:06:00 EDT, Height/Length Dosing, 78.2, kg, 11/13/23 14:06:00 EDT, Weight Dosing 2. Herniated intervertebral disc of lumbar spine (M51.26: Other intervertebral disc displacement, lumbar region) pt still having back pain. will order medrol dose pack. may consider dry needling at [facility]. that helped the last time. Ordered: methylPREDNISolone, = 1 packet(s), Oral, As Directed, as directed on package labeling, X 6 day(s), # 21 tab(s), Refills(s) 0, [id number], 183.5, cm, 11/13/23 14:06:00 EDT, Height/Length Dosing, 78.2, kg, 11/13/23 14:06:00 EDT, Weight Dosing 3. BMI 23.0-23.9, adult (Z68.23: Body mass index [BMI] 23.0-23.9, adult) BMI education given Ordered: busPIRone, 7.5 mg = 1 tab(s), Oral, TID, # 90 tab(s), Refills(s) 0, [id number], 183.5, cm, 11/13/23 14:06:00 EDT, Height/Length Dosing, 78.2, kg, 11/13/23 14:06:00 EDT, Weight Dosing methylPREDNISolone, = 1 packet(s), Oral, As Directed, as directed on package labeling, X 6 day(s), # 21 tab(s), Refills(s) 0, [id number], 183.5, cm, 11/13/23 14:06:00 EDT, Height/Length Dosing, 78.2, kg, 11/13/23 14:06:00 EDT, Weight Dosing 4. Smoker (F17.200: Nicotine dependence, unspecified, uncomplicated) consider not smoking Ordered: busPIRone, 7.5 mg = 1 tab(s), Oral, TID, # 90 tab(s), Refills(s) 0, [id number], 183.5, cm, 11/13/23 14:06:00 EDT, Height/Length Dosing, 78.2, kg, 11/13/23 14:06:00 EDT, Weight Dosing methylPREDNISolone, = 1 packet(s), Oral, As Directed, as directed on package labeling, X 6 day(s), # 21 tab(s), Refills(s) 0, [id number], 183.5, cm, 11/13/23 14:06:00 EDT, Height/Length Dosing, 78.2, kg, 11/13/23 14:06:00 EDT, Weight Dosing Orders: duloxetine, 120 mg = 2 cap(s), Oral, Daily, 30 EA, TAKE 1 CAPSULE BY MOUTH EVERY DAY, # 60 cap(s), Refills(s) 1, [id number], 183.5, cm, 11/13/23 14:06:00 EDT, Height/Length [...] 30 days (more content not included)... Normal [facility] Comment on above: Result Comment: Elec [...] choosing us for your care. Normal Costello [facility] Family Medicine Office/Clini c Noteon [...] send refills. RTC 6 months to update [facility] paperwork Ordered: atogepant, 60 mg = 1 tab(s), Oral, Daily, # 30 tab(s), Refills(s) 5, [id number], 183.5, cm, 10/30/23 13:58:00 EDT, Height/Length Dosing, 78.2, kg, 10/30/23 13:58:00 EDT, Weight Dosing atogepant, 60 mg = 1 tab(s), Oral, Daily, # 30 tab(s), Refills(s) 2, [id number], 183.5, cm, 10/02/23 13:13:00 EDT, Height/Length Dosing, 79.3, kg, 10/02/23 13:13:00 EDT, Weight Dosing BMI 23.0-23.9, adult (Z68.23: Body mass index [BMI] 23.0-23.9, adult) BMI education given Ordered: atogepant, 60 mg = 1 tab(s), Oral, Daily, # 30 tab(s), Refills(s) 5, [id number], 183.5, cm, 10/30/23 13:58:00 EDT, Height/Length Dosing, 78.2, kg, 10/30/23 13:58:00 EDT, Weight Dosing atogepant, 60 mg = 1 tab(s), Oral, Daily, # 30 tab(s), Refills(s) 2, [id number], 183.5, cm, 10/02/23 13:13:00 EDT, Height/Length Dosing, 79.3, kg, 10/02/23 13:13:00 EDT, Weight Dosing Smoker (F17.200: Nicotine dependence, unspecified, uncomplicated) consider not smoking Ordered: atogepant, 60 mg = 1 tab(s), Oral, Daily, # 30 tab(s), Refills(s) 5, Pharmacy: [facility]/pharmacy #3471, 183.5, cm, 10/30/23 13:58:00 EDT, Height/Length [...] [facility] #[facility]71, 183.5, cm, 10/30/23 13:58:00 EDT, Height/Length [...] mellitus type 2: Father. Hodgkin's disease: Father. [facility] Comment on above: Result Comment: Elec tronically Signed By: Yolande Carmona\.br\Date and Time Signed: 10/30/23 14:19 EDT Physician Orderon 10-05-2023 Physician Order [id number] DD#1.00TIFF [facility] Consultation Noteon 10-03-19 Consultation Note [id number] 2#1.00TIFF [facility] Pre-Certification Formon Pre-Certification Form [id number] 85#1.00TIFF [facility] Family Medicine Office/Clini c Noteon 10-02-2023 Family [...] mellitus type 2: Father. Hodgkin's disease: Father. [facility] Comment on above: Result Comment: Elec tronically Signed By: Yolande Carmona.br\Date and Time Signed: 10/02/23 14:33 EDT Formson 10-02-2023 Forms [id number] E#1.00TIFF [facility] Consultation Noteon 07-10-19 24 Consultation Note [id number] 64#1.00TIFF [facility] RAD - MISCon 03-22-2023 RAD - MISC [id number] 30#1.00TIFF [facility] Operative Reporton 3 Operative Report [id number] 32#1.00TIFF [facility] Operative Reporton 3 Operative Report [id number] 19#1.00TIFF [facility] RAD - MRI Reporton 3 RAD - MRI Report [id number] 24#1.00CD:127 [facility] Refillon 01-14-2023 Refill [id number] Sulaiman White 1980 M Date Provider Department Center 01/14/2023 VENKAT DEL ANGEL ANGELA ORTHO MPORTHO No family history on file Reason for Visit and Comments: Med Refill [[id number]] Normal [facility] CT Head or Brain w/o [...] Keys M.D. Transcribed by: ARUN Technologist: JENNIFER [facility] Consent for Treatmenton 12-14 Consent for Treatment [id number] 97#1.00CD:127 [facility] Family Medicine Video Visit - Telehealthon 01-07-2023 [...] recovery. He continues to consult with an floor specialist for his ankle condition. Given his [...] pharmacy is [facility] in [place]. Physical Exam GENERAL: He is alert and [...] with voice recognition artificial intelligence software, specifically Dragon Inside, Tagbrand and or Project Colourjack. Substitutions may have occurred due to the inherent limitations of voice recognition and artificial intelligence software. Documentation s (more content not included)... Normal [facility] Comment on above: Result Comment: Elec tronically Signed By: Aishwarya Montano DO\.br\Date and Time Signed: 01/07/23 18:21 EDT Insurance Correspondenceon 0 12-21-2022 Insurance Correspondence [id number] 10#1.00CD:127 Normal [facility] Ambulatory Visit Summaryon 0 12-19-2022 Ambulatory [...] Normal Worsening headaches, pp_set_radiology_s ubspecialty, Costello - Reginaldo\.br\ Medications\.br\ What How Much When Instructions\.br\ Changed sumatriptan (Imitrex 100 mg Tab) 1 Tablets By Mouth As Directed as needed for Migraine headache may repeat dose in 2 hours if needed . take onset migraine. max 200mg per day Pickup at [facility]/pharmacy #3471\.br\ Unchanged cyclobenzaprine (cyclobenzaprine 10 mg Tab) [...] TIMES A DAY NEEDED \.br\ Pharmacy Information\.br\ [facility]pharmacy #[id number]: [address], [place] [id number] [phone]\.br\ Allergies\.br\ No Known Allergies\.br\ Problems\.br\ Ongoing - Any problem that you are currently receiving treatment for.\.br\ Erectile disorder\.br\ Fatigue\.br\ Herniated intervertebral disc of lumbar spine\.br\ Migraine\.br\ Wellness examination\.br\ \.br\ [facility] Patient Letter FTMCon 2022 Patient Letter [facility] [address] [place] [address] [id number] December 19, 2022 SAIRA WHITE [address] [place] [phone] : 1980 12/19/2022 Dear Employer, Please excuse patient up to 5 days with Migraine. If migraine resolves early please allow patient back to work early. Electronically Signed Greer Charmaine Rushing Normal [facility] 36on 12-18-2022 36 Approving, but needs appt for additional refills. Normal [facility] Follow-Upon 12-01-2022 Follow-Up [id number] Sulaiman White 1980 M Date Provider Department Center 12/01/2022 LUCERO MUÑOZ MP ORTHO MPORTHO No family history on file Level of Service:10578 [place] OFFICE/OUTPATIENT ESTABLISHED LOW MDM 20-29 MIN (GC) Reason for Visit and Comments: Follow-up [004554] Normal [facility] CHEMISTRYOrdered By: SYSTEM SYSTEM on [...] - 20 [facility] Follow-Upon 08-30-2022 Follow-Up [id number] Sulaiman White 1980 M Date Provider Department Center 08/30/2022 421-LUCERO ROGERS MP ORTHO MPORTHO No family history on file Level of Service:34566 [place] POSTOP FOLLOW UP VISIT RELATED TO ORIGINAL PX Reason for Visit and Comments: Follow-up [[id number]] - [facility] R ankle follow up [facility] 36on 08-21-2022 36 Approving, but needs appt for additional refills. [facility] HPon 08-16-2022 HP H&P reviewed. The patient was examined and there are no changes to the H&P. [facility] OPNOTEon 08-16-2022 OPNOTE ORTHOPAEDIC SURGERY OPERATIVE REPORT Date of Surgery: 08/16/2022 Surgeon: Lucero Rogers MD Crystal Calibrator: Smita Burton MD Preoperative Diagnosis: Symptomatic retained [...] MD Orthopaedic Surgery Resident, PGY-2 08/16/22 Normal [facility] POCT GLUCOSE METER UNSOLICIT ED RESULTSon 08-16-2022 Glucose [Mass/Vol] 98 mg/dL Normal 70-105 [facility] Comment on above: Result Comment: lweb er4 Performed By: #### L [id number] ####[facility] (GEOVANNY)[address] [place] [address] Follow-Upon 08-04-2022 Follow-Up [id number] Sulaiman White 1980 M Date Provider Department Center 08/04/2022 LUCERO MUÑOZ MP ORTHO MPORTHO No family history on file Level of Service:42338 [place] OFFICE/OUTPATIENT ESTABLISHED MOD MDM 30-39 MIN (GC,57) Reason for Visit and Comments: Pain [136] Normal [facility] HPon 08-04-2022 HP Subjective Chief complaint: Chief Complaint Patient presents with Right Ankle - Pain 08/04/22 Sulaiman White is a 42 y.o. year old male [facility] presenting for evaluation of right ankle [...] Brock MD Orthopedic Surgery Resident Physician Pager: [phone] 08/04/22 9:04 AM By using the attestations [...] an additional personal documentation from me. Normal [facility] Labon 08-04-2022 Lab [id number] Sulaiman White 1980 M Date Provider Department Center 08/04/2022 2244-[facility] MP LAB RESOURCE MP DRAW Medical Pavi No family history on file Normal [facility] MRSA/MSSA DNA NASALon 2022 MRSA DNA Negative Normal Negative [facility] Comment on above: Performed By: #### L [id number] ####[facility] ([facility])[address] [place] [address] MSSA DNA Negative Normal Negative [facility] Comment on above: Performed By: #### L [id number] ####[facility] (ARACELIS)[address] [place] [address] Prep for Procedureon 023 Prep for Procedure [id number] Sulaiman White 1980 M Date Provider Department Center 08/04/2022 LUCERO MUÑOZ MP ORTHO MPORTHO No family history on file [facility] Follow-Upon 07-25-2022 Follow-Up [id number] Sulaiman White 1980 M Date Provider Department Center 07/25/2022 VENKAT DEL ANGEL MP ORTHO MPORTHO No family history on file Level of Service:84114 [place] OFFICE/OUTPATIENT ESTABLISHED LOW MDM 20-29 MIN Reason for Visit and Comments: Follow-up [[id number]] - Review of xr [facility] 36on 07-19-2022 36 Approving, but needs appt for additional refills. [facility] 36on 06-19-2022 36 Approving, but needs appt for additional refills. [facility] 36on 05-22-2022 36 Approving, but needs appt for additional refills. [facility] 36on 04-24-2022 36 Approving, but needs appt for additional refills. [facility] Follow-Upon 04-18-2022 Follow-Up [id number] Sulaiman White 1980 M Date Provider Department Center 04/18/2022 VENKAT DEL ANGEL MP ORTHO MPORTHO No family history on file Level of Service:52324 [place] OFFICE/OUTPATIENT ESTABLISHED LOW MDM 20-29 MIN Reason for Visit and Comments: Follow-up [005297] - C Pt here today for right ankle follow up with xr [facility] Refillon 03-28-2022 Refill [id number] Sulaiman White 1980 Date Provider Department [place] 03/28/2022 VENKAT DEL ANGEL MP ORTHO MPORTHO No family history on file Reason for Visit and Comments: Med Refill [[id number]] Normal [facility] Follow-Upon 02-14-2022 Follow-Up [id number] Sulaiman White 1980 [facility] Provider Department [place] 02/14/2022 VENKAT DEL ANGEL MP ORTHO MPORTHO No family history on file Level of Service:38472 [place] OFFICE/OUTPATIENT ESTABLISHED LOW MDM 20-29 MIN Reason for Visit and Comments: Follow-up [451700] - Pt present for right ankle pain, with review of xrays [facility] ANKLE RIGHT 3 VWSon 12-24-19 22 ANKLE RIGHT 3 VWS [facility] Department of Radiology [address] [place] [phone] Patient Name: SULAIMAN WHITE : 1980 Sex: M Age: Race: White Pt. Location: Patient Status: D Ordered Date: 12/23/2021 2:15:00 PM Completed Date: 12/23/2021 02:16 PM Requesting Provider: VENKAT SIFUENTES Attending Provider: VENKAT SIFUENTES Report Copy To: Signs & Symptoms: M25.571 Pain in right ankle and joints of right foot I10 History: Vilas Comments: Exam: ANKLE RIGHT 3 VWS ANKLE [...] maintained Electronically signed: Lexy Burnett. Transcribed by: [email or web address], User Resident: Electronically Signed by: LEXY BURNETT @ 12/25/2021 02:51 PM Normal [facility] ANKLE RIGHT 3 [facility] 11-12-19 22 ANKLE RIGHT 3 [facility] Department of Radiology [address] [place] [phone] Patient Name: SULAIMAN WHITE : 1980 Sex: M Age: Race: White Pt. Location: Patient Status: D Ordered Date: 11/11/2021 10:40:00 AM Completed Date: 11/11/2021 10:41 AM Requesting Provider: VENKAT SIFUENTES Attending Provider: VENKAT SIFUENTES Report Copy To: SELF, REFERRED Signs & Symptoms: M25.571 Pain in right ankle and joints of right foot I10 History: Vilas Comments: Exam: ANKLE RIGHT 3 [facility] ANKLE RIGHT 3 [facility] 11/11/2021 10:41 AM SIGNS AND SYMPTOMS: [...] swelling. Electronically signed: Brent Dooley. Transcribed by: [email or web address], User Resident: BRENT DOOLEY Electronically Signed by: BRENT DOOLEY @ 11/13/2021 02:39 PM I personally read this/these film(s) with this resident Normal [facility] ANKLE RIGHT 3 [facility] 10-13-19 ANKLE RIGHT 3 [facility] Department of Radiology [address] [place] [phone] Patient Name: SULAIMAN WHITE : 1980 [...] change Electronically signed: Lexy Peterson. Transcribed by: [email or web address], User Resident: Electronically Signed by: LEXY PETERSON @ 10/13/2021 02:03 PM Normal [facility] Comment on above: Order Comment: Evalu ate ANKLE RIGHT 3 Son 09-15-19 ANKLE RIGHT 3 S [facility] Department of Radiology [address] [place] [phone] Patient Name: SULAIMAN WHITE : 1980 [...] complications. Electronically signed: Carline Alejandre. Transcribed by: [email or web address], User Resident: Electronically Signed by: CARLINE ALEJANDRE @ 09/16/2021 10:25 AM Normal [facility] ANKLE RIGHT 3 [facility] 08-30-19 ANKLE RIGHT 3 [facility] Department of Radiology [address] [place] [phone] Patient Name: SULAIMAN WHITE : 1980 Sex: M Age: Race: White Pt. Location: Patient Status: D Ordered Date: 07/18/2021 10:05:00 AM Completed Date: 08/29/2021 01:52 PM Requesting Provider: THANIA HOWARD Attending Provider: THANIA HOWARD Report Copy To: Signs & Symptoms: S82.831A Oth fracture of upper and lower end of right fibula, init I10 History: Comments: Evaluate Exam: ANKLE RIGHT 3 [facility] ANKLE RIGHT 3 VWS 08/29/2021 1:52 [...] report. Electronically signed: Radha Lane. Transcribed by: [email or web address], User Resident: GALLO HAIR Electronically Signed by: RADHA LANE @ 08/30/2021 11:45 AM I personally read this/these film(s) with this resident Normal [facility] Comment on above: Order Comment: Evalu ate FOOT RIGHT 2 [facility] 2 FOOT RIGHT 2 [facility] Department of Radiology [address] [place] [phone] Patient Name: SULAIMAN WHITE : 1980 [...] report. Electronically signed: Radha Lane. Transcribed by: [email or web address], User Resident: GALLO HAIR Electronically Signed by: RADHA LANE @ 08/30/2021 11:44 AM I personally read this/these film(s) with this resident Normal [facility] Comment on above: Order Comment: Evalu ate ANKLE RIGHT 3 [facility] 08-02-19 22 ANKLE RIGHT 3 S [facility] Department of Radiology [address] [place] [phone] Patient Name: SULAIMAN WHITE : 1980 Sex: M Age: Race: White Pt. Location: 84 Patient Status: Ordered Date: 08/01/2021 9:25:00 AM Completed Date: 08/01/2021 09:40 AM Requesting Provider: THANIA HOWARD Attending Provider: Report Copy To: Signs & Symptoms: Z48.89 Encounter for other specified surgical aftercare I10 History: Comments: Evaluate Exam: ANKLE RIGHT 3 [facility] ANKLE RIGHT 3 S 08/01/2021 9:40 [...] report. Electronically signed: Rafy Trejo. Transcribed by: [email or web address], User Resident: ARISTEO MEYER Electronically Signed by: RAFY TREJO @ 08/01/2021 10:04 AM I personally read this/these film(s) with this resident Normal [facility] Comment on above: Order Comment: Evalu ate FOOT RIGHT 2 [place] 03-21-202 2 FOOT RIGHT 2 S [facility] Department of Radiology [address] [place] [phone] Patient Name: SULAIMAN WHITE : 1980 Sex: M Age: Race: White Pt. Location: Patient Status: O Ordered Date: 08/01/2021 10:10:00 AM Completed Date: 08/01/2021 10:29 AM Requesting Provider: VENKAT SIFUENTES Attending Provider: THANIA HOWARD Report Copy To: Signs & Symptoms: M79.671 Pain in right foot I10 History: Christy Comments: Evaluate Exam: FOOT RIGHT 2 [facility] FOOT RIGHT 2 S 08/01/2021 10:29 AM CLINICAL INDICATIONS: M79.671 Pain in right foot I10 TECHNOLOGIST COMMENTS: Patient complains of right foot pain since 07/20/2021. QUESTION FOR THE RADIOLOGIST: Evaluate PROTOCOL: AP(PA) and Lateral views were obtained. COMPARISON: None Impression: 1. There is no evidence of a fracture, subluxation, or dislocation. Joint space is well-preserved. Electronically signed: Rafy Trejo. Transcribed by: [email or web address], User Resident: Electronically Signed by: RAFY TREJO @ 08/01/2021 10:35 AM Normal [facility] Comment on above: Order Comment: Evalu ate *MRSA/MSSA DNA NASALon 07-20 *MRSA/MSSA DNA NASAL Clinical Report: (D) Specimen: NASAL SWAB Collected: 07/20/2021 17:31 Status: Final Last Updated: 07/20/2021 21:23 (1) No collection time noted on specimen or requisition. The collection time recorded is the time of receipt in the lab. MSSA DNA (Final) Negative MRSA DNA (Final) Negative Normal [facility] Comment on above: Order Comment: Evalu ate Performed By: #### 3 1595 ####[facility] ANKLE RIGHT 2 Son 07-21-19 ANKLE RIGHT 2 [facility] Department of Radiology [address] [place] [address] Patient Name: SULAIMAN WHITE : [...] above. Electronically signed: Joe Freeman. Transcribed by: [email or web address], User Resident: Electronically Signed by: JOE FREEMAN @ 07/21/2021 07:59 AM Normal [facility] Comment on above: Order Comment: ORIF RIGHT FIBULA Operative Reporton 2 Operative Report MR#: [id number] S [facility] Pt. Name: Sulaiman White Room [...] b (more content not included)... Normal [facility] POC GLUCOSE LABon 07-20-2021 Glucose [Mass/Vol] 106 mg/dL High 70-100 [facility] Comment on above: Performed By: #### 8 5499 #### [facility] [address] POC SARS COV2 IDon 2 SARS-CoV-2 (COVID-19) RNA RONIT+probe Ql (Unsp spec) Negative Normal NEGATIVE [facility] Comment on above: Result Comment: [...] Accreditation. Performed By: #### 3 1921 #### [facility] [address] [facility]. [address] *MRSA/MSSA DNA NASALon 07-18 *MRSA/MSSA DNA NASAL Clinical Report: (D) Specimen: NASAL SWAB Collected: 07/18/2021 10:21 Status: Final Last Updated: 07/18/2021 15:35 MSSA DNA (Final) Negative MRSA DNA (Final) Negative Normal [facility] Comment on above: Performed By: #### 3 1595 #### [facility] [address] [facility]. [address] *SARS-CoV-2 COVID-19on 07-18 SARS-CoV-2 (COVID-19) RNA RONIT+probe Ql (Unsp spec) Not detected Normal Not Detected [facility] Comment on above: Order Comment: The A ptima SARS-CoV-2 assay is a nucleic acid amplification test intended for the qualitative detection of RNA from SARS-CoV-2 isolated and purified from nasopharyngeal (VISUAL DESIGN LEAD),oropharyngeal (OP), nasal swab, sputum, and bronchoalveolar lavage (BAL) specimens from patients with signs and symptoms of infection who are suspected of COVID-19. Results are for the identification of SARS-CoV-2 RNA. The SARS-CoV-2 RNA is generally detectable during the acute phase of infection. The Aptima SARS-CoV-2 Assay on the [employer] and [employer] system is intended for use by laboratory personnel specifically instructed and trained in the operation of the [place] and [employer] Fusion system. The Aptima SARS-CoV-2 assay is [...] information. Performed By: #### 3 [id number] #### [facility] [address] [place] [address], [facility] APTTon 07-18-2021 aPTT Coag (Bld) [Time] 28.9 s Normal 25.0-35.0 [facility] Comment on above: Result Comment: [...] THIS PURPOSE. Performed By: #### 5 7307, [id number] ####[facility] [facility] [place] [address], [facility] BASIC METABOLIC PANELon Calcium [Mass/Vol] 8.9 mg/dL Normal 8.6-10.3 [facility] Comment on above: Performed By: #### 3 0728, 05453 ####[facility] [facility] [place] [address], [facility] Chloride [Moles/Vol] 102 mmol/L Normal 98-107 [facility] Comment on above: Performed By: #### 3 0728, 80256 ####[facility] [facility] [place] [address], [facility] CO2 [Moles/Vol] 26 mmol/L Normal 21-31 [facility] Comment on above: Performed By: #### 3 0728, 77130 ####[facility] [facility] [place] [address], [facility] Creatinine [Mass/Vol] 1.10 mg/dL Normal 0.70-1.30 [facility] Comment on above: Performed By: #### 3 0728, 96673 ####[facility] [facility] [place] [address], [facility] GFR/1.73 sq M.predicted among blacks MDRD (S/P/Bld) [Vol rate/Area] mL/min/{1.73_m2} Normal >60 [facility] Comment on above: Performed By: #### 3 727, 23307 ####[facility] GFR/1.73 sq M.predicted among non-blacks MDRD (S/P/Bld) [Vol rate/Area] mL/min/{1.73_m2} Normal >60 [facility] Comment on above: Performed By: #### 3 727, 85202 ####[facility] Glucose [Mass/Vol] 99 mg/dL Normal 70-100 [facility] Comment on above: Performed By: #### 3 727, 18396 ####[facility] Potassium [Moles/Vol] 4.2 mmol/L Normal 3.5-5.1 [facility] Comment on above: Performed By: #### 3 727, 01592 ####[facility] Sodium [Moles/Vol] 135 mmol/L Low 136-145 [facility] Comment on above: Performed By: #### 3 727, 89052 ####[facility] Urea nitrogen [Mass/Vol] 19 mg/dL Normal 7-25 [facility] Comment on above: Performed By: #### 3 727, 64204 ####[facility] [facility].[address] CBC W/DIFFon 07-18-2021 ABS IMM GRANS 0.0 10*3/uL Normal 0.0-0.2 [facility] Comment on above: Performed By: #### 5 0103 ####[facility] [place] [address], [facility] ABS NEUTROPHILS 5.5 10*3/uL Normal 1.6-7.6 [facility] Comment on above: Performed By: #### 5 0103 ####[facility] [place] [address], [facility] Basophils (Bld) [#/Vol] 0.0 10*3/uL Normal 0.0-0.2 [facility] Comment on above: Performed By: #### 5 0103 ####[facility] [place] [address], [facility] Basophils/100 WBC (Bld) 0.5 % Normal 0.0-1.0 [facility] Comment on above: Performed By: #### 5 3 ####[facility] [place] [address], [facility] Eosinophils (Bld) [#/Vol] 0.2 10*3/uL Normal 0.0-0.5 [facility] Comment on above: Performed By: #### 5 0103 ####[facility] Eosinophils/100 WBC (Bld) 2.9 % Normal 0.0-6.0 [facility] Comment on above: Performed By: #### 5 3 ####[facility] Erythrocyte distribution width (RBC) [Ratio] 12.5 % Normal 11.5-15.0 [facility] Comment on above: Performed By: #### 5 3 ####[facility] Hematocrit (Bld) [Volume fraction] 38.5 % Low 39.0-50.0 [facility] Comment on above: Performed By: #### 5 3 ####[facility] Hemoglobin (Bld) [Mass/Vol] 13.0 g/dL Normal 13.0-17.0 [facility] Comment on above: Performed By: #### 102 ####[facility] IMMATURE GRANS 0.5 % Normal 0.0-1.0 [facility] Comment on above: Performed By: #### 102 ####[address] Lymphocytes (Bld) [#/Vol] 1.8 10*3/uL Normal 1.2-4.0 [facility] Comment on above: Performed By: #### 102 ####[address] Lymphocytes/100 WBC (Bld) 21.9 % Normal 20.0-45.0 [facility] Comment on above: Performed By: #### 102 ####[address] MCH (RBC) [Entitic mass] 31.1 pg Normal 27.0-33.0 [facility] Comment on above: Performed By: #### 102 ####[address] MCHC (RBC) [Mass/Vol] 33.8 g/dL Normal 32.0-35.0 [facility] Comment on above: Performed By: #### 102 ####[address] MCV (RBC) [Entitic vol] 92.1 fL Normal 82.0-98.0 [facility] Comment on above: Performed By: #### 102 ####[facility] [facility] [place] [address], [facility] Monocytes (Bld) [#/Vol] 0.6 10*3/uL Normal 0.1-1.0 [facility] Comment on above: Performed By: #### 102 ####[facility] [facility] [place] [address], [facility] MONOS 7.5 % Normal 5.0-12.0 [facility] Comment on above: Performed By: #### 102 ####[facility] [facility] [place] [address], [facility] Neutrophils/100 WBC (Bld) 66.7 % Normal 40.0-72.0 [facility] Comment on above: Performed By: #### 102 ####[facility] [facility] [place] [address], [facility] Nucleated RBC/100 WBC (Bld) [Ratio] 0 % Normal 0-0 [facility] Comment on above: Performed By: #### 102 ####[facility] [facility] [place] [address], [facility] PLAT CNT 283 10*3/uL Normal 150-400 [facility] Comment on above: Performed By: #### 102 ####[facility] [facility] [place] [address], [facility] RBC (Bld) [#/Vol] 4.18 10*6/uL Low 4.20-5.70 [facility] Comment on above: Performed By: #### 102 ####[facility] [facility] [place] [address], [facility] WBC (Bld) [#/Vol] 8.23 10*3/uL Normal 4.00-10.60 [facility] Comment on above: Performed By: #### 102 ####[facility] PROTHROMBIN TIMEon INR Coag (PPP) [Relative time] 0.96 {INR} Normal 0.91-1.16 [facility] Comment on above: Result Comment: [...] CHEST 1995;108:[id number]. Performed By: #### 5 7307, [address] ####[place] [id number] PT Coag (PPP) [Time] 12.7 s Normal 12.3-14.8 [facility] Comment on above: Result Comment: ALL RESULTS MUST BE INTERPRETED WITH RESPECT TO BLOOD DRAWING ARTIFACT OR DILUTION ERROR OF ANTICOAGULANT AT THE TIME OF SAMPLING. Performed By: #### 5 7307, 90126 ####[place] [address] VITAMIN D 25-HYDROXYon 07-18 VITAMIN D 25-OH 18.8 ng/mL Low 30.0-80.0 [facility] Comment on above: Result Comment: >80. 0 Toxicity possible Performed By: #### 3 3328, 49953 ####[facility] [place] [address], [facility] XR ANKLE RT MIN 3 VIEWSon XR [...] Eron KWAN Date: 2021-07-14 05:45 Normal [facility] XR Hip Complete Righton 04-13 XR Hip Complete Right HISTORY: Pain, popping FINDINGS: Normal hip joint space. No pincer or CAM deformities. No cortical or stress fracture. IMPRESSION: Minimal arthritis. Report reported and signed by Sánchez Briscoe on 04/22/2021 1103 Normal [facility] Operator CBC AUTO DIFFon 04-12-2021 BASO # 0.0 103/ul Normal 0.0-0.1 [facility] Comment on above: Performed By: #### C BC #### [facility] [address] [place] [address] Dr. Martha Schmid Basophils/100 WBC (Bld) 0.4 % Normal 0.2-2.0 [facility] Comment on above: Performed By: #### C BC #### [facility] [address] [place] [address] Dr. Martha Schmid EO # 0.3 103/ul Normal 0.0-0.7 [facility] Comment on above: Performed By: #### C BC #### [facility] [address] [address] [address] Martha Schmid Eosinophils/100 WBC (Bld) 4.2 % Normal 0.9-7.0 [facility] Comment on above: Performed By: #### C BC #### [facility] [address] [place] [address] Dr. Martha Schmid Erythrocyte distribution width (RBC) [Ratio] 12.5 % Normal 11.0-15.0 [facility] Comment on above: Performed By: #### C BC #### [facility] [address] [place] [address] Dr. Martha Schmid Hematocrit (Bld) [Volume fraction] 39.7 % Critically low 42.0-54.0 [facility] Comment on above: Performed By: #### C BC #### [facility] [address] [place] [address] Dr. Martha Schmid Hemoglobin (Bld) [Mass/Vol] 13.1 g/dL Critically low 14.0-18.0 [facility] Comment on above: Performed By: #### C BC #### [facility] [address] [place] [address] Dr. Martha Schmid IG # 0.02 10e3/ul Normal 0.00-0.03 [facility] Comment on above: Performed By: #### C BC #### [facility] [address] [place] [address] Dr. Martha Schmid IG % 0.3 % Normal 0.0-0.5 [facility] Comment on above: Performed By: #### C BC #### [facility] [address] [place] [address] Dr. Martha Schmid LYMPH # 1.9 103/ul Normal 1.2-3.8 [facility] Comment on above: Performed By: #### C BC #### [facility] [address] [place] [address] Dr. Martha Schmid Lymphocytes/100 WBC (Bld) 24.4 % Normal 20.5-60.0 [facility] Comment on above: Performed By: #### C BC #### [facility] [address] [place] [address] Dr. Martha Schmid MANUAL DIFF REQ NO Normal [facility] Comment on above: Performed By: #### C BC #### [facility] [address] [place] [address] Dr. Martha Schmid MCH (RBC) [Entitic mass] 31.3 pg Normal 25.9-34.0 [facility] Comment on above: Performed By: #### C BC #### [facility] [address] [place] [address] Dr. Martha Schmid MCHC (RBC) [Mass/Vol] 33.0 g/dL Normal 29.9-35.2 [facility] Comment on above: Performed By: #### C BC #### [facility] [address] [place] [address] Dr. Martha Schmid MCV (RBC) [Entitic vol] 94.7 fL Critically high 80.0-94.0 [facility] Comment on above: Performed By: #### C BC #### [facility] [address] [place] [address] Dr. Martha Schmid MONO # 0.6 103/ul Normal 0.3-0.8 [facility] Comment on above: Performed By: #### C BC #### [facility] [address] [place] [address] Dr. Martha Schmid Monocytes/100 WBC (Bld) 8.2 % Normal 1.7-12.0 [facility] Comment on above: Performed By: #### C BC #### [facility] [address] [place] [address] Dr. Martha Schmid NEUT # 4.9 103/ul Normal 1.4-6.5 [facility] Comment on above: Performed By: #### C BC #### [facility] [address] [place] [address] Dr. Martha Schmid Neutrophils/100 WBC (Bld) 62.5 % Normal 43.0-75.0 [facility] Comment on above: Performed By: #### C BC #### [facility] [address] [place] [address] Dr. Martha Schmid Platelet mean volume (Bld) [Entitic vol] 9.6 fL Normal 9.5-13.5 [facility] Comment on above: Performed By: #### C BC #### [facility] [address] [place] [address] Dr. Martha Schmid PLT 247 103/ul Normal 150-450 [facility] Comment on above: Performed By: #### C BC #### [facility] [address] [address] [address] Martha Schmid RBC 4.19 106/ul Critically low 4.70-6.10 [facility] Comment on above: Performed By: #### C BC #### [facility] [address] [address] [address] Martha Schmid WBC 7.8 103/ul Normal 4.0-11.0 [facility] Comment on above: Performed By: #### C BC #### [facility] [address] [address] [address] Martha Schmid GLYCOHEMOGLOBIN A1Con 2020 ADA RECOMMENDATION ADA THERAPEUTIC TARGET 6.0 - 7.0 ACTION SUGGESTED > 7.0 Normal [facility] Comment on above: Performed By: #### A 1C #### [facility] [address] [place] [address] Dr. Martha Schmid Glucose [Mass/Vol] 108 mg/dL Normal [facility] Comment on above: Performed By: #### A 1C #### [facility] [address] [address] [address] Martha Schmid HbA1c (Bld) [Mass fraction] 5.4 % Normal <=6.0 [facility] Comment on above: Performed By: #### A 1C #### [facility] [address] [place] [address] Dr. Martha Schmid LIPID PROFILEon 04-12-2021 CHOL-HDL RATIO NORM SEE BELOW Normal [facility] Comment on above: Result Comment: 3.3 - 4.4 LOW RISK 4.4 - 7.1 AVERAGE RISK 7.1 - 11.0 MODERATE RISK >11.0 HIGH RISK Performed By: #### C MP, LIPID #### [facility] [address] [address] [address] Martha Schmid Cholesterol [Mass/Vol] 181 mg/dL Normal <=200 [facility] Comment on above: Performed By: #### C MP, LIPID #### [facility] [address] [address] [address] Martha Schmid Cholesterol in HDL [Mass/Vol] 44 mg/dL Normal [facility] Comment on above: Performed By: #### C MP, LIPID #### [facility] [address] [address] [address] Martha Schmid Cholesterol in LDL [Mass/Vol] 118.4 mg/dL Normal [facility] Comment on above: Performed By: #### C MP, LIPID #### [facility] [address] [place] [address] Dr. Martha Schmid Cholesterol.total/C holesterol in HDL [Mass ratio] 4.1 {ratio} Normal [facility] Comment on above: Performed By: #### C MP, LIPID #### [facility] [address] [place] [address] Dr. Martha Schmid HDL NORMAL > or = 60 mg/dl - LOW CARDIOVASCULAR RISK <40 mg/dl - HIGH CARDIOVASCULAR RISK Normal [facility] Comment on above: Performed By: #### C MP, LIPID #### [facility] [address] [place] [address] Dr. Martha Schmid LDL CALC NORMAL SEE BELOW Normal [facility] Comment on above: Result Comment: <100 mg/dl OPTIMAL 100 - 129 mg/dl NEAR OR ABOVE OPTIMAL 130 - 159 mg/dl BORDERLINE HIGH 160 - 189 mg/dl HIGH >190 mg/dl VERY HIGH Performed By: #### C MP, LIPID #### [facility] [address] [place] [address] Dr. Martha Schmid Triglyceride [Mass/Vol] 93 mg/dL Normal <=150 [facility] Comment on above: Performed By: #### C MP, LIPID #### [facility] [address] [address] [address] Martha Schmid VLDL CALC 18.6 mg/dL Normal [facility] Comment on above: Performed By: #### C MP, LIPID #### [facility] [address] [place] [address] Dr. Martha Schmid PROF 14(COMP METB)on 021 Albumin [Mass/Vol] 3.9 g/dL Normal 3.5-5.0 [facility] Comment on above: Performed By: #### C MP, LIPID #### [facility] [address] [address] [address] Martha Schmid Albumin/Globulin [Mass ratio] 1.1 {ratio} Normal [facility] Comment on above: Performed By: #### C MP, LIPID #### [facility] [address] [address] [address] Martha Schmid ALP [Catalytic activity/Vol] 53 U/L Normal 38-126 [facility] Comment on above: Performed By: #### C MP, LIPID #### [facility] [address] [address] [address] Martha Schmid ALT [Catalytic activity/Vol] 25 U/L Normal 21-72 [facility] Comment on above: Performed By: #### C MP, LIPID #### [facility] [address] [address] [address] Martha Schmid Anion gap [Moles/Vol] 10.4 mmol/L Normal [facility] Comment on above: Performed By: #### C MP, LIPID #### [facility] [address] [address] [address] Martha Schmid AST [Catalytic activity/Vol] 18 U/L Normal 17-59 [facility] Comment on above: Performed By: #### C MP, LIPID #### [facility] [address] [address] [address] Martha Schmid Bilirubin [Mass/Vol] 0.4 mg/dL Normal 0.2-1.3 [facility] Comment on above: Performed By: #### C MP, LIPID #### [facility] [address] [address] [address] Martha Schmid Calcium [Mass/Vol] 9.4 mg/dL Normal 8.4-10.2 [facility] Comment on above: Performed By: #### C MP, LIPID #### [facility] [address] [address] [address] Martha Schmid Chloride [Moles/Vol] 102 mmol/L Normal 98-107 [facility] Comment on above: Performed By: #### C MP, LIPID #### [facility] [address] [address] [address] Martha Schmid CO2 [Moles/Vol] 29.9 mmol/L Normal 22.0-30.0 [facility] Comment on above: Performed By: #### C MP, LIPID #### [facility] [address] [address] [address] Martha Schmid Creatinine [Mass/Vol] 0.98 mg/dL Normal 0.66-1.25 [facility] Comment on above: Performed By: #### C MP, LIPID #### [facility] [address] [address] [address] Martha Schmid EGFR-AF STATELESS >60 Normal >=60 [facility] Comment on above: Performed By: #### C MP, LIPID #### [facility] [address] [address] [address] Martha Schmid EGFR-NON AF STATELESS >60 Normal >=60 [facility] Comment on above: Performed By: #### C MP, LIPID #### [facility] [address] [address] [address] Martha Schmid Globulin (S) [Mass/Vol] 3.6 g/dL Normal [facility] Comment on above: Performed By: #### C MP, LIPID #### [facility] [address] [address] [address] Martha Schmid Glucose [Mass/Vol] 89 mg/dL Normal 74-106 [facility] Comment on above: Performed By: #### C MP, LIPID #### [facility] [address] [address] [address] Martha Schmid Potassium [Moles/Vol] 4.3 mmol/L Normal 3.4-5.0 [facility] Comment on above: Performed By: #### C MP, LIPID #### [facility] [address] [address] [address] Martha Schmid Protein [Mass/Vol] 7.5 g/dL Normal 6.1-8.2 [facility] Comment on above: Performed By: #### C MP, LIPID #### [facility] [address] [address] [address] Martha Schmid Sodium [Moles/Vol] 138 mmol/L Normal 137-145 [facility] Comment on above: Performed By: #### C MP, LIPID #### [facility] [address] [address] [address] Martha Schmid Urea nitrogen [Mass/Vol] 16.0 mg/dL Normal 9.0-20.0 [facility] Comment on above: Performed By: #### C MP, LIPID #### [facility] [address] [address] [address] Martha Schmid Urea nitrogen/Creatinine [Mass ratio] 16.3 mg/mg Normal [facility] Comment on above: Performed By: #### C MP, LIPID #### [facility] [address] [address] [address] Martha Schmid Encounters Encounter Date Encounter Type Care Provider Facility Start: 12-11-2023 End: 12-11-2023 ambulatory [employer]ERSON Yolande L Adela Facility:[facility] Start: 11-13-2023 End: 11-13-2023 ambulatory [employer] SAL[employer]ERSON Yolande L Adela Facility:[facility] Start: 10-30-2023 End: 10-30-2023 ambulatory [employer] SAL[employer]ERSON Yolande L Adela Facility:[facility] Start: 10-02-2023 End: 10-02-2023 ambulatory [employer] SAL[employer]ERSON Yolande L Adela Facility:[facility] Start: 09-28-2023 End: 09-28-2023 ambulatory [employer] SAL[employer]ERSON Yolande L Adela Facility:[facility] Start: 03-12-2023 End: 03-13-2023 ambulatory Catarino Palafox MD Facility:[facility] Start: 02-19-2023 End: 02-20-2023 [facility] Start: 01-29-2023 End: 01-30-2023 ambulatory Catarino Palafox MD Facility:[facility] Start: 01-11-2023 End: 01-11-2023 ambulatory DO Aishwarya Leonidas. Charmaine Facility:[facility] Start: 01-11-2023 End: 01-11-2023 Patient encounter procedure Aishwarya Lauren. Nareshauer [facility] Start: 12-19-2022 End: 12-19-2022 ambulatory DO Greer S. Nareshauer Facility:[facility] Start: 12-19-2022 End: 12-19-2022 Off-Site Greer S. Nareshauer [facility] [place] Start: 12-01-2022 ambulatory [facility] Start: 11-13-2022 End: 11-13-2022 Lab Drop off Yolande Kennedyab [facility] Start: 08-30-2022 ambulatory [facility] Start: 08-16-2022 End: 08-16-2022 ambulatory [facility] Start: 08-04-2022 ambulatory [facility] Start: 07-25-2022 End: 07-26-2022 ambulatory [facility] Start: 07-24-2022 End: 07-25-2022 ambulatory [facility] Start: 04-18-2022 End: 04-19-2022 ambulatory [facility] Start: 02-14-2022 End: 02-15-2022 ambulatory [facility] Start: 07-20-2021 End: 07-21-2021 ambulatory THANIA HOWARD Facility:[facility] Start: 07-14-2021 End: 07-14-[address] KOTA VARGHESE Facility: Start: 06-21-2021 End: 06-22-2021 ambulatory SHAIKH CHARITO Facility: Start: 05-13-2021 ambulatory SHAIKH CHARITO Facility: [facility] Start: 05-10-2021 End: 05-11-[address] TWYLA HUGHES Facility:[facility] Start: 04-16-2021 Encounter for genera l adult medical examination without abnormal findings SHAIKH CHARITO [facility] Start: 04-12-2021 End: 04-13-2021 ambulatory SHAIKH KATERINAWIHill Facility:[facility] Start: 04-12-2021 End: 04-13-2021 Encounter for general adult medical examination without abnormal findings [facility] KATERINAWIHill Facility:[facility] Procedures Date Procedure Procedure Detail Performing Clinician Start: 12-01-2022 Follow-up visit Follow-up RUBY ROGERS Start: 05-14-2022 Injury of right ankle J bimal Adela Start: 05-14-2021 Injury of right ankle J bimal Adela Appendectomy Yolande Adela Right elbow region structure (body structure) Yolande Adela Structure of carpal canal (body structure) Yolande Adela Payers Date Payer Category Payer Unknown [id number] 2021 Unknown [id number] 2021 Worker's Compensation 1978 Unknown [id number] 2.16.84 [id number] 1978 Unknown [id number] 2.16.84 [id number] 1978 Unknown [id number] 2.16.84 [id number] 1978 Unknown [id number] 2.16.84 [id number] 1978 Unknown [id number] 2.16.84 [id number] 1978 Unknown [id number] 2.16.8 [id number] 1978 Unknown [id number] 2.16. [id number] 1978 Unknown [id number] 2.16. [id number] 1978 Unknown [id number] 2.16. [id number] 1978 Unknown [id number] 2.16.8 [id number] 1978 Unknown [id number] 2.16.8 [id number] 1978 Unknown [id number] 2.16.8 [id number] 1978 Unknown [id number] 2.16.8 [id number] 1978 Unknown [id number] 2.16.8 [id number] 1978 Unknown [id number] 2.16.8 [id number] 1978 Unknown [id number] 2.16.8 [id number] 1959 Self-pay 1959 Unknown [id number] 1961 Unknown [id number] Social History Date Type Detail Facility Start: 11-13-2022 End: 12-19-2022 Tobacco smoking status Light tobacco smoker (finding) [facility] Tobacco smoking status Never [facility] Sex Assigned At Male [facility] Clinical Notes 04-22-2021 to 12-19-2022 Radiology Note Date & Type Note Facility 12-19-2022 Evaluation + Plan note Future Scheduled TestsCT Head or Brain w/o Contrast 12/19/22 [facility] 12-01-2022 Note Orthopedic Surgery Subjective Chief complaint: [...] to be doing well. Incision completely healed. [place] some peroneal popping without dislocation on eversion of the ankle. PLAN: - continue ROM and dry needling appointments - Follow up in 6 months for clinical evaluation and to see if improvement to his symptoms and peroneal irritation. Jossie Bedoya MS3 [facility] 11-13-2022 Evaluation + Plan note [facility]22Testosterone Level Total 11/13/22 [facility] 08-30-2022 Note 42 yo M here [...] Follow in 3 months for clinical evaluation. [facility] 08-16-2022 Note Patient: Sulaiman Camilo iceron Procedure Summary Date: 08/16/22 Room / Location: [facility] OPERATING ROOM 04 / [facility] Operating Room Anesthesia Start: 1219 [...] no known notable events for this encounter. [facility] 08-16-2022 Note Airway Date/Time: 08/16/2022 [...] 1 Number of other approaches attempted: 0 [facility] 08-16-2022 Note Patient: Sulaiman hood Procedure Information Date/Time: 08/16/22 1200 Procedure: REMOVAL, HARDWARE, ANKLE (Right: Ankle) - c-arm / 12:00pm start / Location: [facility] OPERATING ROOM 04 / [facility] Operating Room Surgeons: Lucero Rogers [...] risks discussed with patient. Additional Equipment Requests [facility] 08-04-2022 Note Subjective Chief complaint: Chief Complaint Patient presents with Right Ankle - Pain 08/04/22 Sulaiman White is a 42 y.o. year old male [facility] presenting for evaluation of right ankle [...] Brock MD Orthopedic Surgery Resident Physician Pager: [phone] 08/04/22 9:04 AM By using the attestations [...] be an additional personal documentation from me. [facility] 07-25-2022 Note Date of Surgery: [...] for scheduling once approved for hardware removal. [facility] 04-18-2022 Note Date of Surgery: [...] bone Stim F/U 3 months repeat xrays [facility] 02-14-2022 Note Date of Surgery: [...] bone Stim F/U 2 months repeat xrays [facility] 06-21-2021 Note CONSULTATION PAIN MANAGEMENT [...] patient understands and would like to proceed. [facility] Signed and Approved by: DR TWYLA HUGHES . 06/28/2021 07:59:00 [facility] 05-10-2021 Note PAIN MANAGEMENT Consultation Date: 05-10-21 [...] patient recently had a MRI performed at [facility]. The report is noted on the [...] spine surgeon has been suggested. cc:Dr. Dsouza. [facility] Signed and Approved by: DR TWYLA HUGHES . 2021 09:03:00 [facility] 04-22-2021 Note PROCEDURE: Picket VCT 64, 5.0 mm slice axial images [...] signed by Sánchez Briscoe on 04/22/2021 1428 [facility] course Narrative No data available for this section [facility] Hospital Discharge instructions No data available for this section [facility] Progress note No data available for this section [facility] Summary Purpose Family History No Family [...] section and content) DATE CREATED AUTHOR 04/23/2021 [facility] dical Specialist DATE CREATED AUTHOR AUTHOR'S ORGANIZ ATION 07/15/2021 [facility] DATE CREATED AUTHOR AUTHOR'S ORGANIZ ATION 01/04/[address] [facility] DATE CREATED AUTHOR AUTHOR'S ORGANIZ ATION 01/24/2023 [facility] DATE CREATED AUTHOR AUTHOR'S ORGANIZ ATION 03/18/2023 [facility] DATE CREATED AUTHOR AUTHOR'S STELLA ATION 12/14/2023 [facility] Patient Care team [email or web address] n (unrecognized section and content) Personnel Name: Yolande Carmona Address: Address: [address] [place] [address]- Personnel Name: Yolande Carmona Address: Address: [address] [place] [address]- Personnel Name: Yolande Carmona Address: Address: [address] [place] [address]- FOR RECORDS PERTAINING TO PATIENTS WHO ARE [...] BE BASED ON THE PRIMARY CLINICAL RECORDS. [facility]. provides no warranty or guarantee of the accuracy or completeness of information in this document.
[2024-02-14 10:18] LABS: Basophils Absolute Auto 0.1 10^3/uL (0.0-0.1); Basophils Percent Auto 0.4 % (0.2-2.0); Eosinophils Absolute Auto 0.4 10^3/uL (0.0-0.7); Eosinophils Percent Auto 2.6 % (0.9-7.0); Hematocrit 45.6 % (42.0-54.0); Hemoglobin 15.2 g/dL (14.0-18.0); Immature Granulocytes Abs Auto 0.04 10^3/uL (0.00-0.03); Immature Granulocytes Pct Auto 0.3 % (0.0-0.5); Lymphocytes Absolute Auto 2.3 10^3/uL (1.2-3.8); Lymphocytes Percent Auto 16.4 % (20.5-60.0); Mean Corpuscular HGB Conc 33.3 g/dL (29.9-35.2); Mean Corpuscular Hemoglobin 32.1 pg (25.9-34.0); Mean Corpuscular Volume 96.2 fL (80.0-94.0); Mean Platelet Volume 9.6 fL (9.5-13.5); Monocytes Absolute Auto 0.8 10^3/uL (0.3-0.8); Monocytes Percent Auto 5.8 % (1.7-12.0); Neutrophils Absolute Auto 10.3 10^3/uL (1.4-6.5); Neutrophils Percent Auto 74.5 % (43.0-75.0); Platelet Count 229 10^3/uL (150-450); Red Blood Count 4.74 10^6/uL (4.70-6.10); White Blood Count 13.9 10^3/uL (4.0-11.0)
[2024-02-14 10:41] LABS: Glucometer 109 mg/dL (74-106)
[2024-02-14] MEDS: LACTATED RINGER'S SOLUTION 1,000 ML 50 ML IV (10:44)
--- NOTE | 2024-02-14 10:47 | P.ORON_ITS ---
Brief Operative Note Date of procedure: 02/14/24 Pre-op diagnosis general: Right fibular fracture, peroneal tendon dislocation, possible ankle instability Post-op diagnosis: other (Right fibular fracture and peroneal tendon dislocation) Procedure: Procedure performed: Right ankle arthroscopy, peroneal tendon repair with retinacular repair, application of short leg splint and intraoperative stress examination of right ankle Indications for procedure: Patient is a 43-year-old male who sustained a comminuted right fibular fracture which required ORIF over 2 years ago as part of a work-related injury. Subsequently, a year ago he had hardware removal which unfortunately did not help his pain or function. When he presented to tn examination was consistent with peroneal tendon dislocation and possible ankle instability. Due to failure to respond to the hardware removal as well as extensive nonsurgical treatment patient has elected to undergo operative intervention and I reviewed the potential risks, benefits and goals of the procedure. Intraoperative findings: The ankle joint was stressed in anterior drawer as well as varus and valgus and was noted to be stable in all planes. Arthroscopy revealed acute and chronic ankle synovitis and impingement tissue however there was no osteochondral defect. Peroneal retinaculum was attenuated with surrounding synovitis. Low-lying peroneus brevis muscle belly and tenosynovitis. Brevis tendon was flattened and scarred consistent with chronic tear. Fibular groove was of adequate depth Procedure in detail: Patient was identified in preoperative holding by myself which time correct side and site were marked and consent was obtained. Regional anesthesia was performed by the anesthesia team. Preoperative antibiotics were started and patient was brought back the operating theater placed on table in supine position. General anesthesia was administered and a thigh tourniquet was placed. Formal timeout was performed. Fluoroscopy was then used to stress the ankle in varus, valgus and anterior draw er and was notably stable in all planes. The right lower extremity was then prepped and draped in usual sterile fashion. The extremity was exsanguinated and the tourniquet was inflated. A 15 blade was used to create anterior medial ankle portal followed by use of hemostat and trochar then the arthroscopic camera was inserted. Anterior lateral portal was similarly created in standard safe location after identifying intermediate dorsal cutaneous nerve. A significant amount of chronic synovitic tissue was removed using a 3.5 mm aggressive shaver. All impingement tissue was likewise excised. No cartilage defect was noted. Arthroscopic instrumention was then removed. The portals were then closed with nylon suture. Incision was placed along the peroneal tendons beginning from the proximal aspe ct of the ankle coursing distal to the fibular malleolus. Combination sharp and blunt dissection gained access to the peroneal tendon sheath which was carefully reflected. The foot was circumducted and there was dislocation of the peroneus longus with subluxation of the brevis noting attenuation of the peroneal retinaculum. The retinaculum was then incised and the remainder of the peroneal tendon sheath was opened. Low-lying muscle belly and tenosynovitis was excised. The brevis was flattened and scarred therefore was debrided then repaired with absorbable suture. The fibular groove was of adequate depth but given the attenuation of the peroneal retinaculum there was concerned that a standard pants over vest suture technique would not be enough to prevent future subluxation/dislocation. Therefore decision was made to place a 3.3 mm suture anchor into the posterior lateral fibula which was done so accordingly. The 4 sutures were then used to cinch the retinaculum to the lateral fibula. The sutures were cut then the remaining portions of the tendon sheath were then repaired with observable sutures. The ankle was placed to range of motion and no subluxation or dislocation of the peroneal tendons is noted. Surgical site was irrigated with copious saline and the incision was then closed in layers and the tourniquet was deflated with a prompt hyperemic response. A dry sterile dressing was then applied followed by a well-padded short leg splint. Patient tolerated procedure and anesthesia well was transferred to the recovery room with vital signs stable and brisk capillary refill to the right toes. Postoperative plan: Discharge home under girlfriend's care Keep splint clean dry and intact Elevate right lower extremity above the level of the heart. Nonweightbearing right ankle Follow-up in 1 week to be transition to a cam boot and likely partial protected weightbearing Anesthesia: regional and General-LMA Surgeon: Erwin Stafford Estimated blood loss (mL): 10 Pathology: other (Peroneal tendon) Condition: stable Disposition: PACU
[2024-02-14] MEDS: CEFAZOLIN SODIUM 2 GM/50 ML D5W PREMIX IV (11:02)
--- NOTE | 2024-02-14 11:35 | PC.NURSE ---
1051 Final timeout completed. Patient placed on monitor and O2 at 2l/min via nc. 1052- Patient positioned on left side and right leg draped in sterile technique per Dr. Joseph. 1055-Right popliteal block completed. Patient tolerated it well. Patient remains on monitor and O2. See posted vital signs.
[2024-02-14 12:55] LABS: Glucometer 131 mg/dL (74-106)
== END 2024-02-14 14:44 | disposition home or self-care (01) ==
PROVIDERS: Anesthesiology; PCP Nurse Practitioner; Visit Provider Podiatrist Foot & Ankle Surgery
PROC: (CPT 1464; principal; 2024-02-14 11:00)
DX: S86.391A Other injury of muscle(s) and tendon(s) of peroneal muscle group at lower leg level, right leg, initial encounter (principal); S82.831A Other fracture of upper and lower end of right fibula, initial encounter for closed fracture
CPT/HCPCS: 27675; 29898; 77071; 36415; 64445; 76000; 82948; 85025; 88304; C1713; J0690; J1100; J1885; J2250; J2405; J2704; J2795; J3010

== ENCOUNTER 2024-03-27 12:42 | Outpatient (OUT) | payer OTHER, SELFPAY ==
--- OUTSIDE RECORDS SUMMARY | 2024-03-27 13:00 | XMS_ITS | CCD ---
Author Organization [facility] Care Team Providers Care Delivery Consultant Name Role Phone KAYLID, PARSONS Consulting Unavailable [...] SIFUENTES Attending Unavailable LUCERO ROGERS Attending Unavailable VENKAT SIFUENTES Attending Unavailable ROGERSLUCERO BRAVO Admitting Unavailable ROGERS, CHRISTGERTRUDIS Attending Unavailable ROGERS, CHRISTOPHER Attending Unavailable ROGERS, CHRISTOPHER Attending Unavailable BEAR, VENKAT Referring Unavailable BEAR, VENKAT Referring Unavailable BEAR, VENKAT Referring Unavailable VENKAT SIFUENTES Referring Unavailable Vivienne CAMEJO, Catarino Anton Attending Unavailable Vivienne CAMEJO, Catarino Anton Attending Unavailable Vivienne CAMEJO, Catarino Anton Attending Unavailable Erwin Stafford Attending Unavailable Erwin Stafford Admitting Unavailable JOB Stafford Attending Provider [phone] Adela, Yolande Dexter Attending Unavailable Adela, Yolande Dexter Attending Unavailable Adela, Yolande Dexter Attending Unavailable Adela, Yolande Dexter Attending Unavailable Adela, Yolande Dexter Attending Unavailable Adela, Yolande Dexter Attending Unavailable Medications Current Medications Medication Drug Class(es) Dates Sig (Normalized) Sig (Original) cyclobenzaprine hydrochloride 10 mg oral tablet (3 sources) Muscle Relaxant Start: 11-28-2022 cyclobenzaprine 10 mg Tab See Instructions, PRN for spasm, 1 tab(s) Oral at work for spasm, # 30 tab(s), Refills(s) 1, Pharmacy: [facility]/pharmacy #[id number], 183.5, cm, 11/13/22 11:51:00 EDT, [...] day, # 18 tab(s), Refills(s) 1, Pharmacy: [facility]/pharmacy #[id number], 183.5, cm, 11/13/22 11:51:00 EDT, Height/Length Dosing... Start Date: 12/19/22 Status: Ordered Start: 11-13-2022 take 1 tablet by mya th every two hours as needed for headache SUMAtriptan 25 mg Tab 25 mg = 1 tab(s), Oral, As Directed, PRN Migraine headache, may repeat dose in 2 hours if needed, # 9 tab(s), Refills(s) 0, Pharmacy: [facility]/pharmacy #[id number], 183.5, cm, 11/13/22 11:51:00 EDT, [...] Results Test Name Value Interpretation Reference Range Facility Family Medicine Office/Clini c Noteon 03-12-2024 Family Medicine Office/Clinic Note Family Medicine Office/Clinic Note Chief Complaint Back Pain HPI Staff Sulaiman is a 43 year old male presenting with back pain Onset: awhile Location: back Would like referral to specialist Was going to pain management. Got put on back burner since shattering ankle. History of Present Illness pt presents today for continued back pain. Review of Systems PHQ Score Initial Depression Screen Score: 1 SCORE Physical Exam Vitals & Measurements T: 36.9 ???C(Tympanic) HR: 92(Peripheral) RR: 18 BP: 136/82 SpO2: 98% HT: 72 in HT: 183.5 cm WT: 76.5 kg WT: 168.3 lb BMI: 22.72 General: alert, no acute distress ENMT: oral mucosa moist, no pharyngeal erythema or exudate Cardiovascular: regular rate and rhythm, normal peripheral perfusion Respiratory: Lungs CTA, respirations non labored Extremities: no deformity, no trauma Neurological: oriented x 4, LOC appropriate for age, CN II-XII intact, motor strength equal & normal bilaterally, speech normal Assessment/Plan 1. Herniated intervertebral disc of lumbar spine (M51.26: Other intervertebral disc displacement, lumbar region) Pt has been having back pain for years. went to pain management. will obtain MRI results from [facility] to send with referral. pt would like to be referred to [facility] spine center in [place]. will send steroid and 15mg of meloxicam. he has percocet from Dr. Stafford due to recent ankle surgery. Ordered: predniSONE, = 1 -, Oral, As Directed, Take 3 tabs by mouth daily x5 days, then 2 tabs daily x5 days, then 1 tab daily x5 days., # 30 tab(s), Refills(s) 0, Pharmacy: [facility] #[id number], 183.5, cm, 03/12/24 14:10:00 EDT, Height/Length Dosing, 76.5, kg, 03/12/24 14:... 2. Chronic back pain (M54.9: Dorsalgia, unspecified) see above Ordered: predniSONE, = 1 -, Oral, As Directed, Take 3 tabs by mouth daily x5 days, then 2 tabs daily x5 days, then 1 tab daily x5 days., # 30 tab(s), Refills(s) 0, Pharmacy: [facility] #[id number], 183.5, cm, 03/12/24 14:10:00 EDT, Height/Length Dosing, 76.5, kg, 03/12/24 14:... 3. BMI 22.0-22.9, adult (Z68.22: Body mass index [BMI] 22.0-22.9, adult) BMI education given Ordered: predniSONE, = 1 -, Oral, As Directed, Take 3 tabs by mouth daily x5 days, then 2 tabs daily x5 days, then 1 tab daily x5 days., # 30 tab(s), Refills(s) 0, Pharmacy: [facility]/pharmacy #[id number], 183.5, cm, 03/12/24 14:10:00 EDT, Height/Length Dosing, 76.5, kg, 03/12/24 14:... 4. Smoker (F17.200: Nicotine dependence, unspecified, uncomplicated) consider not smoking Ordered: predniSONE, = 1 -, Oral, As Directed, Take 3 tabs by mouth daily x5 days, then 2 tabs daily x5 days, then 1 tab daily x5 days., # 30 tab(s), Refills(s) 0, Pharmacy: [facility]/pharmacy #[id number], 183.5, cm, 03/12/24 14:10:00 EDT, Height/Length Dosing, 76.5, kg, 03/12/24 14:... Other chronic pain (G89.29: Other chronic pain) pain from ankle surgery Orders: busPIRone, See Instructions, TAKE 1 TABLET BY MOUTH THREE TIMES A DAY, # 90 tab(s), Refills(s) 0, Pharmacy: [facility], 183.5, cm, 12/11/23 13:58:00 EDT, Height/Length Dosing, 76.5, kg, 12/11/23 13:58:00 EDT, Weight Dosing busPIRone, See Instructions, TAKE 1 TABLET BY MOUTH THREE TIMES A DAY, # 270 tab(s), Refills(s) 1, Pharmacy: [facility], 183.5, cm, 11/13/23 14:06:00 EDT, Height/Length Dosing, 78.2, kg, 11/13/23 14:06:00 EDT, Weight Dosing meloxicam, 15 mg = 1 tab(s), Oral, Daily, # 30 tab(s), Refills(s) 0, Pharmacy: [facility]/pharmacy #[id number], 183.5, cm, 03/12/24 14:10:00 EDT, Height/Length Dosing, 76.5, kg, 03/12/24 14:10:00 EDT, Weight Dosing Follow-up No qualifying data available Problem List/Past Medical History Ongoing Anxiety Chronic back pain Erectile disorder Fatigue Herniated intervertebral disc of lumbar spine Migraine Tooth infection Wellness examination Historical No qualifying data Procedure/Surgical History Right ankle injury (2022), Right ankle injury (2021), Appendectomy, Carpal tunnel, Right elbow. Medications acetaminophen-oxycod one 325 mg-5 mg Tab cyclobenzaprine 10 mg Tab, See Instructions, PRN duloxetine 60 mg oral delayed release capsule, 120 mg= 2 cap(s), Oral, Daily, 3 refills ibuprofen 800 mg Tab Imitrex 100 mg Tab, 100 mg= 1 tab(s), Oral, As Directed, PRN, 1 refills meloxicam 15 mg Tab, 15 mg= 1 tab(s), Oral, Daily predniSONE 10 mg Tab, 1 -, Oral, As Directed pregabalin 100 mg Cap, 100 mg= 1 cap(s), Oral, TID Qulipta 60 mg oral tablet, 60 mg= 1 tab(s), Oral, Daily, 5 refills sildenafil 50 mg Tab, 50 mg= 1 tab(s), Oral, Daily, PRN traMADOL 50 mg Tab Allergies No Known Allergies Social History Alcohol Current. Beer. 1-2 times per week., 03/12/2024 Substance Abuse Never., 03/12/2024 Tobacco 5-9 cigarettes (between 1/4 to 1/2 pack)/day in last 30 days Tobacco Use:. Never Smokeless Tobacco Use:., 03/12/2024 Family History Diabetes mellitus type 2: Father. Hodgkin's disease: Father. Immunizations Vaccine Date Status Comments SARS-CoV-2 (COVID-19) mRNA BN (more content not included)... Normal [facility] Comment on above: Result Comment: Elec tronically Signed By: Yolande Carmona\.br\Date and Time Signed: 03/12/24 14:36 EDT Igor 02-14-2024 L Specimen: [id number] Received: 02/15/24 Status: LOAN Saba Num: [id number] Spec Type: Surgical Subm Dr: Erwin Stafford,DPM, MS Tissues: A Tendon/Sheath (RT PERONEAL TENDON TEAR) Procedures: HE, Gross/Micro L3 Age/ Patient Sex Location Account Attending Physician Sulaiman White 43/M LABELL [id number] Erwin Stafford DPM, MS SPEC NUM: [id number] RECD: 02/15/24 STATUS: LOAN SABA NUM: [id number] JUDY: 02/14/[address] [facility] [address]: Erwin Stafford DPM, MS ENTERED: 02/15/[address]: Ceci Hogan SPEC TYPE: Surgical DEPT: JEREL BAIG ENTERED BY: [id number] RECV BY: [id number] ORDERED: HE, Gross/Micro L3 ORDERED: HE, Gross/Micro L3 Pathological Diagnosis Soft tissue, right peroneal tendon, excision: -Severe torn (chronic) tendinous segment, demonstrating patchy associated strips of the loose fibrovascular connective tissue within the dense collagenous parenchymatous proper of the tendon with variably associated stretching and disruption, otherwise without secondary inflammation or infection Clinical Information Other fracture of upper and lower end of right fibula, right peroneal tendon tear Gross Description The specimen is received in formalin with the patient's name and right peroneal tendon tear the specimen consists of a castañeda-white fibrous portion of soft tissue with attached muscle measuring 5.0 x 0.5 x 0.3 cm. The specimen is bisected and entirely submitted in cassette A1. Microscopic Description Microscopic examinations are performed supporting the above interpretation Specimen: [id number] Received: 02/15/24 Status: LOAN Prattpaty Num: [id number] Spec Type: Surgical Subm Dr: Erwin Stafford DPM, MS Tissues: A Tendon/Sheath (RT PERONEAL TENDON TEAR) Procedures: HELEN, Gross/Micro L3 Patient: Sulaiman White [id number] (Continued) Specimen: [id number] Received: 02/15/24 (Continued) Signed (signature on file) ChinTrevon Schmid MD 02/20/24 1013 Specimen: [id number] Received: 02/15/24 Status: LOAN Saba Num: [id number] Spec Type: Surgical Subm Dr: Erwin Stafford,JOB, MS Tissues: A Tendon/Sheath (RT PERONEAL TENDON TEAR) Procedures: Vivek CERVANTES/Dallin L3 Patient: Sulaiman White [id number] (Continued) Specimen: [id number] Received: 02/15/24 (Continued) CPT Codes 08703 Specimen: [id number] Received: 02/15/24 Status: LOAN Saba Num: [id number] Spec Type: Surgical Subm Dr: Erwin Stafford,DPM, MS Tissues: A Tendon/Sheath (RT PERONEAL TENDON TEAR) Procedures: Vivek CERVANTES/Dallin L3 Patient: Sulaiman White [id number] (Continued) Signed (signature on file) Toñito Schmid MD 02/20/24 1013 Normal [facility] Ambulatory Visit Summaryon 0 12-11-2023 Ambulatory Visit [...] for choosing us for your care. Normal [facility] Family Medicine Office/Clini c Noteon 12-11-2023 Family Medicine Office/Clinic Note Family Medicine Office/Clinic Note [facility] Staff Sulaiman is a 43 year old [...] dry needling. he had this done in [place] a while back and it helped. 3. Migraine (G43.909: Migraine, unspecified, not intractable, without status migrainosus) pt still having migraines 4. Smoker (F17.200: Nicotine dependence, unspecified, uncomplicated) consider not smoking 5. BMI 22.0-22.9, adult (Z68.22: Body mass index [BMI] 22.0-22.9, adult) BMI education given Orders: busPIRone, See Instructions, TAKE 1 TABLET BY MOUTH THREE TIMES A DAY, # 90 tab(s), Refills(s) 0, Pharmacy: [facility], 183.5, cm, 12/11/23 13:58:00 EDT, Height/Length Dosing, 76.5, kg, 12/11/23 13:58:00 EDT, Weight Dosing busPIRone, See Instructions, TAKE 1 TABLET BY MOUTH THREE TIMES A DAY, # 270 tab(s), Refills(s) 1, Pharmacy: [facility], 183.5, cm, 11/13/23 14:06:00 EDT, Height/Length Dosing, 78.2, kg, 11/13/23 14:06:00 EDT, Weight Dosing duloxetine, 120 mg = 2 cap(s), Oral, Daily, 30 EA, TAKE 1 CAPSULE BY MOUTH EVERY DAY, # 60 cap(s), Refills(s) 1, Pharmacy: [facility]/pharmacy #[id number], 183.5, cm, 11/13/23 14:06:00 EDT, Height/Length Dosing, 78.2, kg, 11/13/23 14:06:00 EDT, Weight Dosing duloxetine, 120 mg = 2 cap(s), Oral, Daily, 30 EA, TAKE 1 CAPSULE BY MOUTH EVERY DAY, X 90 day(s), # 180 cap(s), Refills(s) 3, Pharmacy: [facility]/pharmacy #3471, 183.5, cm, 11/13/23 14:06:00 EDT, Height/Length [...] mRNA [id number] vax 08/06/2020 Recorded 2023-12-05: TPV40 diphtheria/pertussis , acel/tetanus adult 12/31/2019 Recorded Normal [facility] Comment on above: Result Comment: Elec [...] 1:40 PM EDT With: Yolande Carmona Where: [facility] [place] Normal [facility] Family Medicine Office/Clini c Noteon 11-13-2023 [...] TID, # 90 tab(s), Refills(s) 0, [id number], 183.5, cm, 11/13/23 14:06:00 EDT, Height/Length Dosing, 78.2, kg, 11/13/23 14:06:00 EDT, Weight Dosing methylPREDNISolone, = 1 packet(s), Oral, As Directed, as directed on package labeling, X 6 day(s), # 21 tab(s), Refills(s) 0, Pharmacy: [facility]/pharmacy #[id number], 183.5, cm, 11/13/23 14:06:00 EDT, Height/Length Dosing, 78.2, kg, 11/13/23 14:06:00 EDT, Weight Dosing 2. Herniated intervertebral disc of lumbar spine (M51.26: Other intervertebral disc displacement, lumbar region) pt still having back pain. will order medrol dose pack. may consider dry needling at [facility]. that helped the last time. Ordered: methylPREDNISolone, = 1 packet(s), Oral, As Directed, as directed on package labeling, X 6 day(s), # 21 tab(s), Refills(s) 0, Pharmacy: [facility]/pharmacy #[id number], 183.5, cm, 11/13/23 14:06:00 EDT, Height/Length Dosing, 78.2, kg, 11/13/23 14:06:00 EDT, Weight Dosing 3. BMI 23.0-23.9, adult (Z68.23: Body mass index [BMI] 23.0-23.9, adult) BMI education given Ordered: busPIRone, 7.5 mg = 1 tab(s), Oral, TID, # 90 tab(s), Refills(s) 0, [id number], 183.5, cm, 11/13/23 14:06:00 EDT, Height/Length Dosing, 78.2, kg, 11/13/23 14:06:00 EDT, Weight Dosing methylPREDNISolone, = 1 packet(s), Oral, As Directed, as directed on package labeling, X 6 day(s), # 21 tab(s), Refills(s) 0, [facility], 183.5, cm, 11/13/23 14:06:00 EDT, Height/Length Dosing, 78.2, kg, 11/13/23 14:06:00 EDT, Weight Dosing 4. Smoker (F17.200: Nicotine dependence, unspecified, uncomplicated) consider not smoking Ordered: busPIRone, 7.5 mg = 1 tab(s), Oral, TID, # 90 tab(s), Refills(s) 0, [facility], 183.5, cm, 11/13/23 14:06:00 EDT, Height/Length Dosing, 78.2, kg, 11/13/23 14:06:00 EDT, Weight Dosing methylPREDNISolone, = 1 packet(s), Oral, As Directed, as directed on package labeling, X 6 day(s), # 21 tab(s), Refills(s) 0, [facility], 183.5, cm, 11/13/23 14:06:00 EDT, Height/Length Dosing, 78.2, kg, 11/13/23 14:06:00 EDT, Weight Dosing Orders: duloxetine, 120 mg = 2 cap(s), Oral, Daily, 30 EA, TAKE 1 CAPSULE BY MOUTH EVERY DAY, # 60 cap(s), Refills(s) 1, [id number], 183.5, cm, 11/13/23 14:06:00 EDT, Height/Length [...] 30 days (more content not included)... Normal [facility] Comment on above: Result Comment: Elec tronically Signed By: Yolande Carmona\.br\Date and Time Signed: 11/13/23 15:56 EDT Ambulatory Visit Summaryon 0 10-30-2023 Ambulatory Visit Summary SULAIMAN WHITE :1980 Visit Date:10/30/2023 Ambulatory Visit Instructions Your [...] choosing us for your care. Endy Costello [facility] Family Medicine Office/Clini c Noteon 10-30-2023 Family [...] send refills. RTC 6 months to update [facility] paperwork Ordered: atogepant, 60 mg = 1 tab(s), Oral, Daily, # 30 tab(s), Refills(s) 5, Pharmacy: [facility]/pharmacy #[id number], 183.5, cm, 10/30/23 13:58:00 EDT, Height/Length Dosing, 78.2, kg, 10/30/23 13:58:00 EDT, Weight Dosing atogepant, 60 mg = 1 tab(s), Oral, Daily, # 30 tab(s), Refills(s) 2, Pharmacy: [facility]/pharmacy #[id number], 183.5, cm, 10/02/23 13:13:00 EDT, Height/Length Dosing, 79.3, kg, 10/02/23 13:13:00 EDT, Weight Dosing BMI 23.0-23.9, adult (Z68.23: Body mass index [BMI] 23.0-23.9, adult) BMI education given Ordered: atogepant, 60 mg = 1 tab(s), Oral, Daily, # 30 tab(s), Refills(s) 5, Pharmacy: [facility]/pharmacy #[id number], 183.5, cm, 10/30/23 13:58:00 EDT, Height/Length Dosing, 78.2, kg, 10/30/23 13:58:00 EDT, Weight Dosing atogepant, 60 mg = 1 tab(s), Oral, Daily, # 30 tab(s), Refills(s) 2, [facility], 183.5, cm, 10/02/23 13:13:00 EDT, Height/Length Dosing, 79.3, kg, 10/02/23 13:13:00 EDT, Weight Dosing Smoker (F17.200: Nicotine dependence, unspecified, uncomplicated) consider not smoking Ordered: atogepant, 60 mg = 1 tab(s), Oral, Daily, # 30 tab(s), Refills(s) 5, Pharmacy: [facility]/pharmacy #[id number], 183.5, cm, 10/30/23 13:58:00 EDT, Height/Length Dosing, 78.2, kg, 10/30/23 13:58:00 EDT, Weight Dosing atogepant, 60 mg = 1 tab(s), Oral, Daily, # 30 tab(s), Refills(s) 2, [id number], 183.5, cm, 10/02/23 13:13:00 EDT, Height/Length Dosing, 79.3, kg, 10/02/23 13:13:00 EDT, Weight Dosing Orders: sumatriptan, 100 mg = 1 tab(s), Oral, As Directed, PRN Migraine headache, may repeat dose in 2 hours if needed . take onset migraine. max 200mg per day, # 18 tab(s), Refills(s) 1, [id number], 183.5, cm, 11/13/22 11:51:00 EDT, Height/Length Dosing... sumatriptan, 100 mg = 1 tab(s), Oral, As Directed, PRN Migraine headache, may repeat dose in 2 hours if needed . take onset migraine. max 200mg per day, # 18 tab(s), Refills(s) 1, Pharmacy: [facility]/pharmacy #[id number], 183.5, cm, 10/30/23 13:58:00 EDT, [...] mellitus type 2: Father. Hodgkin's disease: Father. [facility] Comment on above: Result Comment: Elec tronically Signed By: Yolande Carmona\.br\Date and Time Signed: 10/30/23 14:19 EDT Physician Orderon 10-05-2023 Physician Order [id number] #1.00TIFF [facility] Consultation Noteon 10-03-19 Consultation Note [id number]# 1.00TIFF [facility] Pre-Certification Formon Pre-Certification Form [id number] #1.00TIFF [facility] Family Medicine Office/Clini c Noteon 10-02-2023 Family Medicine Office/Clinic Note HPI Staff Melchor is a 43 year old male presenting [...] conjunction with sumatriptan as needed. will complete [facility] paperwork. Ordered: atogepant, 60 mg = 1 tab(s), Oral, Daily, # 30 tab(s), Refills(s) 2, Pharmacy: [id number], 183.5, cm, 10/02/23 13:13:00 EDT, Height/Length Dosing, 79.3, kg, 10/02/23 13:13:00 EDT, Weight Dosing 2. BMI 23.0-23.9, adult (Z68.23: Body mass index [BMI] 23.0-23.9, adult) BMI education complete Ordered: atogepant, 60 mg = 1 tab(s), Oral, Daily, # 30 tab(s), Refills(s) 2, Pharmacy: [facility]/pharmacy #[id number], 183.5, cm, 10/02/23 13:13:00 EDT, Height/Length Dosing, 79.3, kg, 10/02/23 13:13:00 EDT, Weight Dosing 3. Smoker (F17.200: Nicotine dependence, unspecified, uncomplicated) consider not smoking Ordered: atogepant, 60 mg = 1 tab(s), Oral, Daily, # 30 tab(s), Refills(s) 2, Pharmacy: [facility]/pharmacy #3471, 183.5, cm, 10/02/23 13:13:00 EDT, [...] mellitus type 2: Father. Hodgkin's disease: Father. [facility] Comment on above: Result Comment: Elec tronically Signed By: Yolande Carmona\.preethi\Date and Time Signed: 10/02/23 14:33 EDT Formson 10-02-2023 Forms [id number]# 1.00TIFF [facility] Consultation Noteon 07-10-19 Consultation Note [id number] #1.00TIFF [facility] RAD - MISCon 03-22-2023 RAD - MIS [id number] #1.00TIFF Normal [facility] Refillon 01-14-2023 Refill [id number] Sulaiman White 1980 M Date Provider Department Center 01/14/2023 VENKAT DEL ANGEL MP ORTHO MPORTHO No family history on file Reason for Visit and Comments: Med Refill [[id number]] Normal [facility] 36on 12-18-2022 36 Approving, but needs appt for additional refills. Normal [facility] Follow-Upon 12-01-2022 Follow-Up [id number] Sulaiman White 1980 M Date Provider Department Center 12/01/2022 LUCERO MUÑOZ MP ORTHO MPORTHO No family history on file Level of Service:87080 MT OFFICE/OUTPATIENT ESTABLISHED LOW MDM 20-29 MIN () Reason for Visit and Comments: Follow-up [232751] Normal [facility] CHEMISTRYOrdered By: SYSTEM SYSTEM on 11-13-2022 Albumin [Mass/Vol] 4.4 g/dL Normal 3.3 - 5.0 gm/dL [facility] Albumin/Globulin [Mass ratio] 1.3 {ratio} Normal [...] Bilirubin [Mass/Vol] 0.4 mg/dL Normal 0.0 - 1 .1 mg/dL [facility] Calcium [Mass/Vol] 9.5 mg/dL Normal 8.9 - 11. 1 mg/dL [facility] Chloride [Moles/Vol] 102 mmol/L Normal 101 - 1 11 mmol/L [facility] Cholesterol [Mass/Vol] 233 mg/dL [...] (S/P/Bld) [Vol rate/Area] 76 mL/min/1.73 m2 Normal >=59mL/min/1. 73 m2 [facility] Chem S Globulin (S) [Mass/Vol] 3.3 g/dL Normal 1.4 - 4.0 gm/dL [facility] Glucose [Mass/Vol] 77 mg/dL Normal 55 - 199 mg/dL [facility] Potassium [Moles/Vol] 4.7 mmol/L Normal 3.5 - 5.3 mmol/L [facility] Prostate specific Ag [Mass/Vol] 0.6 ng/mL Normal 0.1 - 3.5 ng/mL [facility] Protein [Mass/Vol] 7.7 g/dL Normal 6.0 - 7.8 gm/dL [facility] Sodium [Moles/Vol] 138 mmol/L Normal 135 - 145 mmol/L [facility] Triglyceride [Mass/Vol] 95 mg/dL Normal <=149mg/dL [facility] TSH Qn 3.86 m[IU]/L Normal 0.34 - 5.60 mcIU/mL [facility] Urea nitrogen [Mass/Vol] 18 mg/dL Normal 5 - 21 mg/dL [facility] Urea nitrogen/Creatinine [Mass ratio] 15 mg/mg Normal 10 - 20 [facility] Follow-Upon 08-30-2022 Follow-Up [id number] Sulaiman White 1980 M Date Provider Department Center 08/30/2022 421-LUCERO ROGERS MP ORTHO MPORTHO No family history on file Level of Service:45603 MT POSTOP FOLLOW UP VISIT RELATED TO ORIGINAL PX Reason for Visit and Comments: Follow-up [709340] - [facility] R ankle follow up [facility] 36on 08-21-2022 36 Approving, but needs appt for additional refills. [facility] HPon 08-16-2022 HP H&P reviewed. The patient was examined and there are no changes to the H&P. [facility] OPNOTEon 08-16-2022 [facility] ORTHOPAEDIC SURGERY OPERATIVE REPORT Date of Surgery: 08/16/2022 Surgeon: Lucero Rogers MD Nuclear Medicine Medical Director: Smita Burton MD Preoperative Diagnosis: Symptomatic retained [...] MD Orthopaedic Surgery Resident, PGY-2 08/16/22 Normal [facility] POCT GLUCOSE METER UNSOLICIT ED RESULTSon 08-16-2022 Glucose [Mass/Vol] 98 mg/dL Normal 70-105 [facility] Comment on above: Result Comment: lweb [email or web address] Performed By: #### L [id number] ####[facility] (BEAKER)[address] [place] [address] Follow-Upon 08-04-2022 Follow-Up [id number] Sulaiman White 1980 M Date Provider Department Center 08/04/2022 421-LUCERO ROGERS ORTHO MPORTHO No family history on file Level of Service:44895 MT OFFICE/OUTPATIENT ESTABLISHED MOD MDM 30-39 MIN (GC,57) Reason for Visit and Comments: Pain [136] Normal [facility] HPon 08-04-2022 HP Subjective Chief complaint: Chief Complaint Patient presents with Right Ankle - Pain 08/04/22 Sulaiman White is a 42 y.o. year old male [facility] presenting for evaluation of right ankle pain [...] Brock MD Orthopedic Surgery Resident Physician Pager: [phone] 08/04/22 9:04 AM By using the attestations [...] an additional personal documentation from me. Normal [facility] Labon 08-04-2022 Lab [id number] Sulaiman White 1980 M Date Provider Department Center 08/04/2022 2244-[facility] MP LAB RESOURCE MP DRAW Medical Pavi No family history on file Normal [facility] MRSA/MSSA DNA NASALon 2022 MRSA DNA Negative Normal Negative [facility] Comment on above: Performed By: #### L [id number] ####[facility] (BEAKER)[address] [place] [address] MSSA DNA Negative Normal Negative [facility] Comment on above: Performed By: #### L [id number] ####[facility] (GEOVANNY)[address] [place] [address] Prep for Procedureon 023 Prep for Procedure [id number] Sulaiman White 1980 M Date Provider Department Center 08/04/2022 LUCERO MUÑOZ MP ORTHO MPORTHO No family history on file Normal [facility] Follow-Upon 07-25-2022 Follow-Up [id number] Sulaiman White 1980 M Date Provider Department Center 07/25/2022 VENKAT DEL ANGEL MP ORTHO MPORTHO No family history on file Level of Service:38623 MT OFFICE/OUTPATIENT ESTABLISHED LOW MDM 20-29 MIN Reason for Visit and Comments: Follow-up [[id number]] - Review of xr [facility] 36on 07-19-2022 36 Approving, but needs appt for additional refills. [facility] 36on 06-19-2022 36 Approving, but needs appt for additional refills. [facility] 36on 05-22-2022 36 Approving, but needs appt for additional refills. [facility] 36on 04-24-2022 36 Approving, but needs appt for additional refills. [facility] Follow-Upon 04-18-2022 Follow-Up [id number] Sulaiman White 1980 M Date Provider Department Center 04/18/2022 VENKAT DEL ANGEL MP ORTHO MPORTHO No family history on file Level of Service:72782 MT OFFICE/OUTPATIENT ESTABLISHED LOW MDM 20-29 MIN Reason for Visit and Comments: Follow-up [[id number]] - [facility] Pt here today for right ankle follow up with xr [facility] Refillon 03-28-2022 Refill [id number] Sulaiman White 1980 M Date Provider Department Center 03/28/2022 VENKAT DEL ANGEL MP ORTHO MPORTHO No family history on file Reason for Visit and Comments: Med Refill [[id number]] [facility] Follow-Upon 02-14-2022 Follow-Up [id number] Sulaiman White 1980 M Date Provider Department Center 02/14/2022 490-VENKAT SIFUENTES MP ORTHO MPORTHO No family history on file Level of Service:29513 MT OFFICE/OUTPATIENT ESTABLISHED LOW MDM 20-29 MIN Reason for Visit and Comments: Follow-up [[id number]] - Pt present for right ankle pain, with review of xrays Normal [facility] ANKLE RIGHT 3 VWSon 12-24-19 22 ANKLE RIGHT 3 VWS [facility] Department of Radiology [address] [place] [address] Patient Name: SULAIMAN WHITE : 1980 Sex: M Age: Race: White Pt. Location: Patient Status: D Ordered Date: 12/23/2021 2:15:00 PM Completed Date: 12/23/2021 02:16 PM Requesting Provider: VENKAT SIFUENTES Attending Provider: VENKAT SIFUENTES Report Copy To: Signs & Symptoms: M25.571 Pain in right ankle and joints of right foot I10 History: [place] Comments: Exam: ANKLE RIGHT 3 S ANKLE RIGHT 3 S 12/23/2021 2:16 PM [...] maintained Electronically signed: Lexy Burnett. Transcribed by: [email or web address], User Resident: Electronically Signed by: LEXY BURNETT @ 12/25/2021 02:51 PM Normal The [facility] ANKLE RIGHT 3 [facility] 11-12-19 22 ANKLE RIGHT 3 [facility] Department of Radiology [address] [place] [phone] Patient Name: SULAIMAN WHITE : 1980 Sex: M Age: Race: White Pt. Location: Patient Status: D Ordered Date: 11/11/2021 10:40:00 AM Completed Date: 11/11/2021 10:41 AM Requesting Provider: VENKAT SIFUENTES Attending Provider: VENKAT SIFUENTES Report Copy To: SELF, REFERRED Signs & Symptoms: M25.571 Pain in right ankle and joints of right foot I10 History: [place] Comments: Exam: ANKLE RIGHT 3 [facility] ANKLE RIGHT [address] [facility] 11/11/2021 10:41 AM SIGNS AND SYMPTOMS: [...] swelling. Electronically signed: Brent [place]. Transcribed by: [email or web address], User Resident: BRENT DOOLEY Electronically Signed by: BRENT DOOLEY @ 11/13/2021 02:39 PM I personally read this/these film(s) with this resident Normal The [facility] ANKLE RIGHT 3 [facility] 10-13-19 22 ANKLE RIGHT 3 [facility] Department of Radiology [address] [place] [phone] Patient Name: SULAIMAN WHITE : 1980 [...] Comments: evaluate Exam: ANKLE RIGHT [address] [facility] ANKLE RIGHT [address] [facility] 10/12/2021 1:53 PM CLINICAL INDICATIONS: S82.831A [...] change Electronically signed: Lexy Peterson. Transcribed by: [email or web address], User Resident: Electronically Signed by: LEXY PETERSON @ 10/13/2021 02:03 PM Normal The [facility] Comment on above: Order Comment: Evalu ate ANKLE RIGHT 3 Son 09-15-19 22 ANKLE RIGHT 3 S [facility] Department of Radiology [address] [place] [phone] Patient Name: SULAIMAN WHITE : 1980 Sex: M Age: Race: White Pt. Location: Patient Status: D Ordered Date: 09/14/2021 1:30:00 PM Completed Date: 09/14/2021 01:34 PM Requesting Provider: VENKAT SIFUENTES Attending Provider: VENKAT SIFUENTES Report Copy To: SELF, REFERRED Signs & Symptoms: S82.831A Oth fracture of upper and lower end of right fibula, init I10 History: [place] Comments: Exam: ANKLE RIGHT 3 [facility] ANKLE RIGHT 3 S 09/14/2021 1:34 PM [...] complications. Electronically signed: Carline Alejandre. Transcribed by: [email or web address], User Resident: Electronically Signed by: CARLINE ALEJANDRE @ 09/16/2021 10:25 AM Normal The [facility] ANKLE RIGHT 3 [facility] 08-30-19 ANKLE RIGHT 3 [facility] Department of Radiology [address] [place] [phone] Patient Name: SULAIMAN WHITE : 1980 Sex: M Age: Race: White Pt. Location: Patient Status: D Ordered Date: 07/18/2021 10:05:00 AM Completed Date: 08/29/2021 01:52 PM Requesting Provider: THANIA HOWARD Attending Provider: THANIA HOWARD Report Copy To: Signs & Symptoms: S82.831A Oth fracture of upper and lower end of right fibula, init I10 History: Comments: Evaluate Exam: ANKLE RIGHT 3 [facility] ANKLE RIGHT [address] [facility] 08/29/2021 1:52 PM CLINICAL INDICATIONS: S82.831A [...] report. Electronically signed: Radha Lane. Transcribed by: [email or web address], User Resident: GALLO HAIR Electronically Signed by: RADHA LANE @ 08/30/2021 11:45 AM I personally read this/these film(s) with this resident Normal The [facility] Comment on above: Order Comment: Evalu ate FOOT RIGHT 2 Son 2 FOOT RIGHT 2 VWS [facility] Department of Radiology [address] [place] [phone] Patient Name: SULAIMAN WHITE : 1980 Sex: M Age: Race: White Pt. Location: Patient Status: D Ordered Date: 08/29/2021 1:15:00 PM Completed Date: 08/29/2021 01:52 PM Requesting Provider: VENKAT SIFUENTES Attending Provider: Report Copy To: Signs & Symptoms: M79.671 Pain in right foot I10 History: Comments: evaluate Exam: FOOT RIGHT 2 [address]WS FOOT RIGHT [address] [facility] 08/29/2021 1:52 PM CLINICAL INDICATIONS: M79.671 Pain [...] report. Electronically signed: Radha Lane. Transcribed by: [email or web address], User Resident: GALLO HAIR Electronically Signed by: RADHA LANE @ 08/30/2021 11:44 AM I personally read this/these film(s) with this resident Normal The [facility] Comment on above: Order Comment: Evalu ate ANKLE RIGHT 3 [facility] 08-02-19 22 ANKLE RIGHT 3 [facility] Department of Radiology [address] [place] [phone] Patient Name: SULAIMAN WHITE : 1980 Sex: M Age: Race: White Pt. Location: Patient Status: Ordered Date: 08/01/2021 9:25:00 AM Completed Date: 08/01/2021 09:40 AM Requesting Provider: THANIA HOWARD Attending Provider: Report Copy To: Signs & Symptoms: Z48.89 Encounter for other specified surgical aftercare I10 History: Comments: Evaluate Exam: ANKLE RIGHT 3 S ANKLE RIGHT 3 S 08/01/2021 9:40 AM [...] report. Electronically signed: Rafy Trejo. Transcribed by: [email or web address], User Resident: ARISTEO MEYER Electronically Signed by: RAFY TREJO @ 08/01/2021 10:04 AM I personally read this/these film(s) with this resident Normal The [facility] Comment on above: Order Comment: Evalu ate FOOT RIGHT 2 Son 2 FOOT RIGHT 2 [facility] Department of Radiology [address] [place] [phone] Patient Name: SULAIMAN WHITE : 1980 Sex: M Age: Race: White Pt. Location: 84 Patient Status: O Ordered Date: 08/01/2021 10:10:00 AM Completed Date: 08/01/2021 10:29 AM Requesting Provider: VENKAT SIFUENTES Attending Provider: THANIA HOWARD Report Copy To: Signs & Symptoms: M79.671 Pain in right foot I10 History: [place] Comments: Evaluate Exam: FOOT RIGHT 2 VWS [...] well-preserved. Electronically signed: Rafy Trejo. Transcribed by: [email or web address], User Resident: Electronically Signed by: RAFY TREJO @ 08/01/2021 10:35 AM Normal The [facility] Comment on above: Order Comment: Evalu ate *MRSA/MSSA DNA NASALon 07-20 *MRSA/MSSA DNA NASAL Clinical Report: (D ) Specimen: NASAL SWAB Collected: 07/20/2021 17:31 Status: Final Last Updated: 07/20/2021 21:23 (1) No collection time noted on specimen or requisition. The collection time recorded is the time of receipt in the lab. MSSA DNA (Final) Negative MRSA DNA (Final) Negative Normal The [facility] Comment on above: Order Comment: Evalu ate Performed By: #### 3 1595 ####[facility] [place] [address], [facility] ANKLE RIGHT 2 Son 07-21-19 ANKLE RIGHT 2 S [facility] Department of Radiology [address] [place] [address] Patient Name: SULAIMAN WHITE : 1980 Sex: M Age: Race: White Pt. Location: OUTP Patient Status: D Ordered Date: 07/20/2021 12:00:00 PM Completed Date: 07/20/2021 01:11 PM Requesting Provider: THANIA HOWARD Attending Provider: THANIA HOWARD Report Copy To: Signs & Symptoms: ORIF RIGHT FIBULA History: Comments: ORIF RIGHT FIBULA Exam: ANKLE RIGHT 2 [facility] EXAMINATION: ANKLE RIGHT [address] [facility] 07/20/2021 1:11 PM CLINICAL HISTORY: ORIF [...] above. Electronically signed: Joe Freeman. Transcribed by: [email or web address], User Resident: Electronically Signed by: JOE FREEMAN @ 07/21/2021 07:59 AM Normal The [facility] Comment on above: Order Comment: ORIF RIGHT FIBULA Operative Reporton 2 Operative Report MR#: [id number] S [facility] Pt. Name: Sulaiman White Room #: [...] b (more content not included)... Normal The [facility] POC GLUCOSE LABon 07-20-2021 Glucose [Mass/Vol] 106 mg/dL High 70-100 The [facility] Comment on above: Performed By: #### 8 5499 #### [facility] [address] [facility]. [address] POC SARS COV2 IDon 2 SARS-CoV-2 (COVID-19) RNA RONIT+probe Ql (Unsp spec) Negative Normal NEGATIVE The [facility] Comment on above: Result Comment: ID [...] Accreditation. Performed By: #### 3 1921 #### [facility] [address] *MRSA/MSSA DNA NASALon 07-18 *MRSA/MSSA DNA NASAL Clinical Report: (D ) Specimen: NASAL SWAB Collected: 07/18/2021 10:21 Status: Final Last Updated: 07/18/2021 15:35 MSSA DNA (Final) Negative MRSA DNA (Final) Negative Normal The [facility] Comment on above: Performed By: #### 3 1595 #### [facility] [address] [facility]. [address] *SARS-CoV-2 COVID-19on 07-18 SARS-CoV-2 (COVID-19) RNA RONIT+probe Ql (Unsp spec) Not detected Normal Not Detected The [facility] Comment on above: Order Comment: The A ptima SARS-CoV-2 assay is a nucleic acid amplification test intended for the qualitative detection of RNA from SARS-CoV-2 isolated and purified from nasopharyngeal (EMERGENCY WORKER),oropharyngeal (OP), nasal swab, sputum, and bronchoalveolar lavage (BAL) specimens from patients with signs and symptoms of infection who are suspected of COVID-19. Results are for the identification of SARS-CoV-2 RNA. The SARS-CoV-2 RNA is generally detectable during the acute phase of infection. The Aptima SARS-CoV-2 Assay on the [employer] system is intended for use by laboratory personnel specifically instructed and trained in the operation of the [place] and [employer] system. The Aptima SARS-CoV-2 assay is [...] information. Performed By: #### 3 1792 #### [facility] [address] APTTon 07-18-2021 aPTT Coag (Bld) [Time] 28.9 s Normal 25.0-35.0 The [facility] Comment on above: Result Comment: ALL [...] THIS PURPOSE. Performed By: #### 5 7307, 88215 ####[facility] [place] [address], [facility] BASIC METABOLIC PANELon 03-0 Calcium [Mass/Vol] 8.9 mg/dL Normal 8.6-10.3 [facility] Comment on above: Performed By: #### 3 9228, 69081 ####[facility] [place] [address], [facility] Chloride [Moles/Vol] 102 mmol/L Normal 98-107 The [facility] Comment on above: Performed By: #### 3 727, 40167 ####[facility] [place] [address], [facility] CO2 [Moles/Vol] 26 mmol/L Normal 21-31 [facility] Comment on above: Performed By: #### 3 727, 11467 ####[place] [address] [place] [address], [facility] Creatinine [Mass/Vol] 1.10 mg/dL Normal 0.70-1.30 The [facility] Comment on above: Performed By: #### 3 727, 89399 ####[facility] [place] [address], [facility] GFR/1.73 sq M.predicted among blacks MDRD (S/P/Bld) [Vol rate/Area] mL/min/{1.73_m2} Normal >60 The [facility] Comment on above: Performed By: #### 3 727, 77826 ####[facility] GFR/1.73 sq M.predicted among non-blacks MDRD (S/P/Bld) [Vol rate/Area] mL/min/{1.73_m2} Normal >60 The [facility] Comment on above: Performed By: #### 3 727, [address]13 ####[address] Glucose [Mass/Vol] 99 mg/dL Normal 70-100 The [facility] Comment on above: Performed By: #### 3 727, [address] ####[address] Potassium [Moles/Vol] 4.2 mmol/L Normal 3.5-5.1 The [facility] Comment on above: Performed By: #### 3 727, [address]756 ####[address] Sodium [Moles/Vol] 135 mmol/L Low 136-145 The [facility] Comment on above: Performed By: #### 3 727, [address]109 ####[address] Urea nitrogen [Mass/Vol] 19 mg/dL Normal 7-25 The [facility] Comment on above: Performed By: #### 3 727, [address]339 ####[address] CBC W/DIFFon 07-18-2021 ABS IMM GRANS 0.0 10*3/uL Normal 0.0-0.2 The [facility] Comment on above: Performed By: #### 5 0103 ####[place] [address], [facility] ABS NEUTROPHILS 5.5 10*3/uL Normal 1.6-7.6 The [facility] Comment on above: Performed By: #### 3 ####[facility] [place] [address], [facility] Basophils (Bld) [#/Vol] 0.0 10*3/uL Normal 0.0-0.2 The [facility] Comment on above: Performed By: #### 3 ####[facility] [place] [address], [facility] Basophils/100 WBC (Bld) 0.5 % Normal 0.0-1.0 The [facility] Comment on above: Performed By: #### 3 ####[facility] [facility] [place] [address], [facility] Eosinophils (Bld) [#/Vol] 0.2 10*3/uL Normal 0.0-0.5 The [facility] Comment on above: Performed By: #### 3 ####[facility] [facility] [place] [address], [facility] Eosinophils/100 WBC (Bld) 2.9 % Normal 0.0-6.0 The [facility] Comment on above: Performed By: #### 3 ####[facility] [facility] [place] [address], [facility] Erythrocyte distribution width (RBC) [Ratio] 12.5 % Normal 11.5-15.0 The [facility] Comment on above: Performed By: #### 3 ####[facility] [facility] [place] [address], [facility] Hematocrit (Bld) [Volume fraction] 38.5 % Low 39.0-50.0 The [facility] Comment on above: Performed By: #### 102 ####[facility] [facility] [place] [address], [facility] Hemoglobin (Bld) [Mass/Vol] 13.0 g/dL Normal 13.0-17.0 The [facility] Comment on above: Performed By: #### 5 0103 ####[facility] IMMATURE GRANS 0.5 % Normal 0.0-1.0 The [facility] Comment on above: Performed By: #### 5 0103 ####[facility]3000 [facility].[address] Lymphocytes (Bld) [#/Vol] 1.8 10*3/uL Normal 1.2-4.0 The [facility] Comment on above: Performed By: #### 5 0103 ####[address] Lymphocytes/100 WBC (Bld) 21.9 % Normal 20.0-45.0 The [facility] Comment on above: Performed By: #### 5 0103 ####[facility] [place] [address] MCH (RBC) [Entitic mass] 31.1 pg Normal 27.0-33.0 The [facility] Comment on above: Performed By: #### 5 3 ####[place] [address] MCHC (RBC) [Mass/Vol] 33.8 g/dL Normal 32.0-35.0 The [facility] Comment on above: Performed By: #### 5 0103 ####[facility] [place] [address], [facility] MCV (RBC) [Entitic vol] 92.1 fL Normal 82.0-98.0 The [facility] Comment on above: Performed By: #### 5 3 ####[place] [address], [facility] Monocytes (Bld) [#/Vol] 0.6 10*3/uL Normal 0.1-1.0 The [facility] Comment on above: Performed By: #### 5 0103 ####[facility] [facility] [place] [address], [facility] MONOS 7.5 % Normal 5.0-12.0 The [facility] Comment on above: Performed By: #### 5 0103 ####[facility] [facility] [place] [address], [facility] Neutrophils/100 WBC (Bld) 66.7 % Normal 40.0-72.0 The [facility] Comment on above: Performed By: #### 5 102 ####[place] [address] [facility] [place] [address], [facility] Nucleated RBC/100 WBC (Bld) [Ratio] 0 % Normal 0-0 The [facility] Comment on above: Performed By: #### 5 102 ####[facility] [facility] [place] [address], [facility] PLAT CNT 283 10*3/uL Normal 150-400 The [facility] Comment on above: Performed By: #### 5 102 ####[address] [place] [address], [facility] RBC (Bld) [#/Vol] 4.18 10*6/uL Low 4.20-5.70 The [facility] Comment on above: Performed By: #### 5 102 ####[facility] [facility] [place] [address], [facility] WBC (Bld) [#/Vol] 8.23 10*3/uL Normal 4.00-10.60 The [facility] Comment on above: Performed By: #### 102 ####[facility] [place] [address].[place] [address], [facility] PROTHROMBIN TIMEon 2 INR Coag (PPP) [Relative time] 0.96 {INR} Normal 0.91-1.16 [facility] Comment on above: Result Comment: ACCC P RECOMMENDED INR FOR WARFARIN THERAPY ------- ------- CONDITION INR PROPHYLAXIS OF VENOUS THROMBOSIS 2-3 (HIGH-RISK SURGERY) TREATMENT OF VENOUS THROMBOSIS 2-3 TREATMENT OF PULMONARY EMBOLISM 2-3 PREVENTION OF SYSTEMIC EMBOLISM: 2-3 ACUTE MYOCARDIAL INFARCTION TISSUE HEART VALVES VALVULAR HEART DISEASE ATRIAL FIBRILLATION RECURRENT SYSTEMIC EMBOLISM MECHANICAL HEART VALVE 2.5-3.5 FROM: ORAL ANTICOAGULANTS. MECHANISM OF ACTION, CLINICAL EFFECTIVENESS, AND OPTIMAL THERAPEUTIC RANGE. CHEST 1995;108:231S-246S. Performed By: #### 5 7307, 39221 ####[facility] PT Coag (PPP) [Time] 12.7 s Normal 12.3-14.8 [facility] Comment on above: Result Comment: ALL RESULTS MUST BE INTERPRETED WITH RESPECT TO BLOOD DRAWING ARTIFACT OR DILUTION ERROR OF ANTICOAGULANT AT THE TIME OF SAMPLING. Performed By: #### 5 7307, 41456 ####[facility]3000 [facility].[address] VITAMIN D 25-HYDROXYon 07-18 VITAMIN D 25-OH 18.8 ng/mL Low 30.0-80.0 [facility] Comment on above: Result Comment: >80. 0 Toxicity possible Performed By: #### 3 0728, 84428 ####[facility] [facility] [place] [address], [facility] XR ANKLE RT MIN 3 [...] Eron KWAN Date: 2021-07-14 05:45 Normal The [facility] XR Hip Complete Righton 04-13 XR Hip Complete Right HISTORY: Pain, popping FINDINGS: Normal hip joint space. No pincer or CAM deformities. No cortical or stress fracture. IMPRESSION: Minimal arthritis. Report reported and signed by Sánchez Briscoe on 04/22/2021 1103 Normal [facility] Senior Ui Designer CBC AUTO DIFFon 04-12-2021 BASO # 0.0 103/ul Normal 0.0-0.1 [facility] Comment on above: Performed By: #### C BC #### [facility] [address] [place] [address] [address] Martha Schmid Basophils/100 WBC (Bld) 0.4 % Normal 0.2-2.0 [facility] Comment on above: Performed By: #### C BC #### [facility] [address] [place] [address] [address] Martha Schmid EO # 0.3 103/ul Normal 0.0-0.7 [facility] Comment on above: Performed By: #### C BC #### [facility] [address] [place] [address] [address] Martha Schmid Eosinophils/100 WBC (Bld) 4.2 % Normal 0.9-7.0 [facility] Comment on above: Performed By: #### C BC #### [facility] [address] [place] [address] [address] Martha Schmid Erythrocyte distribution width (RBC) [Ratio] 12.5 % Normal 11.0-15.0 [facility] Comment on above: Performed By: #### C BC #### [facility] [address] [place] [address] Dr. Martha Schmid Hematocrit (Bld) [Volume fraction] 39.7 % Critically low 42.0-54.0 [facility] Comment on above: Performed By: #### C BC #### [facility] [address] [place] [address] Dr. Martha Schmid Hemoglobin (Bld) [Mass/Vol] 13.1 g/dL Critically low 14.0-18.0 [facility] Comment on above: Performed By: #### C BC #### [facility] [address] [place] [address] Dr. Martha Schmid IG # 0.02 10e3/ul Normal 0.00-0.03 [facility] Comment on above: Performed By: #### C BC #### [facility] [address] [place] [address] Dr. Martha Schmid IG % 0.3 % Normal 0.0-0.5 [facility] Comment on above: Performed By: #### C BC #### [facility] [address] [place] [address] Dr. Martha Schmid LYMPH # 1.9 103/ul Normal 1.2-3.8 [facility] Comment on above: Performed By: #### C BC #### [facility] [address] [place] [address] Dr. Martha Schmid Lymphocytes/100 WBC (Bld) 24.4 % Normal 20.5-60.0 [facility] Comment on above: Performed By: #### C BC #### [facility] [address] [place] [address] Dr. Martha Schmid MANUAL DIFF REQ NO Normal [facility] Comment on above: Performed By: #### C BC #### [facility] [address] [place] [address] Dr. Martha Schmid MCH (RBC) [Entitic mass] 31.3 pg Normal 25.9-34.0 [facility] Comment on above: Performed By: #### C BC #### [facility] [address] [address] [address] Martha Schmid MCHC (RBC) [Mass/Vol] 33.0 g/dL Normal 29.9-35.2 [facility] Comment on above: Performed By: #### C BC #### [facility] [address] [address] [address] Martha Schmid MCV (RBC) [Entitic vol] 94.7 fL Critically high 80.0-94.0 [facility] Comment on above: Performed By: #### C BC #### [facility] [address] [address] [address] Martha Schmid MONO # 0.6 103/ul Normal 0.3-0.8 [facility] Comment on above: Performed By: #### C BC #### [facility] [address] [place] [address] Dr. Martha Schmid Monocytes/100 WBC (Bld) 8.2 % Normal 1.7-12.0 [facility] Comment on above: Performed By: #### C BC #### [facility] [address] [place] [address] Dr. Martha Schmid NEUT # 4.9 103/ul Normal 1.4-6.5 [facility] Comment on above: Performed By: #### C BC #### [facility] [address] [address] [address] Martha Schmid Neutrophils/100 WBC (Bld) 62.5 % Normal 43.0-75.0 [facility] Comment on above: Performed By: #### C BC #### [facility] [address] [address] [address] Martha Schmid Platelet mean volume (Bld) [Entitic vol] 9.6 fL Normal 9.5-13.5 [facility] Comment on above: Performed By: #### C BC #### [facility] [address] [address] [address] Martha Schmid PLT 247 103/ul Normal 150-450 [facility] Comment on above: Performed By: #### C BC #### [facility] [address] [address] [address] Martha Schmid RBC 4.19 106/ul Critically low 4.70-6.10 [facility] Comment on above: Performed By: #### C BC #### [facility] [address] [address] [address] Martha Schmid WBC 7.8 103/ul Normal 4.0-11.0 [facility] Comment on above: Performed By: #### C BC #### [facility] [address] [address] [address] Martha Schmid GLYCOHEMOGLOBIN A1Con 2020 ADA RECOMMENDATION ADA THERAPEUTIC TARGET 6.0 - 7.0 ACTION SUGGESTED > 7.0 Normal [facility] Comment on above: Performed By: #### A 1C #### [facility] [address] [address] [address] Martha Schmid Glucose [Mass/Vol] 108 mg/dL Normal [facility] Comment on above: Performed By: #### A 1C #### [facility] [address] [address] [address] Martha Schmid HbA1c (Bld) [Mass fraction] 5.4 % Normal <=6.0 [facility] Comment on above: Performed By: #### A 1C #### [facility] [address] [place] [address] Dr. Martha Schmid LIPID PROFILEon 04-12-2021 CHOL-HDL RATIO NORM SEE BELOW Normal [facility] Comment on above: Result Comment: 3.3 - 4.4 LOW RISK 4.4 - 7.1 AVERAGE RISK 7.1 - 11.0 MODERATE RISK >11.0 HIGH RISK Performed By: #### C MP, LIPID #### [facility] [address] [address] [address] Martha Schmid Cholesterol [Mass/Vol] 181 mg/dL Normal <=200 [facility] Comment on above: Performed By: #### C MP, LIPID #### [facility] [address] [address] [address] Martha Schmid Cholesterol in HDL [Mass/Vol] 44 mg/dL Normal [facility] Comment on above: Performed By: #### C MP, LIPID #### [facility] [address] [address] [address] Martha Schmid Cholesterol in LDL [Mass/Vol] 118.4 mg/dL Normal [facility] Comment on above: Performed By: #### C MP, LIPID #### [facility] [address] [place] [address] Dr. Martha Schmid Cholesterol.total/Ch olesterol in HDL [Mass ratio] 4.1 {ratio} Normal [facility] Comment on above: Performed By: #### C MP, LIPID #### [facility] [address] [place] [address] Dr. Martha Schmid HDL NORMAL > or = 60 mg/dl - LOW CARDIOVASCULAR RISK <40 mg/dl - HIGH CARDIOVASCULAR RISK Normal [facility] Comment on above: Performed By: #### C MP, LIPID #### [facility] [address] [place] [address] Dr. Martha Schmid LDL CALC NORMAL SEE BELOW Normal [facility] Comment on above: Result Comment: <100 mg/dl OPTIMAL 100 - 129 mg/dl NEAR OR ABOVE OPTIMAL 130 - 159 mg/dl BORDERLINE HIGH 160 - 189 mg/dl HIGH >190 mg/dl VERY HIGH Performed By: #### C MP, LIPID #### [facility] [address] [place] [address] Dr. Martha Schmid Triglyceride [Mass/Vol] 93 mg/dL Normal <=150 [facility] Comment on above: Performed By: #### C MP, LIPID #### [facility] [address] [place] [address] Dr. Martha Schmid VLDL CALC 18.6 mg/dL Normal [facility] Comment on above: Performed By: #### C MP, LIPID #### [facility] [address] [place] [address] Dr. Martha Schmid PROF 14(COMP METB)on 021 Albumin [Mass/Vol] 3.9 g/dL Normal 3.5-5.0 [facility] Comment on above: Performed By: #### C MP, LIPID #### [facility] [address] [address] [address] Martha Schmid Albumin/Globulin [Mass ratio] 1.1 {ratio} Normal [facility] Comment on above: Performed By: #### C MP, LIPID #### [facility] [address] [address] [address] Martha Schmid ALP [Catalytic activity/Vol] 53 U/L Normal 38-126 [facility] Comment on above: Performed By: #### C MP, LIPID #### [facility] [address] [address] [address] Martha Schmid ALT [Catalytic activity/Vol] 25 U/L Normal 21-72 [facility] Comment on above: Performed By: #### C MP, LIPID #### [facility] [address] [place] [address] Dr. Martha Schmid Anion gap [Moles/Vol] 10.4 mmol/L Normal [facility] Comment on above: Performed By: #### C MP, LIPID #### [facility] [address] [place] [address] Dr. Martha Schmid AST [Catalytic activity/Vol] 18 U/L Normal 17-59 [facility] Comment on above: Performed By: #### C MP, LIPID #### [facility] [address] [place] [address] Dr. Martha Schmid Bilirubin [Mass/Vol] 0.4 mg/dL Normal 0.2-1.3 [facility] Comment on above: Performed By: #### C MP, LIPID #### [facility] [address] [place] [address] Dr. Martha Schmid Calcium [Mass/Vol] 9.4 mg/dL Normal 8.4-10.2 [facility] Comment on above: Performed By: #### C MP, LIPID #### [facility] [address] [place] [address] Dr. Martha Schmid Chloride [Moles/Vol] 102 mmol/L Normal 98-107 [facility] Comment on above: Performed By: #### C MP, LIPID #### [facility] [address] [address] [address] Martha Schmid CO2 [Moles/Vol] 29.9 mmol/L Normal 22.0-30.0 [facility] Comment on above: Performed By: #### C MP, LIPID #### [facility] [address] [address] [address] Martha Schmid Creatinine [Mass/Vol] 0.98 mg/dL Normal 0.66-1.25 [facility] Comment on above: Performed By: #### C MP, LIPID #### [facility] [address] [address] [address] Martha Schmid EGFR-AF ISRAELI >60 Normal >=60 [facility] Comment on above: Performed By: #### C MP, LIPID #### [facility] [address] [place] [address] Dr. Martha Schmid EGFR-NON AF ISRAELI >60 Normal >=60 [facility] Comment on above: Performed By: #### C MP, LIPID #### [facility] [address] [place] [address] Dr. aMrtha Schmid Globulin (S) [Mass/Vol] 3.6 g/dL Normal [facility] Comment on above: Performed By: #### C MP, LIPID #### [facility] [address] [place] [address] Dr. Martha Schmid Glucose [Mass/Vol] 89 mg/dL Normal 74-106 [facility] Comment on above: Performed By: #### C MP, LIPID #### [facility] [address] [address] [address] Martha Schmid Potassium [Moles/Vol] 4.3 mmol/L Normal 3.4-5.0 [facility] Comment on above: Performed By: #### C MP, LIPID #### [facility] [address] [address] [address] Martha Schmid Protein [Mass/Vol] 7.5 g/dL Normal 6.1-8.2 [facility] Comment on above: Performed By: #### C MP, LIPID #### [facility] [address] [address] [address] Martha Schmid Sodium [Moles/Vol] 138 mmol/L Normal 137-145 [facility] Comment on above: Performed By: #### C MP, LIPID #### [facility] [address] [address] [address] Martha Schmid Urea nitrogen [Mass/Vol] 16.0 mg/dL Normal 9.0-20.0 [facility] Comment on above: Performed By: #### C MP, LIPID #### [facility] [address] [address] [address] Martha Schmid Urea nitrogen/Creatinine [Mass ratio] 16.3 mg/mg Normal [facility] Comment on above: Performed By: #### C MP, LIPID #### [facility] [address] [address] [address] Martha Schmid Encounters Encounter Date Encounter Type Care Provider Facility Start: 03-12-2024 End: 03-12-2024 ambulatory Yolande L Adela Facility:[facility] Start: 02-14-2024 End: 02-14-2024 ambulatory Erwin Stafford Facility:[facility] Start: 02-14-2024 End: 02-14-2024 Departed Referred DPSrinivas Stafford Work Phone: [facility] Start: 12-11-2023 End: 12-11-2023 ambulatory Yolande L Adela Facility:[facility] Start: 11-13-2023 End: 11-13-2023 ambulatory Yolande L Adela Facility:[facility] Start: 10-30-2023 End: 10-30-2023 ambulatory Yolande L Adela Facility:[facility] Start: 10-02-2023 End: 10-02-2023 ambulatory Yolande L Adela Facility:[facility] Start: 09-28-2023 End: 09-28-2023 ambulatory Yolande L Adela Facility:[facility] Start: 03-12-2023 End: 03-13-2023 ambulatory Catarino Palafox MD Facility:[facility] Start: 02-19-2023 End: 02-20-2023 ambulatory Catarino Palafox MD Facility:[facility] Start: 01-29-2023 End: 01-30-2023 ambulatory Catarino Palafox MD Facility:[facility] Start: 01-11-2023 End: 01-11-2023 Patient encounter procedure Aishwarya Lozano [facility] Start: 12-19-2022 End: 12-19-2022 Off-Site Hilo Marta Y[facility] [place] Start: 12-01-2022 ambulatory [facility] Start: 11-13-2022 End: 11-13-2022 Lab Drop off Yolande Chapman [facility] Start: 08-30-2022 ambulatory [facility] Start: 08-16-2022 End: 08-16-2022 ambulatory [facility] Start: 08-04-2022 ambulatory [facility] Start: 07-25-2022 End: 07-26-2022 ambulatory [facility] Start: 07-24-2022 End: 07-25-2022 ambulatory [facility] Start: 04-18-2022 End: 04-19-2022 ambulatory [facility] Start: 02-14-2022 End: 02-15-2022 ambulatory [facility] Start: 07-20-2021 End: 07-21-2021 ambulatory THANIA HOWARD Facility:[facility] Start: 07-14-2021 End: 07-14-[address] KOTA VARGHESE Facility: Start: 06-21-2021 End: 06-22-2021 ambulatory SHAIKH CHARITO Facility:[facility] Start: 05-13-2021 ambulatory SHAIKH CHARITO Facility: [facility] Start: 05-10-2021 End: 05-11-[address] TWYLA HUGHES Facility:[facility] Start: 04-16-2021 Encounter for genera l adult medical [facility] Start: 04-12-2021 End: 04-13-2021 ambulatory [facility] Facility:[facility] Start: 04-12-2021 End: 04-13-2021 Encounter for general adult medical examination without abnormal findings [facility] Procedures Date Procedure Procedure Detail Performing Clinician Start: 12-01-2022 Follow-up visit Follow-up RUBY ROGERS Start: 05-14-2022 Injury of right ankle J bimal Adela Start: 05-14-2021 Injury of right ankle J bimal Adela Appendectomy Yolande Adela Right elbow region structure (body structure) Yolande Adela Structure of carpal canal (body structure) Yolande Adela Payers Date Payer Category Payer Unknown [id number] 2021 Unknown [id number] 2021 Worker's Compensation 1978 Unknown [id number] .16.84 [id number] 1978 Unknown [id number] .16.84 [id number] 1978 Unknown [id number] .16.84 0.1.586826.3.579.2.593 1978 Unknown [id number] .16.84 0.1.724358.3.579.2.593 1978 Unknown [id number] .16.84 0.1.795595.3.579.2.593 1978 Unknown [id number] 2.16.8 40.1.156410.3.579.2.647 1978 Unknown [id number] 2.16. 840.1.426715.3.579.2.196 1978 Unknown [id number] 2.16. 840.1.026135.3.579.2.196 1978 Unknown [id number] 2.16. 840.1.928179.3.579.2.196 1978 Unknown [id number] 2.16.8 40.1.637871.3.579.2.727 1978 Unknown [id number] 2.16.8 40.1.003110.3.579.2.727 1978 Unknown [id number] 2.16.8 40.1.793150.3.579.2.727 1978 Unknown [id number] 2.16.8 40.1.010844.3.579.2.727 1978 Unknown [id number] 2.16.8 40.1.260011.3.579.2.727 1978 Unknown [id number] 2.16.8 40.1.127051.3.579.2.727 1959 Self-pay 1959 Unknown [id number] 1959 Unknown [id number] Unknown [id number] 2.16.8 40.1.551747.3.579.2.531 Unknown [facility] [place] [place] [id number] Social History Date Type Detail Facility Start: 11-13-2022 End: 12-19-2022 Tobacco smoking status Light tobacco smoker (finding) [facility] Tobacco smoking status Never [facility] Sex Assigned At Male [facility] Start: 1980 Sex Assigned At Male [facility] Clinical Notes 04-22-2021 to 12-19-2022 Radiology Note Date & Type Note Facility 12-19-2022 Evaluation + Plan note Future Scheduled TestsCT Head or Brain w/o Contrast 12/19/22 [facility] [place] 12-01-2022 Note Orthopedic Surgery Subjective Chief complaint: [...] to be doing well. Incision completely healed. [place] some peroneal popping without dislocation on eversion of the ankle. PLAN: - continue ROM and dry needling appointments - Follow up in 6 months for clinical evaluation and to see if improvement to his symptoms and peroneal irritation. Jossie Stilane MS3 [facility] 11-13-2022 Evaluation + Plan note [facility] 11/13/22Testosterone Level Total 11/13/22 [facility] 08-30-2022 Note 42 yo M [...] Follow in 3 months for clinical evaluation. [facility] 08-16-2022 Note Patient: Sulaiman Camilo ick Procedure Summary Date: 08/16/22 Room / Location: [facility] OPERATING ROOM 04 / [facility] Operating Room Anesthesia Start: 1219 Anesthesia [...] no known notable events for this encounter. [facility] 08-16-2022 Note Airway Date/Time: 08/16/2022 12:28 [...] 1 Number of other approaches attempted: 0 [facility] 08-16-2022 Note Patient: Sulaiman hood Procedure Information Date/Time: 08/16/22 1200 Procedure: REMOVAL, HARDWARE, ANKLE (Right: Ankle) - c-arm / 12:00pm start / Location: [facility] OPERATING ROOM 04 / [facility] Operating Room Surgeons: Lucero Rogers MD [...] risks discussed with patient. Additional Equipment Requests [facility] 08-04-2022 Note Subjective Chief complaint: Chief Complaint Patient presents with Right Ankle - Pain 08/04/22 Sulaiman White is a 42 y.o. year old male [facility] presenting for evaluation of right ankle pain [...] Brock MD Orthopedic Surgery Resident Physician Pager: [phone] 08/04/22 9:04 AM By using the attestations [...] be an additional personal documentation from me. [facility] 07-25-2022 Note Date of Surgery: VALENTIN [...] for scheduling once approved for hardware removal. [facility] 04-18-2022 Note Date of Surgery: VALENTIN [...] bone Stim F/U 3 months repeat xrays [facility] 02-14-2022 Note Date of Surgery: VALENTIN [...] bone Stim F/U 2 months repeat xrays [facility] 06-21-2021 Note CONSULTATION PAIN MANAGEMENT CONSULTATION [...] patient understands and would like to proceed. [facility] Signed and Approved by: DR TWYLA HUGHES . 06/28/2021 07:59:00 [facility] 05-10-2021 Note PAIN MANAGEMENT Consultation Date: [...] patient recently had a MRI performed at [facility]. The report is noted on the [...] spine surgeon has been suggested. cc:Dr. Dsouza. [facility] Signed and Approved by: DR TWYLA HUGHES . 2021 09:03:00 [facility] 04-22-2021 Note PROCEDURE: Ninja Blocksed VCT 64, 5.0 mm slice axial images [...] signed by Sánchez Briscoe on 04/22/2021 1428 [facility] Senior Ui Designer Evaluation note No assessment inform ation available [facility] Work Phone: Hospital course Narrative No data available for this section [facility] Hospital Discharge instructions No data available for this section [facility] Progress note No data available for this section [facility] Summary Purpose Family History No Family History Records FoundNo Family History Records FoundNo Family History Records FoundNo Family History Records FoundNo Family History Records FoundNo Family History Records FoundNo Family History Records Found Advance Directives No Advanced Directives Records Found Advance Directive Response Recorded Date/ Time Advance Directives No February 15, 2024 11:55am Additional Source Comments (unrecognized sect ion and content) No Status Records FoundNo Status Records FoundNo Status Records FoundNo Status Records FoundNo Status Records FoundNo Status Records FoundNo Status Records Found INFORMATION SOURCE (unrecogn ized section and content) DATE CREATED AUTHOR 04/23/2021 [facility] dical Specialist DATE CREATED AUTHOR AUTHOR'S ORGANIZ ATION 07/15/2021 [facility] DATE CREATED AUTHOR AUTHOR'S ORGANIZ ATION 01/04/2022 [facility] DATE CREATED AUTHOR AUTHOR'S ORGANIZ ATION 01/24/2023 [facility] DATE CREATED AUTHOR AUTHOR'S ORGANIZ ATION 03/18/2023 [facility] DATE CREATED AUTHOR AUTHOR'S ORGANIZ ATION 02/22/2024 [facility] DATE CREATED AUTHOR AUTHOR'S ORGANIZ ATION 03/13/2024 [facility] Patient Care team informatio n (unrecognized section and content) Team Status: Inactive Member Role Status Dates Erwin Stafford DPM MS Attending Provider Active Start: February 14, 2024 End: February 14, 2024 Goals (unrecognized section and content) Goals may be documented in a n alternate section FOR RECORDS PERTAINING TO PATIENTS WHO ARE [...] BE BASED ON THE PRIMARY CLINICAL RECORDS. [facility] [place] [employer] [facility] provides no warranty or guarantee of the accuracy or completeness of information in this document.
--- NOTE | 2024-03-27 13:25 | PM.CN ---
Consult Note: HPI Data of Consult Patient: known to practice within the last 3 years Consult date: 01/29/23 Requesting Physician: Kerry Connolly NP Primary Care Provider: MEGHAN BAIN Consult Narrative Reason for consult: f/u Narrative: 42yom who presents for evaluation. worsening right ankle pain. previous workplace injury in july 2021, has had subsequent ankle surgeries. continues to have right ankle pain. has undergone >62 sessions of physical therapy, which have not provided lasting relief. uses flexeril, cymbalta, tramadol, ibuprofen with some benefit. Pain today 4-5/10 and CRISTHIAN worsened since last visit at 56%. pt did recently undergo right peroneal tendon repair/surgery with Dr Stafford, was last seen yesterday and boot was removed. pt to start PT soon. At this time Dr Stafford is prescribing the pt tramadol. Pt has been utilizing flexeril 10mg qd PRN and lyrica 100mg TID without side effect. cc:: CC: Kerry Connolly NP Review of Systems ROS Musculoskeletal Reports: extremity pain [facility] Medical History Right ankle pain ?M25.571 - Pain in right ankle and joints of right foot (ICD-10) Back pain ?M54.9 - Dorsalgia, unspecified (ICD-10) Migraine ?G43.909 - Migraine, unspecified, not intractable, without status migrainosus (ICD-10) Diarrhea ?R19.7 - Diarrhea, unspecified (ICD-10) Sciatica ?M54.30 - Sciatica, unspecified side (ICD-10) Peroneal tendon injury ?S86.309A - Unspecified injury of muscle(s) and tendon(s) of peroneal muscle group at lower leg level, unspecified leg, initial encounter (ICD-10) Fibula fracture ?S82.409A - Unspecified fracture of shaft of unspecified fibula, initial encounter for closed fracture (ICD-10) Asthma ?J45.909 - Unspecified asthma, uncomplicated (ICD-10) Surgical History History of kidney surgery ?Z98.890 - Other specified postprocedural states (ICD-10) History of carpal tunnel release ?Z98.890 - Other specified postprocedural states (ICD-10) History of elbow surgery ?Z98.890 - Other specified postprocedural states (ICD-10) History of ankle surgery (~07/2021) ?Z98.890 - Other specified postprocedural states (ICD-10) History of appendectomy ?Z90.49 - Acquired absence of other specified parts of digestive tract (ICD-10) Family History Other Cancer Family history of cancer Family history of diabetes mellitus Family history of hypertension Social History Within the past year, how often did you have a drink containing alcohol: 4 or more times a week Within the past year, how many standard drinks containing alcohol did you have on a typical day: 1 or 2 Total score: 0 Score interpretation: A score less than 4 is consistent with normal alcohol consumption. 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 Highest level of school completed/degree received: high school graduate Meds Home Medications and Allergies Home Medications ?Medication ?Instructions ?Recorded ?Confirmed ?Type cyclobenzaprine 10 mg tablet 10 mg PO DAILY PRN muscle spasm 01/29/23 02/14/24 History duloxetine 60 mg capsule,delayed 60 mg PO DAILY 01/29/23 02/14/24 History release tramadol 50 mg tablet 50 mg PO Q8H PRN pain 02/14/23 02/14/24 History ibuprofen 800 mg tablet 800 mg PO Q12H PRN pain 02/19/23 02/14/24 History atogepant 60 mg tablet (Qulipta) 60 mg PO DAILY 01/30/24 02/14/24 History meloxicam 7.5 mg tablet 7.5 mg PO BID PRN pain 01/30/24 02/14/24 History multivitamin (Daily Multi-Vitamin 1 tab PO DAILY 01/30/24 02/14/24 History tablet) pregabalin 100 mg capsule 100 mg PO Q8H 01/30/24 02/14/24 History sumatriptan succinate 100 mg tablet 100 mg PO Q2H PRN migraine headache 01/30/24 02/14/24 History vitamin B complex 1 tab PO DAILY 01/30/24 02/14/24 History Allergies Allergy/AdvReac Type Severity Reaction Status Date / Time No Known Drug Allergies Allergy Verified 02/14/24 10:39 Exam Narrative Exam Narrative: Psych-alert and oriented x 3. Attentive and appropriate, constitutionally normal, displays normal mood and affect per situation.? There are no obvious deficits in memory, reasoning, or intellect.? Skin-no obvious rashes, bruising, erythema noted to the patient's area of pain. Extremities- extremities are warm with minimal edema and palpable pulses. Tenderness to palpation in right ankle. Slight discoloring and cool temperature noted in right ankle. Lumbar-no significant tenderness to palpation noted in the lumbar spine and paraspinal musculature.? Pain is elicited with extension, and lateral rotation of the lumbar spine. Range of motion is slightly diminished with these motions due to pain. Coordination remains intact.? Gait remains non-antalgic. Assessment and Plan Assessment and Plan (1) Other fracture of upper and lower end of right fibula, initial encounter for closed fracture: Plan update UDS for medication monitoring KILN DRAWER reviewed and signed continue tramadol through Dr Stafford at this time, depending on care plan and UDS we may take over pt has not consistently been taking pregabalin recently, did not call for refills. last filled 02/04. pt found mild benefit without side effect to pregabalin 100mg TID. will increase to 150mg TID and f/u with nurse visit in 2 weeks continue care with Dr Stafford, appreciate his care, upcoming PT f/u in office TBD
== END 2024-03-27 12:43 | disposition home or self-care (01) ==
LOC: PM 12:43
PROVIDERS: PCP Nurse Practitioner; Visit Provider Nurse Practitioner
DX: S82.831A Other fracture of upper and lower end of right fibula, initial encounter for closed fracture (principal)
CPT/HCPCS: G0463

== ENCOUNTER 2024-04-15 10:30 | Outpatient (RCR) | payer OTHER, SELFPAY | END 2024-05-13 14:55 | disposition home or self-care (01) | LOC: PT 10:30 | PROVIDERS: PCP Nurse Practitioner; Visit Provider Podiatrist Foot & Ankle Surgery | DX: S86.391D Other injury of muscle(s) and tendon(s) of peroneal muscle group at lower leg level, right leg, subsequent encounter (principal); S82.831D Other fracture of upper and lower end of right fibula, subsequent encounter for closed fracture with routine healing | CPT/HCPCS: 20560; 97035; 97110; 97140; 97161 ==

== ENCOUNTER 2024-05-14 09:44 | Outpatient (RCR) | payer OTHER, SELFPAY | END 2024-09-10 13:44 | disposition home or self-care (01) | LOC: PT 09:44 | PROVIDERS: PCP Nurse Practitioner; Visit Provider Podiatrist Foot & Ankle Surgery | DX: S86.391D Other injury of muscle(s) and tendon(s) of peroneal muscle group at lower leg level, right leg, subsequent encounter (principal); S82.831D Other fracture of upper and lower end of right fibula, subsequent encounter for closed fracture with routine healing | CPT/HCPCS: 20560; 20561; 97110; 97112; 97113; 97140 ==

== ENCOUNTER 2024-07-03 13:47 | Outpatient (OUT) | payer BC, SELFPAY ==
--- OUTSIDE RECORDS SUMMARY | 2024-07-03 13:56 | XMS_ITS | CCD ---
Author Organization [facility] Care Team Providers Care Employment Educational Coord Name Role Phone FAWWAD, PARSONS Consulting Unavailable FAWWAD, PARSONS Primary Care [...] Consulting Unavailable FAWWAD, PARSONS Primary Care Unavailable HUGHES, DR TWYLA Lauren Admitting Unavailable HUGHES, DR TWYLA Lauren Attending Unavailable SAUL, DR TWYLA Lauren Consulting Unavailable TARAN SAUNDERS Consulting Unavailable FAWWAD, PARSONS Attending Unavailable FAWWAD, PARSONS Primary Care Unavailable FAWWAD, PARSONS Admitting Unavailable EBRAHEIM, THANIA Admitting Unavailable SELF, REFERRED Primary Care Unavailable EBRAHEIM, THANIA Attending Unavailable SELF, REFERRED Referring Unavailable Meghan Chapman Primary Care Physician VENKAT SIFUENTES Attending Unavailable BEAR, VENKAT Attending Unavailable ROGERS, LUCERO Attending Unavailable BEAR, VENKAT Attending Unavailable ROGERSLUCERO Admitting Unavailable ROGERS, CHRISTGERTRUDIS Attending Unavailable ROGERS, CHRISTOPHER Attending Unavailable ROGERS, CHRISTOPHER Attending Unavailable BEAR, VENKAT Referring Unavailable BEAR, VENKAT Referring Unavailable BEAR, VENKAT Referring Unavailable VENKAT SIFUENTES Referring Unavailable Vivienne CAMEJO, Catarino Anton Attending Unavailable Vivienne CAMEJO, Catarino Anton Attending Unavailable Vivienne CAMEJO, Catarino Anton Attending Unavailable Erwin Stafford Attending Unavailable Erwin Stafford Admitting Unavailable JOB Stafford Attending Provider [phone] Odell, Meghan Dexter Attending Unavailable Odell, Meghan Dexter Attending Unavailable Odell, Meghan L Attending Unavailable Odell, Meghan L Attending Unavailable Odell, Meghan L Attending Unavailable Odell, Meghan L Attending Unavailable Unavailable Primary Care Provider Unavaildemetrio e ODELL, MEGHAN Referring Unavailable FISCHER, FRANCO L Attending Unavailable FISCHER, FRANCO L Referring Unavailable FISCHER, FRANCO L Attending Unavailable FISCHER, FRANCO L Attending Unavailable FISCHER, FRANCO L Referring Unavailable Medications Current Medications Medication Drug Class(es) Dates Sig (Normalized) Sig (Original) cyclobenzaprine hydrochloride 10 mg oral tablet (3 sources) Muscle Relaxant Start: 11-28-2022 cyclobenzaprine 10 mg Tab See Instructions, PRN for spasm, 1 tab(s) Oral at work for spasm, # 30 tab(s), Refills(s) 1, Pharmacy: [facility]/pharmacy #[id number], 183.5, cm, 11/13/22 11:51:00 EDT, [...] day, # 18 tab(s), Refills(s) 1, Pharmacy: [facility]/pharmacy #[id number], 183.5, cm, 11/13/22 11:51:00 EDT, Height/Length Dosing... Start Date: 12/19/22 Status: Ordered Start: 11-13-2022 take 1 tablet by mya th every two hours as needed for headache SUMAtriptan 25 mg Tab 25 mg = 1 tab(s), Oral, As Directed, PRN Migraine headache, may repeat dose in 2 hours if needed, # 9 tab(s), Refills(s) 0, Pharmacy: [facility]/pharmacy #[id number], 183.5, cm, 11/13/22 11:51:00 EDT, [...] Impotence 11-13-2022 Chronic Other nervous system disorders (3 sources) Other chronic pain; Translations: [OTHER CHRONIC PAIN] Onset: 06-27-2021 Chronic Residual codes; unclassified (2 sources) Presence of functional implant, unspecified; Translations: [Presence of functional implant, unspecified] Onset: 08-04-2022 Chronic Spondylosis; intervertebral disc disorders; other back problems (6 sources) Intervertebral disc prolapse; Translations: [Other intervertebral disc displacement, lumbar region] Onset: 12-19-2022 Chronic Spondylosis; intervertebral disc disorders; other back problems (20 sources) Intervertebral disc disorders with radiculopathy, lumbar region; Translations: [Radiculopathy, lumbar region] Onset: 05-10-2021 Episodic Unclassified (1 source) LOW BACK PAIN, UNSPECIFIED; Translations: [LOW BACK PAIN, UNSPECIFIED] Onset: 06-27-2021 Unclassified (3 sources) Displacement of lumbar intervertebral disc 11-13-2022 Unclassified (3 sources) Patient encounter status 11-13-2022 Unclassified (1 source) Other intervertebral disc degeneration, lumbar region with discogenic back pain and lower extremity pain; Translations: [Other intervertebral disc degeneration, lumbar region with discogenic back pain and lower extremity pain] Onset: 06-26-2024 Past or Other Problems Problem Classification Problem Date Documented Date Episodic/Chronic Fracture of lower limb (12 sources) [...] Translations: [Effusion, right ankle] Onset: 04-18-2022 Episodic Unclassified (1 source) Other intervertebral disc degeneration, lumbar region with discogenic back pain and lower extremity pain; Translations: [Other intervertebral disc degeneration, lumbar region with discogenic back pain and lower extremity pain] Onset: 06-26-2024 Results Test Name Value Interpretation Reference Range Facility XR SACROILIAC JOINTS 1-2 VIE WSon 06-26-2024 XR SACROILIAC JOINTS 1-2 VIEWS EXAM: XR SACROILIAC JOINTS 1-2 VIEWS, 06/26/2024 12:47 PM COMPARISON: No prior studies available for comparison. CLINICAL INDICATIONS: , Si joint pain RELEVANT CLINICAL HISTORY: M53.3:Sacroiliac pain FINDINGS: 2 images obtained. Bone: No acute osseous abnormality is identified. There is bilateral lumbosacral transitional anatomy. SI Joint: The sacroiliac joints are anatomically aligned with degenerative changes. Hip: The hip joints are anatomically aligned. IMPRESSION: Bilateral lumbosacral transitional anatomy. Degenerative changes of the sacroiliac joints bilaterally. Normal [facility] XR SPINE LUMBAR 4+ VIEWSon 0 06-26-2024 XR SPINE LUMBAR 4+ VIEWS EXAM: XR SPINE LUMBAR 4+ VIEWS, 06/26/2024 12:49 PM COMPARISON: No priors available for comparison. CLINICAL INDICATIONS: low back pain RELEVANT CLINICAL HISTORY: M54.9:Chronic back pain, unspecified back location, unspecified back pain laterality G89.29:Chronic back pain, unspecified back location, unspecified back pain laterality Standing flex/ex please. Thank you; FINDINGS: 5 images obtained. Vertebral: There is lumbosacral transitional anatomy with partial bilateral sacralization of L5. Alignment is otherwise anatomic without instability on flexion or extension views. No compression deformity is identified. Disc: Mild multilevel degenerative disc disease is present. Joint: Facet joints appear anatomically aligned with lower lumbar facet arthrosis. IMPRESSION: Lumbosacral transitional anatomy with partial bilateral sacralization of L5. Mild multilevel degenerative disc disease. Lower lumbar facet arthrosis. No instability. Normal [facility] XR Sacroiliac Joint 3 Viewso n 06-26-2024 IMPRESSION: Bilateral lumbosacral transitional anatomy. Degenerative changes of the sacroiliac joints bilaterally. OLOGY EXAM: XR SACROILIAC JOINTS 1-2 VIEWS, 06/26/2024 12:47 PM COMPARISON: No prior studies available for comparison. CLINICAL INDICATIONS: , Si joint pain RELEVANT CLINICAL HISTORY: M53.3:Sacroiliac pain FINDINGS: 2 images obtained. Bone: No acute osseous abnormality is identified. There is bilateral lumbosacral transitional anatomy. SI Joint: The sacroiliac joints are anatomically aligned with degenerative changes. Hip: The hip joints are anatomically aligned. RADIOLOGY Chago Cole MD - 06/26/2024 EXAM: XR SACROILIAC JOINTS 1-2 VIEWS, 06/26/2024 12:47 PM COMPARISON: No prior studies available for comparison. CLINICAL INDICATIONS: , Si joint pain RELEVANT CLINICAL HISTORY: M53.3:Sacroiliac pain FINDINGS: 2 images obtained. Bone: No acute osseous abnormality is identified. There is bilateral lumbosacral transitional anatomy. SI Joint: The sacroiliac joints are anatomically aligned with degenerative changes. Hip: The hip joints are anatomically aligned. IMPRESSION IMPRESSION: Bilateral lumbosacral transitional anatomy. Degenerative changes of the sacroiliac joints bilaterally. [facility] Radiology Study observation (narrative) [facility] XR Sacroiliac Joint 3 ViewsO rdered By: Chago Cole on 06-26-2024 [facility] Work Phone: XR Spine Lumbar and Sacrum 5 Viewson 06-26-2024 IMPRESSION: Lumbosacral transitional anatomy with partial bilateral sacralization of L5. Mild multilevel degenerative disc disease. Lower lumbar facet arthrosis. No instability. OLOGY EXAM: XR SPINE LUMBAR 4+ VIEWS, 06/26/2024 12:49 PM COMPARISON: No priors available for comparison. CLINICAL INDICATIONS: low back pain RELEVANT CLINICAL HISTORY: M54.9:Chronic back pain, unspecified back location, unspecified back pain laterality G89.29:Chronic back pain, unspecified back location, unspecified back pain laterality Standing flex/ex please. Thank you; FINDINGS: 5 images obtained. Vertebral: There is lumbosacral transitional anatomy with partial bilateral sacralization of L5. Alignment is otherwise anatomic without instability on flexion or extension views. No compression deformity is identified. Disc: Mild multilevel degenerative disc disease is present. Joint: Facet joints appear anatomically aligned with lower lumbar facet arthrosis. RADIOLOGY Chago Cole MD - 06/26/2024 EXAM: XR SPINE LUMBAR 4+ VIEWS, 06/26/2024 12:49 PM COMPARISON: No priors available for comparison. CLINICAL INDICATIONS: low back pain RELEVANT CLINICAL HISTORY: M54.9:Chronic back pain, unspecified back location, unspecified back pain laterality G89.29:Chronic back pain, unspecified back location, unspecified back pain laterality Standing flex/ex please. Thank you; FINDINGS: 5 images obtained. Vertebral: There is lumbosacral transitional anatomy with partial bilateral sacralization of L5. Alignment is otherwise anatomic without instability on flexion or extension views. No compression deformity is identified. Disc: Mild multilevel degenerative disc disease is present. Joint: Facet joints appear anatomically aligned with lower lumbar facet arthrosis. IMPRESSION IMPRESSION: Lumbosacral transitional anatomy with partial bilateral sacralization of L5. Mild multilevel degenerative disc disease. Lower lumbar facet arthrosis. No instability. [facility] Radiology Study observation (narrative) [facility] Family Medicine Office/Clini c Noteon 03-12-2024 Family [...] pt would like to be referred to [facility] spine center in [place]. will send steroid and 15mg of meloxicam. he has percocet from Dr. Stafford due to recent ankle surgery. Ordered: predniSONE, = 1 -, Oral, As Directed, Take 3 tabs by mouth daily x5 days, then 2 tabs daily x5 days, then 1 tab daily x5 days., # 30 tab(s), Refills(s) 0, Pharmacy: [facility]/pharmacy #[id number], 183.5, cm, 03/12/24 14:10:00 EDT, Height/Length Dosing, 76.5, kg, 03/12/24 14:... 2. Chronic back pain (M54.9: Dorsalgia, unspecified) see above Ordered: predniSONE, = 1 -, Oral, As Directed, Take 3 tabs by mouth daily x5 days, then 2 tabs daily x5 days, then 1 tab daily x5 days., # 30 tab(s), Refills(s) 0, Pharmacy: [facility]/pharmacy #[id number], 183.5, cm, 03/12/24 14:10:00 EDT, Height/Length Dosing, 76.5, kg, 03/12/24 14:... 3. BMI 22.0-22.9, adult (Z68.22: Body mass index [BMI] 22.0-22.9, adult) BMI education given Ordered: predniSONE, = 1 -, Oral, As Directed, Take 3 tabs by mouth daily x5 days, then 2 tabs daily x5 days, then 1 tab daily x5 days., # 30 tab(s), Refills(s) 0, Pharmacy: [facility]/pharmacy #[id number], 183.5, cm, 03/12/24 14:10:00 EDT, Height/Length Dosing, 76.5, kg, 03/12/24 14:... 4. Smoker (F17.200: Nicotine dependence, unspecified, uncomplicated) consider not smoking Ordered: predniSONE, = 1 -, Oral, As Directed, Take 3 tabs by mouth daily x5 days, then 2 tabs daily x5 days, then 1 tab daily x5 days., # 30 tab(s), Refills(s) 0, Pharmacy: [facility]/pharmacy #[id number], 183.5, cm, 03/12/24 14:10:00 EDT, Height/Length Dosing, 76.5, kg, 03/12/24 14:... Other chronic pain (G89.29: Other chronic pain) pain from ankle surgery Orders: busPIRone, See Instructions, TAKE 1 TABLET BY MOUTH THREE TIMES A DAY, # 90 tab(s), Refills(s) 0, Pharmacy: [id number], 183.5, cm, 12/11/23 13:58:00 EDT, Height/Length Dosing, 76.5, kg, 12/11/23 13:58:00 EDT, Weight Dosing busPIRone, See Instructions, TAKE 1 TABLET BY MOUTH THREE TIMES A DAY, # 270 tab(s), Refills(s) 1, Pharmacy: [facility] ST[id number], 183.5, cm, 11/13/23 14:06:00 EDT, Height/Length Dosing, 78.2, kg, 11/13/23 14:06:00 EDT, Weight Dosing meloxicam, 15 mg = 1 tab(s), Oral, Daily, # 30 tab(s), Refills(s) 0, Pharmacy: [facility]/pharmacy #[id number], 183.5, cm, 03/12/24 14:10:00 EDT, [...] mRNA BN (more content not included)... Normal [facility] Comment on above: Result Comment: Elec tronically Signed By: Meghan Carmona\.br\Date and Time Signed: 03/12/24 14:36 EDT Igor 02-14-2024 L Specimen: [id number] Received: 02/15/24 Status: LOAN Saba Num: [id number] Spec Type: Surgical Subm Dr: Erwin Stafford DPM, MS Tissues: A Tendon/Sheath (RT PERONEAL TENDON TEAR) Procedures: HE, Gross/Micro L3 Age/ Patient Sex Location Account Attending Physician Sulaiman White 43/M LABELL [id number] Erwin Stafford DPM, MS SPEC NUM: [id number] RECD: 02/15/24 STATUS: LOAN SABA NUM: [id number] JUDY: 02/14/[address]: Erwin Stafford,JOB, MS ENTERED: 02/15/[address] [facility] [address]: Ceci Hogan SPEC TYPE: Surgical DEPT: JEREL BAIG ENTERED BY: [id number] RECV BY: [id number] ORDERED: HE, Gross/Micro L3 ORDERED: HE, Gross/Micro [...] are performed supporting the above interpretation Specimen: [id number] Received: 02/15/24 Status: LOAN Saba Num: [id number] Spec Type: Surgical Subm Dr: Erwin Stafford DPM, MS Tissues: A Tendon/Sheath (RT PERONEAL TENDON TEAR) Procedures: HELEN, Gross/Micro L3 Patient: Sulaiman White [id number] (Continued) Specimen: [id number] Received: 02/15/24 (Continued) Signed (signature on file) Toñito Schmid MD 02/20/24 1013 Specimen: [id number] Received: 02/15/24 Status: LOAN Saba Num: [id number] Spec Type: Surgical Subm Dr: Erwin Stafford,JOB, MS Tissues: A Tendon/Sheath (RT PERONEAL TENDON TEAR) Procedures: Vivek CERVANTES/Dallin L3 Patient: Sulaiman White [id number] (Continued) Specimen: [id number] Received: 02/15/24 (Continued) CPT Codes 89880 Specimen: [id number] Received: 02/15/24 Status: LOAN Wandy Num: [id number] Spec Type: Surgical Subm Dr: Erwin Stafford,DPSrinivas, MS Tissues: A Tendon/Sheath (RT PERONEAL TENDON TEAR) Procedures: Vivek CERVANTES/Dallin L3 Patient: Sulaiman White [id number] (Continued) Signed (signature on file) Toñito Schmid MD 02/20/[address] [facility] Ambulatory Visit Summaryon 0 12-11-2023 Ambulatory Visit Summary Ambulatory Visit Summary SULAIMAN WHITE :1980 Visit Date:12/11/2023 Ambulatory Visit Instructions Your Diagnosis Smoker BMI 22.0-22.9, adult Your Care Team Attending Physician - Meghan Carmona Primary Care Physician - Meghan Carmona This Is Your Medications List atogepant [...] choosing us for your care. Normal [facility] Family Medicine Office/Clini c Noteon 12-11-2023 [...] dry needling. he had this done in [place] a while back and it helped. 3. Migraine (G43.909: Migraine, unspecified, not intractable, without status migrainosus) pt still having migraines 4. Smoker (F17.200: Nicotine dependence, unspecified, uncomplicated) consider not smoking 5. BMI 22.0-22.9, adult (Z68.22: Body mass index [BMI] 22.0-22.9, adult) BMI education given Orders: busPIRone, See Instructions, TAKE 1 TABLET BY MOUTH THREE TIMES A DAY, # 90 tab(s), Refills(s) 0, Pharmacy: [id number], 183.5, cm, 12/11/23 13:58:00 EDT, Height/Length Dosing, 76.5, kg, 12/11/23 13:58:00 EDT, Weight Dosing busPIRone, See Instructions, TAKE 1 TABLET BY MOUTH THREE TIMES A DAY, # 270 tab(s), Refills(s) 1, Pharmacy: [id number], 183.5, cm, 11/13/23 14:06:00 EDT, Height/Length Dosing, 78.2, kg, 11/13/23 14:06:00 EDT, Weight Dosing duloxetine, 120 mg = 2 cap(s), Oral, Daily, 30 EA, TAKE 1 CAPSULE BY MOUTH EVERY DAY, # 60 cap(s), Refills(s) 1, [id number], 183.5, cm, 11/13/23 14:06:00 EDT, Height/Length Dosing, 78.2, kg, 11/13/23 14:06:00 EDT, Weight Dosing duloxetine, 120 mg = 2 cap(s), Oral, Daily, 30 EA, TAKE 1 CAPSULE BY MOUTH EVERY DAY, X 90 day(s), # 180 cap(s), Refills(s) 3, [id number], 183.5, cm, 11/13/23 14:06:00 EDT, Height/Length [...] diphtheria/pertussis , acel/tetanus adult 12/31/2019 Recorded Normal [facility] Comment on above: Result Comment: Elec tronically Signed By: Mgehan Carmona.preethi\Date and Time Signed: 12/11/23 14:38 EDT Ambulatory Visit Summaryon 0 11-13-2023 Ambulatory Visit Summary Ambulatory Visit Summary SULAIMAN WHITE :1980 Visit Date:11/13/2023 Ambulatory Visit Instructions Your Diagnosis BMI 23.0-23.9, adult Smoker Your Care Team Attending Physician - Meghan Carmona Primary Care Physician - Meghan Carmona This Is Your Medications List atogepant [...] Follow-Up Appointments Sunday 1:40 PM EDT With: Meghan Carmona Where: [facility] [place] Normal [facility] Family Medicine Office/Clini c Noteon 11-13-2023 [...] TID, # 90 tab(s), Refills(s) 0, [id number] 183.5, cm, 11/13/23 14:06:00 EDT, Height/Length Dosing, 78.2, kg, 11/13/23 14:06:00 EDT, Weight Dosing methylPREDNISolone, = 1 packet(s), Oral, As Directed, as directed on package labeling, X 6 day(s), # 21 tab(s), Refills(s) 0, Pharmacy: [facility]/pharmacy #[id number], 183.5, cm, 11/13/23 14:06:00 EDT, Height/Length Dosing, 78.2, kg, 11/13/23 14:06:00 EDT, Weight Dosing 2. Herniated intervertebral disc of lumbar spine (M51.26: Other intervertebral disc displacement, lumbar region) pt still having back pain. will order medrol dose pack. may consider dry needling at [facility]. that helped the last time. Ordered: methylPREDNISolone, = 1 packet(s), Oral, As Directed, as directed on package labeling, X 6 day(s), # 21 tab(s), Refills(s) 0, Pharmacy: [facility]/pharmacy #[id number], 183.5, cm, 11/13/23 14:06:00 EDT, Height/Length Dosing, 78.2, kg, 11/13/23 14:06:00 EDT, Weight Dosing 3. BMI 23.0-23.9, adult (Z68.23: Body mass index [BMI] 23.0-23.9, adult) BMI education given Ordered: busPIRone, 7.5 mg = 1 tab(s), Oral, TID, # 90 tab(s), Refills(s) 0, [id number], 183.5, cm, 11/13/23 14:06:00 EDT, Height/Length Dosing, 78.2, kg, 11/13/23 14:06:00 EDT, Weight Dosing methylPREDNISolone, = 1 packet(s), Oral, As Directed, as directed on package labeling, X 6 day(s), # 21 tab(s), Refills(s) 0, [id number], 183.5, cm, 11/13/23 14:06:00 EDT, Height/Length Dosing, 78.2, kg, 11/13/23 14:06:00 EDT, Weight Dosing 4. Smoker (F17.200: Nicotine dependence, unspecified, uncomplicated) consider not smoking Ordered: busPIRone, 7.5 mg = 1 tab(s), Oral, TID, # 90 tab(s), Refills(s) 0, [id number], 183.5, cm, 11/13/23 14:06:00 EDT, Height/Length Dosing, 78.2, kg, 11/13/23 14:06:00 EDT, Weight Dosing methylPREDNISolone, = 1 packet(s), Oral, As Directed, as directed on package labeling, X 6 day(s), # 21 tab(s), Refills(s) 0, [id number], 183.5, cm, 11/13/23 14:06:00 EDT, Height/Length Dosing, 78.2, kg, 11/13/23 14:06:00 EDT, Weight Dosing Orders: duloxetine, 120 mg = 2 cap(s), Oral, Daily, 30 EA, TAKE 1 CAPSULE BY MOUTH EVERY DAY, # 60 cap(s), Refills(s) 1, [id number], 183.5, cm, 11/13/23 14:06:00 EDT, [...] 30 days (more content not included)... Normal [facility] Comment on above: Result Comment: Elec tronically Signed By: Meghan Carmona\.br\Date and Time Signed: 11/13/23 15:56 EDT Ambulatory Visit Summaryon 0 10-30-2023 Ambulatory Visit Summary SULAIMAN WHITE :1980 Visit Date:10/30/2023 Ambulatory Visit Instructions Your Care Team Attending Physician - Meghan Carmona Primary Care Physician - Meghan Carmona This Is Your Medications List atogepant [...] choosing us for your care. Normal [facility] Family Medicine Office/Clini c Noteon 10-30-2023 [...] send refills. RTC 6 months to update [facility] paperwork Ordered: atogepant, 60 mg = 1 tab(s), Oral, Daily, # 30 tab(s), Refills(s) 5, Pharmacy: [facility]/pharmacy #[id number], 183.5, cm, 10/30/23 13:58:00 EDT, Height/Length Dosing, 78.2, kg, 10/30/23 13:58:00 EDT, Weight Dosing atogepant, 60 mg = 1 tab(s), Oral, Daily, # 30 tab(s), Refills(s) 2, Pharmacy: [facility]/pharmacy #[id number], 183.5, cm, 10/02/23 13:13:00 EDT, Height/Length Dosing, 79.3, kg, 10/02/23 13:13:00 EDT, Weight Dosing BMI 23.0-23.9, adult (Z68.23: Body mass index [BMI] 23.0-23.9, adult) BMI education given Ordered: atogepant, 60 mg = 1 tab(s), Oral, Daily, # 30 tab(s), Refills(s) 5, Pharmacy: [facility]/pharmacy #[id number], 183.5, cm, 10/30/23 13:58:00 EDT, Height/Length Dosing, 78.2, kg, 10/30/23 13:58:00 EDT, Weight Dosing atogepant, 60 mg = 1 tab(s), Oral, Daily, # 30 tab(s), Refills(s) 2, Pharmacy: [facility]/pharmacy #[id number], 183.5, cm, 10/02/23 13:13:00 EDT, Height/Length Dosing, 79.3, kg, 10/02/23 13:13:00 EDT, Weight Dosing Smoker (F17.200: Nicotine dependence, unspecified, uncomplicated) consider not smoking Ordered: atogepant, 60 mg = 1 tab(s), Oral, Daily, # 30 tab(s), Refills(s) 5, [id number], 183.5, cm, 10/30/23 13:58:00 EDT, Height/Length Dosing, 78.2, kg, 10/30/23 13:58:00 EDT, Weight Dosing atogepant, 60 mg = 1 tab(s), Oral, Daily, # 30 tab(s), Refills(s) 2, [id number], 183.5, cm, 10/02/23 13:13:00 EDT, Height/Length Dosing, 79.3, kg, 10/02/23 13:13:00 EDT, Weight Dosing Orders: sumatriptan, 100 mg = 1 tab(s), Oral, As Directed, PRN Migraine headache, may repeat dose in 2 hours if needed . take onset migraine. max 200mg per day, # 18 tab(s), Refills(s) 1, [id number], 183.5, cm, 11/13/22 11:51:00 EDT, Height/Length Dosing... sumatriptan, 100 mg = 1 tab(s), Oral, As Directed, PRN Migraine headache, may repeat dose in 2 hours if needed . take onset migraine. max 200mg per day, # 18 tab(s), Refills(s) 1, [id number], 183.5, cm, 10/30/23 13:58:00 EDT, [...] mellitus type 2: Father. Hodgkin's disease: Father. [facility] Comment on above: Result Comment: Elec tronically Signed By: Meghan Carmona\.br\Date and Time Signed: 10/30/23 14:19 EDT Physician Orderon 10-05-2023 Physician Order [id number] #1.00TIFF [facility] Consultation Noteon 10-03-19 Consultation Note [id number]# 1.00TIFF [facility] Pre-Certification Formon Pre-Certification Form [id number] #1.00TIFF [facility] Family Medicine Office/Clini c Noteon 10-02-2023 Family [...] conjunction with sumatriptan as needed. will complete [facility] paperwork. Ordered: atogepant, 60 mg = 1 tab(s), Oral, Daily, # 30 tab(s), Refills(s) 2, Pharmacy: [facility]/pharmacy #[id number], 183.5, cm, 10/02/23 13:13:00 EDT, Height/Length Dosing, 79.3, kg, 10/02/23 13:13:00 EDT, Weight Dosing 2. BMI 23.0-23.9, adult (Z68.23: Body mass index [BMI] 23.0-23.9, adult) BMI education complete Ordered: atogepant, 60 mg = 1 tab(s), Oral, Daily, # 30 tab(s), Refills(s) 2, Pharmacy: [facility]/pharmacy #[id number], 183.5, cm, 10/02/23 13:13:00 EDT, Height/Length Dosing, 79.3, kg, 10/02/23 13:13:00 EDT, Weight Dosing 3. Smoker (F17.200: Nicotine dependence, unspecified, uncomplicated) consider not smoking Ordered: atogepant, 60 mg = 1 tab(s), Oral, Daily, # 30 tab(s), Refills(s) 2, Pharmacy: [facility]/pharmacy #[id number], 183.5, cm, 10/02/23 13:13:00 EDT, [...] mellitus type 2: Father. Hodgkin's disease: Father. [facility] Comment on above: Result Comment: Elec tronically Signed By: Meghan Carmona\.preethi\Date and Time Signed: 10/02/23 14:33 EDT Formson 10-02-2023 Forms [id number]# 1.00TIFF [facility] Consultation Noteon 07-10-19 Consultation Note [id number] #1.00TIFF [facility] RAD - MISCon 03-22-2023 RAD - MIS [id number] #1.00TIFF [facility] Refillon 01-14-2023 Refill [id number] Sulaiman White 1980 M Date Provider Department Center 01/14/2023 490-BEAR, VENKAT MP ORTHO MPORTHO No family history on file Reason for Visit and Comments: Med Refill [[id number]] Normal [facility] 36on 12-18-2022 36 Approving, but needs appt for additional refills. Normal [facility] Follow-Upon 12-01-2022 Follow-Up [id number] Sulaiman White 1980 M Date Provider Department Center 12/01/2022 LUCERO MUÑOZ MP ORTHO MPORTHO No family history on file Level of Service:37113 [place] OFFICE/OUTPATIENT ESTABLISHED LOW MDM 20-29 MIN () Reason for Visit and Comments: Follow-up [[id number]] [facility] CHEMISTRYOrdered By: SYSTEM SYSTEM on 11-13-2022 Albumin [...] - 20 [facility] Follow-Upon 08-30-2022 Follow-Up [id number] Sulaiman White 1980 M Date Provider Department Center 08/30/2022 421-LUCERO ROGERS MP ORTHO MPORTHO No family history on file Level of Service:56113 [place] POSTOP FOLLOW UP VISIT RELATED TO ORIGINAL PX Reason for Visit and Comments: Follow-up [[id number]] - [facility] R ankle follow up Normal [facility] 36on 08-21-2022 36 Approving, but needs appt for additional refills. Normal [facility] HPon 08-16-2022 HP H&P reviewed. The patient was examined and there are no changes to the H&P. Normal [facility] OPNOTEon 08-16-2022 [facility] ORTHOPAEDIC SURGERY OPERATIVE REPORT Date of Surgery: 08/16/2022 Surgeon: Lucero Rogers MD Business Analytics Director: Smita Burton MD Preoperative Diagnosis: Symptomatic [...] MD Orthopaedic Surgery Resident, PGY-2 08/16/22 Normal [facility] POCT GLUCOSE METER UNSOLICIT ED RESULTSon 08-16-2022 Glucose [Mass/Vol] 98 mg/dL Normal 70-105 [facility] Comment on above: Result Comment: lweb er4 Performed By: #### L [id number] ####[facility] ([facility])[address] [place] [address] Follow-Upon 08-04-2022 Follow-Up [id number] Sulaiman White 1980 M Date Provider Department Center 08/04/2022 Dee-LUCERO ROGERS MP ORTHO MPORTHO No family history on file Level of Service:06149 [place] OFFICE/OUTPATIENT ESTABLISHED MOD MDM 30-39 MIN (GC,57) Reason for Visit and Comments: Pain [136] Normal [facility] HPon 08-04-2022 HP Subjective Chief complaint: Chief Complaint Patient presents with Right Ankle - Pain 08/04/22 Sulaiman White is a 42 y.o. year old male [facility] presenting for evaluation of right ankle [...] Brock MD Orthopedic Surgery Resident Physician Pager: [phone] 08/04/22 9:04 AM By using the attestations [...] an additional personal documentation from me. Normal [facility] Labon 08-04-2022 Lab [id number] Sulaiman White 1980 M Date Provider Department Center 08/04/2022 2244-[facility] MP LAB RESOURCE MP DRAW Medical Pavi No family history on file Normal [facility] MRSA/MSSA DNA NASALon 2022 MRSA DNA Negative Normal Negative [facility] Comment on above: Performed By: #### L [id number] ####[facility] ([facility]ER)[address] [place] [address] MSSA DNA Negative Normal Negative [facility] Comment on above: Performed By: #### L [id number] ####[facility] ([facility])[address] [place] [address] Prep for Procedureon 023 Prep for Procedure [id number] Sulaiman White 1980 M Date Provider Department Center 08/04/2022 LUCERO MUÑOZ MP ORTHO MPORTHO No family history on file [facility] Follow-Upon 07-25-2022 Follow-Up [id number] Sulaiman White 1980 M Date Provider Department Center 07/25/2022 VENKAT DEL ANGEL MP ORTHO MPORTHO No family history on file Level of Service:99134 [place] OFFICE/OUTPATIENT ESTABLISHED LOW MDM 20-29 MIN Reason for Visit and Comments: Follow-up [[id number]] - Review of xr [facility] 36on 07-19-2022 36 Approving, but needs appt for additional refills. [facility] 36on 06-19-2022 36 Approving, but needs appt for additional refills. [facility] 36on 05-22-2022 36 Approving, but needs appt for additional refills. [facility] 36on 04-24-2022 36 Approving, but needs appt for additional refills. [facility] Follow-Upon 04-18-2022 Follow-Up [id number] Sulaiman White 1980 M Date Provider Department Center 04/18/2022 VENKAT DEL ANGEL MP ORTHO MPORTHO No family history on file Level of Service:69268 [place] OFFICE/OUTPATIENT ESTABLISHED LOW MDM 20-29 MIN Reason for Visit and Comments: Follow-up [[id number]] - [facility] Pt here today for right ankle follow up with xr [facility] Refillon 03-28-2022 Refill [id number] Melvin Whiteel 1980 M Date Provider Department Center 03/28/2022 VENKAT DEL ANGEL MP ORTHO MPORTHO No family history on file Reason for Visit and Comments: Med Refill [[id number]] [facility] Follow-Upon 02-14-2022 Follow-Up [id number] Melvin Whiteel 1980 M Date Provider Department Center 02/14/2022 490-BEAR, VENKAT MP ORTHO MPORTHO No family history on file Level of Service:83538 [place] OFFICE/OUTPATIENT ESTABLISHED LOW MDM 20-29 MIN Reason for Visit and Comments: Follow-up [030230] - Pt present for right ankle pain, with review of xrays Normal [facility] ANKLE RIGHT 3 Son 12-24-19 22 ANKLE RIGHT 3 S [facility] Department of Radiology [address] [place] [id number] Patient Name: SULAIMAN WHITE : 1980 Sex: M Age: Race: White Pt. Location: Patient Status: D Ordered Date: 12/23/2021 2:15:00 PM Completed Date: 12/23/2021 02:16 PM Requesting Provider: VENKAT SIFUENTES Attending Provider: VENKAT SIFUENTES Report Copy To: Signs & Symptoms: M25.571 Pain in right ankle and joints of right foot I10 History: [place] Comments: Exam: ANKLE RIGHT 3 [facility] ANKLE RIGHT 3 S 12/23/2021 [...] maintained Electronically signed: Lexy Burnett. Transcribed by: [email or web address], User Resident: Electronically Signed by: LEXY BURNETT @ 12/25/2021 02:51 PM Normal [facility] ANKLE RIGHT 3 [facility] 11-12-19 22 ANKLE RIGHT 3 [facility] Department of Radiology [address] [place] [phone] Patient Name: SULAIMAN WHITE : 1980 Sex: M Age: Race: White Pt. Location: Patient Status: D Ordered Date: 11/11/2021 10:40:00 AM Completed Date: 11/11/2021 10:41 AM Requesting Provider: VENKAT SIFUENTES Attending Provider: VENKAT SIFUENTES Report Copy To: SELF, REFERRED Signs & Symptoms: M25.571 Pain in right ankle and joints of right foot I10 History: [place] Comments: Exam: ANKLE RIGHT 3 [facility] ANKLE RIGHT 3 [facility] 11/11/2021 10:41 AM SIGNS AND [...] swelling. Electronically signed: Brent Dooley. Transcribed by: [email or web address], User Resident: BRENT DOOLEY Electronically Signed by: BRENT DOOLEY @ 11/13/2021 02:39 PM I personally read this/these film(s) with this resident Normal [facility] ANKLE RIGHT 3 [facility] 10-13-19 ANKLE RIGHT 3 [facility] Department of Radiology [address] [place] [phone] Patient Name: SULAIMAN WHITE : 1980 Sex: M Age: Race: White Pt. Location: Patient Status: D Ordered Date: 10/12/2021 1:20:00 PM Completed Date: 10/12/2021 01:53 PM Requesting Provider: VENKAT SIFUENTES Attending Provider: VENKAT SIFUENTES Report Copy To: SELF, REFERRED Signs & Symptoms: S82.831A Oth fracture of upper and lower end of right fibula, init I10 History: Comments: evaluate Exam: ANKLE RIGHT 3 [facility] ANKLE RIGHT 3 [facility] 10/12/2021 1:53 PM CLINICAL INDICATIONS: [...] change Electronically signed: Lexy Peterson. Transcribed by: [email or web address], User Resident: Electronically Signed by: LEXY PETERSON @ 10/13/2021 02:03 PM Normal [facility] Comment on above: Order Comment: Evalu ate ANKLE RIGHT 3 [facility] 09-15-19 ANKLE RIGHT 3 S [facility] Department of Radiology [address] [place] [phone] Patient Name: SULAIMAN WHITE : 1980 Sex: M Age: Race: White Pt. Location: Patient Status: D Ordered Date: 09/14/2021 1:30:00 PM Completed Date: 09/14/2021 01:34 PM Requesting Provider: VENKAT SIFUENTES Attending Provider: VENKAT SIFUENTES Report Copy To: SELF, REFERRED Signs & Symptoms: S82.831A Oth fracture of upper and lower end of right fibula, init I10 History: [place] Comments: Exam: ANKLE RIGHT 3 S ANKLE [...] complications. Electronically signed: Carline Alejandre. Transcribed by: [email or web address], User Resident: Electronically Signed by: CARLINE ALEJANDRE @ 09/16/2021 10:25 AM Normal [facility] ANKLE RIGHT 3 [facility] 08-30-19 ANKLE RIGHT 3 [facility] Department of Radiology [address] [place] [phone] Patient Name: SULAIMAN WHITE : 1980 Sex: M Age: Race: White Pt. Location: Patient Status: D Ordered Date: 07/18/2021 10:05:00 AM Completed Date: 08/29/2021 01:52 PM Requesting Provider: THANIA HOWARD Attending Provider: THANIA HOWARD Report Copy To: Signs & Symptoms: S82.831A Oth fracture of upper and lower end of right fibula, init I10 History: Comments: Evaluate Exam: ANKLE RIGHT 3 [facility] ANKLE RIGHT 3 S 08/29/2021 [...] report. Electronically signed: Radha Lane. Transcribed by: [email or web address], User Resident: GALLO HAIR Electronically Signed by: RADHA LANE @ 08/30/2021 11:45 AM I personally read this/these film(s) with this resident Normal [facility] Comment on above: Order Comment: Evalu ate FOOT RIGHT 2 [facility] 2 FOOT RIGHT 2 [facility] Department of Radiology [address] [place] [phone] Patient Name: SULAIMAN WHITE : 1980 Sex: M Age: Race: White Pt. Location: Patient Status: D Ordered Date: 08/29/2021 1:15:00 PM Completed Date: 08/29/2021 01:52 PM Requesting Provider: VENKAT SIFUENTES Attending Provider: Report Copy To: Signs & Symptoms: M79.671 Pain in right foot I10 History: Comments: evaluate Exam: FOOT RIGHT 2 [facility] FOOT RIGHT 2 S 08/29/2021 [...] report. Electronically signed: Radha Lane. Transcribed by: [email or web address], User Resident: GALLO HAIR Electronically Signed by: RADHA LANE @ 08/30/2021 11:44 AM I personally read this/these film(s) with this resident Normal [facility] Comment on above: Order Comment: Evalu ate ANKLE RIGHT 3 [facility] 08-02-19 22 ANKLE RIGHT 3 S [facility] Department of Radiology [address] [place] [phone] Patient Name: SULAIMAN WHITE : 1980 Sex: M Age: Race: White Pt. Location: Patient Status: Ordered Date: 08/01/2021 9:25:00 AM Completed Date: 08/01/2021 09:40 AM Requesting Provider: THANIA HOWARD Attending Provider: Report Copy To: Signs & Symptoms: Z48.89 Encounter for other specified surgical aftercare I10 History: Comments: Evaluate Exam: ANKLE RIGHT 3 [facility] ANKLE RIGHT 3 S 08/01/2021 [...] report. Electronically signed: Rafy Trejo. Transcribed by: [email or web address], User Resident: ARISTEO MEYER Electronically Signed by: RAFY TREJO @ 08/01/2021 10:04 AM I personally read this/these film(s) with this resident Normal [facility] Comment on above: Order Comment: Evalu ate FOOT RIGHT 2 Son 2 FOOT RIGHT 2 S [facility] Department of Radiology [address] [place] [phone] Patient Name: SULAIMAN WHITE : 1980 Sex: M Age: Race: White Pt. Location: 84 Patient Status: O Ordered Date: 08/01/2021 10:10:00 AM Completed Date: 08/01/2021 10:29 AM Requesting Provider: VENKAT SIFUENTES Attending Provider: THANIA HOWARD Report Copy To: Signs & Symptoms: M79.671 Pain in right foot I10 History: [place] Comments: Evaluate Exam: FOOT RIGHT 2 VWS [...] well-preserved. Electronically signed: Rafy Trejo. Transcribed by: [email or web address], User Resident: Electronically Signed by: RAFY TREJO @ 08/01/2021 10:35 AM Normal [facility] Comment on above: Order Comment: Evalu ate *MRSA/MSSA DNA NASALon 07-20 *MRSA/MSSA DNA NASAL Clinical Report: (D ) Specimen: NASAL SWAB Collected: 07/20/2021 17:31 Status: Final Last Updated: 07/20/2021 21:23 (1) No collection time noted on specimen or requisition. The collection time recorded is the time of receipt in the lab. MSSA DNA (Final) Negative MRSA DNA (Final) Negative Normal [facility] Comment on above: Order Comment: Evalu ate Performed By: #### 3 1595 ####[facility] [place], [place] [address] ANKLE RIGHT 2 [facility] 07-21-19 ANKLE RIGHT 2 [facility] Department of Radiology [address] [place] [address] Patient Name: SULAIMAN WHITE : 1980 Sex: M Age: Race: White Pt. Location: OUTP Patient Status: D Ordered Date: 07/20/2021 12:00:00 PM Completed Date: 07/20/2021 01:11 PM Requesting Provider: THANIA HOWARD Attending Provider: THANIA HOWARD Report Copy To: Signs & Symptoms: ORIF RIGHT FIBULA History: Comments: ORIF RIGHT FIBULA Exam: ANKLE RIGHT 2 [facility] EXAMINATION: ANKLE RIGHT 2 [facility] 07/20/2021 1:11 PM CLINICAL HISTORY: [...] above. Electronically signed: Joe Freeman. Transcribed by: [email or web address], User Resident: Electronically Signed by: JOE FREEMAN @ 07/21/2021 07:59 AM Normal [facility] Comment on above: Order Comment: ORIF RIGHT FIBULA Operative Reporton 2 Operative Report MR#: [id number] S [facility] Pt. Name: Sulaiman White Room #: [...] b (more content not included)... Normal [facility] POC GLUCOSE LABon 07-20-2021 Glucose [Mass/Vol] 106 mg/dL High 70-100 [facility] Comment on above: Performed By: #### 8 5499 #### [facility] [address] [facility]. [address] POC SARS COV2 IDon 2 SARS-CoV-2 (COVID-19) RNA RONIT+probe Ql (Unsp spec) Negative Normal NEGATIVE [facility] Comment on above: Result Comment: ID [...] Accreditation. Performed By: #### 3 1921 #### [facility] [address] *MRSA/MSSA DNA NASALon 07-18 *MRSA/MSSA DNA NASAL Clinical Report: (D ) Specimen: NASAL SWAB Collected: 07/18/2021 10:21 Status: Final Last Updated: 07/18/2021 15:35 MSSA DNA (Final) Negative MRSA DNA (Final) Negative Normal [facility] Comment on above: Performed By: #### 3 1595 #### [facility] [address] [facility]. [address] *SARS-CoV-2 COVID-19on 07-18 SARS-CoV-2 (COVID-19) RNA RONIT+probe Ql (Unsp spec) Not detected Normal Not Detected [facility] Comment on above: Order Comment: The A ptima SARS-CoV-2 assay is a nucleic acid amplification test intended for the qualitative detection of RNA from SARS-CoV-2 isolated and purified from nasopharyngeal (CORK TIPPER),oropharyngeal (OP), nasal swab, sputum, and bronchoalveolar lavage (BAL) specimens from patients with signs and symptoms of infection who are suspected of COVID-19. Results are for the identification of SARS-CoV-2 RNA. The SARS-CoV-2 RNA is generally detectable during the acute phase of infection. The Aptima SARS-CoV-2 Assay on the [employer] and [place] [employer] system is intended for use by laboratory personnel specifically instructed and trained in the operation of the [place] [employer] system. The Aptima SARS-CoV-2 assay is [...] information. Performed By: #### 3 1792 #### [facility] [address] [facility]. [place], [place] [id number] [place] [address] APTTon 07-18-2021 aPTT Coag (Bld) [Time] 28.9 s Normal 25.0-35.0 [facility] Comment on above: Result Comment: ALL [...] THIS PURPOSE. Performed By: #### 5 7307, [address] ####[place] [address] [facility].[address] BASIC METABOLIC PANELon 03-0 -2021 Calcium [Mass/Vol] 8.9 mg/dL Normal 8.6-10.3 [facility] Comment on above: Performed By: #### 3 727, 62371 ####[place] [address] [facility] [place] [address], [facility] Chloride [Moles/Vol] 102 mmol/L Normal 98-107 [facility] Comment on above: Performed By: #### 3 727, 69765 ####[place] [address] [facility] [place] [address], [facility] CO2 [Moles/Vol] 26 mmol/L Normal 21-31 [facility] Comment on above: Performed By: #### 3 727, 74389 ####[place] [address] [facility].[address] Creatinine [Mass/Vol] 1.10 mg/dL Normal 0.70-1.30 [facility] Comment on above: Performed By: #### 3 727, 34058 ####[place] [address] [facility] [place] [address], [facility] GFR/1.73 sq M.predicted among blacks MDRD (S/P/Bld) [Vol rate/Area] mL/min/{1.73_m2} Normal >60 [facility] Comment on above: Performed By: #### 3 727, 31178 ####[place] [address] [facility] [place] [address], [facility] GFR/1.73 sq M.predicted among non-blacks MDRD (S/P/Bld) [Vol rate/Area] mL/min/{1.73_m2} Normal >60 [facility] Comment on above: Performed By: #### 3 727, 81921 ####[facility].[address] Glucose [Mass/Vol] 99 mg/dL Normal 70-100 [facility] Comment on above: Performed By: #### 3 727, 85267 ####[facility].[address] Potassium [Moles/Vol] 4.2 mmol/L Normal 3.5-5.1 [facility] Comment on above: Performed By: #### 3 727, 44662 ####[facility].[address] Sodium [Moles/Vol] 135 mmol/L Low 136-145 [facility] Comment on above: Performed By: #### 3 727, 25476 ####[facility].[address] Urea nitrogen [Mass/Vol] 19 mg/dL Normal 7-25 [facility] Comment on above: Performed By: #### 3 727, 56523 ####[facility] [facility].[address] CBC W/DIFFon 07-18-2021 ABS IMM GRANS 0.0 10*3/uL Normal 0.0-0.2 [facility] Comment on above: Performed By: #### 5 0103 ####[facility] [facility].[address] ABS NEUTROPHILS 5.5 10*3/uL Normal 1.6-7.6 The [facility] Comment on above: Performed By: #### 5 3 ####[place] [address] [facility] [place] [address], [facility] Basophils (Bld) [#/Vol] 0.0 10*3/uL Normal 0.0-0.2 [facility] Comment on above: Performed By: #### 5 0103 ####[facility] [facility] [facility] [place] [address], [facility] Basophils/100 WBC (Bld) 0.5 % Normal 0.0-1.0 [facility] Comment on above: Performed By: #### 5 0103 ####[facility] [facility] [facility] [place] [address], [facility] Eosinophils (Bld) [#/Vol] 0.2 10*3/uL Normal 0.0-0.5 [facility] Comment on above: Performed By: #### 5 0103 ####[facility] [facility] [facility] [place] [address], [facility] Eosinophils/100 WBC (Bld) 2.9 % Normal 0.0-6.0 [facility] Comment on above: Performed By: #### 5 0103 ####[place] [address] [facility].[address] Erythrocyte distribution width (RBC) [Ratio] 12.5 % Normal 11.5-15.0 [facility] Comment on above: Performed By: #### 5 3 ####[facility] [place] [address], [facility] Hematocrit (Bld) [Volume fraction] 38.5 % Low 39.0-50.0 [facility] Comment on above: Performed By: #### 5 3 ####[facility] [facility] [place] [address], [facility] Hemoglobin (Bld) [Mass/Vol] 13.0 g/dL Normal 13.0-17.0 [facility] Comment on above: Performed By: #### 5 3 ####[facility] [facility].[address] IMMATURE GRANS 0.5 % Normal 0.0-1.0 [facility] Comment on above: Performed By: #### 5 0103 ####[facility] Lymphocytes (Bld) [#/Vol] 1.8 10*3/uL Normal 1.2-4.0 [facility] Comment on above: Performed By: #### 5 3 ####[facility] Lymphocytes/100 WBC (Bld) 21.9 % Normal 20.0-45.0 [facility] Comment on above: Performed By: #### 5 102 ####[address] MCH (RBC) [Entitic mass] 31.1 pg Normal 27.0-33.0 [facility] Comment on above: Performed By: #### 102 ####[place] [address] MCHC (RBC) [Mass/Vol] 33.8 g/dL Normal 32.0-35.0 [facility] Comment on above: Performed By: #### 3 ####[facility] MCV (RBC) [Entitic vol] 92.1 fL Normal 82.0-98.0 [facility] Comment on above: Performed By: #### 5 3 ####[address] Monocytes (Bld) [#/Vol] 0.6 10*3/uL Normal 0.1-1.0 [facility] Comment on above: Performed By: #### 5 3 ####[address] [place] [address], [facility] MONOS 7.5 % Normal 5.0-12.0 [facility] Comment on above: Performed By: #### 5 0103 ####[facility] [place] [address], [facility] Neutrophils/100 WBC (Bld) 66.7 % Normal 40.0-72.0 [facility] Comment on above: Performed By: #### 5 0103 ####[place] [address], [facility] Nucleated RBC/100 WBC (Bld) [Ratio] 0 % Normal 0-0 [facility] Comment on above: Performed By: #### 5 0103 ####[address] PLAT CNT 283 10*3/uL Normal 150-400 The [facility] Comment on above: Performed By: #### 5 0103 ####[place] [address], [facility] RBC (Bld) [#/Vol] 4.18 10*6/uL Low 4.20-5.70 [facility] Comment on above: Performed By: #### 5 0103 ####[place] [address], [facility] WBC (Bld) [#/Vol] 8.23 10*3/uL Normal 4.00-10.60 [facility] Comment on above: Performed By: #### 5 0103 ####[address] PROTHROMBIN TIMEon 2 INR Coag (PPP) [Relative time] 0.96 {INR} Normal 0.91-1.16 [facility] Comment on above: Result Comment: ACCC [...] CHEST 1995;108:231S-246S. Performed By: #### 5 7307, 91860 ####[place] [address] PT Coag (PPP) [Time] 12.7 s Normal 12.3-14.8 [facility] Comment on above: Result Comment: ALL RESULTS MUST BE INTERPRETED WITH RESPECT TO BLOOD DRAWING ARTIFACT OR DILUTION ERROR OF ANTICOAGULANT AT THE TIME OF SAMPLING. Performed By: #### 5 7307, 32243 ####[place] [address] VITAMIN D 25-HYDROXYon 07-18 VITAMIN D 25-OH 18.8 ng/mL Low 30.0-80.0 [facility] Comment on above: Result Comment: >80. 0 Toxicity possible Performed By: #### 3 0728, [address] ####[address] XR ANKLE RT MIN 3 VIEWSon [...] Eron KWAN Date: 2021-07-14 05:45 Normal [facility] XR Hip Complete Righton 04-13 XR Hip Complete Right HISTORY: Pain, popping FINDINGS: Normal hip joint space. No pincer or CAM deformities. No cortical or stress fracture. IMPRESSION: Minimal arthritis. Report reported and signed by Sánchez Briscoe on 04/22/2021 1103 Normal [facility] Assistant Research Scientist CBC AUTO DIFFon 04-12-2021 BASO # 0.0 103/ul Normal 0.0-0.1 [facility] Comment on above: Performed By: #### C BC #### [facility] [address] [place] [address] Dr. Martha Schmid Basophils/100 WBC (Bld) 0.4 % Normal 0.2-2.0 [facility] Comment on above: Performed By: #### C BC #### [facility] [address] [place] [address] Dr. Martha Schmid EO # 0.3 103/ul Normal 0.0-0.7 [facility] Comment on above: Performed By: #### C BC #### [facility] [address] [place] [address] Dr. Martha Schmid Eosinophils/100 WBC (Bld) 4.2 % Normal 0.9-7.0 [facility] Comment on above: Performed By: #### C BC #### [facility] [address] [place] [address] Dr. Martha Schmid Erythrocyte distribution width (RBC) [Ratio] 12.5 % Normal 11.0-15.0 [facility] Comment on above: Performed By: #### C BC #### [facility] [address] [place] [address] Dr. Martha Schmid Hematocrit (Bld) [Volume fraction] 39.7 % Critically low 42.0-54.0 [facility] Comment on above: Performed By: #### C BC #### [facility] [address] [place] [address] Dr. aMrtha Schmid Hemoglobin (Bld) [Mass/Vol] 13.1 g/dL Critically low 14.0-18.0 [facility] Comment on above: Performed By: #### C BC #### [facility] [address] [place] [address] Dr. Martha Schmid IG # 0.02 10e3/ul Normal 0.00-0.03 [facility] Comment on above: Performed By: #### C BC #### [facility] [address] [place] [address] Dr. Martha Schmid IG % 0.3 % Normal 0.0-0.5 [facility] Comment on above: Performed By: #### C BC #### [facility] [address] [place] [address] Dr. Martha Schmid LYMPH # 1.9 103/ul Normal 1.2-3.8 [facility] Comment on above: Performed By: #### C BC #### [facility] [address] [place] [address] Dr. Martha Schmid Lymphocytes/100 WBC (Bld) 24.4 % Normal 20.5-60.0 [facility] Comment on above: Performed By: #### C BC #### [facility] [address] [place] [address] Dr. Martha Schmid MANUAL DIFF REQ NO Normal [facility] Comment on above: Performed By: #### C BC #### [facility] [address] [place] [address] Dr. Martha Schmid MCH (RBC) [Entitic mass] 31.3 pg Normal 25.9-34.0 [facility] Comment on above: Performed By: #### C BC #### [facility] [address] [place] [address] Dr. Martha Schmid MCHC (RBC) [Mass/Vol] 33.0 g/dL Normal 29.9-35.2 [facility] Comment on above: Performed By: #### C BC #### [facility] [address] [address] [address] Martha Schmid MCV (RBC) [Entitic vol] 94.7 fL Critically high 80.0-94.0 [facility] Comment on above: Performed By: #### C BC #### [facility] [address] [address] [address] Martha Schmid MONO # 0.6 103/ul Normal 0.3-0.8 [facility] Comment on above: Performed By: #### C BC #### [facility] [address] [address] [address] Martha Schmid Monocytes/100 WBC (Bld) 8.2 % Normal 1.7-12.0 [facility] Comment on above: Performed By: #### C BC #### [facility] [address] [address] [address] Martha Schmid NEUT # 4.9 103/ul Normal 1.4-6.5 [facility] Comment on above: Performed By: #### C BC #### [facility] [address] [address] [address] Martha Schmid Neutrophils/100 WBC (Bld) 62.5 % Normal 43.0-75.0 [facility] Comment on above: Performed By: #### C BC #### [facility] [address] [address] [address] Martha Schmid Platelet mean volume (Bld) [Entitic vol] 9.6 fL Normal 9.5-13.5 [facility] Comment on above: Performed By: #### C BC #### [facility] [address] [address] [address] Martha Schmid PLT 247 103/ul Normal 150-450 [facility] Comment on above: Performed By: #### C BC #### [facility] [address] [address] [address] Martha Schmid RBC 4.19 106/ul Critically low 4.70-6.10 [facility] Comment on above: Performed By: #### C BC #### [facility] [address] [address] [address] Martha Schmid WBC 7.8 103/ul Normal 4.0-11.0 [facility] Comment on above: Performed By: #### C BC #### [facility] [address] [address] [address] Martha Schmid GLYCOHEMOGLOBIN A1Con 2020 ADA RECOMMENDATION ADA THERAPEUTIC TARGET 6.0 - 7.0 ACTION SUGGESTED > 7.0 Normal [facility] Comment on above: Performed By: #### A 1C #### [facility] [address] [place] [address] Dr. Martha Schmid Glucose [Mass/Vol] 108 mg/dL Normal [facility] Comment on above: Performed By: #### A 1C #### [facility] [address] [place] [address] Dr. Martha Shcmid HbA1c (Bld) [Mass fraction] 5.4 % Normal <=6.0 [facility] Comment on above: Performed By: #### A 1C #### [facility] [address] [place] [address] Dr. Martha Schmid LIPID PROFILEon 04-12-2021 CHOL-HDL RATIO NORM SEE BELOW Normal [facility] Comment on above: Result Comment: 3.3 - 4.4 LOW RISK 4.4 - 7.1 AVERAGE RISK 7.1 - 11.0 MODERATE RISK >11.0 HIGH RISK Performed By: #### C MP, LIPID #### [facility] [address] [place] [address] Dr. Martha Schmid Cholesterol [Mass/Vol] 181 mg/dL Normal <=200 [facility] Comment on above: Performed By: #### C MP, LIPID #### [facility] [address] [place] [address] Dr. Martha Schmid Cholesterol in HDL [Mass/Vol] 44 mg/dL Normal [facility] Comment on above: Performed By: #### C MP, LIPID #### [facility] [address] [place] [address] Dr. Martha Schmid Cholesterol in LDL [Mass/Vol] 118.4 mg/dL Normal [facility] Comment on above: Performed By: #### C MP, LIPID #### [facility] [address] [address] [address] Martha Schmid Cholesterol.total/Ch olesterol in HDL [Mass ratio] 4.1 {ratio} Normal [facility] Comment on above: Performed By: #### C MP, LIPID #### [facility] [address] [address] [address] Martha Schmid HDL NORMAL > or = 60 mg/dl - LOW CARDIOVASCULAR RISK <40 mg/dl - HIGH CARDIOVASCULAR RISK Normal [facility] Comment on above: Performed By: #### C MP, LIPID #### [facility] [address] [place] [address] Dr. Martha Schmid LDL CALC NORMAL SEE BELOW Normal [facility] Comment on above: Result Comment: <100 mg/dl OPTIMAL 100 - 129 mg/dl NEAR OR ABOVE OPTIMAL 130 - 159 mg/dl BORDERLINE HIGH 160 - 189 mg/dl HIGH >190 mg/dl VERY HIGH Performed By: #### C MP, LIPID #### [facility] [address] [place] [address] Dr. Martha Schmid Triglyceride [Mass/Vol] 93 mg/dL Normal <=150 [facility] Comment on above: Performed By: #### C MP, LIPID #### [facility] [address] [place] [address] Dr. Martha Schmid VLDL CALC 18.6 mg/dL Normal [facility] Comment on above: Performed By: #### C MP, LIPID #### [facility] [address] [place] [address] Dr. Martha Schmid PROF 14(COMP METB)on 021 Albumin [Mass/Vol] 3.9 g/dL Normal 3.5-5.0 [facility] Comment on above: Performed By: #### C MP, LIPID #### [facility] [address] [place] [address] Dr. Martha Schmid Albumin/Globulin [Mass ratio] 1.1 {ratio} Normal [facility] Comment on above: Performed By: #### C MP, LIPID #### [facility] [address] [address] [address] Martha Schmid ALP [Catalytic activity/Vol] 53 U/L Normal 38-126 [facility] Comment on above: Performed By: #### C MP, LIPID #### [facility] [address] [address] [address] Martha Schmid ALT [Catalytic activity/Vol] 25 U/L Normal 21-72 [facility] Comment on above: Performed By: #### C MP, LIPID #### [facility] [address] [address] [address] Martha Schmid Anion gap [Moles/Vol] 10.4 mmol/L Normal [facility] Comment on above: Performed By: #### C MP, LIPID #### [facility] [address] [place] [address] Dr. Martha Schmid AST [Catalytic activity/Vol] 18 U/L Normal 17-59 [facility] Comment on above: Performed By: #### C MP, LIPID #### [facility] [address] [address] [address] Martha Schmid Bilirubin [Mass/Vol] 0.4 mg/dL Normal 0.2-1.3 [facility] Comment on above: Performed By: #### C MP, LIPID #### [facility] [address] [address] [address] Martha Schmid Calcium [Mass/Vol] 9.4 mg/dL Normal 8.4-10.2 [facility] Comment on above: Performed By: #### C MP, LIPID #### [facility] [address] [address] [address] Martha Schmid Chloride [Moles/Vol] 102 mmol/L Normal 98-107 [facility] Comment on above: Performed By: #### C MP, LIPID #### [facility] [address] [address] [address] Martha Schmid CO2 [Moles/Vol] 29.9 mmol/L Normal 22.0-30.0 [facility] Comment on above: Performed By: #### C MP, LIPID #### [facility] [address] [place] [address] Dr. Martha Schmid Creatinine [Mass/Vol] 0.98 mg/dL Normal 0.66-1.25 [facility] Comment on above: Performed By: #### C MP, LIPID #### [facility] [address] [place] [address] Dr. Martha Schmid EGFR-AF PERUVIAN >60 Normal >=60 [facility] Comment on above: Performed By: #### C MP, LIPID #### [facility] [address] [address] [address] Martha Schmid EGFR-NON AF PERUVIAN >60 Normal >=60 [facility] Comment on above: Performed By: #### C MP, LIPID #### [facility] [address] [place] [address] Dr. Martha Schmid Globulin (S) [Mass/Vol] 3.6 g/dL Normal [facility] Comment on above: Performed By: #### C MP, LIPID #### [facility] [address] [place] [address] Dr. Martha Schmid Glucose [Mass/Vol] 89 mg/dL Normal 74-106 [facility] Comment on above: Performed By: #### C MP, LIPID #### [facility] [address] [place] [address] Dr. Martha Schmid Potassium [Moles/Vol] 4.3 mmol/L Normal 3.4-5.0 [facility] Comment on above: Performed By: #### C MP, LIPID #### [facility] [address] [place] [address] Dr. Martha Schmid Protein [Mass/Vol] 7.5 g/dL Normal 6.1-8.2 [facility] Comment on above: Performed By: #### C MP, LIPID #### [facility] [address] [place] [address] Dr. Martha Schmid Sodium [Moles/Vol] 138 mmol/L Normal 137-145 [facility] Comment on above: Performed By: #### C MP, LIPID #### [facility] [address] [place], [place] [address] Dr. Martha Schmid Urea nitrogen [Mass/Vol] 16.0 mg/dL Normal 9.0-20.0 [facility] Comment on above: Performed By: #### C MP, LIPID #### [facility] [address] [place], [place] [address] Dr. Martha Schmid Urea nitrogen/Creatinine [Mass ratio] 16.3 mg/mg Normal [facility] Comment on above: Performed By: #### C MP, LIPID #### [facility] [address] [place], [place] [address] Dr. Martha Schmid Vital Signs Date Time Vital Sign Value Performing Clinician Roberto cohen 06-26-2024 11:20-0500 Body height 188 cm Franco NGUYỄN Work Phone: [facility] 06-26-2024 11:20-0500 Body mass index (BMI) [Ratio] 22.73 kg/m2 Franco NGUYỄN Work Phone: [facility] 06-26-2024 11:20-0500 Body weight 80.29 kg Franco NGUYỄN Work Phone: [facility] Encounters Encounter Date Encounter Type Care Provider Facility Start: 06-26-2024 ambulatory FRANCO FISCHER Facil ity:[facility] Start: 06-26-2024 End: 06-26-2024 Subsequent hospital visit by physician Franco NGUYỄN Work Phone: [facility] Comment on above: Arrived Start: 06-26-2024 End: 06-26-2024 Office outpatient new 30 minutes Franco NGUYỄN Work Phone: [facility] Comment on above: 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 (Primary Dx); Chronic back pain, unspecified back location, unspecified back pain laterality; Lumbar radiculopathy; Neural foraminal stenosis of lumbar spine; Degeneration of intervertebral disc of lumbar region with discogenic back pain and lower extremity pain; Sacroiliac pain Start: 06-26-2024 ambulatory MEGHAN ODELL Facility:[facility] Start: 03-12-2024 End: 03-12-2024 ambulatory Meghan L Odell Facility:[facility] [place] Start: 02-14-2024 End: 02-14-2024 ambulatory Erwin Stafford Facility:[facility] Start: 02-14-2024 End: 02-14-2024 Departed Referred DPM Erwin Stafford Work Phone: [facility] Start: 12-11-2023 End: 12-11-2023 ambulatory Meghan L Odell Facility: [facility] [place] Start: 11-13-2023 End: 11-13-2023 ambulatory Meghan L Odell Facility: [facility] [place] Start: 10-30-2023 End: 10-30-2023 ambulatory Meghan L Odell Facility: [facility] [place] Start: 10-02-2023 End: 10-02-2023 ambulatory Meghan L Odell Facility: [facility] Start: 09-28-2023 End: 09-28-2023 ambulatory Meghan L Odell Facility: [facility] [place] Start: 03-12-2023 End: 03-13-2023 ambulatory Catarino Palafox MD Facility: [facility] Start: 02-19-2023 End: 02-20-2023 ambulatory Catarino Palafox MD Facility: [place] Start: 01-29-2023 End: 01-30-2023 ambulatory Catarino Palafox MD Facility: [facility] Start: 01-11-2023 End: 01-11-2023 Patient encounter procedure Aishwarya Montano [facility] Start: 12-19-2022 End: 12-19-2022 Off-Site Aishwarya Montano [facility] Start: 12-01-2022 ambulatory [facility] Start: 11-13-2022 End: 11-13-2022 Lab Drop off Meghan Chapman [facility] Start: 08-30-2022 ambulatory [facility] Start: 08-16-2022 End: 08-16-[address] [facility] Start: 08-04-2022 ambulatory [facility] Start: 07-25-2022 End: 07-26-2022 ambulatory [facility] Start: 07-24-2022 End: 07-25-2022 ambulatory [facility] Start: 04-18-2022 End: 04-19-2022 ambulatory [facility] Start: 02-14-2022 End: 02-15-2022 ambulatory [facility] Start: 07-20-2021 End: 07-21-2021 ambulatory THANIA HOWARD Facility:[facility] Start: 07-14-2021 End: 07-14-[address] KOTA VARGHESE Facility:[facility] Start: 06-21-2021 End: 06-22-2021 ambulatory SHAIKH CHARITO Facility:[facility] Start: 05-13-2021 ambulatory SHAIKH CHARITO Facility: [facility] Start: 05-10-2021 End: 05-11-[address] TWYLA HUGHES Facility:[facility] Start: 04-16-2021 Encounter for genera l adult medical examination without abnormal findings SHAIKH CHARITO [facility] Start: 04-12-2021 End: 04-13-2021 ambulatory SHAIKH CHARITO Facility:[facility] Start: 04-12-2021 End: 04-13-2021 Encounter for general adult medical examination without abnormal findings SHAIKH CHARITO Facility:[facility] Procedures Date Procedure Procedure Detail Performing Clinician Start: 06-26-2024 End: 06-26-2024 Radex spine lumbosacral minimum 4 views Franco Fischer [employer] 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: Start: 12-01-2022 Follow-up visit Follow-up RUBY ROGERS Start: 05-14-2022 Injury of right ankle J bimal Odell Start: 05-14-2021 Injury of right ankle J bimal Odell Appendectomy Meghan Odell Right elbow region structure (body structure) Meghan Odell Structure of carpal canal (body structure) Meghan Odell Plan of Treatment Date Care Activity Detail Author Start: 01-13-2024 COVID-19 VACCINE ( season) COVID-19 VACCINE ( season) [facility] Start: 01-13-2024 Influenza vaccination INFLUENZA VACC INE (#1) [facility] Start: 2023 Screening for malign ant neoplasm of colon COLORECTAL CANCER SCREENING DISCUSSION [facility] Start: 2018 Lipid panel LIPID SCREENING [facility] Start: 1997 Hepatitis B vaccination HEP B VACCINE (1 of 3 - 19+ 3-dose series) [facility] Start: 1997 Third diphtheria, tetanus and acellular pertussis (DTaP) vaccination TDAP (ADULT) [facility] Start: 1993 HIV screening HIV SCREENING DISCUSSION [facility] Start: 1978 Hepatitis C screening HEPATITI S C VIRUS SCREENING [facility] Start: 1978 Tetanus vaccination TETANUS [facility] Payers Date Payer Category Payer Managed Care (unspecified) [facility] [id number] 2023 Unknown [id number] 2021 Unknown [id number] 2021 Worker's Compensation 1978 Unknown [id number] 2.16.840.1.654260.3.579 .2.593 1978 Unknown [id number] 2.16.840.1.491234.3.579 .2.593 1978 Unknown [id number] 2.16.840.1.869054.3.579 .2.593 1978 Unknown [id number] 2.16.840.1.602428.3.579 .2.593 1978 Unknown [id number] 2.16.840.1.599743.3.579 .2.593 1978 Unknown [id number] 2.16.840.1.567219.3.579 .2.647 1978 Unknown [id number] 2.16.840.1.782898.3.579 .2.196 1978 Unknown [id number] 2.16.840.1.877616.3.579 .2.196 1978 Unknown [id number] 2.16.840.1.440305.3.579 .2.196 1978 Unknown [id number] 2.16.840.1.822953.3.579 .2.727 1978 Unknown [id number] 2.16.840.1.886921.3.579 .2.727 1978 Unknown [id number] 2.16.840.1.798484.3.579 .2.727 1978 Unknown [id number] 2.16.840.1.979987.3.579 .2.727 1978 Unknown [id number] 2.16.840.1.394020.3.579 .2.727 1978 Unknown [id number] 2.16.840.1.597360.3.579 .2.727 1978 Unknown [id number] 2.16.840.1.435996.3.579 .2.594 1978 Unknown [id number] 2.16.840.1.172497.3.579 .2.594 1978 Unknown [id number] 2.16.840.1.957007.3.579 .2.594 1959 Self-pay 1959 Unknown [id number] 1959 Unknown [id number] Unknown [id number] 2.16.840.1.777576.3.579 .2.531 Unknown [facility] [id number] Social History Date Type Detail Facility Start: 11-13-2022 End: 12-19-2022 Tobacco smoking status Light tobacco smoker (finding) [facility] Tobacco smoking status Never [facility] Sex Assigned At Male [facility] Start: 1980 Sex Assigned At Male [facility] Tobacco smoking status [facility] Tobacco smoking consumption unknown [facility] Start: 1980 Sex assigned at Not on file 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 This consultation was requested by: Dr. Meghan Chapman [address] [place] [address] History of Present Illness The patient presents for evaluation of back pain. He has been experiencing persistent back pain since 2018, which he attributes to a work-related incident involving a fall from a machine. The pain radiates to his right leg, occasionally extending to the foot, and is accompanied by intermittent numbness and tingling. He rates his current pain level as 6 out of 10, describing it as a combination of aching, sharp, and stabbing sensations. He has not undergone any back surgeries or received injections for his back pain. He has had no treatment for his back pain. He has been using a heating pad and TENS unit for relief. He has also tried yoga and various stretches but reports that these activities exacerbate his hip pain. He has previously tried gabapentin and Percocet for pain management, both of which provided some relief. He is currently on pregabalin and Flexeril, prescribed by his primary care physician. He has undergone physical therapy, chiropractic treatment, acupuncture, and dry needling for his back pain. He has also tried massage therapy and a TENS unit. He has expressed interest in obtaining a new MRI to assess any changes in his condition. He has had 12 aquatic therapy sessions approved but has only completed 4. He has also had 6 dry needling sessions approved but has only completed 2. He has had a CT scan for his headaches. He has a history of a herniated disc at L4-L5, which was diagnosed in 2020. In July 2019, he sustained a severe ankle injury at work, resulting in three surgeries. This incident has exacerbated his back pain, particularly on the same side as the injured ankle. He continues to experience pain in his ankle, which he believes is unrelated to his back condition. He reports that his gait has been affected due to the ankle injury, leading to muscle tension below the hip and pressure on the sciatic nerve. MEDICATIONS Current: gabapentin, Percocet, pregabalin, Flexeril, meloxicam, ibuprofen, Lyrica No past medical history on file. He denies bowel/bladder dysfunction, saddle anesthesia, PMH of CA, unexplained wt loss, chronic steroid use, recent sx, fever or weakness. Conservative Modalities/Treatments: NSAIDS: yes Other Meds: yes- gabapentin, percocet, pregabalin, cyclobenzaprine Brace: no Physical Therapy: yes- [facility] is doing aquatic therapy now and has completed 4 sessions so far Bioassayist: yes Acupuncture: yes- dry needling Regular exercise: yes Massage therapy: no TENS unit: yes Interventional spinal injections: no Prior Spine Surgeries: no PAST MEDICAL HISTORY: has no past medical history on file. PAST SURGICAL HISTORY: No past surgical history on file. MEDICATIONS: No current outpatient medications on file. ALLERGIES: Patient has no allergy information on record. SOCIAL HISTORY: Social History Socioeconomic History Marital status: Single Spouse name: Not on file Number of children: Not on file Years of education: Not on file Highest education level: Not on file Occupational History Not on file Tobacco Use Smoking status: Not on file Smokeless tobacco: Not on file Substance and Sexual Activity Alcohol use: Not on file Drug use: Not on file Sexual activity: Not on file Other Topics Concern Not on file Social History Narrative Not on file Social Drivers of Health Financial Resource Strain: Not on file Food Insecurity: Not on file Transportation Needs: Not on file Physical Activity: Not on file Stress: Not on file Social Connections: Not on file Intimate Partner Violence: Unknown (07/05/2023) Received from [facility] Safety & Environment Fear of Current or Ex-Partner: Not on file Emotionally Abused: Not on file Physically Abused: Not on file Sexually Abused: Not on file Physically or Sexually Abused: Not on file Housing Stability: Not on file FAMILY HISTORY: History reviewed. No pertinent family history. ROS: Chart review of systems was reviewed prior to the interview. A subset of that information is presented below. All other systems are negative General/Constitutional: no fevers, night sweats, unintentional wt loss Eyes:no acute vision changes Respiratory: no dyspnea Cardio: no Chest pain GI: no bowel dysfunction : no bladder dysfunction MSK: + low back, + RLE, no joint pain, swelling, changes Neuro: + weakness, no saddle anesthesia Heme: no easy bruising, bleeding Psych: no acute mood changes, SI or HI Skin: no new rashes Musculoskeletal: mild tenderness to palpation at low back and para spinal muscles Lumbar range of motion: Flexion 70/90, extension 30/30, lateral rotation right: 45/60, lateral rotation left 45/60, lateral bend right 25/25, lateral bend left 25/25 Muscle Strength Hip Flexion (R5 / L5), Hip Extension (R5 / L5), Hip Adduction (R5/L5), Hip Abduction (R5/L5), Knee Flexion (R5 / L5), Knee Extension (R5 / L5), Ankle Dorsiflexion (R5 / L5), ankle internal rotation (R5/L5) and Ankle Plantar Flexion (R5 / L5), EHL (R5/L5) Seated Straight Leg Raise: +R, -L Supine Straight Leg Raise: +R, -L Facet Loading:- bilat Thigh thrust +R, -L KAROL Israel Test: +R, -L FADIR: - bilaterally iliac compression test: - bilat Gait: able to toe/heel walk, tandem gait Neurological - alert, oriented, normal speech, no focal findings or movement disorder noted, moving all limbs purposefully, sensation intact to light touch to bilat ULs and LLs, cranial nerves II through XII grossly intact Hoffmans: negative bilaterally Ankle clonus: none Reflexes: Right - Patella: 2+ Achilles: 1+ Left - Patella: 2+ Achilles: 1+ Extremities - no pedal edema, no clubbing or cyanosis DIAGNOSTICS Imaging: His most recent imaging was: MRI SPINE LUMBAR WITHOUT CONTRAST, 04/22/21 Impression 1. L4-5 right lateral recess disc herniation, stenosis. FINDINGS: Normal lumbar vertebral body height and [...] canal or neurorforaminal stenosis. Mild facet arthropathy. ICD-10-CM 1. Herniated intervertebral disc of lumbar spine M51.26 2. Chronic back pain, unspecified back location, unspecified back pain laterality M54.9 G89.29 3. Lumbar radiculopathy M54.16 4. Neural foraminal stenosis of lumbar spine M48.061 5. Degeneration of intervertebral disc of lumbar region with discogenic back pain and lower extremity pain M51.362 6. Sacroiliac pain M53.3 Assessment & Plan 1. Back pain. The patient's symptoms are consistent with the findings from the 2020 MRI, which revealed a right-sided disc herniation exerting pressure on the right L5 nerve root. He reports that the pain radiates into the right leg and sometimes down to the foot, with occasional numbness and tingling. The pain is described as achy, sharp, and stabbing, and is currently rated at a 6 out of 10. He has been using a heating pad, massage chair, and inversion table for relief. He has previously tried gabapentin and Percocet, which provided some relief. He is currently on pregabalin 150 mg, taken twice daily, and Flexeril for his back pain. An order for an injection will be placed and submitted to his insurance for approval. If approved, he will be contacted to schedule the procedure. If not, documentation of his previous treatments at [place] will be required. X-rays will be obtained today to ensure there is no bone shifting or movement during forward and backward bending motions. The results will be communicated via [employer]. He is advised to increase his pregabalin dosage to 150 mg three times daily. 2. Ankle pain. The patient has a history of a shattered ankle from July 2019, which required multiple surgeries. He reports ongoing pain in the ankle, which he believes is not related to his back. He is currently on pregabalin 150 mg, taken twice daily, for pain management. He has also tried meloxicam, ibuprofen, and Biofreeze for relief. He is undergoing aquatic therapy and physical therapy, which have been beneficial. He is advised to continue with his current pain management regimen and physical therapy. Patient has been counseled to go to the ED if he has any bowel or bladder incontinence, bilateral leg weakness or saddle anesthesia. However, should symptoms worsen or weakness develop, I have advised Mr. hWite to call the office to be seen sooner. Thank you very much for this consultation. Franco Fischer MSN, SPIRAL TUBE WINDER HELPER-BLOW MOLDING MACHINE TENDER Certified Nurse Practitioner Department of Neurosurgery [facility] documented in this encounter [facility] 12-19-2022 Evaluation + Plan note Future Scheduled TestsCT Head or Brain w/o Contrast 12/19/22 [facility] 12-01-2022 Note Orthopedic Surgery Subjective Chief complaint: [...] to be doing well. Incision completely healed. [facility] some peroneal popping without dislocation on eversion of the ankle. PLAN: - continue ROM and dry needling appointments - Follow up in 6 months for clinical evaluation and to see if improvement to his symptoms and peroneal irritation. Jossie Bedoya MS3 [facility] 11-13-2022 Evaluation + Plan note [facility] 11/13/22Testosterone Level Total 11/13/[address] [facility] 08-30-2022 Note 42 yo M [...] Follow in 3 months for clinical evaluation. [facility] 08-16-2022 Note Patient: Sulaiman Camilo ick Procedure Summary Date: 08/16/22 Room / Location: [facility] OPERATING ROOM 04 / [facility] Operating Room Anesthesia Start: 1219 Anesthesia [...] no known notable events for this encounter. [facility] 08-16-2022 Note Airway Date/Time: 08/16/2022 12:28 [...] 1 Number of other approaches attempted: 0 [facility] 08-16-2022 Note Patient: Sulaiman hood Procedure Information Date/Time: 08/16/22 1200 Procedure: REMOVAL, HARDWARE, ANKLE (Right: Ankle) - c-arm / 12:00pm start / Location: [facility] OPERATING ROOM 04 / [facility] Operating Room Surgeons: Lucero Rogers MD [...] risks discussed with patient. Additional Equipment Requests [facility] 08-04-2022 Note Subjective Chief complaint: Chief Complaint Patient presents with Right Ankle - Pain 08/04/22 Sulaiman White is a 42 y.o. year old male [facility] presenting for evaluation of right ankle [...] Brock MD Orthopedic Surgery Resident Physician Pager: [phone] 08/04/22 9:04 AM By using the attestations [...] be an additional personal documentation from me. [facility] 07-25-2022 Note Date of Surgery: VALENTIN [...] for scheduling once approved for hardware removal. [facility] 04-18-2022 Note Date of Surgery: VALENTIN [...] bone Stim F/U 3 months repeat xrays [facility] 02-14-2022 Note Date of Surgery: VALENTIN [...] bone Stim F/U 2 months repeat xrays [facility] 06-21-2021 Note CONSULTATION PAIN MANAGEMENT CONSULTATION [...] patient understands and would like to proceed. [facility] Signed and Approved by: DR TWYLA HUGHES . 06/28/2021 07:59:00 [facility] 05-10-2021 Note PAIN MANAGEMENT Consultation Date: [...] spine surgeon has been suggested. cc:Dr. Dsouza. [facility] Signed and Approved by: DR TWYLA HUGHES . 2021 09:03:00 [facility] 04-22-2021 Note PROCEDURE: [employer] VCT 64, 5.0 mm slice axial images [...] signed by Sánchez Briscoe on 04/22/2021 1428 [facility] Assistant Research Scientist Evaluation note No assessment inform ation [facility] Work Phone: Evaluation note Diagnosis Herniated intervertebral disc of lumbar spine- Primary Chronic back pain, unspecified back location, unspecified back pain laterality Lumbar radiculopathy Thoracic or lumbosacral neuritis or radiculitis, unspecified Neural foraminal stenosis of lumbar spine Spinal stenosis, lumbar region, without neurogenic claudication Degeneration of intervertebral disc of lumbar region with discogenic back pain and lower extremity pain Sacroiliac pain Disorders of sacrum Sacroiliac pain Disorders of sacrum Chronic back pain, unspecified back location, unspecified back pain laterality [facility] Chronic back pain, unspecified back location, unspecified back pain laterality [facility] Sacroiliac pain Disorders of sacrum [facility] Narrative No data available for this section [facility] Dis[facility] instructions No data available for this section [facility] No data available for this section [facility] Summary Purpose Family History No [...] section and content) DATE CREATED AUTHOR 04/23/2021 [facility] dical Specialist DATE CREATED AUTHOR AUTHOR'S ORGANIZ ATION 07/15/2021 [facility] DATE CREATED AUTHOR AUTHOR'S ORGANIZ ATION 01/04/2022 [facility] DATE CREATED AUTHOR AUTHOR'S ORGANIZ ATION 01/24/2023 [facility] DATE CREATED AUTHOR AUTHOR'S ORGANIZ ATION 03/18/2023 [facility] DATE CREATED AUTHOR AUTHOR'S ORGANIZ ATION 02/22/2024 [facility] DATE CREATED AUTHOR AUTHOR'S ORGANIZ ATION 03/13/2024 [facility] DATE CREATED AUTHOR AUTHOR'S ORGANIZ ATION 06/28/2024 [facility] Patient Care team informatio n (unrecognized section and content) Team Status: Inactive Member Role Status Dates Erwin Stafford DPM MS Attending Provider Active Start: February 14, 2024 End: February 14, 2024 Goals (unrecognized section and content) Goals may be documented in a n alternate section Reason for Visit (unrecogniz ed section and content) Reason Comments New Patient Specialty Diagnoses / Procedures Referred By Contcassi t Referred To Contact Spine Diagnoses Herniated intervertebral disc of lumbar spine Chronic back pain, unspecified back location, unspecified back pain laterality Meghan Chapman [address] [place] [address] Phone: tel: fax: [facility] [address] [place] [address] Referral ID Status Reason Start Date Expiration Date Visits Re quested Visits Authorized [id number] Closed 03/20/2024 04/14/2025 1 1 FOR RECORDS PERTAINING TO PATIENTS WHO ARE [...] BE BASED ON THE PRIMARY CLINICAL RECORDS. [employer] provides no warranty or guarantee of the accuracy or completeness of information in this document.
--- NOTE | 2024-07-03 14:12 | P.CN_ITS ---
Consult Note: HPI Data of Consult Requesting Physician: Kerry Connolly NP Primary Care Provider: MEGHAN BAIN Consult Narrative Reason for consult: f/u Narrative: 44yom who presents for evaluation. worsening right ankle pain. previous workplace injury in july 2021, has had subsequent ankle surgeries. continues to have right ankle pain. has undergone >80 sessions of physical therapy, which have not provided lasting relief. uses flexeril, cymbalta, tramadol, ibuprofen with some benefit. Pain today 6/10 and CRISTHIAN worsened since last visit at 49%. Pt has been utilizing ibuprofen 800mg daily as needed, flexeril 10mg qd PRN and lyrica 150mg TID without side effect. continues to utilize tramadol PRN through Dr Stafford for moderate to severe pain. cc:: CC: Kerry Connolly NP Review of Systems ROS Musculoskeletal Reports: extremity pain PFSH [facility] Medical History Right ankle pain ?M25.571 - Pain in right ankle and joints of right foot (ICD-10) Back pain ?M54.9 - Dorsalgia, unspecified (ICD-10) Migraine ?G43.909 - Migraine, unspecified, not intractable, without status migrainosus (ICD-10) Diarrhea ?R19.7 - Diarrhea, unspecified (ICD-10) Sciatica ?M54.30 - Sciatica, unspecified side (ICD-10) Peroneal tendon injury ?S86.309A - Unspecified injury of muscle(s) and tendon(s) of peroneal muscle group at lower leg level, unspecified leg, initial encounter (ICD-10) Fibula fracture ?S82.409A - Unspecified fracture of shaft of unspecified fibula, initial encounter for closed fracture (ICD-10) Asthma ?J45.909 - Unspecified asthma, uncomplicated (ICD-10) Surgical History History of kidney surgery ?Z98.890 - Other specified postprocedural states (ICD-10) History of carpal tunnel release ?Z98.890 - Other specified postprocedural states (ICD-10) History of elbow surgery ?Z98.890 - Other specified postprocedural states (ICD-10) History of ankle surgery (~07/2021) ?Z98.890 - Other specified postprocedural states (ICD-10) History of appendectomy ?Z90.49 - Acquired absence of other specified parts of digestive tract (ICD- 10) Family History Other Cancer Family history of cancer Family history of diabetes mellitus Family history of hypertension Social History Within the past year, how often did you have a drink containing alcohol: 4 or more times a week Within the past year, how many standard drinks containing alcohol did you have on a typical day: 1 or 2 Total score: 0 Score interpretation: A score less than 4 is consistent with normal alcohol consumption. 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 Highest level of school completed/degree received: high school graduate Meds Home Medications and Allergies Home Medications ?Medication ?Instructions ?Recorded ?Confirmed ?Type cyclobenzaprine 10 mg tablet 10 mg PO DAILY PRN muscle spasm 01/29/23 02/14/24 History duloxetine 60 mg capsule,delayed 60 mg PO DAILY 01/29/23 02/14/24 History release tramadol 50 mg tablet 50 mg PO Q8H PRN pain 02/14/23 02/14/24 History ibuprofen 800 mg tablet 800 mg PO Q12H PRN pain 02/19/23 02/14/24 History atogepant 60 mg tablet (Qulipta) 60 mg PO DAILY 01/30/24 02/14/24 History meloxicam 7.5 mg tablet 7.5 mg PO BID PRN pain 01/30/24 02/14/24 History multivitamin (Daily Multi-Vitamin 1 tab PO DAILY 01/30/24 02/14/24 History tablet) pregabalin 100 mg capsule 100 mg PO Q8H 01/30/24 02/14/24 History sumatriptan succinate 100 mg tablet 100 mg PO Q2H PRN migraine headache 01/30/24 02/14/24 History vitamin B complex 1 tab PO DAILY 09/18/24 10/03/24 History pregabalin 150 mg capsule (Lyrica) 150 mg PO TID #90 caps 03/27/24 Rx pregabalin 150 mg capsule (Lyrica) 150 mg PO TID #90 caps 06/25/24 Rx Allergies Allergy/AdvReac Type Severity Reaction Status Date / Time No Known Drug Allergies Allergy Verified 02/14/24 10:39 Exam Narrative Exam Narrative: Psych-alert and oriented x 3. Attentive and appropriate, constitutionally normal, displays normal mood and affect per situation.? There are no obvious deficits in memory, reasoning, or intellect.? Skin-no obvious rashes, bruising, erythema noted to the patient's area of pain. Extremities- extremities are warm with minimal edema and palpable pulses. Tenderness to palpation in right ankle. Slight discoloring and cool temperature noted in right ankle. Lumbar-no significant tenderness to palpation noted in the lumbar spine and paraspinal musculature.? Pain is elicited with extension, and lateral rotation of the lumbar spine. Range of motion is slightly diminished with these motions due to pain. Coordination remains intact.? Gait remains non-antalgic. Assessment and Plan Assessment and Plan (1) Other fracture of upper and lower end of right fibula, initial encounter for closed fracture: Plan continue pregabalin 150mg TID continue ibuprofen 800mg daily as needed pain continue flexeril 10mg daily as needed pain/spasms continue PT and HEP as tolerated continue f/u with podiatry and [facility] for lumbar pain/injections f/u 6 months, sooner if needed
== END 2024-07-03 13:48 | disposition home or self-care (01) ==
PROVIDERS: PCP Nurse Practitioner; Visit Provider Nurse Practitioner
DX: S82.831A Other fracture of upper and lower end of right fibula, initial encounter for closed fracture (principal)
CPT/HCPCS: G0463

== ENCOUNTER 2024-07-16 16:16 | Outpatient (OUT) | payer BC, SELFPAY ==
--- NOTE | 2024-07-16 16:26 | XR_ITS ---
[place] [address] Patient Name: SHERIN WHITE MRN: [id number] date: 1980 Sex: M Assigned Patient Location: RAD Current Patient Location: [facility] Accession/Order Number: [id number] Exam Date: 07/16/2024 23:40 Report Date: 07/16/2024 23:40 At the request of: MEGHAN BAIN Procedure: XR hip RT min 2V RIGHT HIP - 2 views: CLINICAL HISTORY: RIGHT HIP PAIN, RIGHT LOWER BACK PAIN M25.551 COMPARISON: None FINDINGS: No acute bony process is seen. Joint spaces of the right hip appears maintained. Degenerative change involving the right SI joint. XR/XR hip RT min 2V IMPRESSION: NO ACUTE BONY PROCESS SIGNIFICANT DEGENERATIVE CHANGE INVOLVING THE RIGHT HIP.. Impression dictated by: Sánchez Lincoln Jr., D.O.07/16/2024 11:40 PM Dictation Location: [place] [address] Electronically authenticated by: [id number] Y Date: 07/16/2024 23:40
== END 2024-07-16 16:17 | disposition home or self-care (01) ==
LOC: RAD 16:17
PROVIDERS: PCP Nurse Practitioner; Visit Provider Nurse Practitioner
DX: M25.551 Pain in right hip (principal); M54.50 Low back pain, unspecified; M16.11 Unilateral primary osteoarthritis, right hip
CPT/HCPCS: 73502

== ENCOUNTER 2024-09-24 11:07 | Outpatient (OUT) | payer OTHER, SELFPAY ==
--- NOTE | 2024-09-24 11:36 | PM.CN ---
Consult Note: HPI Data of Consult Requesting Physician: Kerry Connolly NP Primary Care Provider: MEGHAN BAIN Consult Narrative Reason for consult: f/u Narrative: 44yom who presents for evaluation. worsening right ankle pain. previous workplace injury in july 2021, has had subsequent ankle surgeries. continues to have right ankle pain. has undergone >80 sessions of physical therapy, which have not provided lasting relief. uses flexeril, cymbalta, tramadol, ibuprofen with some benefit. Pain today 4/10 and CRISTHIAN 34%%. Pt has been utilizing ibuprofen 800mg daily as needed, flexeril 10mg qd PRN and lyrica 150mg TID without side effect. continues to utilize tramadol PRN through Dr Stafford for moderate to severe pain but is requesting we take over at this time as he is no longer following with Dr Stafford. cc:: CC: Kerry Connolly NP Review of Systems ROS Musculoskeletal Reports: extremity pain PFSH [facility] Medical History (Updated 09/24/24 @ 11:37 by Kerry Connolly NP) Right ankle pain ?M25.571 - Pain in right ankle and joints of right foot (ICD-10) Back pain ?M54.9 - Dorsalgia, unspecified (ICD-10) Migraine ?G43.909 - Migraine, unspecified, not intractable, without status migrainosus (ICD-10) Diarrhea ?R19.7 - Diarrhea, unspecified (ICD-10) Sciatica ?M54.30 - Sciatica, unspecified side (ICD-10) Peroneal tendon injury ?S86.309A - Unspecified injury of muscle(s) and tendon(s) of peroneal muscle group at lower leg level, unspecified leg, initial encounter (ICD-10) Fibula fracture ?S82.409A - Unspecified fracture of shaft of unspecified fibula, initial encounter for closed fracture (ICD-10) Asthma ?J45.909 - Unspecified asthma, uncomplicated (ICD-10) Surgical History History of kidney surgery ?Z98.890 - Other specified postprocedural states (ICD-10) History of carpal tunnel release ?Z98.890 - Other specified postprocedural states (ICD-10) History of elbow surgery ?Z98.890 - Other specified postprocedural states (ICD-10) History of ankle surgery (~07/2021) ?Z98.890 - Other specified postprocedural states (ICD-10) History of appendectomy ?Z90.49 - Acquired absence of other specified parts of digestive tract (ICD-10) Family History Other Cancer Family history of cancer Family history of diabetes mellitus Family history of hypertension Social History Within the past year, how often did you have a drink containing alcohol: 4 or more times a week Within the past year, how many standard drinks containing alcohol did you have on a typical day: 1 or 2 Total score: 0 Score interpretation: A score less than 4 is consistent with normal alcohol consumption. 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 Highest level of school completed/degree received: high school graduate Meds Home Medications and Allergies Home Medications ?Medication ?Instructions ?Recorded ?Confirmed ?Type cyclobenzaprine 10 mg tablet 10 mg PO DAILY PRN muscle spasm 01/29/23 02/14/24 History duloxetine 60 mg capsule,delayed 60 mg PO DAILY 01/29/23 02/14/24 History release tramadol 50 mg tablet 50 mg PO Q8H PRN pain 02/14/23 02/14/24 History ibuprofen 800 mg tablet 800 mg PO Q12H PRN pain 02/19/23 02/14/24 History atogepant 60 mg tablet (Qulipta) 60 mg PO DAILY 01/30/24 02/14/24 History meloxicam 7.5 mg tablet 7.5 mg PO BID PRN pain 01/30/24 02/14/24 History multivitamin (Daily Multi-Vitamin 1 tab PO DAILY 01/30/24 02/14/24 History tablet) pregabalin 100 mg capsule 100 mg PO Q8H 01/30/24 02/14/24 History sumatriptan succinate 100 mg tablet 100 mg PO Q2H PRN migraine headache 01/30/24 02/14/24 History vitamin B complex 1 tab PO DAILY 01/30/24 02/14/24 History pregabalin 150 mg capsule (Lyrica) 150 mg PO TID #90 caps 03/27/24 Rx pregabalin 150 mg capsule (Lyrica) 150 mg PO TID #90 caps 06/25/24 Rx ibuprofen 800 mg tablet 800 mg PO DAILY PRN pain #30 tabs 07/03/24 Rx tramadol 50 mg tablet See Rx Instructions .Route 07/16/24 Rx .COMPLEX PRN pain #45 tabs pregabalin 150 mg capsule (Lyrica) 150 mg PO TID #90 caps 07/31/24 Rx Allergies Allergy/AdvReac Type Severity Reaction Status Date / Time No Known Drug Allergies Allergy Verified 02/14/24 10:39 Exam Narrative Exam Narrative: Psych-alert and oriented x 3. Attentive and appropriate, constitutionally normal, displays normal mood and affect per situation.? There are no obvious deficits in memory, reasoning, or intellect.? Skin-no obvious rashes, bruising, erythema noted to the patient's area of pain. Extremities- extremities are warm with minimal edema and palpable pulses. Tenderness to palpation in right ankle. Slight discoloring and cool temperature noted in right ankle. Lumbar-no significant tenderness to palpation noted in the lumbar spine and paraspinal musculature.? Pain is elicited with extension, and lateral rotation of the lumbar spine. Range of motion is slightly diminished with these motions due to pain. Coordination remains intact.? Gait remains non-antalgic. Assessment and Plan Assessment and Plan (1) Other fracture of upper and lower end of right fibula, initial encounter for closed fracture: (2) Chronic use of opiate for therapeutic purpose: Assessment and Plan: I feel these medications are improving the patient's quality of life and allow them to tolerate activities of daily living as well as participate in recreational activity.? The patient does not report intolerable side effects. The patient is NOT opioid naive and non-pharmacologic and non-opioid treatment has failed to significantly relieve the patient's pain and improve functionality. The patient has a diagnosis that is related to a somatic or visceral pain etiology. ? ?? I reviewed with the patient the potential risks and side effects with the use of? opioid medications including but not limited to respiratory depression,? sedation, and even . Within the last 12 months I have verified the patient has access to naloxone should? these effects occur. The patient was advised to let? their family know they had Naloxone in case they would need to administer? the medication. I advised the patient to avoid the use of any other? sedation substances including alcohol, THC, and benzodiazepines while? taking opioid medications due to the risk of compounding side effects and? detrimental outcomes. within the last 12 months I have reviewed the [facility], pain treatment agreement and urine drug screen.? ?? A drug screen was completed within the last year, and no aberrancies were noted regarding their use of controlled substances. The patient understands they are subject to the terms and conditions of the pain contract that they have signed. ? ?? I have checked an [place] report on this patient today and there are no aberrancies noted in the prescribing history.? Plan increase pregabalin 200mg TID, risks vs benefits reviewed. if pt does not find beneficial he will call and we will decrease to 150mg TID take over tramadol 50mg BID PRN moderate to severe pain 45 tabs to last 30 days continue motrin PRN and flexeril PRN continue f/u with PCP, working to find coverage for his [facility] case and a new physician of record f/u 3 months, sooner if needed
== END 2024-09-24 11:08 | disposition home or self-care (01) ==
PROVIDERS: PCP Nurse Practitioner; Visit Provider Nurse Practitioner
DX: S82.831A Other fracture of upper and lower end of right fibula, initial encounter for closed fracture (principal); Z79.891 Long term (current) use of opiate analgesic
CPT/HCPCS: G0463

== ENCOUNTER 2024-12-25 10:48 | Outpatient (OUT) | payer OTHER, SELFPAY ==
--- OUTSIDE RECORDS SUMMARY | 2024-12-25 10:52 | XMS_ITS | CCD ---
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 Name Role Phone KAYLID, PARSONS Consulting Unavailable [...] SIFUENTES Attending Unavailable VENKAT SIFUENTES Attending Unavailable SHORTLUCERO BRAVO Attending Unavailable VENKAT SIFUENTES Attending Unavailable SHORTLUCERO BRAVO Admitting Unavailable SHORT, CHRISTGERTRUDIS Attending Unavailable SHORT, CHRISTOPHER Attending Unavailable SHORT, CHRISTOPHER Attending Unavailable BEAR, VENKAT Referring Unavailable BEAR, VENKAT Referring Unavailable BEAR, VENKAT Referring Unavailable VENKAT SIFUENTES Referring Unavailable Vivienne CAMEJO, Catarino Anton Attending Unavailable Vivienne CAMEJO, Catarino Anton Attending Unavailable Vivienne CAMEJO, Catarino Anton Attending Unavailable Erwin Stafford Attending Unavailable Erwin Stafford Admitting Unavailable JOB Stafford Attending Provider [phone] Unavailable Primary Care Provider Unavailabl e FRANCO ZALDIVAR Attending Unavailable ZALDIVARFRANCO CHIN Referring Unavailable ODELL, MEGHAN Referring Unavailable ZALDIVAR, FRANCO L Attending Unavailable NERI, BLACK E Attending Unavailable ZALDIVAR, FRANCO L Referring Unavailable NERI, BLACK E Referring Unavailable NERI, BLACK E Attending Unavailable FRANCO ZALDIVAR L Attending Unavailable ZALDIVAR, FRANCO L Referring Unavailable Stevenson Archer DO E Primary Care Provider HAO HINOJOSA Attending Unavailable HAO HINOJOSA Attending Unavailable Odell, CONTACT ASSEMBLER Meghan L Attending Unavailable Odell, CONTACT ASSEMBLER Meghan L Attending Unavailable Odell, CONTACT ASSEMBLER Meghan L Attending Unavailable Odell, CONTACT ASSEMBLER Meghan L Attending Unavailable Odell, CONTACT ASSEMBLER Meghan L Attending Unavailable Medications Current Medications Medication Drug Class(es) Dates Sig (Normalized) Sig (Original) cyclobenzaprine hydrochloride 10 mg oral tablet (3 sources) Muscle Relaxant Start: 11-28-2022 cyclobenzaprine 10 mg Tab See Instructions, PRN for spasm, 1 tab(s) Oral at work for spasm, # 30 tab(s), Refills(s) 1, Pharmacy: [facility]/pharmacy #[id number], 183.5, cm, 11/13/22 11:51:00 EDT, Height/Length Dosing, 75, kg, 11/13/22 11:51:00 EDT, Weight Dosing Start Date: 11/28/22 Status: Ordered Start: 11-13-2022 take 1 tablet by mya th three times daily cyclobenzaprine 10 mg Tab 10 mg = 1 tab(s), Oral, TID, PRN for spasm, pt taking one when at work, # 30 tab(s), Refills(s) 0 Start Date: 11/13/22 Status: Ordered DULoxetine 60 mg delayed release oral capsule (10 sources) Serotonin and Norepinephrine Reuptake Inhibitor Start: 11-13-2022 take 1 capsule by mouth once daily DULoxetine [address] Particles capsule DR Take 1 capsule by mouth daily. 12/11/2023 Active ibuprofen 800 mg oral tablet (10 sources) Nonsteroidal Anti-inflammatory Drug Start: 09-17-2023 take 1 tablet by mouth three times daily ibuprofen 800 MG tablet Take 1 tablet by mouth 3 (three) times a day. 09/17/2023 Active Start: 11-13-2022 take 1 tablet by mya th three times daily as needed for pain ibuprofen 800 mg Tab 90 EA, TAKE 1 TABLET BY MOUTH THREE TIMES A DAY NEEDED FOR MILD PAIN, Refills(s) 0 Start Date: 11/13/22 Status: Ordered take 1 tablet by mya th every eight hours at mealtime as needed ibuprofen 800 MG tablet TAKE 1 TABLET BY MOUTH EVERY 8 HOURS WITH FOOD OR MILK NEEDED Active pregabalin 150 mg oral capsu le (7 sources) Start: 06-10-2024 pregabalin (Ly hannah) 150 MG capsule 1 capsule 1 (one) time each day at the same time 06/10/2024 Active take 1 capsule by mo uth three times daily Pregabalin 150 MG capsule Take 1 capsule by mouth 3 times daily. Active Qulipta 60 MG tablet (2 sources) take 1 tablet by mouth once daily Qulipta 60 MG tablet Take 1 tablet by mouth daily. Active SUMAtriptan 100 mg oral tablet (5 sources) Serotonin-1b and Serotonin-1d Receptor Agonist Start: [...] day, # 18 tab(s), Refills(s) 1, Pharmacy: [facility]/pharmacy #[id number], 183.5, cm, 11/13/22 11:51:00 EDT, Height/Length Dosing... Start Date: 12/19/22 Status: Ordered Start: 11-13-2022 take 1 tablet by mya th every two hours as needed for headache SUMAtriptan 25 mg Tab 25 mg = 1 tab(s), Oral, As Directed, PRN Migraine headache, may repeat dose in 2 hours if needed, # 9 tab(s), Refills(s) 0, Pharmacy: [facility]/pharmacy #[id number], 183.5, cm, 11/13/22 11:51:00 EDT, Height/Length Dosing, 75, kg, 11/13/22 11:51:00 EDT, Weight Dosing Start Date: 11/13/22 Status: Ordered Vitamin D3 1999 intl units oral Tab (1 source) Start: 11-13-2022 take 1 tablet by mouth once daily Vitamin D3 2000 intl units oral Tab 50 mcg, Oral, Daily, tab(s), Refills(s) 0 Start Date: 11/13/22 Status: Ordered Completed/Discontinued Medications Medication Drug Class(es) Dates Sig (Normalized) Sig (Original) 5 ml bupivacaine hydrochloride 5 mg/ml injection (2 sources) Amide Local Anesthetic Start: 07-10-2024 End: 07-10-2024 BUPivacaine (PF) (MARCAINE) 0.5 % injection 2 mL Start: 07-10-2024 End: 07-10-2024 2 mL, Intra-articular, ONCE NEEDED, 1 dose, Starting on Taylor 07/10/24 at 1445, Until Taylor 07/10/24 at 1445 1 ml dexamethasone phosphate 10 mg/ml injection (2 sources) Corticosteroid Start: 07-10-2024 End: 07-10-2024 dexAMETHasone PF (DECADRON) injection 10 mg Start: 07-10-2024 End: 07-10-2024 10 mg, Intra-articular, ONCE NEEDED, 1 dose, Starting on Taylor 07/10/24 at 1445, Until Taylor 07/10/24 at 1445 Iohexol (OMNIPAQUE) 300 MG/M L vial 2 mL (2 sources) Start: 07-10-2024 End: 07-10-2024 Iohexol (OMNIPAQUE) 300 MG/M L vial 2 mL Start: 07-10-2024 End: 07-10-2024 2 mL, Intra-articular, ONCE NEEDED, 1 dose, Starting on Taylor 07/10/24 at 1445, Until Taylor 07/10/24 at 1445 traMADol hydrochloride 50 mg oral tablet (8 sources) Opioid Agonist Start: 11-13-2022 take 1-2 tablets by mouth three times daily as needed traMADOL 50 mg Tab 42 EA, TAKE 1 TO 2 TABLETS BY MOUTH 3 TIMES A DAY NEEDED, Refills(s) 0 Start Date: 11/13/22 Status: Ordered take 1 tablet by mya th every four hours as needed traMADol (Ultram) 50 MG tablet TAKE 1 TABLET NEEDED ORALLY EVERY 4 HOURS NEEDED FOR 7 DAYS Active Problems Active Problems Problem Classification Problem Date Documented Date Episodic/Chronic E Codes: Other specified and classifiable (1 source) Caught, crushed, jammed, or pinched between moving objects, initial encounter; Translations: [CAUGHT CRUSH/PINCH BTWN MOV OBJ INT] Onset: 07-15-2021 Episodic Fracture of lower limb (16 sources) Other fracture of upper and lower end of right fibula, initial encounter for closed fracture; Translations: [Other fracture of upper and lower end of right fibula, subsequent encounter for closed fracture with routine healing] Onset: 07-14-2021 Episodic Headache; including migraine (4 sources) Migraine; [...] Spondylosis; intervertebral disc disorders; other back problems (10 sources) Intervertebral disc prolapse; Translations: [Other intervertebral disc displacement, lumbar region] Onset: 12-19-2022 Chronic Spondylosis; intervertebral disc disorders; other back problems (20 sources) Intervertebral disc disorders with radiculopathy, lumbar region; Translations: [Radiculopathy, lumbar region] Onset: 05-10-2021 Episodic Sprains and strains (4 sources) Tendon injury - lower limb; Translations: [Strain of muscle(s) and tendon(s) of peroneal muscle group at lower leg level, right leg, initial encounter] 10-16-2024 Episodic Unclassified (1 source) LOW BACK PAIN, [...] Problem Classification Problem Date Documented Date Episodic/Chronic Other non-traumatic joint disorders (2 sources) Pain [...] [facility] Facility Family Medicine Office/Clini c Noteon 11-19-2024 Family Medicine Office/Clinic Note Family Medicine Office/Clinic Note Chief Complaint Acute Visit HPI Staff Pt presents today for follow up. Does not need [place] paperwork. Would like to address the Rt sided pain that radiates from hip down to ankle. 10/21 Does see pain management. Has had injections for back & hip pain. Cyclobenzaprine does help, however it makes him tired. History of Present Illness pt presents today with c/o back pain with right sided sciatica Review of Systems PHQ Score Initial Depression Screen Score: 0 SCORE Physical Exam Vitals & Measurements T: 36.8 ???C(Oral) HR: 88(Peripheral) RR: 18 BP: 142/86 SpO2: 97% HT: 72 in HT: 183.5 cm WT: 83.5 kg WT: 184.086 lb BMI: 24.8 General: alert, no acute distress ENMT: oral [...] Other intervertebral disc displacement, lumbar region) pt was seen at the [facility] for injections pt feels it helped a little but he would like to go somewhere local for more injections. he is going back to work soon and feels the pain will be worse when he is more active. referral to [facility] spine center sent. His girlfriend goes here and he prefers to be seen locally driving to [place] was a lot for him. RTC as needed Ordered: [facility] External Ambulatory Referral 2. Right sciatic nerve pain (M54.31: Sciatica, right side) will give 60mg Toradol and send in prednisone taper pack. Ordered: [facility] External Ambulatory Referral 3. BMI 24.0-24.9, adult (Z68.24: Body mass index [BMI] 24.0-24.9, adult) BMI education given Ordered: [facility] External Ambulatory Referral 4. Tobacco use (Z72.0: Tobacco use) consider not smoking Ordered: [facility] External Ambulatory Referral Orders: predniSONE, See Instructions, TAKE 3 TABLETS BY MOUTH X 5 DAYS,2 TABLETS DAILY X 5 DAYS, THEN 1 TABLET DAILY X 5 DAYS DIRECTED, # 30 tab(s), Refills(s) 1, Pharmacy: [facility]/pharmacy #[id number], 183.5, cm, 11/19/24 15:42:00 EDT, Height/Length Dosing, 83.5, kg, 11/19/24... Follow-up No qualifying data available Problem List/Past Medical History Ongoing Anxiety BMI 24.0-24.9, adult Chronic back pain Erectile disorder Fatigue Herniated intervertebral disc of lumbar spine Migraine Right hip pain Right sciatic nerve pain S/P peroneal tendon repair Tooth infection Wellness examination Historical No qualifying data Procedure/Surgical History Right ankle injury (2022), Right ankle injury (2021), Appendectomy, Carpal tunnel, Right elbow. Medications cyclobenzaprine 10 mg Tab, See Instructions, PRN duloxetine 60 mg oral delayed release capsule, 120 mg= 2 cap(s), Oral, Daily, 3 refills ibuprofen 800 mg Tab predniSONE 10 mg Tab, See Instructions, 1 refills pregabalin 150 mg Cap Qulipta 60 mg oral tablet, 60 mg= 1 tab(s), Oral, Daily, 5 refills sildenafil 50 mg Tab, 50 mg= 1 tab(s), Oral, Daily, PRN SUMAtriptan 100 mg Tab, See Instructions, 1 refills traMADOL 50 mg Tab Allergies No Known Allergies Social History Alcohol Current. Beer. 1-2 times per week., 03/12/2024 Substance Abuse Never., 03/12/2024 Tobacco 5-9 cigarettes (between 1/4 to 1/2 pack)/day in last 30 days Tobacco Use:. Never Smokeless Tobacco Use:. Household tobacco concerns: No. Yes, 11/19/2024 Family History Diabetes mellitus type 2: Father. Hodgkin's disease: Father. Immunizations Vaccine Date Status Comments SARS-CoV-2 (COVID-19) mRNA BNT-162b2 vax 08/27/2020 Recorded 2023-12-05: TPV40 SARS-CoV-2 (COVID-19) mRNA BNT-162b2 vax 08/06/2020 Recorded 2023-12-05: TPV40 diphtheria/pertussis , acel/tetanus adult 12/31/2019 Recorded Normal [facility] Comment on above: Result Comment: Elec tronically Signed By: Meghan Carmona\.br\Date and Time Signed: 11/19/24 16:13 EDT XR Ankle - right 3 Viewson 0 10-22-2024 Imaging Result: Three views of the right ankle: AP, Mortise, Lat were performed today in the office and read by myself. Radiographs demonstrate: No evidence of acute fracture or dislocation. Healed fracture to the lateral malleolus, no evidence of opening. Evidence of prior screw holes from hardware which has since been removed. Normal joint spaces noted with no evidence of narrowing or osteophyte formation. The talus is well aligned within the ankle mortise with no evidence of deformity. Soft tissue swelling along the lateral ankle. [facility] Radiology Study observation (narrative) [facility] Family Medicine Office/Clini c Noteon 09-25-2024 Family Medicine Office/Clinic Note Family Medicine Office/Clinic Note HPI Staff Sulaiman is a 44 year old male presenting for FMLA paperwork Pt had Right ankle surgery 02/14/24 fixing peroneal tendon. Pt has done Physical therapy and has completed and now will be starting Vocational rehab he is waiting for approval. He is also waiting for transfer for [facility] from [place] due to office closing and needs approved for [place]. 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 Pt has been at his job for 19 years and due to him being off this long they are saying they could terminate him. They are telling him he can fill out FMLA. Pain 4-5/10 constant, stabbing/throbbing/a laila pain around incision, walking and standing on it make it worse. work has no light duty History of Present Illness pt is presenting today to complete FMLA paperwork for continued time off from having surgery to fix peroneal tendon tear Review of Systems PHQ Score Initial Depression Screen Score: 0 SCORE Physical Exam Vitals & Measurements HR: 94(Peripheral) RR: 18 BP: 138/90 SpO2: 98% HT: 183.5 cm HT: 72 in WT: 180.117 lb WT: 81.7 kg BMI: 24.26 General: alert, no acute distress ENMT: oral mucosa moist, no pharyngeal erythema or exudate Cardiovascular: regular rate and rhythm, normal peripheral perfusion Respiratory: Lungs CTA, respirations non labored Extremities: no deformity, no trauma Neurological: oriented x 4, LOC appropriate for age, CN II-XII intact, motor strength equal & normal bilaterally, speech normal 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 S/P peroneal tendon repair (Z98.890: Other specified postprocedural states) pt presents today for FMLA paper work for continued time off from work. 09/04-11/26. pt is no longer able to see Dr. Stafford because he is now private practice and they can't see pt's that are involved in [facility] cases. he is currently trying to get into [facility] podiatry and [facility] in [place]. he is also at a stand still with therapy. he is waiting to set up vocational therapy. Dr. Stafford wanted to send him to work with restrictions but they do not allow restrictions. so he is trying to build his strength up to be able to return without restrictions. all forms complete and faxed. copy scanned into chart. RTC 3 months. 2. BMI 24.0-24.9, adult (Z68.24: Body mass index [BMI] 24.0-24.9, adult) BMI education 3. Tobacco use (Z72.0: Tobacco use) consider not smoking Follow-up No qualifying data available Problem List/Past Medical History Ongoing Anxiety Chronic back pain Erectile disorder Fatigue Herniated intervertebral disc of lumbar spine Migraine Right hip pain S/P peroneal tendon repair Tooth infection Wellness examination Historical No qualifying data Procedure/Surgical History Right ankle injury (2022), Right ankle injury (2021), Appendectomy, Carpal tunnel, Right elbow. Medications cyclobenzaprine 10 mg Tab, See Instructions, PRN duloxetine 60 mg oral delayed release capsule, 120 mg= 2 cap(s), Oral, Daily, 3 refills ibuprofen 800 mg Tab pregabalin 150 mg Cap Qulipta 60 mg oral tablet, 60 mg= 1 tab(s), Oral, Daily, 5 refills sildenafil 50 mg Tab, 50 mg= 1 tab(s), Oral, Daily, PRN SUMAtriptan 100 mg Tab, See Instructions, 1 refills traMADOL 50 mg Tab Allergies No Known [...] diphtheria/pertussis , acel/tetanus adult 12/31/2019 Recorded Normal [facility] Comment on above: Result Comment: Elec tronically Signed By: Meghan Carmona.[email or web address]\Date and Time Signed: 09/25/24 11:29 EDT Family Medicine Office/Clini c Noteon 07-16-2024 Family Medicine Office/Clinic Note Family Medicine Office/Clinic Note HPI Staff Sulaiman is a 44 year old male presenting for acute visit Pain characteristics: Pain location: right hip Intensity: 5/10 with relaxing 7/10 when walking Onset: 6 months worse since last had injection to back Medication used: heat, ice, biofreeze Pain to right side of hip radiates to his right groin describes pain as sharp and aching, constant History of Present Illness pt presents today for right hip pain Review of Systems PHQ Score Initial Depression Screen Score: 0 SCORE Physical Exam Vitals & Measurements HR: 96(Peripheral) RR: 18 BP: 140/86 SpO2: 96% HT: 72 in HT: 183.5 cm WT: 79.6 kg WT: 175.488 lb BMI: 23.64 General: alert, no acute distress ENMT: oral mucosa moist, no pharyngeal erythema or exudate Cardiovascular: regular rate and rhythm, normal peripheral perfusion Respiratory: Lungs CTA, respirations non labored Extremities: no deformity, no trauma Neurological: oriented x 4, LOC appropriate for age, CN II-XII intact, motor strength equal & normal bilaterally, speech normal Assessment/Plan 1. Right hip pain (M25.551: Pain in right hip) pt c/o right hip pain. had injections for back pain. back feels good but hip pain is now worse. will order x ray. will give kenalog and toradol in office today. if no improvement and x ray is negative. he will contact [facility] to see if they want to do another injection. Ordered: ketorolac, 30 mg = 1 mL, Injection, IntraMuscular, Once, Stop date 07/16/24 16:05:00 EST, Routine, Start date 07/16/24 16:05:00 EST, 07/16/24 16:05:00 EST triamcinolone, 40 mg = 1 mL, Injection, IntraMuscular, Once, Stop date 07/16/24 16:04:00 EST, Routine, Start date 07/16/24 16:04:00 EST, 07/16/24 16:04:00 EST 2. BMI 23.0-23.9, adult (Z68.23: Body mass index [BMI] 23.0-23.9, adult) BMI education Ordered: ketorolac, 30 mg = 1 mL, Injection, IntraMuscular, Once, Stop date 07/16/24 16:05:00 EST, Routine, Start date 07/16/24 16:05:00 EST, 07/16/24 16:05:00 EST triamcinolone, 40 mg = 1 mL, Injection, IntraMuscular, Once, Stop date 07/16/24 16:04:00 EST, Routine, Start date 07/16/24 16:04:00 EST, 07/16/24 16:04:00 EST 3. Tobacco use (Z72.0: Tobacco use) consider not smoking Ordered: ketorolac, 30 mg = 1 mL, Injection, IntraMuscular, Once, Stop date 07/16/24 16:05:00 EST, Routine, Start date 07/16/24 16:05:00 EST, 07/16/24 16:05:00 EST triamcinolone, 40 mg = 1 mL, Injection, IntraMuscular, Once, Stop date 07/16/24 16:04:00 EST, Routine, Start date 07/16/24 16:04:00 EST, 07/16/24 16:04:00 EST Orders: meloxicam, See Instructions, TAKE 1 TABLET BY MOUTH EVERY DAY, # 30 tab(s), Refills(s) 0, Pharmacy: [facility] STORE [id number], 183.5, cm, 03/12/24 14:10:00 EDT, Height/Length Dosing, 76.5, kg, 03/12/24 14:10:00 EDT, Weight Dosing predniSONE, = 1 -, Oral, As Directed, Take 3 tabs by mouth daily x5 days, then 2 tabs daily x5 days, then 1 tab daily x5 days., # 30 tab(s), Refills(s) 0, Pharmacy: [facility]/pharmacy #[id number], 183.5, cm, 03/12/24 14:10:00 EDT, Height/Length Dosing, 76.5, kg, 03/12/24 14:... Follow-up No qualifying data available Problem List/Past Medical History Ongoing Anxiety Chronic back pain Erectile disorder Fatigue Herniated intervertebral disc of lumbar spine Migraine Right hip pain Tooth infection Wellness examination Historical No qualifying data Procedure/Surgical History Right ankle injury (2022), Right ankle injury (2021), Appendectomy, Carpal tunnel, Right elbow. Medications cyclobenzaprine 10 mg Tab, See Instructions, PRN duloxetine 60 mg oral delayed release capsule, 120 mg= 2 cap(s), Oral, Daily, 3 refills ibuprofen 800 mg Tab pregabalin 150 mg Cap Qulipta 60 mg oral tablet, 60 mg= 1 tab(s), Oral, Daily, 5 refills sildenafil 50 mg Tab, 50 mg= 1 tab(s), Oral, Daily, PRN SUMAtriptan 100 mg Tab, See Instructions traMADOL 50 mg Tab Allergies No Known [...] diphtheria/pertussis , acel/tetanus adult 12/31/2019 Recorded Normal [facility] Comment on above: Result Comment: Elec tronically Signed By: Meghan Carmona.br\Date and Time Signed: 07/16/24 16:09 EST RIGHT L5 TRANSFORAMINAL EPID URAL STEROID INJECTIONon 07-10-2024 Black Neri MD 07/10/2024 3:42 PM RIGHT L5 TRANSFORAMINAL EPIDURAL STEROID INJECTION Date/Time: 07/10/2024 2:45 PM Performed by: Black Neri MD Authorized by: Black Neri MD Procedure Details: Procedure performed: lumbar GENE - transforaminal After informed consent was obtained, the patient was escorted back to the procedure room and placed in the prone position on the procedure table. Verbal verification and time-out was performed and all present were in agreement. The patient was sterilely prepped and draped in usual fashion with chlorhexidine gluconate 4% antiseptic solution. Procedure guidance: fluoroscopy The fluoroscope was brought into the field and a PA image was obtained to identify the appropriate vertebral body. The anterior and posterior aspects of the superior endplate of the vertebral body were superimposed upon one another. The fluoroscope was then rotated in an oblique angle toward the right such that the superior articulating process was positioned midway between the anterior and posterior aspects of the vertebral body superior endplate. A point on the skin overlying the proposed site of needle entry was marked. The skin and subcutaneous tissues overlying the proposed needle entry site were anesthetized with 1 mL of lidocaine 1%. A 22 G 5.0 inch spinal needle was advanced to the subpedicular area. Needle depth was periodically evaluated using fluoroscopic imaging. Correct final needle position was confirmed with anteroposterior and lateral fluoroscopic imaging. Under live fluoroscopy 2 mL Iohexol 300 MG/ML was injected following negative aspiration for heme and air. Adequate contrast spread was confirmed. Medication Verification: I have personally verified and performed the final check of the medication(s) used in this procedure prior to administration. The following items were included during the verification process for medication(s) administered: drug name, strength, volume, expiration, physical integrity and appearance of the medication(s). A solution of 2 mL BUPivacaine (PF) 0.5 %; 10 mg dexAMETHasone PF 10MG/ML was divided equally among the affected levels and injected. After completion of the injection, the needle was flushed and removed. The above listed procedure was done for: Right L5 Post Procedure Details: Complications: none The procedure was tolerated well. The patient was transported to the recovery room where they were observed for at least 20 minutes prior to discharge. The patient was discharged to home. They were advised to contact the office with any questions or concerns. Pre-Procedure Details I have personally evaluated this patient on the day of service, and personally supervised the procedures as they were performed or performed any portion of the procedures myself. I have personally evaluated this patient on the day of service, and personally supervised the procedures as they were performed or performed any portion of the procedures myself. Pre Procedure Details: Informed consent was obtained. Risks and benefits were explained to the patient and they wish to proceed. We discussed risks (pain, bleeding, infection, CSF leak, positional headache, artery injury, paralysis, nerve injury, medication allergy, seizure, stroke and ), benefits (pain relief and increase in function and improvement of QoL), and process involved. [facility] Radiology Study observation (narrative) [facility] XR SACROILIAC JOINTS 1-2 VIE Jason 06-26-2024 XR SACROILIAC JOINTS 1-2 VIEWS EXAM: [...] changes of the sacroiliac joints bilaterally. Normal [facility] XR SPINE LUMBAR 4+ VIEWSon 0 [...] Lower lumbar facet arthrosis. No instability. 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 [facility] Radiology Study observation (narrative) [facility] XR Sacroiliac Joint 3 ViewsO rdered By: Chago Cole on 06-26-2024 [facility] [facility] XR Spine Lumbar and Sacrum [...] disease. Lower lumbar facet arthrosis. No instability. [facility] Radiology Study observation (narrative) [facility] Family Medicine Office/Clini c Noteon 03-12-2024 Family [...] pt would like to be referred to [facility] spine center in [place]. will send steroid and 15mg of meloxicam. he has percocet from Dr. Stafford due to recent ankle surgery. Ordered: predniSONE, = 1 -, Oral, As Directed, Take 3 tabs by mouth daily x5 days, then 2 tabs daily x5 days, then 1 tab daily x5 days., # 30 tab(s), Refills(s) 0, Pharmacy: [id number], 183.5, cm, 03/12/24 14:10:00 EDT, Height/Length Dosing, 76.5, kg, 03/12/24 14:... 2. Chronic back pain (M54.9: Dorsalgia, unspecified) see above Ordered: predniSONE, = 1 -, Oral, As Directed, Take 3 tabs by mouth daily x5 days, then 2 tabs daily x5 days, then 1 tab daily x5 days., # 30 tab(s), Refills(s) 0, Pharmacy: [id number], 183.5, cm, 03/12/24 14:10:00 EDT, Height/Length Dosing, 76.5, kg, 03/12/24 14:... 3. BMI 22.0-22.9, adult (Z68.22: Body mass index [BMI] 22.0-22.9, adult) BMI education given Ordered: predniSONE, = 1 -, Oral, As Directed, Take 3 tabs by mouth daily x5 days, then 2 tabs daily x5 days, then 1 tab daily x5 days., # 30 tab(s), Refills(s) 0, Pharmacy: [id number], 183.5, cm, 03/12/24 14:10:00 EDT, Height/Length Dosing, 76.5, kg, 03/12/24 14:... 4. Smoker (F17.200: Nicotine dependence, unspecified, uncomplicated) consider not smoking Ordered: predniSONE, = 1 -, Oral, As Directed, Take 3 tabs by mouth daily x5 days, then 2 tabs daily x5 days, then 1 tab daily x5 days., # 30 tab(s), Refills(s) 0, [id number], 183.5, cm, 03/12/24 14:10:00 EDT, Height/Length Dosing, 76.5, kg, 03/12/24 14:... Other chronic pain (G89.29: Other chronic pain) pain from ankle surgery Orders: busPIRone, See Instructions, TAKE 1 TABLET BY MOUTH THREE TIMES A DAY, # 90 tab(s), Refills(s) 0, Pharmacy: [id number], 183.5, cm, 12/11/23 13:58:00 EDT, Height/Length Dosing, 76.5, kg, 12/11/23 13:58:00 EDT, Weight Dosing busPIRone, See Instructions, TAKE 1 TABLET BY MOUTH THREE TIMES A DAY, # 270 tab(s), Refills(s) 1, Pharmacy: [facility] 853[facility], 183.5, cm, 11/13/23 14:06:00 EDT, Height/Length Dosing, 78.2, kg, 11/13/23 14:06:00 EDT, Weight Dosing meloxicam, 15 mg = 1 tab(s), Oral, Daily, # 30 tab(s), Refills(s) 0, [facility], 183.5, cm, 03/12/24 14:10:00 EDT, Height/Length [...] mRNA BN (more content not included)... Normal [facility] Comment on above: Result Comment: Elec tronically Signed By: Meghan Carmona\.br\Date and Time Signed: 03/12/24 14:36 EDT Igor 02-14-2024 L Specimen: [id number] Received: 02/15/24 Status: LOAN Alexandre Num: [id number] Spec Type: Surgical Subm Dr: Erwin Stafford DPM, MS Tissues: A Tendon/Sheath (RT PERONEAL TENDON TEAR) Procedures: HE, Gross/Micro L3 Age/ Patient Sex Location Account Attending Physician Sulaiman White 43/M LABELL [id number] Erwin Stafford DPM, MS SPEC NUM: [id number] RECD: 02/15/24 STATUS: LOAN ALEXANDRE NUM: [id number] JUDY: 02/14/[address]: Erwin Stafford DPM, MS ENTERED: 02/15/[address]: Edison,Lab SPEC TYPE: Surgical DEPT: JEREL BAIG ENTERED BY: [id number] RECV BY: [id number] ORDERED: HE, Gross/Micro L3 ORDERED: HE, Gross/Micro [...] are performed supporting the above interpretation Specimen: [id number] Received: 02/15/24 Status: LOAN Wandy Num: [id number] Spec Type: Surgical Subm Dr: Erwin Stafford,JOB, MS Tissues: A Tendon/Sheath (RT PERONEAL TENDON TEAR) Procedures: Vivek CERVANTES/Dallin Blancas Patient: Sulaiman White [id number] (Continued) Specimen: [id number] Received: 02/15/24 (Continued) Signed (signature on file) Toñito Schmid MD 02/20/24 1013 Specimen: [id number] Received: 02/15/24 Status: CEDRICJodie Alexandre Num: [id number] Spec Type: Surgical Subm Dr: Erwin Stafford,DPSrinivas, MS Tissues: A Tendon/Sheath (RT PERONEAL TENDON TEAR) Procedures: Vivek CERVANTES/Dallin Blancas Patient: Sulaiman White [id number] (Continued) Specimen: [id number] Received: 02/15/24 (Continued) CPT Codes 64193 Specimen: [id number] Received: 02/15/24 Status: LOAN Alexandre Num: [id number] Spec Type: Surgical Subm Dr: Erwin Stafford,JOB, MS Tissues: A Tendon/Sheath (RT PERONEAL TENDON TEAR) Procedures: Vivek CERVANTES/Dallin L3 Patient: Sulaiman White [id number] (Continued) Signed (signature on file) Toñito Schmid MD 02/20/24 1013 Normal [facility] Ambulatory Visit Summaryon 0 12-11-2023 [...] choosing us for your care. Endy Costello [facility] Family Medicine Office/Clini c Noteon [...] dry needling. he had this done in [place] a while back and it helped. 3. Migraine (G43.909: Migraine, unspecified, not intractable, without status migrainosus) pt still having migraines 4. Smoker (F17.200: Nicotine dependence, unspecified, uncomplicated) consider not smoking 5. BMI 22.0-22.9, adult (Z68.22: Body mass index [BMI] 22.0-22.9, adult) BMI education given Orders: busPIRone, See Instructions, TAKE 1 TABLET BY MOUTH THREE TIMES A DAY, # 90 tab(s), Refills(s) 0, Pharmacy: [facility] STORE 67577, 183.5, cm, 12/11/23 13:58:00 EDT, Height/Length Dosing, 76.5, kg, 12/11/23 13:58:00 EDT, Weight Dosing busPIRone, See Instructions, TAKE 1 TABLET BY MOUTH THREE TIMES A DAY, # 270 tab(s), Refills(s) 1, Pharmacy: [facility] STORE 01559, 183.5, cm, 11/13/23 14:06:00 EDT, Height/Length Dosing, 78.2, kg, 11/13/23 14:06:00 EDT, Weight Dosing duloxetine, 120 mg = 2 cap(s), Oral, Daily, 30 EA, TAKE 1 CAPSULE BY MOUTH EVERY DAY, # 60 cap(s), Refills(s) 1, [id number], 183.5, cm, 11/13/23 14:06:00 EDT, Height/Length Dosing, 78.2, kg, 11/13/23 14:06:00 EDT, Weight Dosing duloxetine, 120 mg = 2 cap(s), Oral, Daily, 30 EA, TAKE 1 CAPSULE BY MOUTH EVERY DAY, X 90 day(s), # 180 cap(s), Refills(s) 3, [id number], 183.5, cm, 11/13/23 14:06:00 EDT, [...] TPV40 diphtheria/pertussis , acel/tetanus adult 12/31/2019 Recorded [facility] Comment on above: Result Comment: Elec tronically Signed By: Meghan Carmona\.br\Date and Time Signed: 12/11/23 14:38 EDT Refillon 01-14-2023 Refill [id number] Sulaiman White 1980 M Date Provider Department Center 01/14/2023 VENKAT DEL ANGEL MP ORTHO MPORTHO No family history on file Reason for Visit and Comments: Med Refill [[id number]] [facility] 36on 12-18-2022 36 Approving, but needs appt for additional refills. [facility] Follow-Upon 12-01-2022 Follow-Up [id number] Sulaiman White 1980 M Date Provider Department Center 12/01/2022 421-SHORT, CHRISTOPHER MP ORTHO MPORTHO No family history on file Level of Service:90304 [place] OFFICE/OUTPATIENT ESTABLISHED LOW MDM 20-29 MIN () Reason for Visit and Comments: Follow-up [090897] Normal [facility] CHEMISTRYOrdered By: SYSTEM SYSTEM on 11-13-2022 Albumin [...] - 20 [facility] Follow-Upon 08-30-2022 Follow-Up [id number] Sulaiman White 1980 M Date Provider Department Center 08/30/2022 421-LUCERO SHORT MP ORTHO MPORTHO No family history on file Level of Service:15491 [place] POSTOP FOLLOW UP VISIT RELATED TO ORIGINAL PX Reason for Visit and Comments: Follow-up [337125] - [facility] R ankle follow up [facility] 36on 08-21-2022 36 Approving, but needs appt for additional refills. [facility] HPon 08-16-2022 HP H&P reviewed. The patient was examined and there are no changes to the H&P. [facility] OPNOTEon 08-16-2022 OPNOTE ORTHOPAEDIC SURGERY OPERATIVE REPORT Date of Surgery: 08/16/2022 Surgeon: Lucero Short MD Gear Cutting Machine Set Up Operator: Smita Burton MD Preoperative Diagnosis: Symptomatic [...] as needed. Patient will follow-up with Dr. Short in clinic in 2 weeks for suture removal and clinical check. Dr. Lucero Short MD was present for the entirety of the case. Smita Burton MD Orthopaedic Surgery Resident, PGY-2 08/16/22 [facility] POCT GLUCOSE METER UNSOLICIT ED RESULTSon 08-16-2022 Glucose [Mass/Vol] 98 mg/dL Normal 70-[address] [facility] Comment on above: Result Comment: reading hospital er4 Performed By: #### L [id number] ####[facility] [place] [address] Follow-Upon 08-04-2022 Follow-Up [id number] Sulaiman White 1980 M Date Provider Department Center 08/04/2022 Dee-LUCERO SHORT ORTHO MPORTHO No family history on file Level of Service:03570 [place] OFFICE/OUTPATIENT ESTABLISHED MOD MDM 30-39 MIN (GC,57) Reason for Visit and Comments: Pain [136] [facility] HPon 08-04-2022 HP Subjective Chief complaint: Chief Complaint Patient presents with Right Ankle - Pain 08/04/22 Sulaiman White is a 42 y.o. year old male [facility] presenting for evaluation of right ankle [...] Brock MD Orthopedic Surgery Resident Physician Pager: [phone] 08/04/22 9:04 AM By using the attestations [...] an additional personal documentation from me. Normal [facility] Labon 08-04-2022 Lab [id number] Sulaiman White 1980 M [facility] Department [place] 08/04/2022 2244-[facility] MP LAB RESOURCE MP DRAW Medical Pavi No family history on file Normal [facility] MRSA/MSSA DNA NASALon 2022 MRSA DNA Negative Normal Negative [facility] Comment on above: Performed By: #### L [id number] ####[facility] [place] [address] MSSA DNA Negative Normal Negative [facility] Comment on above: Performed By: #### L [id number] ####[facility] [place] [address] Prep for Procedureon 023 Prep for Procedure [id number] Sulaiman White 1980 [facility] 08/04/2022 Dee-LUCERO SHOTR MP ORTHO MPORTHO No family history on file Normal [facility] Follow-Upon 07-25-2022 Follow-Up [id number] Sulaiman White 1980 M [facility] Department [place] 07/25/2022 Carolyn-BEAR, VENKAT MP ORTHO MPORTHO No family history on file Level of Service:15634 [place] OFFICE/OUTPATIENT ESTABLISHED LOW MDM 20-29 MIN Reason for Visit and Comments: Follow-up [163589] - Review of xr [facility] 36on 07-19-2022 36 Approving, but needs appt for additional refills. [facility] 36on 06-19-2022 36 Approving, but needs appt for additional refills. [facility] 36on 05-22-2022 36 Approving, but needs appt for additional refills. [facility] 36on 04-24-2022 36 Approving, but needs appt for additional refills. [facility] Follow-Upon 04-18-2022 Follow-Up [id number] Sulaiman White 1980 M Date Provider Department [place] 04/18/2022 VENKAT DEL ANGEL MP ORTHO MPORTHO No family history on file Level of Service:34298 [place] OFFICE/OUTPATIENT ESTABLISHED LOW MDM 20-29 MIN Reason for Visit and Comments: Follow-up [297176] - [facility] Pt here today for right ankle follow up with xr [facility] Refillon 03-28-2022 Refill [id number] Sulaiman White 1980 M Date Provider Department [place] 03/28/2022 VENKAT DEL ANGEL MP ORTHO MPORTHO No family history on file Reason for Visit and Comments: Med Refill [046165] [facility] Follow-Upon 02-14-2022 Follow-Up [id number] Sulaiman White 1980 M Date Provider Department Center 02/14/2022 VENKAT DEL ANGEL MP ORTHO MPORTHO No family history on file Level of Service:40441 [place] OFFICE/OUTPATIENT ESTABLISHED LOW MDM 20-29 MIN Reason for Visit and Comments: Follow-up [499919] - Pt present for right ankle pain, with review of xrays [facility] ANKLE RIGHT 3 VWSon 12-24-19 22 ANKLE RIGHT 3 VWS [facility] Department of Radiology [address] [place] [phone] Patient Name: SULAIMAN WHITE : 1980 Sex: M Age: Race: White Pt. Location: 84 Patient Status: D Ordered Date: 12/23/2021 2:15:00 PM Completed Date: 12/23/2021 02:16 PM Requesting Provider: VENKAT SIFUENTES Attending Provider: VENKAT SIFUENTES Report Copy To: Signs & Symptoms: M25.571 Pain in right ankle and joints of right foot I10 History: [place] Comments: Exam: ANKLE RIGHT 3 [facility] ANKLE RIGHT 3 S 12/23/2021 2:16 PM [...] complication. Alignment is maintained Electronically signed: Lexy Perez. Transcribed by: [email or web address], User Resident: Electronically Signed by: LEXY PEREZ @ 12/25/2021 02:51 PM Normal [facility] ANKLE RIGHT 3 Son 11-12-19 22 ANKLE RIGHT 3 S [facility] Department of Radiology [address] [place] [phone] Patient Name: SULAIMAN WHITE : 1980 Sex: M Age: Race: White Pt. Location: Patient Status: D Ordered Date: 11/11/2021 10:40:00 AM Completed Date: 11/11/2021 10:41 AM Requesting Provider: VENKAT SIFUENTES Attending Provider: VENKAT SIFUENTES Report Copy To: SELF, REFERRED Signs & Symptoms: M25.571 Pain in right ankle and joints of right foot I10 History: [place] Comments: Exam: ANKLE RIGHT 3 [facility] ANKLE RIGHT 3 [facility] 11/11/2021 10:41 AM SIGNS AND SYMPTOMS: [...] adjacent soft tissue swelling. Electronically signed: Brent Castañeda. Transcribed by: [email or web address], User Resident: BRENT CASTAÑEDA Electronically Signed by: BRENT CASTAÑEDA @ 11/13/2021 02:39 PM I personally read this/these film(s) with this resident Normal [facility] ANKLE RIGHT 3 [facility] 10-13-19 ANKLE RIGHT 3 [facility] Department of Radiology [address] [place] [phone] Patient Name: SULAIMAN WHITE : 1980 Sex: M Age: Race: White Pt. Location: Patient Status: D Ordered Date: 10/12/2021 1:20:00 PM Completed Date: 10/12/2021 01:53 PM Requesting Provider: VENKAT SIFUENTES Attending Provider: VENKAT SIFUENTES Report Copy To: SELF, REFERRED Signs & Symptoms: S82.831A Oth fracture of upper and lower end of right fibula, init I10 History: Comments: evaluate Exam: ANKLE RIGHT 3 [facility] ANKLE RIGHT 3 [facility] 10/12/2021 1:53 PM CLINICAL INDICATIONS: S82.831A Oth fracture of upper and lower end of right fibula, init I10 TECHNOLOGIST COMMENTS: right ankle surgery 07/20/21 follow up QUESTION FOR THE RADIOLOGIST: evaluate PROTOCOL: AP,Lateral and Oblique views were obtained. COMPARISON: September 14, 2021 FINDINGS: Hardware is stable. Fracture alignment is stable. No acute complication IMPRESSION: No interval change Electronically signed: Lexy Peterson. Transcribed by: [email or web address], User Resident: Electronically Signed by: LEXY PETERSON @ 10/13/2021 02:03 PM Normal [facility] Comment on above: Order Comment: Evalu ate ANKLE RIGHT 3 [facility] 09-15-19 ANKLE RIGHT 3 [facility] Department of Radiology [address] [place] [phone] Patient Name: SULAIMAN WHITE : 1980 [...] complications. Electronically signed: Carline Alejandre. Transcribed by: [email or web address], User Resident: Electronically Signed by: CARLINE ALEJANDRE @ 09/16/2021 10:25 AM Normal [facility] ANKLE RIGHT 3 [facility] 08-30-19 ANKLE RIGHT 3 [facility] Department of Radiology [address] [place] [phone] Patient Name: SULAIMAN WHITE : 1980 Sex: M Age: Race: White Pt. Location: Patient Status: D Ordered Date: 07/18/2021 10:05:00 AM Completed Date: 08/29/2021 01:52 PM Requesting Provider: THANIA HOWARD Attending Provider: THANIA HOWARD Report Copy To: Signs & Symptoms: S82.831A Oth fracture of upper and lower end of right fibula, init I10 History: Comments: Evaluate Exam: ANKLE RIGHT 3 [facility] ANKLE RIGHT 3 [facility] 08/29/2021 1:52 PM CLINICAL INDICATIONS: S82.831A Oth [...] report. Electronically signed: Radha Lane. Transcribed by: [email or web address], User Resident: GALLO HAIR Electronically Signed by: RADHA LANE @ 08/30/2021 11:45 AM I personally read this/these film(s) with this resident Normal [facility] Comment on above: Order Comment: Evalu ate FOOT RIGHT 2 VWSon 2 FOOT RIGHT 2 VWS [facility] Department of Radiology [address] [place] [phone] Patient Name: SULAIMAN WHITE : 1980 Sex: M Age: Race: White Pt. Location: Patient Status: D Ordered Date: 08/29/2021 1:15:00 PM Completed Date: 08/29/2021 01:52 PM Requesting Provider: VENKAT SIFUENTES Attending Provider: Report Copy To: Signs & Symptoms: M79.671 Pain in right foot I10 History: Comments: evaluate Exam: FOOT RIGHT 2 S FOOT RIGHT 2 VWS 08/29/2021 1:52 PM CLINICAL INDICATIONS: M79.671 Pain [...] report. Electronically signed: Radha Lane. Transcribed by: [email or web address], User Resident: GALLO HAIR Electronically Signed by: RADHA LANE @ 08/30/2021 11:44 AM I personally read this/these film(s) with this resident Normal [facility] Comment on above: Order Comment: Evalu ate ANKLE RIGHT 3 [facility] 08-02-19 22 ANKLE RIGHT 3 [facility] Department of Radiology [address] [place] [phone] Patient Name: SULAIMAN WHITE : 1980 Sex: M Age: Race: White Pt. Location: Patient Status: Ordered Date: 08/01/2021 9:25:00 AM Completed Date: 08/01/2021 09:40 AM Requesting Provider: THANIA HOWARD Attending Provider: Report Copy To: Signs & Symptoms: Z48.89 Encounter for other specified surgical aftercare I10 History: Comments: Evaluate Exam: ANKLE RIGHT 3 [facility] ANKLE RIGHT 3 [facility] 08/01/2021 9:40 AM CLINICAL INDICATIONS: Z48.89 Encounter [...] report. Electronically signed: Rafy Trejo. Transcribed by: [email or web address], User Resident: ARISTEO MEYER Electronically Signed by: RAFY TREJO @ 08/01/2021 10:04 AM I personally read this/these film(s) with this resident Normal [facility] Comment on above: Order Comment: Evalu ate FOOT RIGHT 2 [facility] 2 FOOT RIGHT 2 S [facility] Department of Radiology [address] [place] [phone] Patient Name: SULAIMAN WHITE : 1980 Sex: M Age: Race: White Pt. Location: Patient Status: O Ordered Date: 08/01/2021 10:10:00 AM Completed Date: 08/01/2021 10:29 AM Requesting Provider: VENKAT SIFUENTES Attending Provider: THANIA HOWARD Report Copy To: Signs & Symptoms: M79.671 Pain in right foot I10 History: [place] Comments: Evaluate Exam: FOOT RIGHT 2 [facility] FOOT RIGHT 2 S 08/01/2021 10:29 AM CLINICAL INDICATIONS: M79.671 Pain in right foot I10 TECHNOLOGIST COMMENTS: Patient complains of right foot pain since 07/20/2021. QUESTION FOR THE RADIOLOGIST: Evaluate PROTOCOL: AP(PA) and Lateral views were obtained. COMPARISON: None Impression: 1. There is no evidence of a fracture, subluxation, or dislocation. Joint space is well-preserved. Electronically signed: Rafy Trejo. Transcribed by: [email or web address], User Resident: Electronically Signed by: RAFY TREJO @ 08/01/2021 10:35 AM Normal [facility] Comment on above: Order Comment: Evalu ate *MRSA/MSSA DNA NASALon 07-20 *MRSA/MSSA DNA NASAL Clinical Report: (D ) Specimen: NASAL SWAB Collected: 07/20/2021 17:31 Status: Final Last Updated: 07/20/2021 21:23 (1) No collection time noted on specimen or requisition. The collection time recorded is the time of receipt in the lab. MSSA DNA (Final) Negative MRSA DNA (Final) Negative Normal [facility] Comment on above: Order Comment: Evalu ate Performed By: #### 3 1595 ####[facility] ANKLE RIGHT 2 Son 07-21-19 22 ANKLE RIGHT 2 S [facility] Department of Radiology [address] [place] [phone] Patient Name: SULAIMAN WHITE : 1980 Sex: M Age: Race: White Pt. Location: OUTP Patient Status: D Ordered Date: 07/20/2021 12:00:00 PM Completed Date: 07/20/2021 01:11 PM Requesting Provider: THANIA HOWARD Attending Provider: THANIA HOWARD Report Copy To: Signs & Symptoms: ORIF RIGHT FIBULA History: Comments: ORIF RIGHT FIBULA Exam: ANKLE RIGHT 2 VWS EXAMINATION: ANKLE RIGHT 2 VWS 07/20/2021 1:11 PM CLINICAL HISTORY: ORIF RIGHT [...] See the discussion above. Electronically signed: Joe Tidwell. Transcribed by: [email or web address], User Resident: Electronically Signed by: JOE TIDWELL @ 07/21/2021 07:59 AM Normal [facility] Comment on above: Order Comment: ORIF RIGHT FIBULA Operative Reporton Operative Report MR#: [id number] S [facility] Pt. Name: Sulaiman White Room #: 0 Discharge Date: Birthdate: 1980 OPERATIVE REPORT DATE [...] b (more content not included)... Normal [facility] POC GLUCOSE LABon 07-20-2021 Glucose [Mass/Vol] 106 mg/dL High 70-100 [facility] Comment on above: Performed By: #### 8 5499 #### [facility] [address] POC SARS COV2 IDon SARS-CoV-2 (COVID-19) RNA RONIT+probe Ql (Unsp spec) Negative Normal NEGATIVE [facility] Comment on above: Result Comment: ID N [...] Accreditation. Performed By: #### 3 1921 #### [facility] [address] *MRSA/MSSA DNA NASALon 07-18 *MRSA/MSSA DNA NASAL Clinical Report: (D ) Specimen: NASAL SWAB Collected: 07/18/2021 10:21 Status: Final Last Updated: 07/18/2021 15:35 MSSA DNA (Final) Negative MRSA DNA (Final) Negative Normal [facility] Comment on above: Performed By: #### 3 1595 #### [facility] [address] *SARS-CoV-2 COVID-19on 07-18 SARS-CoV-2 (COVID-19) RNA RONIT+probe Ql (Unsp spec) Not detected Normal Not Detected [facility] Comment on above: Order Comment: The A ptima SARS-CoV-2 assay is a nucleic acid amplification test intended for the qualitative detection of RNA from SARS-CoV-2 isolated and purified from nasopharyngeal (VENDING MANAGER),oropharyngeal (OP), nasal swab, sputum, and bronchoalveolar lavage (BAL) specimens from patients with signs and symptoms of infection who are suspected of COVID-19. Results are for the identification of SARS-CoV-2 RNA. The SARS-CoV-2 RNA is generally detectable during the acute phase of infection. The Aptima SARS-CoV-2 Assay on the [employer] and [employer] Fusion system is intended for use by laboratory personnel specifically instructed and trained in the operation of the [employer]ia and [employer] Fusion system. The Aptima SARS-CoV-2 assay is [...] information. Performed By: #### 3 1792 #### [facility] [address] APTTon 07-18-2021 aPTT Coag (Bld) [Time] 28.9 s Normal 25.0-35.0 [facility] Comment on above: Result Comment: ALL RESULTS [...] THIS PURPOSE. Performed By: #### 5 7307, 24130 ####[facility] BASIC METABOLIC PANELon - Calcium [Mass/Vol] 8.9 mg/dL Normal 8.6-10.3 [facility] Comment on above: Performed By: #### 3 727, 64477 ####[facility] [place] [address], [facility] Chloride [Moles/Vol] 102 mmol/L Normal 98-107 [facility] Comment on above: Performed By: #### 3 727, 12857 ####[facility] [place] [id number], [place] CO2 [Moles/Vol] 26 mmol/L Normal 21-31 The [facility] Comment on above: Performed By: #### 3 727, [id number] ####[place] [id number] [facility] [id number], [facility] Creatinine [Mass/Vol] 1.10 mg/dL Normal 0.70-1.30 The [facility] Comment on above: Performed By: #### 3 727, 28551 ####[facility] [place] [address], [place] GFR/1.73 sq M.predicted among blacks MDRD (S/P/Bld) [Vol rate/Area] mL/min/{1.73_m2} Normal >60 [facility] Comment on above: Performed By: #### 3 727, 27994 ####[facility] [facility] [id number], [place] GFR/1.73 sq M.predicted among non-blacks MDRD (S/P/Bld) [Vol rate/Area] mL/min/{1.73_m2} Normal >60 [facility] Comment on above: Performed By: #### 3 727, 90644 ####[facility] [id number], [place] Glucose [Mass/Vol] 99 mg/dL Normal 70-100 The [facility] Comment on above: Performed By: #### 3 727, 77754 ####[facility] [facility] [place] [address], [facility] Potassium [Moles/Vol] 4.2 mmol/L Normal 3.5-5.1 [facility] Comment on above: Performed By: #### 3 28, 42256 ####[facility] [facility] [place] [address], [facility] Sodium [Moles/Vol] 135 mmol/L Low 136-145 The [facility] Comment on above: Performed By: #### 3 727, 03981 ####[facility] [facility].[address] Urea nitrogen [Mass/Vol] 19 mg/dL Normal 7-25 [facility] Comment on above: Performed By: #### 3 727, 84285 ####[facility] [facility] [place] [address], [facility] CBC W/DIFFon 07-18-2021 ABS IMM GRANS 0.0 10*3/uL Normal 0.0-0.[address] [facility] Comment on above: Performed By: #### 5 0103 ####[facility] [facility] [place] [address], [facility] ABS NEUTROPHILS 5.5 10*3/uL Normal 1.6-7.6 The [facility] Comment on above: Performed By: #### 5 0103 ####[facility] [facility] [place] [address], [facility] Basophils (Bld) [#/Vol] 0.0 10*3/uL Normal 0.0-0.2 The [facility] Comment on above: Performed By: #### 5 0103 ####[facility] [facility] [place] [address], [facility] Basophils/100 WBC (Bld) 0.5 % Normal 0.0-1.0 [facility] Comment on above: Performed By: #### 5 0103 ####[facility] [facility].[address] Eosinophils (Bld) [#/Vol] 0.2 10*3/uL Normal 0.0-0.5 [facility] Comment on above: Performed By: #### 5 0103 ####[facility] [facility].[address] Eosinophils/100 WBC (Bld) 2.9 % Normal 0.0-6.0 [facility] Comment on above: Performed By: #### 5 0103 ####[facility] [facility].[address] Erythrocyte distribution width (RBC) [Ratio] 12.5 % Normal 11.5-15.0 [facility] Comment on above: Performed By: #### 5 0103 ####[facility] [facility].[address] Hematocrit (Bld) [Volume fraction] 38.5 % Low 39.0-50.0 [facility] Comment on above: Performed By: #### 5 0103 ####[facility] [facility].[address] Hemoglobin (Bld) [Mass/Vol] 13.0 g/dL Normal 13.0-17.0 [facility] Comment on above: Performed By: #### 5 0103 ####[facility] IMMATURE GRANS 0.5 % Normal 0.0-1.[address] [facility] Comment on above: Performed By: #### 5 3 ####[facility] Lymphocytes (Bld) [#/Vol] 1.8 10*3/uL Normal 1.2-4.0 [facility] Comment on above: Performed By: #### 5 0103 ####[facility] [facility].[address] Lymphocytes/100 WBC (Bld) 21.9 % Normal 20.0-45.0 [facility] Comment on above: Performed By: #### 5 3 ####[facility] [facility].[address] MCH (RBC) [Entitic mass] 31.1 pg Normal 27.0-33.0 [facility] Comment on above: Performed By: #### 3 ####[facility] [facility].[address] MCHC (RBC) [Mass/Vol] 33.8 g/dL Normal 32.0-35.0 [facility] Comment on above: Performed By: #### 3 ####[facility] [facility].[address] MCV (RBC) [Entitic vol] 92.1 fL Normal 82.0-98.0 [facility] Comment on above: Performed By: #### 5 3 ####[facility] [facility].[address] Monocytes (Bld) [#/Vol] 0.6 10*3/uL Normal 0.1-1.0 [facility] Comment on above: Performed By: #### 5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 or severe headache. Yellow spots on your eyes. If you notice these less serious side effects, talk with your doctor: Mild skin tingling, burning, or pain where the needle is placed. Nausea, vomiting. Warmth or redness in your face, neck, arms, or upper chest. If you notice other side effects that you think are caused by this medicine, tell your doctor. Call your doctor for medical advice about side effects. You may report side effects to FDA at 3-451-WIE-1088 8546-3082 [employer]. All rights reserved. Radiological Ionic Contrast Media (Injection) (Injectable) - [place], [place] Generated on Thursday, March 15, 2012 1:45:02 PM Dexamethasone (Injection) Dexamethasone (cub-y-EPSN-a-sone) Treats symptoms of many conditions such as joint disease, skin conditions, allergies, swelling, eye disease, and stomach or bowel disease. Also used to test for adrenal gland problems. This medicine is a corticosteroid. Brand Name(s):Cortastat LA , Dexasone L.A. , Cortastat , Cortastat 10 There may be other brand names for this medicine. When This Medicine Should Not Be Used: You should not receive this medicine if you have had an allergic reaction to dexamethasone or sulfites, or if you have a fungal infection. How to Use This Medicine: Injectable Your doctor will prescribe your exact dose and tell you how often it should be given. This medicine is given as a shot into a muscle or a vein, or directly into one of your joints. A nurse or other trained health professional will give you this medicine. You may be taught how to give your medicine at home. Make sure you understand all instructions before giving yourself an injection. Do not use more medicine or use it more often than your doctor tells you to. Use a new needle and syringe each time you inject your medicine. If a dose is missed: This medicine needs to be given on a fixed schedule. If you miss a dose or forget to use your medicine, call your doctor or pharmacist for instructions. How to Store and Dispose of This Medicine: If you store this medicine at home, keep it at room temperature, away from heat and direct light. Medicine that is mixed in an IV bag should be kept in the refrigerator and used within 24 hours after mixing. Do not freeze. Throw away used needles in a hard, closed container that the needles cannot poke through. Keep this container away from children and pets. Keep all medicine away from children and never share your medicine with anyone. Drugs and Foods to Avoid: Ask your doctor or pharmacist before using any other medicine, including infk-ycd-hedaizj medicines, vitamins, and herbal products. Make sure your doctor knows if you are also using amphotericin B (Fungizone , Ambisome , Abcelet ), thalidomine, diuretics (water pills), aspirin, or blood thinners (Coumadin ). Tell your doctor if you use medicine for seizures (such as Dilantin , phenobarbital), indinavir (Crixivan ), rifampin, ketoconazole (Nizoral ), erythromycin (E.E.S. , E-Mycin ), indomethacin (Indocin ), or ephedrine (Primatene ). You may need to change your diet (such as lowering salt intake) while you are using this medicine. Follow your doctor's instructions carefully. Talk to your doctor before getting flu shots or other vaccines while you are receiving dexamethasone. Warnings While Using This Medicine: Make sure your doctor knows if you are or breast feeding. Tell your doctor if you have diabetes, cataracts, glaucoma, herpes infection of the eye, tuberculosis, asthma, or allergies to other medicines. Tell your doctor if you have osteoporosis, stomach problems, mental illness, myasthenia gravis, strongyloids (threadworm), liver disease, kidney disease, or thyroid problems. Make sure your doctor knows if you have high blood pressure or congestive heart failure, or if you have ever had a heart attack. Do not stop using this medicine suddenly without asking your doctor. You may need to slowly decrease your dose before stopping it completely. It may be easier for you to get an infection while you are using this medicine. Avoid crowds and people who are sick. If you are exposed to chickenpox or measles, tell your doctor right away. Make sure any doctor or dentist who treats you knows that you are using this medicine. Dexamethasone can change the results of some medical tests. If this medicine is injected into one of your joints, follow caregiver's instructions about resting the body part, even if it feels better. Possible Side Effects While Using This Medicine: Call your doctor right away if you notice any of these side effects: Allergic reaction: Itching or hives, swelling in your face or hands, swelling or tingling in your mouth or throat, chest tightness, trouble breathing Behavior changes, unusual thoughts. Black, bloody, or tarry stools, with severe stomach pain. Changes in vision, trouble seeing, eye discomfort or discharge. Diarrhea. Dry mouth, increased thirst, muscle cramps, nausea or vomiting. Fever, chills, cough, sore throat, body aches. Rapid weight gain, swelling in your hands, ankles, or feet. Unusual weakness or tiredness. Worsened joint pain, swelling, or stiffness. If you notice these less serious side effects, talk with your doctor: Changes in menstrual periods in women. Loss of appetite, nausea, vomiting. Restlessness, anxiety, mood changes, trouble sleeping. Skin changes, bruising, redness, sweating. If you notice other side effects that you think are caused by this medicine, tell your doctor. Call your doctor for medical advice about side effects. You may report side effects to FDA at 8-122-QOD-1284 documented in this encounter [facility] 06-26-2024 History of Present illness Narrative Images from the original note were not included. This consultation was requested by: Dr. 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 X-rays will be obtained today to ensure there is no bone shifting or movement during forward and backward bending motions. The results will be communicated via Where Was it Filmed. He is advised to increase his pregabalin [...] or weakness develop, I have advised Mr. White to call the office to be seen sooner. Thank you very much for this consultation. Franco Zaldivar MSN, CAFETERIA AIDE-WELFARE PROJECT MANAGER Certified Nurse Practitioner Department of Neurosurgery [facility] documented in this encounter [facility] 12-19-2022 Evaluation + Plan note Future Scheduled TestsCT Head or Brain w/o Contrast 12/19/22 [facility] [place] 12-01-2022 Note Orthopedic Surgery Subjective Chief complaint: [...] to be doing well. Incision completely healed. [place] some peroneal popping without dislocation on eversion of the ankle. PLAN: - continue ROM and dry needling appointments - Follow up in 6 months for clinical evaluation and to see if improvement to his symptoms and peroneal irritation. Jossie Bedoya MS3 [facility] 11-13-2022 Evaluation + Plan note [facility]/13/22Testosterone Level Total 11/13/[address] [facility] 08-30-2022 Note 42 yo M [...] Follow in 3 months for clinical evaluation. [facility] 08-16-2022 Note Patient: Sulaiman Camilo ick Procedure Summary Date: 08/16/22 Room / Location: [facility] OPERATING ROOM 04 / [facility] Operating Room Anesthesia Start: 1219 Anesthesia Stop: 1331 Procedure: REMOVAL, HARDWARE, ANKLE (Right: Ankle) Diagnosis: Retained orthopedic hardware (Retained orthopedic hardware [Z96.9]) Surgeons: Lucero Short MD Responsible Provider: Canelo Gallagher MD Anesthesia [...] no known notable events for this encounter. [facility] 08-16-2022 Note Airway Date/Time: 08/16/2022 12:28 PM [...] 1 Number of other approaches attempted: 0 [facility] 08-16-2022 Note Patient: Sulaiman hood Procedure Information Date/Time: 08/16/22 1200 Procedure: REMOVAL, HARDWARE, ANKLE (Right: Ankle) - c-arm / 12:00pm start / Location: [facility] OPERATING ROOM 04 / [facility] Operating Room Surgeons: Lucero Short MD Relevant Problems No relevant active problems [...] risks discussed with patient. Additional Equipment Requests [facility] 08-04-2022 Note Subjective Chief complaint: Chief Complaint Patient presents with Right Ankle - Pain 08/04/22 Sulaiman White is a 42 y.o. year old male [facility] presenting for evaluation of right ankle [...] Brock MD Orthopedic Surgery Resident Physician Pager: [phone] 08/04/22 9:04 AM By using the attestations [...] be an additional personal documentation from me. [facility] 07-25-2022 Note Date of Surgery: VALENTIN E [...] fibula Patient to follow up with Dr Short for scheduling once approved for hardware removal. [facility] 04-18-2022 Note Date of Surgery: VALENTIN E [...] bone Stim F/U 3 months repeat xrays [facility] 02-14-2022 Note Date of Surgery: VALENTIN E [...] bone Stim F/U 2 months repeat xrays [facility] 06-21-2021 Note CONSULTATION PAIN MANAGEMENT CONSULTATION CHIEF [...] patient understands and would like to proceed. [facility] Signed and Approved by: DR TWYLA HUGHES . 06/28/2021 07:59:00 [facility] 05-10-2021 Note PAIN MANAGEMENT Consultation Date: [...] patient recently had a MRI performed at [facility]. The report is noted on the chart [...] spine surgeon has been suggested. cc:Dr. Dsouza. [facility] Signed and Approved by: DR TWYLA HUGHES . 2021 09:03:00 [facility] 04-22-2021 Note PROCEDURE: Language Cloud VCT 64, 5.0 mm slice axial images [...] signed by Sánchez Briscoe on 04/22/2021 1428 [facility] Recovery Engineer Evaluation note No assessment inform ation [facility] Work Phone: Evaluation note Diagnosis Herniated intervertebral [...] pain laterality [facility] Chronic back pain, unspecified back location, unspecified back pain laterality [facility] Sacroiliac pain Disorders of sacrum [facility] Diagnosis Herniated intervertebral disc of lumbar spine- Primary Intervertebral disc disorder with radiculopathy of lumbar region Thoracic or lumbosacral neuritis or radiculitis, unspecified [facility] Herniated intervertebral disc of lumbar spine [facility] Diagnosis Closed fracture of right ankle, sequela- Primary Tear of peroneal tendon, right, initial encounter documented in this encounter [facility] HealthcareEvaluation note* Diagnosis Tear of peroneal tendon, right, initial encounter- Primary Closed fracture of right ankle, sequela documented in this encounter [facility] HealthcareHospital course Narrative No data available for this section [facility] No data available for this section [facility] No data available for this section [facility] N[facility]ative* Radiology (Routine) - New Request Specialty Diagnoses / Procedures Referred By Erickson weaver Referred To Contact Diagnoses Herniated intervertebral disc of lumbar spine Intervertebral disc disorder with radiculopathy of lumbar region Procedures [facility] Black Neri MD [address] [place] [phone] Phone: tel: fax: Referral ID Status Reason Start Date Expiration Date V isits Requested Visits Authorized [id number] New Request 07/09/2024 08/03/2025 1 1 [facility] Summary Purpose Family History No Family [...] and content) DATE CREATED AUTHOR 04/23/2021 [facility] dical Specialist DATE CREATED AUTHOR AUTHOR'S ORGANIZ ATION 07/15/2021 [facility] DATE CREATED AUTHOR AUTHOR'S ORGANIZ ATION 01/04/2022 [facility] DATE CREATED AUTHOR AUTHOR'S ORGANIZ ATION 01/24/2023 [facility] DATE CREATED AUTHOR AUTHOR'S ORGANIZ ATION 03/18/[address] [facility] DATE CREATED AUTHOR AUTHOR'S ORGANIZ ATION 02/22/2024 [facility] DATE CREATED AUTHOR AUTHOR'S ORGANIZ ATION 07/12/[address] [facility] DATE CREATED AUTHOR AUTHOR'S ORGANIZ ATION 11/21/2024 [facility] EPIC DATE CREATED AUTHOR AUTHOR'S ORGANIZ ATION 11/22/2024 [facility] Patient Care team informatio n (unrecognized section and content) Team Status: Inactive Member Role Status Dates Erwin Stafford DPM MS Attending Provider Active Start: February 14, 2024 End: February 14, 2024 Rotary Filter Operator Relationship Specialty Start Date End Date Stevenson Archer DO [address] [place] [address] PCP - General Internal Medicine 10/16/24 Rotary Filter Operator Relationship Specialty Start Date End Date Stevenson Archer DO [address] [place] [address] PCP - General Internal Medicine 10/16/24 Rotary Filter Operator Relationship Specialty Start Date End Date Stevenson Archer DO [address] [place] [address] PCP - General Internal Medicine 10/16/24 Rotary Filter Operator Relationship Specialty Start Date End Date Stevenson ArcherDO [address] [place] [address] PCP - General Internal Medicine 10/16/24 Goals (unrecognized section and content) Goals may be documented in a n alternate section Reason for Visit (unrecogniz ed section and content) Reason Comments New Patient Specialty Diagnoses / Procedures Referred By Contac t Referred To Contact Spine Diagnoses Herniated intervertebral disc of lumbar spine Chronic back pain, unspecified back location, unspecified back pain laterality Meghan Chapman [address] [place] [address] Phone: tel: fax: [facility] [address] [place] [address] Referral ID Status Reason Start Date Expiration Date Visits Re quested Visits Authorized [id number] Closed 03/20/2024 04/14/2025 1 1 Reason Comments Nerve Injection TFESI Specialty Diagnoses / Procedures Referred By Contac t Referred To Contact Multispecialty Diagnoses Herniated intervertebral disc of lumbar spine Lumbar radiculopathy Neural foraminal stenosis of lumbar spine Franco Zaldivar, [place]FETER[place] AIDE-[address] [address] Phone: tel: fax: [facility] [address] [address] Phone: tel: fax: Referral ID Status Reason Start Date Expiration Date Visits Re quested Visits Authorized [id number] Closed 06/26/2024 07/21/2025 1 1 FOR RECORDS PERTAINING TO PATIENTS [...] BE BASED ON THE PRIMARY CLINICAL RECORDS. [facility]. provides no warranty or guarantee of the accuracy or completeness of information in this document.
--- NOTE | 2024-12-25 11:26 | PM.CN ---
Consult Note: HPI Data of Consult Patient: known to practice within the last 3 years Consult date: 12/25/24 Requesting Physician: Kerry Connolly NP Primary Care Provider: MEGHAN BAIN Consult Narrative Reason for consult: f/u Narrative: 44yom who presents for evaluation. worsening right ankle pain. previous workplace injury in july 2021, has had subsequent ankle surgeries. continues to have right ankle pain. has undergone >80 sessions of physical therapy, which have not provided lasting relief. uses flexeril, cymbalta, tramadol, ibuprofen with some benefit. Pain today 4-5/10 and CRISTHIAN 27%. Pt has been utilizing ibuprofen 800mg daily as needed, duloxetine 60mg BID, tramadol 50mg BID PRN pain, flexeril 10mg qd PRN and lyrica 200mg TID without side effect. since last visit has returned to work, pain is tolerable but notes increased pain when changing position of foot for climbing latters, did not receive brace from podiatry although previously discussed. cc:: CC: Kerry Connolly NP Review of Systems ROS Musculoskeletal Reports: extremity pain PFSH PFSH Medical History (Updated 09/24/24 @ 11:37 by Kerry Connolly NP) Right ankle pain ?M25.571 - Pain in right ankle and joints of right foot (ICD-10) Back pain ?M54.9 - Dorsalgia, unspecified (ICD-10) Migraine ?G43.909 - Migraine, unspecified, not intractable, without status migrainosus (ICD-10) Diarrhea ?R19.7 - Diarrhea, unspecified (ICD-10) Sciatica ?M54.30 - Sciatica, unspecified side (ICD-10) Peroneal tendon injury ?S86.309A - Unspecified injury of muscle(s) and tendon(s) of peroneal muscle group at lower leg level, unspecified leg, initial encounter (ICD-10) Fibula fracture ?S82.409A - Unspecified fracture of shaft of unspecified fibula, initial encounter for closed fracture (ICD-10) Asthma ?J45.909 - Unspecified asthma, uncomplicated (ICD-10) Surgical History History of kidney surgery ?Z98.890 - Other specified postprocedural states (ICD-10) History of carpal tunnel release ?Z98.890 - Other specified postprocedural states (ICD-10) History of elbow surgery ?Z98.890 - Other specified postprocedural states (ICD-10) History of ankle surgery (~07/2021) ?Z98.890 - Other specified postprocedural states (ICD-10) History of appendectomy ?Z90.49 - Acquired absence of other specified parts of digestive tract (ICD-10) Family History Other Cancer Family history of cancer Family history of diabetes mellitus Family history of hypertension Social History Within the past year, how often did you have a drink containing alcohol: 4 or more times a week Within the past year, how many standard drinks containing alcohol did you have on a typical day: 1 or 2 Total score: 0 Score interpretation: A score less than 4 is consistent with normal alcohol consumption. 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 Highest level of school completed/degree received: high school graduate Meds Home Medications and Allergies Home Medications ?Medication ?Instructions ?Recorded ?Confirmed ?Type cyclobenzaprine 10 mg tablet 10 mg PO DAILY PRN muscle spasm 01/29/23 02/14/24 History duloxetine 60 mg capsule,delayed 60 mg PO DAILY 01/29/23 02/14/24 History release tramadol 50 mg tablet 50 mg PO Q8H PRN pain 02/14/23 02/14/24 History ibuprofen 800 mg tablet 800 mg PO Q12H PRN pain 02/19/23 02/14/24 History atogepant 60 mg tablet (Qulipta) 60 mg PO DAILY 01/30/24 02/14/24 History meloxicam 7.5 mg tablet 7.5 mg PO BID PRN pain 01/30/24 02/14/24 History multivitamin (Daily Multi-Vitamin 1 tab PO DAILY 01/30/24 02/14/24 History tablet) sumatriptan succinate 100 mg tablet 100 mg PO Q2H PRN migraine headache 01/30/24 02/14/24 History vitamin B complex 1 tab PO DAILY 01/30/24 02/14/24 History ibuprofen 800 mg tablet 800 mg PO DAILY PRN pain #30 tabs 07/03/24 Rx tramadol 50 mg tablet See Rx Instructions .Route 07/16/24 Rx .COMPLEX PRN pain #45 tabs pregabalin 200 mg capsule (Lyrica) 200 mg PO TID PRN pain #90 caps 09/24/24 Rx tramadol 50 mg tablet See Rx Instructions .Route 10/23/24 Rx .COMPLEX PRN pain #45 tabs tramadol 50 mg tablet 50 mg PO BID PRN pain #60 tabs 11/27/24 Rx Allergies Allergy/AdvReac Type Severity Reaction Status Date / Time No Known Drug Allergies Allergy Verified 02/14/24 10:39 Exam Narrative Exam Narrative: Psych-alert and oriented x 3. Attentive and appropriate, constitutionally normal, displays normal mood and affect per situation.? There are no obvious deficits in memory, reasoning, or intellect.? Skin-no obvious rashes, bruising, erythema noted to the patient's area of pain. Extremities- extremities are warm with minimal edema and palpable pulses. Tenderness to palpation in right ankle. Slight discoloring and cool temperature noted in right ankle. Lumbar-no significant tenderness to palpation noted in the lumbar spine and paraspinal musculature.? Pain is elicited with extension, and lateral rotation of the lumbar spine. Range of motion is slightly diminished with these motions due to pain. Coordination remains intact.? Gait remains non-antalgic. Assessment and Plan Assessment and Plan (1) Other fracture of upper and lower end of right fibula, initial encounter for closed fracture: (2) Chronic use of opiate for therapeutic purpose: Assessment and Plan: I feel these medications are improving the patient's quality of life and allow them to tolerate activities of daily living as well as participate in recreational activity.? The patient does not report intolerable side effects. The patient is NOT opioid naive and non-pharmacologic and non-opioid treatment has failed to significantly relieve the patient's pain and improve functionality. The patient has a diagnosis that is related to a somatic or visceral pain etiology. ? ?? I reviewed with the patient the potential risks and side effects with the use of? opioid medications including but not limited to respiratory depression,? sedation, and even . Within the last 12 months I have verified the patient has access to naloxone should? these effects occur. The patient was advised to let? their family know they had Naloxone in case they would need to administer? the medication. I advised the patient to avoid the use of any other? sedation substances including alcohol, THC, and benzodiazepines while? taking opioid medications due to the risk of compounding side effects and? detrimental outcomes. within the last 12 months I have reviewed the ETHNOLOGY TEACHER, pain treatment agreement and urine drug screen.? ?? A drug screen was completed within the last year, and no aberrancies were noted regarding their use of controlled substances. The patient understands they are subject to the terms and conditions of the pain contract that they have signed. ? ?? I have checked an [place] report on this patient today and there are no aberrancies noted in the prescribing history.? Plan continue f/u with podiatry, pending a foot brace and encouraged to discuss injection options with their team okay to take over duloxetine 60mg BID continue tramadol 50mg BID PRN moderate to severe pain 60 tabs to last 30 days, pt inquiring about filling today but as discussed with pt he is not due to fill until 12/27/24. pt did not report being out of his medication continue lyrica 200mg TID continue HEP as tolerated f/u 2 months, can consider repeating lumbar sympathetic blocks vs scs trial/implant of note pt no longer following with [facility] for low back pain, he was considering establishing with [facility] pain management. i discussed with pt today that he can transfer his care from our office to [facility] if he establishes there for his low back pain but he should not be seeing two [facility] pain management clinics. offered appointment to discuss low back pain, declining at this time
== END 2024-12-25 10:49 | disposition home or self-care (01) ==
LOC: PM 10:49
PROVIDERS: PCP Nurse Practitioner; Visit Provider Nurse Practitioner
DX: S82.831A Other fracture of upper and lower end of right fibula, initial encounter for closed fracture (principal); Z79.891 Long term (current) use of opiate analgesic
CPT/HCPCS: G0463

== ENCOUNTER 2025-02-26 11:29 | Outpatient (OUT) | payer OTHER, SELFPAY ==
--- OUTSIDE RECORDS SUMMARY | 2025-02-26 11:32 | XMS_ITS | Encounter Summary ---
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 PHQ-2 Answer Date Recorded Patient Health Questionnaire-2 Score 0 08/30/2022 Sex and Gender Information Value Date Recorded Sex Assigned at Not on file Legal Sex Male 10:03 PM EDT Gender Identity Not on file Sexual Orientation Not on file COVID-19 Exposure Response Date Recorded In the last 10 days, have yo u been in contact with someone who was confirmed or suspected to have Coronavirus/COVID-19? 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
--- OUTSIDE RECORDS SUMMARY | 2025-02-26 11:32 | XMS_ITS | Encounter Summary ---
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
--- OUTSIDE RECORDS SUMMARY | 2025-02-26 11:32 | XMS_ITS | Clinical Summary ---
Author Organization [facility] Healthcare Address [address] [place] [address] Care Team Providers Care Shipping And Receiving Operator Name Role Phone Stevenson Archer DO Primary Care Provider [phone] Allergies No known active allergies Medications ibuprofen 800 MG tablet TAKE 1 TABLET BY MOUTH EVERY 8 HOURS WITH FOOD OR MILK NEEDED Active pregabalin (Lyrica) 150 MG capsule 1 capsule 1 (one) time each day at the same time 06/10/2024 Active DULoxetine (Cymbalta) [address] capsule 1 capsule 1 (one) time each day at the same time Active traMADol (Ultram) 50 MG tablet TAKE 1 TABLET NEEDED ORALLY EVERY 4 HOURS NEEDED FOR 7 DAYS Active predniSONE (Deltasone) 10 MG tabletIndicatio ns:Tear of peroneal tendon, right, initial encounter Take 1 tablet (10 mg) by mouth Daily 30 tablet 1 01/19/2025 Active Active Problems No known active problems Encounters Date Type Department Care Team Description 01/19/2025 11:15 AM EDT Office Visit [facility] [address] [place] [address] Rossy Hinojosa DPM Tear of peroneal tendon, right, initial encounter (Primary Dx); Closed fracture of right ankle, sequela 01/19/2025 Bamboo flowsheet [facility] [address] [place] [address] Rossy Hinojosa DPM 01/19/2025 Travel from Last 3 Months Social History Tobacco Use Types Packs/Day Years Used Date Smoking Tobacco: Every Day Cigarettes Sex and Gender Information Value Date Recorded Sex Assigned at Not on file Legal Sex Male 6:34 PM EDT Gender Identity Male 10/16/2024 11:59 AM EDT Sexual Orientation Not on file Last Filed Vital Signs Vital Sign Reading Time Taken Comments Blood Pressure 112/68 12/04/2017 12:00 PM EDT Pulse - - Temperature - - Respiratory Rate - - Oxygen Saturation - - Inhaled Oxygen Concentration - - Weight 67.9 kg (149 lb 9.6 oz) 12/04/2017 12:00 PM EDT Height 181 cm (5' 11.25 ) 12/04/2017 12:00 PM ED T Body Mass Index 20.72 12/04/2017 12:00 PM EDT Plan of Treatment Not on file Insurance [facility] Care Teams Shipping And Receiving Operator Relationship Specialty Start Date End Date Stevenson Archer DO [address] [place] [address] PCP - General Internal Medicine 10/16/24
--- OUTSIDE RECORDS SUMMARY | 2025-02-26 11:32 | XMS_ITS | Patient Health Record ---
Author Organization [facility] Address [address] [place] [address] Care Team Providers Care Social Sciences Chair Name Role Phone Maritza Gómez Unavailable [phone] Self, Referral Unavailable Unavailable Reason For Referral No Information Problems Problem Type SNOMED Code ICD Code Onset Dates Problem Status W/U Status Risk Notes Problem [id number] Other intervertebral disc displacement, lumbar region (M51.26) Active confirmed Plan Of Treatment No Information Insurance Providers Payer Name Payer Address Payer Phone Subscriber Number Group Number Insured Name Patient Relationship to Insured Coverage Start Date Coverage End Date Drew [address] [place] [address] [id number] SHERIN WHITE Self - patient is the insured Medical (General) History Surgical History Surgery Date(Month/Year)
--- OUTSIDE RECORDS SUMMARY | 2025-02-26 11:32 | XMS_ITS | Encounter Summary ---
Author Organization [facility] Address [address] [place] [address] Care Team Providers Care Cert Occupational Therapy Asst Name Role Phone Shaikh NELL Dsouza Primary Care Provider [phone] Reason for Visit * Reason Comments Med Refill Encounter Details Date Type Department Care Team (Late st Contact Info) Description 12/17/2022 Refill [facility] [address] [place] [address] [place] [address] Bubba Hernandez PA [address] [place] [address] Closed torus fracture of distal [...] suspected to have Coronavirus/COVID-19? No / Unsure 12/01/2022 10:01 AM EDT documented as of this encounter Miscellaneous Notes * Telephone Encounter - LOWELL [place] - 12/18/2022 8:06 AM EDT Approving, but needs appt for additional refills. 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
--- OUTSIDE RECORDS SUMMARY | 2025-02-26 11:32 | XMS_ITS | Encounter Summary ---
Author Organization [facility] Address [address] [place] [address] Care Team Providers Care Sales Planning Manager Name Role Phone Shaikh NELL Dsouza Primary Care Provider [phone] Reason for Visit * Reason Comments Med Refill Encounter Details Date Type Department Care Team (Late st Contact Info) Description 04/24/2022 Refill [facility] [address] [place] [address] [place] [address] Bubba Hernandez PA [address] [place] [address] Closed torus fracture of distal [...] suspected to have Coronavirus/COVID-19? No / Unsure 04/18/2022 10:18 AM EST documented as of this encounter Miscellaneous Notes * Telephone Encounter - LOWELL [place] - 04/24/2022 1:30 PM EST Approving, but needs appt for additional refills. 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
--- OUTSIDE RECORDS SUMMARY | 2025-02-26 11:32 | XMS_ITS | Clinical Summary ---
Author Organization [facility] Address [address] [place] [address] Care Team Providers Care Drawing In Hand Name Role Phone Unavailable Primary Care Provider Unavailabl e Allergies No known active allergies Medications DULoxetine [address] Particles capsule DR Take 1 capsule by mouth daily. 4 Active ibuprofen 800 MG tablet Take 1 tablet by mouth 3 (three) times a day. 4 Active Pregabalin 150 MG capsule Take 1 capsule by mouth 3 times daily. Active SUMAtriptan 100 MG tablet Take 1 tablet by mouth As directed. Please see attached for detailed directions Active Qulipta 60 MG tablet Take 1 tablet by mouth daily. Active Active Problems No known active problems Social History Tobacco Use Types Packs/Day Years Used Date Smoking Tobacco: Never Assessed Sex and Gender Information Value Date Recorded Sex Assigned at Not on file Legal Sex Male 12:37 PM EST Gender Identity Male 07/10/2024 10:30 AM EST Sexual Orientation Straight 07/10/2024 10 :30 AM EST Last Filed Vital Signs Vital Sign Reading Time Taken Comments Blood Pressure 173/90 07/10/2024 3:27 PM EST Pulse 88 07/10/2024 3:27 PM EST Temperature 36.5 C (97.7 F) 07/10/2024 3:08 PM EST Respiratory Rate - - Oxygen Saturation - - Inhaled Oxygen Concentration - - Weight 80.3 kg (177 lb) 07/10/2024 3:08 PM EST Height 188 cm (6' 2 ) 07/10/2024 3:08 PM EST Body Mass Index 22.73 07/10/2024 3:08 PM EST Plan of Treatment Health Maintenance Due Date Last Done Comments HEPATITIS C VIRUS SCREENING 1978 HIV SCREENING DISCUSSION 1993 HEP B VACCINE (1 of 3 - 19+ 3-dose series) 1997 LIPID SCREENING 2018 COLORECTAL CANCER SCREENING DISCUSSION 2023 COVID-19 VACCINE ( - 2024-2 6 season) 2025 08/27/2020, 08/06/2020 INFLUENZA VACCINE (#1) 2025 TETANUS 12/30/2029 12/31/2019 TDAP (ADULT) Completed 12/31/2019 PNEUMOCOCCAL VACCINE SERIES Aged Out No longer eligible based on patient's age to complete this topic [facility]
--- OUTSIDE RECORDS SUMMARY | 2025-02-26 11:32 | XMS_ITS | Encounter Summary ---
Author Organization [facility] Address [address] [place] [address] Care Team Providers Care Campaign Specialist Name Role Phone Shaikh NELL Dsouza Primary Care Provider Reason for Visit * Reason Comments Med Refill Encounter Details Date Type Department Care Team (Late st Contact Info) Description 07/19/2022 Refill [facility] [address] [place] [address] [place] [address] Bubba Hernandez PA [address] [place] [address] Closed torus fracture of distal [...] * Telephone Encounter - LOWELL [place] - 07/19/2022 11:37 AM EST Approving, but needs appt for additional refills. 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
--- OUTSIDE RECORDS SUMMARY | 2025-02-26 11:32 | XMS_ITS | Encounter Summary ---
Author Organization [facility] Address [address] [place] [address] Care Team Providers Care Program Management Specialist Name Role Phone Shaikh NELL Dsouza Primary Care Provider [phone] Reason for Visit * Reason Comments Med Refill Encounter Details Date Type Department Care Team (Late st Contact Info) Description 05/21/2022 Refill [facility] [address] [place] [address] [place] [address] Bubba Hernandez PA [address] [place] [address] Closed torus fracture of distal [...] * Telephone Encounter - LOWELL Franklin - 05/22/2022 3:21 PM EST Approving, but needs appt for additional refills. 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
--- OUTSIDE RECORDS SUMMARY | 2025-02-26 11:32 | XMS_ITS | Patient Health Record ---
Author Organization [facility] [place] Address [address] [place] [address] Care Team Providers Care Reinsurance Accountant Name Role Phone None, Unknown or Primary Care Provider Unavailab Erwin Cueva Unavailable [phone] Nicolette Blair Unavailable [phone] Allergies No Known Allergies Reason For Referral Reason evaluation and treat ment - C9 approval attached Diagnosis 1 Other injury of musc le(s) and tendon(s) of peroneal muscle group at lower leg level, right leg, initial encounter (S86.391A) Referral Organization [facility] Referring Provider First Name Erwin Referring Provider Last Name Nydia Referring Provider Speciality Podiatry Referred Provider TB, Physical Therap y Referred Provider Specialty Physical Med icine and Rehabilitation Referral Priority Routine Medications Medication SIG (Take, Route, Frequency, Duration) Notes Start Date End Date Status Cyclobenzaprine HCl 10 MG 1 tablet at be dtime as needed Orally Once a day Active Ibuprofen 800 MG 1 tablet with food o r milk as needed Orally every 8 hrs Active DULoxetine HCl 60 MG 1 capsule Orally On a day Active Ibuprofen 800 MG 1 tablet with food o r milk as needed Orally every 8 hrs; Duration: 30 days 08/13/2024 Active SUMAtriptan 10 MG/ACT 1 puff at onset of headache may repeat dose after 1 hour up to 3 doses per day as needed Nasally Once a day Active Lyrica 150 MG 1 capsule Orally Onc e a day 06/10/2024 Active traMADol HCl 50 MG 1 tablet as needed O rally Once a day Active Social History Tobacco Use: Social History Observation Description Date Details (start date - stop date) Current Smoker NA - NA Tobacco Use/Smoking Question Answer Notes Patient is a current smoker Problems Problem Type SNOMED Code ICD Code Onset Dates Problem Status W/U Status Risk Notes Problem Arthralgia of the ankle and/or foot (248374595) Pain in right ankle and joints of right foot (M25.571) Active confirmed Problem Closed fracture of upper end of fibula (56365688) Other fracture of upper and lower end of right fibula, initial encounter for closed fracture (S82.831A) Active confirmed Vital Signs Heart Rate 88 /min 08/13/2024 Temperature 97.5 degrees Fahrenheit 08/13/2024 Respiratory Rate 16 /min 03/06/2024 Oximetry 98 % 08/13/2024 Height 74 in 08/13/2024 Weight 165 lbs 07/15/2024 BMI 21.18 kg/m2 07/15/2024 Encounters Encounter Location Date Provider Diagnosis [facility] [address] [place] [address] [place] [id number] 04/21/2024 Erwin Stafford [facility] [address] [place] [address] [place] [id number] 04/30/2024 Erwin Stafford [facility] [address] [place] [address] [place] [id number] 04/30/2024 Erwin Stafford [facility] [address] [place] [address] [place] [id number] 07/15/2024 Erwni Stafford [facility] [address] [place] [address] [place] [id number] 11/05/2024 Erwin Stafford [facility] [address] [place] [address] [place] [id number] 03/26/2024 Erwin Stafford Unspecified injury of muscle(s) and tendon(s) of peroneal muscle group at lower leg level, right leg, initial encounter S86.301A [facility] [address] [place] [address] [place] [id number] 04/30/2024 Erwin Stafford Unspecified injury of muscle(s) and tendon(s) of peroneal muscle group at lower leg level, right leg, initial encounter S86.301A and Other injury of muscle(s) and tendon(s) of peroneal muscle group at lower leg level, right leg, initial encounter S86.391A [facility] [address] [place] [address] [place] [id number] 06/10/2024 Erwin Stafford Unspecified injury of muscle(s) and tendon(s) of peroneal muscle group at lower leg level, right leg, initial encounter S86.301A and Other injury of muscle(s) and tendon(s) of peroneal muscle group at lower leg level, right leg, initial encounter S86.391A [facility] [address] [place] [address] [place] [id number] 07/15/2024 Erwin Stafford Other injury of muscle(s) and tendon(s) of peroneal muscle group at lower leg level, right leg, initial encounter S86.391A and Unspecified injury of muscle(s) and tendon(s) of peroneal muscle group at lower leg level, right leg, initial encounter S86.301A [facility] [address] [place] [address] [place] [id number] 08/13/2024 Erwin Stafford Other injury of muscle(s) and tendon(s) of peroneal muscle group at lower leg level, right leg, initial encounter S86.391A and Unspecified injury of muscle(s) and tendon(s) of peroneal muscle group at lower leg level, right leg, initial encounter S86.301A [facility] [address] [place] [address] [place] [id number] 03/06/2024 Nicolette Blair Other fracture of upper and lower end of right fibula, initial encounter for closed fracture S82.831A and Unspecified injury of muscle(s) and tendon(s) of peroneal muscle group at lower leg level, right leg, initial encounter S86.301A Assessments Encounter Date Diagnosis (ICD Code) Assessment Notes Treatment Notes Treatment Clinical Notes Section Notes 03/06/2024 Other fracture of upper and lower end of right fibula, initial encounter for closed fracture (ICD-10 - S82.831A) The patient is 3 weeks status post right peroneal tendon repair and retinacular repair with stress examination under fluoroscopy, DOS: 02/14/2024. The patient is progressing as expected. No evidence of infection or DVT on examination. Sutures were removed today without incident. He should remain in the boot for all ambulatory activity but may remove the boot while at rest to apply ice or to perform active ankle joint range of motion exercises. Pain medicine refilled. Follow-up in 3 weeks, sooner if any issues arise. No x-rays necessary at that time. 03/06/2024 Unspecified injury of muscle(s) and tendon(s) of peroneal muscle group at lower leg level, right leg, initial encounter (ICD-10 - S86.301A) 03/26/2024 Unspecified injury of muscle(s) and tendon(s) of peroneal muscle group at lower leg level, right leg, initial encounter (ICD-10 - S86.301A) Patient is roughly 6-week status post peroneal tendon repair. He may begin transitioning out of the cam boot as pain allows into ASO ankle brace. He may use crutches as needed. Begin formal physical therapy and a prescription was provided. I did refill his Ultram and he is to take only when absolutely needed and may begin weaning down. He will follow-up in a month with no new x-rays are needed 04/30/2024 Unspecified injury of muscle(s) and tendon(s) of peroneal muscle group at lower leg level, right leg, initial encounter (ICD-10 - S86.301A) Patient follows up for postop evaluation following peroneal tendon repair. He is seeing some improvement and has transition out of the boot and into an ASO ankle brace although he does need crutches to walk safely and comfortably. He still is requiring ultram on a fairly regular basis. I discussed with him weaning down and taking only when absolutely necessary. He may supplement with Tylenol. He still has residual weakness therefore I strongly encouraged continued physical therapy and exercises on his own.He may discontinue crutches as pain allows. No impact exercise but may get on a stationary bike. He will follow-up in 6 weeks call sooner with any other issues.I recommend to continue the current restrictions for work until next follow-up 04/30/2024 Other injury of muscle(s) and tendon(s) of peroneal muscle group at lower leg level, right leg, initial encounter (ICD-10 - S86.391A) 06/10/2024 Unspecified injury of muscle(s) and tendon(s) of peroneal muscle group at lower leg level, right leg, initial encounter (ICD-10 - S86.301A) Patient is nearly 4 months status post peroneal tendon repair. Date of surgery 02/14/2024. Patient relates today that he was doing well with physical therapy however ran out of visits. He still has weakness on examination as well as subjectively. I recommended more physical therapy including modalities such as ultrasound, e-stim and and dry needling. I also believe he would benefit from pool therapy so this was added to the prescription. Given the amount of walking and time on his feet when at work I do not believe he has recovered enough and would be at risk for further injury to his ankle or otherwise therefore I extended his time off of work until July 16, 2024. He will follow-up the week before no new x-rays are needed call sooner if any problems arise 06/10/2024 Other injury of muscle(s) and tendon(s) of peroneal muscle group at lower leg level, right leg, initial encounter (ICD-10 - S86.391A) 07/15/2024 Other injury of muscle(s) and tendon(s) of peroneal muscle group at lower leg level, right leg, initial encounter (ICD-10 - S86.391A) Patient follows up after peroneal tendon repair performed in February 2024. He is still having symptoms and limitations although appears to be getting better although slower than expected. I recommend that he continue physical therapy and remain off of work for the next 4 weeks at which time he will be able to return to work with restrictions. He will call if there are any major issues after returning to work otherwise we will follow-up after I have made the transition to private practice. No new x-rays are needed at follow-up After appointment patient called requesting another refill for tramadol. He does have 1 refill left and I recommended that he use these sparingly as I do not recommend any further opioids to be prescribed for acute pain given he is about 4 months post op. He should discuss this with pain management. 07/15/2024 Unspecified injury of muscle(s) and tendon(s) of peroneal muscle group at lower leg level, right leg, initial encounter (ICD-10 - S86.301A) 08/13/2024 Other injury of muscle(s) and tendon(s) of peroneal muscle group at lower leg level, right leg, initial encounter (ICD-10 - S86.391A) Patient is nearly 6 months postop and fortunately showing signs of improvement although slow. I do believe he is ready to return back to work however with restrictions which were written out in detail and copied into his chart. He may return back to work on Sunday. He should continue physical therapy as well as ASO ankle brace. I did provide refills for ibuprofen which she is to take as directed and as needed. He will call with any issues and I suspect that he will require the existing restrictions for at least 6 weeks. Given the upcoming transition to private practice if I am unable to see him at the time he is ready to return back to work without restrictions I may be able to review his symptoms over the phone and provide the appropriate clearance and if that is the case he can follow-up with me in approximately 3 months. 08/13/2024 Unspecified injury of muscle(s) and tendon(s) of peroneal muscle group at lower leg level, right leg, initial encounter (ICD-10 - S86.301A) Plan Of Treatment Pending Test Test Name Order Date XR Ankle RT (3 views) * (161) 12/25/2023 XR ankle RT min 3V 03/21/2023 ECG 12 lead 01/30/2024 [place] fluoroscopy <1hr NON-READ 02/19/2024 Insurance Providers Payer Name Payer Address Payer Phone Subscriber Number Group Number Insured Name Patient Relationship to Insured Coverage Start Date Coverage End Date [employer] PPO PLUS LOCAL PLAN [address] [place] [address] [id number] Sulaiman Bowie Self - patient is the insured [employer] [facility] [address] [place] [address] [id number] Sulaiman Bowie Self - patient is the insured Medical (General) History Medical History History ICD Code fractured right ankle 07/2021 Surgical History Surgery Date(Month/Year) right ankle fracture 07/13/21 Dr Ebrahim right ankle hardware removal [facility] 08/16/22 right ankle arthroscopy, per garrett tendon repair with retinacular repair 02/14/24 Hospitalization History Reason Date(Month/Year) see above
--- OUTSIDE RECORDS SUMMARY | 2025-02-26 11:32 | XMS_ITS | Encounter Summary ---
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 Sex and Gender Information Value Date Recorded Sex Assigned at Not on file Legal Sex Male 10:03 PM EDT Gender Identity Not on file Sexual Orientation Not on file COVID-19 Exposure Response Date Recorded In the last 10 days, have yo u been in contact with someone who was confirmed or suspected to have Coronavirus/COVID-19? No / Unsure 08/16/2022 10:52 AM EDT documented as of this encounter Miscellaneous Notes * Telephone Encounter - LOWELL Franklin - 08/21/2022 8:01 AM EDT Approving, but needs appt for additional refills. 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
--- OUTSIDE RECORDS SUMMARY | 2025-02-26 11:33 | XMS_ITS | CCD ---
Author Organization [facility] Care Team Providers Care Supervisor Sample Preparation Name Role Phone KAYLID, PARSONS Consulting Unavailable [...] Unavailable SAUL, DR TWYLA Lauren Consulting Unavailable SAUNDERS TARAN Consulting Unavailable FAWWAD, PARSONS Attending Unavailable FAWWAD, PARSONS Primary Care Unavailable FAWWAD, PARSONS Admitting Unavailable EBRAHEIM, THANIA Admitting Unavailable SELF, REFERRED Primary Care Unavailable EBRAHEIM, THANIA Attending Unavailable SELF, REFERRED Referring Unavailable Meghan Chapman Primary Care Physician [phone] VENKAT SIFUENTES Attending Unavailable VENKAT SIFUENTES Attending Unavailable SHORT, CHRISTOPHER Attending Unavailable VENKAT SIFUENTES Attending Unavailable SHORT, CHRISTOPHER Admitting Unavailable SHORT, CHRISTOPHER Attending Unavailable SHORT, CHRISTOPHER Attending Unavailable SHORT, CHRISTOPHER Attending Unavailable BEAR, VENKAT Referring Unavailable BEAR, VENKAT Referring Unavailable BEAR, VENKAT Referring Unavailable BEAR, VENKAT Referring Unavailable Vivienne CAMEJO, Catarino Anton Attending Unavailable Vivienne CAMEJO, Catarino Anton Attending Unavailable Vivienne CAMEJO, Catarino Anton Attending Unavailable JOB Stafford Attending Provider Unavailable Primary Care Provider Unavailabl e FRANCO ZALDIVAR Attending Unavailable ZALDIVAR, FRANCO L Referring Unavailable ODELL, MEGHAN Referring Unavailable ZALDIVAR, FRANCO L Attending Unavailable NERI, BLACK E Attending Unavailable ZALDIVAR, FRANCO L Referring Unavailable NERI, BLACK E Referring Unavailable NERI, BLACK E Attending Unavailable ZALDIVAR, FRANCO L Attending Unavailable ZALDIVAR, FRANCO L Referring Unavailable Ball DOStevenson E Primary Care Provider Odell, ENROBING MACHINE CORDER Meghan L Attending Unavailable Odell, ENROBING MACHINE CORDER Meghan L Attending Unavailable Odell, ENROBING MACHINE CORDER Meghan L Attending Unavailable Odell, ENROBING MACHINE CORDER Mgehan L Attending Unavailable Odell, ENROBING MACHINE CORDER Meghan L Attending Unavailable Odell ASSURANCE MANAGER INSURANCEAmeliaCMeghan Primary Care Provider Corinna Gutierrez APRN Attending Provider HAO HINOJOSA Attending Unavailable HAO HINOJOSA Attending Unavailable HAO HINOJOSA Attending Unavailable Erwin Stafford Attending Erwin Aragon Admitting Unavailable Meghan Chapman Primary Care Unavailable Corinna Gutierrez Attending Unavailable Corinna Gutierrez Admitting Unavailable Medications Current Medications Medication Drug Class(es) Dates Sig (Normalized) Sig (Original) cyclobenzaprine hydrochloride 10 mg oral tablet (4 sources) Muscle Relaxant Start: 01-20-2025 take 1 tablet by mouth once daily at bedtime Cyclobenzaprine 10 mg tablet Active 10 MG PO Daily at bedtime January 20, 2025 12:00am Complies with drug therapy Start: 11-28-2022 cyclobenzaprin e 10 mg Tab See Instructions, PRN for spasm, 1 tab(s) Oral at work for spasm, # 30 tab(s), Refills(s) 1, Pharmacy: [facility]/pharmacy #[id number], 183.5, cm, 11/13/22 11:51:00 [...] DULoxetine 60 mg delayed release oral capsule (14 sources) Serotonin and Norepinephrine Reuptake Inhibitor Start: 01-20-2025 take 1 capsule by mouth twice daily Duloxetine 60 mg capsule,delayed release(DR/EC) Active 60 MG PO Twice daily January 20, 2025 12:00am Complies with drug therapy Start: 11-13-2022 take 1 capsule by mo [facility] once daily DULoxetine [address] Particles capsule DR Take 1 capsule by mouth daily. 12/11/2023 Active ibuprofen 800 mg oral tablet (14 sources) Nonsteroidal Anti-inflammatory Drug Start: 01-20-2025 take 1 tablet by mouth every six hours Ibuprofen 800 mg tablet Active 800 MG PO Every 6 hours January 20, 2025 12:00am Complies with drug therapy Start: 09-17-2023 take 1 tablet by mya three times daily ibuprofen 800 MG tablet [...] HOURS WITH FOOD OR MILK NEEDED Active predniSONE 10 mg oral tablet (2 sources) Start: 01-19-2025 End: 03-20-2025 take 1 tablet by mouth once daily predniSONE (Deltasone) 10 MG tablet Indications: Tear of peroneal tendon, right, initial encounter Take 1 tablet (10 mg) by mouth Daily 30 tablet 1 01/19/2025 03/20/2025 Active pregabalin 200 mg oral capsule (11 sources) Start: 01-20-2025 take 1 capsule by mouth three times daily Pregabalin (Lyrica) 200 mg capsule Active 200 MG PO Three times daily January 20, 2025 12:00am Complies with drug therapy Start: 06-10-2024 pregabalin (Ly hannah) 150 MG [...] day, # 18 tab(s), Refills(s) 1, Pharmacy: [facility]/pharmacy #[id number], 183.5, cm, 11/13/22 11:51:00 EDT, Height/Length Dosing... Start Date: 12/19/22 Status: Ordered Start: 11-13-2022 take 1 tablet by mya th every two hours as needed for headache SUMAtriptan 25 mg Tab 25 mg = 1 tab(s), Oral, As Directed, PRN Migraine headache, may repeat dose in 2 hours if needed, # 9 tab(s), Refills(s) 0, Pharmacy: [facility]/pharmacy #[id number], 183.5, cm, 11/13/22 11:51:00 EDT, Height/Length Dosing, 75, kg, 11/13/22 11:51:00 EDT, Weight Dosing Start Date: 11/13/22 Status: Ordered traMADol hydrochloride 50 mg oral tablet (12 sources) Opioid Agonist Start: 01-20-2025 take 1 tablet by mouth once daily Tramadol 50 mg tablet Active 50 MG PO Daily January 20, 2025 12:00am Complies with drug therapy Start: 11-13-2022 take 1-2 tablets by mouth [...] 4 HOURS NEEDED FOR 7 DAYS Active Vitamin D3 1999 intl units oral Tab [...] at 1445, Until Taylor 07/10/24 at 1445 Problems Active Problems Problem Classification Problem Date Documented Date Episodic/Chronic E Codes: Other specified and classifiable (1 source) Caught, crushed, jammed, or pinched between moving objects, initial encounter; Translations: [CAUGHT CRUSH/PINCH BTWN MOV OBJ INT] Onset: 07-15-2021 Episodic Fracture of lower limb (18 sources) Other fracture of upper and lower [...] fatigue (3 sources) Fatigue 11-13-2022 Episodic Other connective tissue disease (2 sources) Bursitis of right hip; Translations: [Other bursitis of hip, right hip] 01-20-2025 Episodic Other male genital disorders (3 sources) Impotence 11-13-2022 Chronic Other nervous system disorders (3 sources) Other chronic pain; Translations: [OTHER CHRONIC PAIN] Onset: 06-27-2021 Chronic Other non-traumatic joint disorders (1 source) Hip pain Episodic Residual codes; unclassified (2 sources) Presence of [...] region] Onset: 05-10-2021 Episodic Sprains and strains (6 sources) Tendon injury - lower limb; Translations: [...] pain and lower extremity pain] Onset: 06-26-2024 Unclassified (1 source) Low back pain, unspecified; Translations: [Low back pain, unspecified] Onset: 01-19-2025 Unclassified (1 source) M25.551 - Pain in right hip Unclassified (1 source) M54.16 - Radiculopathy, lumbar region Past or Other Problems Problem Classification Problem [...] Test Name Value Interpretation Reference Range Facility X-ray reportOrdered By: Morgan Heller on 01-19-2025 Study report [facility] [place] [address] [place] [address] XRay Report Signed Patient: Sulaiman White MR#: [id number] : 1980 Acct:[id number] Age/Sex: 44 / M ADM Date: 5 Loc: XD Room: Type: [facility] Attending Dr: Corinna Gutierrez APRN Copies to: Corinna Gutierrez APRN~ Ordering Provider: Corinna Gutierrez APRN Date of Service: 01/19/25 XR/XR lumbar spine 6V w bending: M54.50 - Low back pain, unspecified 6 views Lumbar Spinewith bending HISTORY: Right-sided lower back pain. Radiation down the right leg COMPARISON: None POSTSURGICAL CHANGES: None BONY ALIGNMENT: Adequate lumbar lordosis HYPERMOBILITY:No hypermobility LISTHESIS:None FRACTURE: None DEGENERATIVE CHANGES: Mild spondylosis and lower lumbar facet degeneration SOFT TISSUES: Unremarkable BONY MINERALIZATION:Adequ ate XR/XR lumbar spine 6V w bending IMPRESSION: No hypermobility with mild degeneration Impression dictated by: Alan Heller M.D. 01/19/2025 4:09 PM Dictation Location: [place] [address] Transcribed By: PASCUAL 01/19/25 1492 Dictated By: Alan Heller DO 01/19/25 1608 Signed By: 01/19/25 1609 [facility] XR lumbar spine 6V w bending on 01-19-2025 XR lumbar spine 6V w bending [facility] [address] [place] [address] [place], [place] [id number] XRay Report Signed Patient: Sulaiman White MR#: [id number] : 1980 Acct:[id number] Age/Sex: 44 / M ADM Date: 01/19/25 Loc: XD Room: Type: [facility] Attending Dr: Corinna Gutierrez APRN Copies to: Corinna Gutierrez APRN Ordering Provider: Corinna Gutierrez APRN Date of Service: 01/19/25 XR/XR lumbar spine 6V w bending: M54.50 - Low back pain, unspecified 6 views Lumbar Spinewith bending HISTORY: Right-sided lower back pain. Radiation down the right leg COMPARISON: None POSTSURGICAL CHANGES: None BONY ALIGNMENT: Adequate lumbar lordosis HYPERMOBILITY:No hypermobility LISTHESIS:None FRACTURE: None DEGENERATIVE CHANGES: Mild spondylosis and lower lumbar facet degeneration SOFT TISSUES: Unremarkable BONY MINERALIZATION:Adequ ate XR/XR lumbar spine 6V w bending IMPRESSION: No hypermobility with mild degeneration Impression dictated by: Alan Heller M.D. 01/19/2025 4:09 PM Dictation Location: [place] [address] Transcribed By: [facility] 01/19/25 1609 Dictated By: Alan Heller DO 01/19/25 1608 Signed By: 01/19/25 1609 Normal [facility] Family Medicine Office/Clini c Noteon 11-19-2024 Family [...] lumbar region) pt was seen at the [facility] for injections pt feels it helped a little but he would like to go somewhere local for more injections. he is going back to work soon and feels the pain will be worse when he is more active. referral to [facility] spine center sent. His girlfriend goes here and he prefers to be seen locally driving to [place] was a lot for him. RTC as needed Ordered: [facility] External Ambulatory Referral 2. Right sciatic nerve pain (M54.31: Sciatica, right side) will give 60mg Toradol and send in prednisone taper pack. Ordered: [facility] External Ambulatory Referral 3. BMI 24.0-24.9, adult (Z68.24: Body mass index [BMI] 24.0-24.9, adult) BMI education given Ordered: [facility] External Ambulatory Referral 4. Tobacco use (Z72.0: Tobacco use) consider not smoking Ordered: [facility] External Ambulatory Referral Orders: predniSONE, See Instructions, TAKE 3 TABLETS BY MOUTH X 5 DAYS,2 TABLETS DAILY X 5 DAYS, THEN 1 TABLET DAILY X 5 DAYS DIRECTED, # 30 tab(s), Refills(s) 1, Pharmacy: [facility]/pharmacy #[id number], 183.5, cm, 11/19/24 15:42:00 EDT, Height/Length Dosing, [...] diphtheria/pertussis , acel/tetanus adult 12/31/2019 Recorded Normal [facility] Comment on above: Result Comment: Elec tronically Signed By: Meghan Carmona\.preethi\Date and Time Signed: 11/19/24 16:13 EDT XR [...] Soft tissue swelling along the lateral ankle. [facility] Radiology Study observation (narrative) [facility] Family Medicine Office/Clini c Noteon 09-25-2024 [...] He is also waiting for transfer for [facility] from [place] due to office closing and needs approved for [place]. 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 S/P peroneal tendon repair (Z98.890: Other specified postprocedural states) pt presents today for FMLA paper work for continued time off from work. 09/04-11/26. pt is no longer able to see Dr. Stafford because he is now private practice and they can't see pt's that are involved in [facility] cases. he is currently trying to get into [facility] podiatry and [facility] in [place]. he is also at a stand still [...] diphtheria/pertussis , acel/tetanus adult 12/31/2019 Recorded Normal [facility] Comment on above: Result Comment: [...] DAY, # 30 tab(s), Refills(s) 0, Pharmacy: [id number], 183.5, cm, 03/12/24 14:10:00 EDT, Height/Length Dosing, 76.5, kg, 03/12/24 14:10:00 EDT, Weight Dosing predniSONE, = 1 -, Oral, As Directed, Take 3 tabs by mouth daily x5 days, then 2 tabs daily x5 days, then 1 tab daily x5 days., # 30 tab(s), Refills(s) 0, Pharmacy: [facility]/pharmacy #[id number], 183.5, cm, 03/12/24 14:10:00 EDT, [...] diphtheria/pertussis , acel/tetanus adult 12/31/2019 Recorded Normal [facility] Comment on above: Result Comment: Elec tronically Signed By: Meghan Carmona\.preethi\Date and Time Signed: 07/16/24 16:09 EST RIGHT [...] and improvement of QoL), and process involved. [facility] Radiology Study observation (narrative) [facility] XR SACROILIAC JOINTS 1-2 VIE WSon 06-26-2024 [...] changes of the sacroiliac joints bilaterally. Normal [facility] XR SPINE LUMBAR 4+ VIEWSon 0 [...] Lower lumbar facet arthrosis. No instability. Normal [facility] XR Sacroiliac Joint 3 Viewso n [...] Degenerative changes of the sacroiliac joints bilaterally. [facility] Radiology Study observation (narrative) [facility] XR Sacroiliac Joint 3 ViewsO rdered By: Chago Cole on 06-26-2024 [facility] Work Phone: XR Spine Lumbar and Sacrum [...] disease. Lower lumbar facet arthrosis. No instability. [facility] Radiology Study observation (narrative) [facility] Family Medicine Office/Clini c Noteon 03-12-2024 Family [...] pt would like to be referred to [facility] spine center in [place]. will send steroid and 15mg of meloxicam. he has percocet from Dr. Stafford due to recent ankle surgery. Ordered: predniSONE, = 1 -, Oral, As Directed, Take 3 tabs by mouth daily x5 days, then 2 tabs daily x5 days, then 1 tab daily x5 days., # 30 tab(s), Refills(s) 0, Pharmacy: [id number], 183.5, cm, 03/12/24 14:10:00 EDT, Height/Length Dosing, 76.5, kg, 03/12/24 14:... 2. Chronic back pain (M54.9: Dorsalgia, unspecified) see above Ordered: predniSONE, = 1 -, Oral, As Directed, Take 3 tabs by mouth daily x5 days, then 2 tabs daily x5 days, then 1 tab daily x5 days., # 30 tab(s), Refills(s) 0, Pharmacy: [facility]/pharmacy #[id number], 183.5, cm, 03/12/24 14:10:00 EDT, Height/Length Dosing, 76.5, kg, 03/12/24 14:... 3. BMI 22.0-22.9, adult (Z68.22: Body mass index [BMI] 22.0-22.9, adult) BMI education given Ordered: predniSONE, = 1 -, Oral, As Directed, Take 3 tabs by mouth daily x5 days, then 2 tabs daily x5 days, then 1 tab daily x5 days., # 30 tab(s), Refills(s) 0, Pharmacy: [facility]/pharmacy #[id number], 183.5, cm, 03/12/24 14:10:00 EDT, Height/Length Dosing, 76.5, kg, 03/12/24 14:... 4. Smoker (F17.200: Nicotine dependence, unspecified, uncomplicated) consider not smoking Ordered: predniSONE, = 1 -, Oral, As Directed, Take 3 tabs by mouth daily x5 days, then 2 tabs daily x5 days, then 1 tab daily x5 days., # 30 tab(s), Refills(s) 0, Pharmacy: [facility]/pharmacy #[id number], 183.5, cm, 03/12/24 14:10:00 EDT, Height/Length Dosing, 76.5, kg, 03/12/24 14:... Other chronic pain (G89.29: Other chronic pain) pain from ankle surgery Orders: busPIRone, See Instructions, TAKE 1 TABLET BY MOUTH THREE TIMES A DAY, # 90 tab(s), Refills(s) 0, Pharmacy: [facility], 183.5, cm, 12/11/23 13:58:00 EDT, Height/Length Dosing, 76.5, kg, 12/11/23 13:58:00 EDT, Weight Dosing busPIRone, See Instructions, TAKE 1 TABLET BY MOUTH THREE TIMES A DAY, # 270 tab(s), Refills(s) 1, Pharmacy: [facility] 438[facility], 183.5, cm, 11/13/23 14:06:00 EDT, Height/Length Dosing, 78.2, kg, 11/13/23 14:06:00 EDT, Weight Dosing meloxicam, 15 mg = 1 tab(s), Oral, Daily, # 30 tab(s), Refills(s) 0, Pharmacy: [facility]/pharmacy #[id number], 183.5, cm, 03/12/24 14:10:00 EDT, [...] mRNA BN (more content not included)... Normal [facility] Comment on above: Result Comment: Elec tronically Signed By: Meghan Carmona\.br\Date and Time Signed: 03/12/24 14:36 EDT Igor 02-14-2024 L Specimen: [id number] Received: 02/15/24 Status: LOAN Alexandre Num: [id number] Spec Type: Surgical Subm Dr: Erwin Stafford DPM, MS Tissues: A Tendon/Sheath (RT PERONEAL TENDON TEAR) Procedures: HE, Gross/Micro L3 Age/ Patient Sex Location Account Attending Physician Sulaiman White 43/M LABELL [id number] Erwin Stafford DPM, MS SPEC NUM: [id number] RECD: 02/15/24 STATUS: CEDRICJodie ALEXANDRE NUM: [id number] JUD[place]: 02/14/[address]: Erwin Stafford DPM, MS ENTERED: 02/15/24 [facility] DR: Ceci Hogan SPEC TYPE: Surgical DEPT: JEREL BAIG ENTERED BY: [id number] RECV BY: [id number] ORDERED: HE, Gross/Micro L3 ORDERED: HE, Gross/Micro [...] are performed supporting the above interpretation Specimen: [id number] Received: 02/15/24 Status: CEDRICJodie Alexandre Num: [id number] Spec Type: Surgical Subm Dr: Erwin Stafford DPM, MS Tissues: A Tendon/Sheath (RT PERONEAL TENDON TEAR) Procedures: HE, Gross/Micro L3 Patient: Sulaiman White [id number] (Continued) Specimen: [id number] Received: 02/15/24 (Continued) Signed (signature on file) Toñito Schmid MD 02/20/24 1013 Specimen: [id number] Received: 02/15/24 Status: LOAN Alexandre Num: [id number] Spec Type: Surgical Subm Dr: Erwin Stafford,JOB, MS Tissues: A Tendon/Sheath (RT PERONEAL TENDON TEAR) Procedures: HELEN, Gross/Micro L3 Patient: Sulaiman White S [id number] (Continued) Specimen: [id number] Received: 02/15/24 (Continued) CPT Codes 04915 Specimen: [id number] Received: 02/15/24 Status: LOAN Alexandre Num: [id number] Spec Type: Surgical Subm Dr: Erwin Stafford DPM, MS Tissues: A Tendon/Sheath (RT PERONEAL TENDON TEAR) Procedures: Vivek CERVANTES/Dallin L3 Patient: Sulaiman White [id number] (Continued) Signed (signature on file) Toñito Schmid MD 02/20/24 1013 Normal [facility] Ambulatory Visit Summaryon 0 12-11-2023 [...] choosing us for your care. Normal [facility] Family Medicine Office/Clini c Noteon [...] dry needling. he had this done in [place] a while back and it helped. 3. Migraine (G43.909: Migraine, unspecified, not intractable, without status migrainosus) pt still having migraines 4. Smoker (F17.200: Nicotine dependence, unspecified, uncomplicated) consider not smoking 5. BMI 22.0-22.9, adult (Z68.22: Body mass index [BMI] 22.0-22.9, adult) BMI education given Orders: busPIRone, See Instructions, TAKE 1 TABLET BY MOUTH THREE TIMES A DAY, # 90 tab(s), Refills(s) 0, Pharmacy: [facility], 183.5, cm, 12/11/23 13:58:00 EDT, Height/Length Dosing, 76.5, kg, 12/11/23 13:58:00 EDT, Weight Dosing busPIRone, See Instructions, TAKE 1 TABLET BY MOUTH THREE TIMES A DAY, # 270 tab(s), Refills(s) 1, Pharmacy: [facility], 183.5, cm, 11/13/23 14:06:00 EDT, Height/Length Dosing, 78.2, kg, 11/13/23 14:06:00 EDT, Weight Dosing duloxetine, 120 mg = 2 cap(s), Oral, Daily, 30 EA, TAKE 1 CAPSULE BY MOUTH EVERY DAY, # 60 cap(s), Refills(s) 1, Pharmacy: [facility]/pharmacy #[id number], 183.5, cm, 11/13/23 14:06:00 EDT, Height/Length Dosing, 78.2, kg, 11/13/23 14:06:00 EDT, Weight Dosing duloxetine, 120 mg = 2 cap(s), Oral, Daily, 30 EA, TAKE 1 CAPSULE BY MOUTH EVERY DAY, X 90 day(s), # 180 cap(s), Refills(s) 3, Pharmacy: [facility]/pharmacy #[id number], 183.5, cm, 11/13/23 14:06:00 EDT, Height/Length [...] diphtheria/pertussis , acel/tetanus adult 12/31/2019 Recorded Normal [facility] Comment on above: Result Comment: Elec tronically Signed By: Meghan Carmona\.br\Date and Time Signed: 12/11/23 14:38 EDT [place] 01-14-2023 Refill [id number] Sulaiman White 1980 M Date Provider Department Center 01/14/2023 VENKAT DEL ANGEL MP ORTHO MPORTHO No family history on file Reason for Visit and Comments: Med Refill [005952] [facility] 36on 12-18-2022 36 Approving, but needs appt for additional refills. [facility] Follow-Upon 12-01-2022 Follow-Up [id number] Sulaiman White 1980 M Date Provider Department Center 12/01/2022 LUCERO MUÑOZ MP ORTHO MPORTHO No family history on file Level of Service:17376 [place] OFFICE/OUTPATIENT ESTABLISHED LOW MDM 20-29 MIN () Reason for Visit and Comments: Follow-up [379111] [facility] CHEMISTRYOrdered By: SYSTEM SYSTEM on 11-13-2022 Albumin [...] - 20 [facility] Follow-Upon 08-30-2022 Follow-Up [id number] Sulaiman White 1980 M Date Provider Department Center 08/30/2022 LUCERO MUÑOZ MP ORTHO MPORTHO No family history on file Level of Service:54670 [place] POSTOP FOLLOW UP VISIT RELATED TO ORIGINAL PX Reason for Visit and Comments: Follow-up [231483] - [facility] R ankle follow up [facility] 36on 08-21-2022 36 Approving, but needs appt for additional refills. [facility] HPon 08-16-2022 HP H&P reviewed. The patient was examined and there are no changes to the H&P. [facility] Date of Surgery: 08/16/2022 Surgeon: Lucero Short MD Adzing And Boring Machine Feeder: Smita Burton MD Preoperative Diagnosis: Symptomatic retained [...] MD Orthopaedic Surgery Resident, PGY-2 08/16/22 Normal [facility] POCT GLUCOSE METER UNSOLICIT ED RESULTSon 08-16-2022 Glucose [Mass/Vol] 98 mg/dL Normal 70-105 [facility] Comment on above: Result Comment: lweb er4 Performed By: #### L [id number] ####[facility] (BEAKER)[address] [place] [address] Follow-Upon 08-04-2022 Follow-Up [id number] Sulaiman White 1980 M Date Provider Department Center 08/04/2022 421-LUCERO SHORT MP ORTHO MPORTHO No family history on file Level of Service:86394 [place] OFFICE/OUTPATIENT ESTABLISHED MOD MDM 30-39 MIN (GC,57) Reason for Visit and Comments: Pain [136] Normal [facility] HPon 08-04-2022 HP Subjective Chief complaint: Chief Complaint Patient presents with Right Ankle - Pain 08/04/22 Sulaiman White is a 42 y.o. year old male [facility] presenting for evaluation of right ankle [...] Brock MD Orthopedic Surgery Resident Physician Pager: [phone] 08/04/22 9:04 AM By using the attestations [...] an additional personal documentation from me. Normal [facility] Labon 08-04-2022 Lab [id number] Sulaiman White 1980 M Date Provider Department Center 08/04/2022 2244-[facility] MP LAB RESOURCE MP DRAW Medical Pavi No family history on file Normal [facility] MRSA/MSSA DNA NASALon 2022 MRSA DNA Negative Normal Negative [facility] Comment on above: Performed By: #### L [id number] ####[facility] LAB (BEAKER)[address] [place] [address] MSSA DNA Negative Normal Negative [facility] Comment on above: Performed By: #### L [id number] ####[facility] LAB (BEARACELIS)[address] [place] [address] Prep for Procedureon 023 Prep for Procedure [id number] Melvin Whiteel 1980 M Date Provider Department [place] 08/04/2022 LUCERO MUÑOZ MP ORTHO MPORTHO No family history on file [facility] Follow-Upon 07-25-2022 Follow-Up [id number] Melvin Whiteel 1980 M Date Provider Department [place] 07/25/2022 VENKAT DEL ANGEL MP ORTHO MPORTHO No family history on file Level of Service:08331 [place] OFFICE/OUTPATIENT ESTABLISHED LOW MDM 20-29 MIN Reason for Visit and Comments: Follow-up [023846] - Review of xr [facility] 36on 07-19-2022 36 Approving, but needs appt for additional refills. [facility] 36on 06-19-2022 36 Approving, but needs appt for additional refills. [facility] 36on 05-22-2022 36 Approving, but needs appt for additional refills. [facility] 36on 04-24-2022 36 Approving, but needs appt for additional refills. Normal [facility] Follow-Upon 04-18-2022 Follow-Up [id number] LesleeerwinSulaiman 1980 M Date Provider Department Center 04/18/2022 VENKAT DEL ANGEL MP ORTHO MPORTHO No family history on file Level of Service:57839 [place] OFFICE/OUTPATIENT ESTABLISHED LOW MDM 20-29 MIN Reason for Visit and Comments: Follow-up [884232] - [facility] Pt here today for right ankle follow up with xr [facility]illon 03-28-2022 Refill [id number] LesleeerwinSulaiman 1980 M Date Provider Department Center 03/28/2022 VENKAT DEL ANGEL MP ORTHO MPORTHO No family history on file Reason for Visit and Comments: Med Refill [[id number]] Normal [facility] Follow-Upon 02-14-2022 Follow-Up [id number] Sulaiman White 1980 M Date Provider Department Center 02/14/2022 Carolyn-VENKAT SIFUENTES MP ORTHO MPORTHO No family history on file Level of Service:17803 [place] OFFICE/OUTPATIENT ESTABLISHED LOW MDM 20-29 MIN Reason for Visit and Comments: Follow-up [[id number]] - Pt present for right ankle pain, with review of xrays Normal [facility] ANKLE RIGHT 3 VWSon 12-24-19 22 ANKLE RIGHT 3 VWS [facility] Department of Radiology [address] [place] [id number] Patient Name: SULAIMAN WHITE : 1980 [...] maintained Electronically signed: Lexy Perez. Transcribed by: [email or web address], User Resident: Electronically Signed by: LEXY PEREZ @ 12/25/2021 02:51 PM Normal [facility] ANKLE RIGHT 3 [facility] 11-12-19 22 ANKLE RIGHT 3 [facility] Department of Radiology [address] [place] [phone] Patient Name: SULAIMAN WHITE : 1980 Sex: M Age: Race: White Pt. Location: Patient Status: D Ordered Date: 11/11/2021 10:40:00 AM Completed Date: 11/11/2021 10:41 AM Requesting Provider: VENKAT SIFUENTES Attending Provider: VENKAT SIFUENTES Report Copy To: SELF, REFERRED Signs & Symptoms: M25.571 Pain in right ankle and joints of right foot I10 History: [place] Comments: Exam: ANKLE RIGHT 3 [facility] ANKLE RIGHT 3 [facility] 11/11/2021 10:41 AM SIGNS AND SYMPTOMS: [...] swelling. Electronically signed: Brent Castañeda. Transcribed by: [email or web address], User Resident: BRENT CASTAÑEDA Electronically Signed by: BRENT CASTAÑEDA @ 11/13/2021 02:39 PM I personally read this/these film(s) with this resident Normal [facility] ANKLE RIGHT 3 [facility] 10-13-19 22 ANKLE RIGHT 3 [facility] Department of Radiology [address] [place] [phone] Patient Name: SULAIMAN HWITE : 1980 Sex: M Age: Race: White Pt. Location: Patient Status: D Ordered Date: 10/12/2021 1:20:00 PM Completed Date: 10/12/2021 01:53 PM Requesting Provider: VENKAT SIFUENTES Attending Provider: VENKAT SIFUENTES Report Copy To: SELF, REFERRED Signs & Symptoms: S82.831A Oth fracture of upper and lower end of right fibula, init I10 History: Comments: evaluate Exam: ANKLE RIGHT 3 [facility] ANKLE RIGHT 3 [facility] 10/12/2021 1:53 PM CLINICAL INDICATIONS: S82.831A [...] change Electronically signed: Lexy Peterson. Transcribed by: [email or web address], User Resident: Electronically Signed by: LEXY PETERSON @ 10/13/2021 02:03 PM Normal [facility] Comment on above: Order Comment: Evalu ate ANKLE RIGHT 3 VWSon 09-15-19 ANKLE RIGHT 3 [facility] Department of Radiology [address] [place] [phone] Patient Name: SULAIMAN WHITE : 1980 [...] right fibula. No hardware complications. Electronically signed: Calrine Alejandre. Transcribed by: [email or web address], User Resident: Electronically Signed by: CARLINE ALEJANDRE @ 09/16/2021 10:25 AM [place] [facility] ANKLE RIGHT 3 [facility] 08-30-19 ANKLE RIGHT 3 [facility] Department of Radiology [address] [place] [phone] Patient Name: SULAIMAN WHITE : 1980 Sex: M Age: Race: White Pt. Location: Patient Status: D Ordered Date: 07/18/2021 10:05:00 AM Completed Date: 08/29/2021 01:52 PM Requesting Provider: THANIA HOWARD Attending Provider: THANIA HOWARD Report Copy To: Signs & Symptoms: S82.831A Oth fracture of upper and lower end of right fibula, init I10 History: Comments: Evaluate Exam: ANKLE RIGHT 3 [facility] ANKLE RIGHT 3 S 08/29/2021 1:52 PM [...] report. Electronically signed: Radha Lane. Transcribed by: [email or web address], User Resident: GALLO HAIR Electronically Signed by: RADHA LANE @ 08/30/2021 11:45 AM I personally read this/these film(s) with this resident Normal [facility] Comment on above: Order Comment: Evalu ate FOOT RIGHT 2 [facility] 2 FOOT RIGHT 2 [facility] Department of Radiology [address] [place] [phone] Patient Name: SULAIMAN WHITE : 1980 [...] report. Electronically signed: Radha Lane. Transcribed by: [email or web address], User Resident: GALLO HAIR Electronically Signed by: RADHA LANE @ 08/30/2021 11:44 AM I personally read this/these film(s) with this resident Normal [facility] Comment on above: Order Comment: Evalu ate ANKLE RIGHT 3 Son 08-02-19 22 ANKLE RIGHT 3 S [facility] Department of Radiology [address] [place] [phone] Patient Name: SULAIMAN WHITE : 1980 Sex: M Age: Race: White Pt. Location: Patient Status: Ordered Date: 08/01/2021 9:25:00 AM Completed Date: 08/01/2021 09:40 AM Requesting Provider: THANIA HOWARD Attending Provider: Report Copy To: Signs & Symptoms: Z48.89 Encounter for other specified surgical aftercare I10 History: Comments: Evaluate Exam: ANKLE RIGHT 3 [facility] ANKLE RIGHT 3 [facility] 08/01/2021 9:40 AM CLINICAL INDICATIONS: Z48.89 [...] report. Electronically signed: Rafy Trejo. Transcribed by: [email or web address], User Resident: ARISTEO MEYER Electronically Signed by: RAFY TREJO @ 08/01/2021 10:04 AM I personally read this/these film(s) with this resident Normal [facility] Comment on above: Order Comment: Evalu ate FOOT RIGHT 2 [facility] 2 FOOT RIGHT 2 [facility] Department of Radiology [address] [place] [phone] Patient Name: SULAIMAN WHITE : 1980 Sex: M Age: Race: White Pt. Location: 84 Patient Status: O Ordered Date: 08/01/2021 10:10:00 AM Completed Date: 08/01/2021 10:29 AM Requesting Provider: VENKAT SIFUENTES Attending Provider: THANIA HOWARD Report Copy To: Signs & Symptoms: M79.671 Pain in right foot I10 History: [place] Comments: Evaluate Exam: FOOT RIGHT 2 VWS [...] well-preserved. Electronically signed: Rafy Trejo. Transcribed by: [email or web address], User Resident: Electronically Signed by: RAFY TREJO @ 08/01/2021 10:35 AM [place] [facility] Comment on above: Order Comment: Evalu ate *MRSA/MSSA DNA NASALon 07-20 *MRSA/MSSA DNA NASAL Clinical Report: (D ) Specimen: NASAL SWAB Collected: 07/20/2021 17:31 Status: Final Last Updated: 07/20/2021 21:23 (1) No collection time noted on specimen or requisition. The collection time recorded is the time of receipt in the lab. MSSA DNA (Final) Negative MRSA DNA (Final) Negative Normal [facility] Comment on above: Order Comment: Evalu ate Performed By: #### 3 1595 ####[address] ANKLE RIGHT 2 [facility] 07-21-19 22 ANKLE RIGHT 2 [facility] Department of Radiology [address] [place] [phone] Patient Name: SULAIMAN WHITE : 1980 Sex: M Age: Race: White Pt. Location: OUTP Patient Status: D Ordered Date: 07/20/2021 12:00:00 PM Completed Date: 07/20/2021 01:11 PM Requesting Provider: THANIA HOWARD Attending Provider: THANIA HOWARD Report Copy To: Signs & Symptoms: ORIF RIGHT FIBULA History: Comments: ORIF RIGHT FIBULA Exam: ANKLE RIGHT 2 [facility] EXAMINATION: ANKLE RIGHT 2 S 07/20/2021 1:11 [...] above. Electronically signed: Joe Tidwell. Transcribed by: [email or web address], User Resident: Electronically Signed by: JOE TIDWELL @ 07/21/2021 07:59 AM Normal [facility] Comment on above: Order Comment: ORIF RIGHT FIBULA Operative Reporton 2 Operative Report MR#: [id number] S [facility] Pt. Name: Sulaiman White Room #: [...] b (more content not included)... Normal [facility] POC GLUCOSE LABon 07-20-2021 Glucose [Mass/Vol] 106 mg/dL High 70-100 [facility] Comment on above: Performed By: #### 8 5499 #### [facility] [address] [facility]. [address] POC SARS COV2 IDon 2 SARS-CoV-2 (COVID-19) RNA RONIT+probe Ql (Unsp spec) Negative Normal NEGATIVE [facility] Comment on above: Result Comment: ID [...] Accreditation. Performed By: #### 3 1921 #### [facility] [address] [facility]. [address] *MRSA/MSSA DNA NASALon 07-18 *MRSA/MSSA DNA NASAL Clinical Report: (D ) Specimen: NASAL SWAB Collected: 07/18/2021 10:21 Status: Final Last Updated: 07/18/2021 15:35 MSSA DNA (Final) Negative MRSA DNA (Final) Negative Normal [facility] Comment on above: Performed By: #### 3 1595 #### [facility] [address] [facility]. [address] *SARS-CoV-2 COVID-19on 07-18 SARS-CoV-2 (COVID-19) RNA RONIT+probe Ql (Unsp spec) Not detected Normal Not Detected [facility] Comment on above: Order Comment: The A ptima SARS-CoV-2 assay is a nucleic acid amplification test intended for the qualitative detection of RNA from SARS-CoV-2 isolated and purified from nasopharyngeal ([employer]),oropharyngeal (OP), nasal swab, sputum, and bronchoalveolar lavage (BAL) specimens from patients with signs and symptoms of infection who are suspected of COVID-19. Results are for the identification of SARS-CoV-2 RNA. The SARS-CoV-2 RNA is generally detectable during the acute phase of infection. The Aptima SARS-CoV-2 Assay on the Avisena and Avisena Fusion system is intended for use by laboratory personnel specifically instructed and trained in the operation of the [place] and Avisena Fusion system. The Aptima SARS-CoV-2 assay is [...] information. Performed By: #### 3 1792 #### [facility] [address] [facility] [place] [address], [facility] APTTon 07-18-2021 aPTT Coag (Bld) [Time] 28.9 s Normal 25.0-35.0 [facility] Comment on above: Result Comment: ALL [...] THIS PURPOSE. Performed By: #### 5 7307, 65134 ####[facility] BASIC METABOLIC PANELon Calcium [Mass/Vol] 8.9 mg/dL Normal 8.6-10.3 [facility] Comment on above: Performed By: #### 3 1528, [address] ####[place] [address] [facility] [place] [address], [facility] Chloride [Moles/Vol] 102 mmol/L Normal 98-107 [facility] Comment on above: Performed By: #### 3 28, 66638 ####[facility] [facility] [place] [address], [facility] CO2 [Moles/Vol] 26 mmol/L Normal 21-31 [facility] Comment on above: Performed By: #### 3 5328, 69852 ####[place] [address] [facility] [place] [address], [facility] Creatinine [Mass/Vol] 1.10 mg/dL Normal 0.70-1.30 [facility] Comment on above: Performed By: #### 3 0928, 14053 ####[place] [address] [place] [address], [facility] GFR/1.73 sq M.predicted among blacks MDRD (S/P/Bld) [Vol rate/Area] mL/min/{1.73_m2} Normal >60 [facility] Comment on above: Performed By: #### 3 727, 60894 ####[facility] [place] [address], [facility] GFR/1.73 sq M.predicted among non-blacks MDRD (S/P/Bld) [Vol rate/Area] mL/min/{1.73_m2} Normal >60 [facility] Comment on above: Performed By: #### 3 727, 46361 ####[facility] [place] [address], [facility] Glucose [Mass/Vol] 99 mg/dL Normal 70-100 [facility] Comment on above: Performed By: #### 3 727, 80713 ####[facility] [facility] [place] [place] [address], [facility] Potassium [Moles/Vol] 4.2 mmol/L Normal 3.5-5.1 [facility] Comment on above: Performed By: #### 3 727, 19811 ####[facility] [facility] [place] [place] [address], [facility] Sodium [Moles/Vol] 135 mmol/L Low 136-145 [facility] Comment on above: Performed By: #### 3 727, 66730 ####[facility] [facility] [place] [place] [address], [facility] Urea nitrogen [Mass/Vol] 19 mg/dL Normal 7-25 [facility] Comment on above: Performed By: #### 3 727, 50393 ####[facility] [place] [address], [facility] CBC W/DIFFon 07-18-2021 ABS IMM GRANS 0.0 10*3/uL Normal 0.0-0.2 The [facility] Comment on above: Performed By: #### 5 0103 ####[facility] [facility] [place] [address], [facility] ABS NEUTROPHILS 5.5 10*3/uL Normal 1.6-7.6 The [facility] Comment on above: Performed By: #### 5 0103 ####[facility] [facility] [place] [place] [address], [facility] Basophils (Bld) [#/Vol] 0.0 10*3/uL Normal 0.0-0.2 [facility] Comment on above: Performed By: #### 0103 ####[facility] [facility] [place] [place] [address], [facility] Basophils/100 WBC (Bld) 0.5 % Normal 0.0-1.0 [facility] Comment on above: Performed By: #### 3 ####[place] [address] [place] [address], [facility] Eosinophils (Bld) [#/Vol] 0.2 10*3/uL Normal 0.0-0.5 [facility] Comment on above: Performed By: #### 5 3 ####[facility] [facility] [place] [address], [facility] Eosinophils/100 WBC (Bld) 2.9 % Normal 0.0-6.0 [facility] Comment on above: Performed By: #### 5 3 ####[facility] [facility].[address] Erythrocyte distribution width (RBC) [Ratio] 12.5 % Normal 11.5-15.0 [facility] Comment on above: Performed By: #### 5 3 ####[place] [address] [facility].[address] Hematocrit (Bld) [Volume fraction] 38.5 % Low 39.0-50.0 [facility] Comment on above: Performed By: #### 5 3 ####[facility] Hemoglobin (Bld) [Mass/Vol] 13.0 g/dL Normal 13.0-17.0 [facility] Comment on above: Performed By: #### 5 3 ####[address] IMMATURE GRANS 0.5 % Normal 0.0-1.0 The [facility] Comment on above: Performed By: #### 3 ####[address] Lymphocytes (Bld) [#/Vol] 1.8 10*3/uL Normal 1.2-4.0 [facility] Comment on above: Performed By: #### 102 ####[address] Lymphocytes/100 WBC (Bld) 21.9 % Normal 20.0-45.0 [facility] Comment on above: Performed By: #### 5 3 ####[address] MCH (RBC) [Entitic mass] 31.1 pg Normal 27.0-33.0 [facility] Comment on above: Performed By: #### 5 3 ####[address] MCHC (RBC) [Mass/Vol] 33.8 g/dL Normal 32.0-35.0 [facility] Comment on above: Performed By: #### 5 3 ####[address] MCV (RBC) [Entitic vol] 92.1 fL Normal 82.0-98.0 [facility] Comment on above: Performed By: #### 5 3 ####[facility] [place] [address], [facility] Monocytes (Bld) [#/Vol] 0.6 10*3/uL Normal 0.1-1.0 [facility] Comment on above: Performed By: #### 5 3 ####[facility] [facility].[place] [id number], [facility] MONOS 7.5 % Normal 5.0-12.0 [facility] Comment on above: Performed By: #### 5 0103 ####[facility] [facility] [place] [place] [address], [facility] Neutrophils/100 WBC (Bld) 66.7 % Normal 40.0-72.0 [facility] Comment on above: Performed By: #### 102 ####[facility] [facility] [place] [place] [address], [facility] Nucleated RBC/100 WBC (Bld) [Ratio] 0 % Normal 0-0 [facility] Comment on above: Performed By: #### 102 ####[facility] [facility] [place] [address], [facility] PLAT CNT 283 10*3/uL Normal 150-400 The [facility] Comment on above: Performed By: #### 3 ####[facility] [facility] [place] [place] [address], [facility] RBC (Bld) [#/Vol] 4.18 10*6/uL Low 4.20-5.70 [facility] Comment on above: Performed By: #### 5 3 ####[facility] [facility] [place] [place] [address], [facility] WBC (Bld) [#/Vol] 8.23 10*3/uL Normal 4.00-10.60 [facility] Comment on above: Performed By: #### 5 3 ####[facility] PROTHROMBIN TIMEon INR Coag (PPP) [Relative time] 0.96 {INR} Normal 0.91-1.16 [facility] Comment on above: Result Comment: [...] CHEST 1995;108:231S-246S. Performed By: #### 5 7307, [address] ####[place] [address] PT Coag (PPP) [Time] 12.7 s Normal 12.3-14.8 [facility] Comment on above: Result Comment: ALL RESULTS MUST BE INTERPRETED WITH RESPECT TO BLOOD DRAWING ARTIFACT OR DILUTION ERROR OF ANTICOAGULANT AT THE TIME OF SAMPLING. Performed By: #### 5 7307, [address]229 ####[place] [address] VITAMIN D 25-HYDROXYon 07-18 VITAMIN D 25-OH 18.8 ng/mL Low 30.0-80.0 [facility] Comment on above: Result Comment: >80. 0 Toxicity possible Performed By: #### 3 0386, 25665 ####[facility] [place] [address], [facility] XR ANKLE RT MIN 3 VIEWSon [...] Eron KWAN Date: 2021-07-14 05:45 Normal [facility] XR Hip Complete Righton 04-13 XR Hip Complete Right HISTORY: Pain, popping FINDINGS: Normal hip joint space. No pincer or CAM deformities. No cortical or stress fracture. IMPRESSION: Minimal arthritis. Report reported and signed by Sánchez Briscoe on 04/22/2021 1103 Normal [facility] [employer] CBC AUTO DIFFon 04-12-2021 BASO # 0.0 103/ul Normal 0.0-0.[address] [facility] Comment on above: Performed By: #### C BC #### [facility] [address] [place] [address] Dr. Martha Schmid Basophils/100 WBC (Bld) 0.4 % Normal 0.2-2.0 [facility] Comment on above: Performed By: #### C BC #### [facility] [address] [place] [address] [address] Martha Schmid EO # 0.3 103/ul Normal 0.0-0.[address] [facility] Comment on above: Performed By: #### C BC #### [facility] [address] [place] [address] [address] Martha Schmid Eosinophils/100 WBC (Bld) 4.2 % Normal 0.9-7.[address] [facility] Comment on above: Performed By: #### C BC #### [facility] [address] [address] [address] Martha Schmid Erythrocyte distribution width (RBC) [Ratio] 12.5 % Normal 11.0-15.[address] [facility] Comment on above: Performed By: #### C BC #### [facility] [address] [place] [address] Dr. Martha Schmid Hematocrit (Bld) [Volume fraction] 39.7 % Critically low 42.0-54.[address] [facility] Comment on above: Performed By: #### C BC #### [facility] [address] [place] [address] Dr. Martha Schmid Hemoglobin (Bld) [Mass/Vol] 13.1 g/dL Critically low 14.0-18.0 [facility] Comment on above: Performed By: #### C BC #### [facility] [address] [place] [address] Dr. Martha Schmid IG # 0.02 10e3/ul Normal 0.00-0.[address] [facility] Comment on above: Performed By: #### C BC #### [facility] [address] [place] [address] Dr. Martha Schmid IG % 0.3 % Normal 0.0-0.[address] [facility] Comment on above: Performed By: #### C BC #### [facility] [address] [place] [address] Dr. Martha Schmid LYMPH # 1.9 103/ul Normal 1.2-3.8 [facility] Comment on above: Performed By: #### C BC #### [facility] [address] [place] [address] Dr. Martha Schmid Lymphocytes/100 WBC (Bld) 24.4 % Normal 20.5-60.0 [facility] Comment on above: Performed By: #### C BC #### [facility] [address] [place] [address] Dr. Martha Schmid MANUAL DIFF REQ NO Normal [facility] Comment on above: Performed By: #### C BC #### [facility] [address] [place] [address] Dr. Martha Schmid MCH (RBC) [Entitic mass] 31.3 pg Normal 25.9-34.[address] [facility] Comment on above: Performed By: #### C BC #### [facility] [address] [place] [address] Dr. Martha Schmid MCHC (RBC) [Mass/Vol] 33.0 g/dL Normal 29.9-35.[address] [facility] Comment on above: Performed By: #### C BC #### [facility] [address] [place] [address] Dr. Martha Schmid MCV (RBC) [Entitic vol] 94.7 fL Critically high 80.0-94.[address] [facility] Comment on above: Performed By: #### C BC #### [facility] [address] [place] [address] Dr. Martha Schmid MONO # 0.6 103/ul Normal 0.3-0.[address] [facility] Comment on above: Performed By: #### C BC #### [facility] [address] [place] [address] Dr. Martha Schmid Monocytes/100 WBC (Bld) 8.2 % Normal 1.7-12.[address] [facility] Comment on above: Performed By: #### C BC #### [facility] [address] [place] [address] Dr. Martha Schmid NEUT # 4.9 103/ul Normal 1.4-6.[address] [facility] Comment on above: Performed By: #### C BC #### [facility] [address] [place] [address] Dr. Martha Schmid Neutrophils/100 WBC (Bld) 62.5 % Normal 43.0-75.[address] [facility] Comment on above: Performed By: #### C BC #### [facility] [address] [place] [address] Dr. Martha Schmid Platelet mean volume (Bld) [Entitic vol] 9.6 fL Normal 9.5-13.[address] [facility] Comment on above: Performed By: #### C BC #### [facility] [address] [place] [address] Dr. Martha Schmid PLT 247 103/ul Normal 150-[address] [facility] Comment on above: Performed By: #### C BC #### [facility] [address] [address] [address] Martha Schmid RBC 4.19 106/ul Critically low 4.70-6.10 [facility] Comment on above: Performed By: #### C BC #### [facility] [address] [address] [address] Martha Schmid WBC 7.8 103/ul Normal 4.0-11.[address] [facility] Comment on above: Performed By: #### C BC #### [facility] [address] [address] [address] Martha Schmid GLYCOHEMOGLOBIN A1Con 2020 ADA RECOMMENDATION ADA THERAPEUTIC TARGET 6.0 - 7.0 ACTION SUGGESTED > 7.[address] [facility] Comment on above: Performed By: #### A 1C #### [facility] [address] [place] [address] Dr. Martha Schmid Glucose [Mass/Vol] 108 mg/dL Normal [facility] Comment on above: Performed By: #### A 1C #### [facility] [address] [place] [address] Dr. Martha Schmid HbA1c (Bld) [Mass fraction] 5.4 % Normal <=6.[address] [facility] Comment on above: Performed By: #### A 1C #### [facility] [address] [place] [address] Dr. Martha Schmid LIPID PROFILEon 04-12-2021 CHOL-HDL RATIO NORM SEE BELOW Normal [facility] Comment on above: Result Comment: 3.3 - 4.4 LOW RISK 4.4 - 7.1 AVERAGE RISK 7.1 - 11.0 MODERATE RISK >11.0 HIGH RISK Performed By: #### C MP, LIPID #### [facility] [address] [place] [address] Dr. Martha Schmid Cholesterol [Mass/Vol] 181 mg/dL Normal <=[address] [facility] Comment on above: Performed By: #### C MP, LIPID #### [facility] [address] [address] [address] Martha Schmid Cholesterol in HDL [Mass/Vol] 44 mg/dL Normal [facility] Comment on above: Performed By: #### C MP, LIPID #### [facility] [address] [address] [address] Martha Schmid Cholesterol in LDL [Mass/Vol] 118.4 mg/dL Normal [facility] Comment on above: Performed By: #### C MP, LIPID #### [facility] [address] [place] [address] Dr. Martha Schmid Cholesterol.total/Ch olesterol in HDL [Mass ratio] 4.1 {ratio} Normal [facility] Comment on above: Performed By: #### C MP, LIPID #### [facility] [address] [place] [address] Dr. Martha Schmid HDL NORMAL > or = 60 mg/dl - LOW CARDIOVASCULAR RISK <40 mg/dl - HIGH CARDIOVASCULAR RISK Normal [facility] Comment on above: Performed By: #### C MP, LIPID #### [facility] [address] [place] [address] Dr. Martha Schmid LDL CALC NORMAL SEE BELOW Normal [facility] Comment on above: Result Comment: <100 mg/dl OPTIMAL 100 - 129 mg/dl NEAR OR ABOVE OPTIMAL 130 - 159 mg/dl BORDERLINE HIGH 160 - 189 mg/dl HIGH >190 mg/dl VERY HIGH Performed By: #### C MP, LIPID #### [facility] [address] [place] [address] Dr. Martha Schmid Triglyceride [Mass/Vol] 93 mg/dL Normal <=150 [facility] Comment on above: Performed By: #### C MP, LIPID #### [facility] [address] [place] [address] Dr. Martha Schmid VLDL CALC 18.6 mg/dL Normal [facility] Comment on above: Performed By: #### C MP, LIPID #### [facility] [address] [place] [address] Dr. Martha Schmid PROF 14(COMP METB)on 021 Albumin [Mass/Vol] 3.9 g/dL Normal 3.5-5.0 [facility] Comment on above: Performed By: #### C MP, LIPID #### [facility] [address] [place] [address] Dr. Martha Schmid Albumin/Globulin [Mass ratio] 1.1 {ratio} Normal [facility] Comment on above: Performed By: #### C MP, LIPID #### [facility] [address] [address] [address] Martha Schmid ALP [Catalytic activity/Vol] 53 U/L Normal 38-[address] [facility] Comment on above: Performed By: #### C MP, LIPID #### [facility] [address] [place] [address] Dr. Martha Schmid ALT [Catalytic activity/Vol] 25 U/L Normal 21-[address] [facility] Comment on above: Performed By: #### C MP, LIPID #### [facility] [address] [place] [address] Dr. Martha Schmid Anion gap [Moles/Vol] 10.4 mmol/L Normal [facility] Comment on above: Performed By: #### C MP, LIPID #### [facility] [address] [place] [address] Dr. Martha Schmid AST [Catalytic activity/Vol] 18 U/L Normal 17-[address] [facility] Comment on above: Performed By: #### C MP, LIPID #### [facility] [address] [place] [address] Dr. Martha Schmid Bilirubin [Mass/Vol] 0.4 mg/dL Normal 0.2-1.3 [facility] Comment on above: Performed By: #### C MP, LIPID #### [facility] [address] [place] [address] Dr. Martha Schmid Calcium [Mass/Vol] 9.4 mg/dL Normal 8.4-10.2 [facility] Comment on above: Performed By: #### C MP, LIPID #### [facility] [address] [place] [address] Dr. Martha Schmid Chloride [Moles/Vol] 102 mmol/L Normal 98-[address] [facility] Comment on above: Performed By: #### C MP, LIPID #### [facility] [address] [address] [address] Martha Schmid CO2 [Moles/Vol] 29.9 mmol/L Normal 22.0-30.0 [facility] Comment on above: Performed By: #### C MP, LIPID #### [facility] [address] [address] [address] Martha Schmid Creatinine [Mass/Vol] 0.98 mg/dL Normal 0.66-1.[address] [facility] Comment on above: Performed By: #### C MP, LIPID #### [facility] [address] [place] [address] Dr. Martha Schmid EGFR-AF PUERTO RICAN >60 Normal >=60 [facility] Comment on above: Performed By: #### C MP, LIPID #### [facility] [address] [address] [address] Martha Schmid EGFR-NON AF PUERTO RICAN >60 Normal >=[address] [facility] Comment on above: Performed By: #### C MP, LIPID #### [facility] [address] [address] [address] Martha Schmid Globulin (S) [Mass/Vol] 3.6 g/dL Normal [facility] Comment on above: Performed By: #### C MP, LIPID #### [facility] [address] [address] [address] Martha Schmid Glucose [Mass/Vol] 89 mg/dL Normal 74-106 [facility] Comment on above: Performed By: #### C MP, LIPID #### [facility] [address] [address] [address] Martha Schmid Potassium [Moles/Vol] 4.3 mmol/L Normal 3.4-5.[address] [facility] Comment on above: Performed By: #### C MP, LIPID #### [facility] [address] [address] [address] Martha Schmid Protein [Mass/Vol] 7.5 g/dL Normal 6.1-8.2 [facility] Comment on above: Performed By: #### C MP, LIPID #### [facility] [address] [place], [place] [address] Dr. Martha Schmid Sodium [Moles/Vol] 138 mmol/L Normal 137-145 [facility] Comment on above: Performed By: #### C MP, LIPID #### [facility] [address] [address] [address] Martha Schmid Urea nitrogen [Mass/Vol] 16.0 mg/dL Normal 9.0-20.[address] [facility] Comment on above: Performed By: #### C MP, LIPID #### [facility] [address] [address] [address] Martha Schmid Urea nitrogen/Creatinine [Mass ratio] 16.3 mg/mg Normal [facility] Comment on above: Performed By: #### C MP, LIPID #### [facility] [address] [address] [address] Martha Schmid Vital Signs Date Time Vital Sign Value Performing Clinician Roberto cohen 01-20-2025 13:36-0400 Body height 187.96 cm Meghan Kennedyab ASSURANCE MANAGER INSURANCE-C Work Phone: [facility] 01-20-2025 13:36-0400 Body mass index (BMI) [Ratio] 22.8 kg/m2 Meghan Odell ASSURANCE MANAGER INSURANCE-C Work Phone: [facility] 01-20-2025 13:36-0400 Body weight 80.8 kg Meghan Odell ASSURANCE MANAGER INSURANCE-C Work Phone: [facility] 07-10-2024 15:27-0500 Diastolic blood pressure 90 mm[Hg] Black Neri MD Work Phone: [facility] 07-10-2024 15:27-0500 Heart rate 88 /min Black Neri MD Work Phone: [facility] 07-10-2024 15:27-0500 Systolic blood pressure 173 mm[Hg] Black Neri MD Work Phone: [facility]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 Procedures [facility] Black Neri MD [address] [place] [phone] Phone: tel: fax: Referral ID Status Reason Start Date Expiration Date V isits Requested Visits Authorized [id number] New Request 07/09/2024 08/03/2025 1 1 [facility] Summary Purpose Family History Relationship Condition Age at Onset Recorded Date/T russel father Malignant neoplasm Unknown grandparent Malignant neoplasm Unknown Advance Directives Advance Directive Response Recorded Date/ Time Advance Directives No February 15, 2024 11:55am Chief Complaint and Reason for Visit Chief Complaint Admit Date [id number] January 19, 2025 12:00pm lumbar pain January 20, 2025 1:33pm Reason for Visit Admit Date Bursitis of right hip January 20 1:33pm Low back pain January 20, 2025 1:33pm Chief Complaint Admit Date [email or web address] January 19, 2025 12:00pm Additional Source Comments (unrecognized sect ion and content) No Status Records FoundNo Status Records FoundNo Status Records FoundNo Status Records FoundNo Status Records FoundNo Status Records FoundNo Status Records FoundNo Status Records FoundNo Status Records Found INFORMATION SOURCE (unrecogn ized section and content) DATE CREATED AUTHOR 04/23/2021 [facility] dical Specialist DATE CREATED AUTHOR AUTHOR'S ORGANIZ ATION 07/15/2021 [facility] DATE CREATED AUTHOR AUTHOR'S ORGANIZ ATION 01/04/2022 [facility] DATE CREATED AUTHOR AUTHOR'S ORGANIZ ATION 01/24/2023 [facility] DATE CREATED AUTHOR AUTHOR'S ORGANIZ ATION 03/18/2023 [facility] DATE CREATED AUTHOR AUTHOR'S ORGANIZ ATION 07/12/2024 [facility] DATE CREATED AUTHOR AUTHOR'S ORGANIZ ATION 11/22/2024 [facility] DATE CREATED AUTHOR AUTHOR'S ORGANIZ ATION 01/20/2025 [facility] dical Specialists [facility] DATE CREATED AUTHOR AUTHOR'S ORGANIZ ATION 01/20/2025 [facility] Patient Care team informatio n (unrecognized section and content) Team Status: Inactive Member Role Status Dates Erwin Stafford DPM MS Attending Provider Active Start: February 14, 2024 End: February 14, 2024 Supervisor Sample Preparation Relationship Specialty Start Date End Date Stevenson Archer DO [address] [place] [address] PCP - General Internal Medicine 10/16/24 Supervisor Sample Preparation Relationship Specialty Start Date End Date Stevenson Archer DO [address] [place] [address] PCP - General Internal Medicine 10/16/24 Supervisor Sample Preparation Relationship Specialty Start Date End Date Stevenson Archer DO [address] [place] [address] PCP - General Internal Medicine 10/16/24 Supervisor Sample Preparation Relationship Specialty Start Date End Date Stevenson Archer DO [address] [place] [address] PCP - General Internal Medicine 10/16/24 Supervisor Sample Preparation Relationship Specialty Start Date End Date Stevenson Archer DO [address] [place] [address] PCP - General Internal Medicine 10/16/24 Team Status: Active Member Role Status Dates JERSEY Anthony Primary Care Provider Active Team Status: Inactive Member Role Status Dates JERSEY Anthony Primary Care Provider Active Start: January 19, 2025 End: January 19, 2025 Corinna Gutierrez APRN Attending Provider Active Start: January 19, 2025 End: January 19, 2025 Team Status: Inactive Member Role Status Dates Corinna Gutierrez APRN Attending Provider Active Start: January 20, 2025 End: January 20, 2025 JERSEY Anthony Primary Care Provider Active Start: January 20, 2025 End: January 20, 2025 Goals (unrecognized section and content) Goals may be documented in a n alternate section Reason for Visit (unrecogniz ed section and content) Reason Comments New Patient Specialty Diagnoses / Procedures Referred By Contac t Referred To Contact Spine Diagnoses Herniated intervertebral disc of lumbar spine Chronic back pain, unspecified back location, unspecified back pain laterality Meghan Chapman [address] [place] [address] Phone: tel: fax: [facility] [address] [place] [id number] Referral ID Status Reason Start Date Expiration Date Visits Re quested Visits Authorized [id number] Closed 03/20/2024 04/14/2025 1 1 Reason Comments Nerve Injection TFESI Specialty Diagnoses / Procedures Referred By Contac t Referred To Contact Multispecialty Diagnoses Herniated intervertebral disc of lumbar spine Lumbar radiculopathy Neural foraminal stenosis of lumbar spine Franco Zaldivar, GRANTS DIRECTOR-[employer] [address] [place] [address] Phone: tel: fax: [facility] Out[facility] [address] [place] [address] Phone: tel: fax: Referral ID Status Reason Start Date Expiration Date Visits Re quested Visits Authorized [id number] Closed 06/26/2024 07/21/2025 1 1 FOR RECORDS [...] BE BASED ON THE PRIMARY CLINICAL RECORDS. [facility] [employer] [facility]. provides no warranty or guarantee of the accuracy or completeness of information in this document.
--- NOTE | 2025-02-26 11:54 | PM.CN ---
Consult Note: HPI Data of Consult Patient: known to practice within the last 3 years Consult date: 02/26/25 Requesting Physician: Kerry Connolly NP Primary Care Provider: MEGHAN BAIN Consult Narrative Reason for consult: f/u Narrative: 44yom who presents for evaluation. worsening right ankle pain. previous workplace injury in july 2021, has had subsequent ankle surgeries. continues to have right ankle pain. has undergone >80 sessions of physical therapy, which have not provided lasting relief. uses flexeril, cymbalta, tramadol, ibuprofen with some benefit. Pain today 4-5/10 and CRISTHIAN 30%. Pt has been utilizing ibuprofen 800mg daily as needed, duloxetine 60mg BID, tramadol 50mg BID PRN pain, flexeril 10mg qd PRN and lyrica 200mg TID without side effect. continues to f/u with podiatry cc:: CC: Kerry Connolly NP [facility] Medical History (Updated 09/24/24 @ 11:37 by Kerry Connolly NP) Right ankle pain ?M25.571 - Pain in right ankle and joints of right foot (ICD-10) Back pain ?M54.9 - Dorsalgia, unspecified (ICD-10) Migraine ?G43.909 - Migraine, unspecified, not intractable, without status migrainosus (ICD-10) Diarrhea ?R19.7 - Diarrhea, unspecified (ICD-10) Sciatica ?M54.30 - Sciatica, unspecified side (ICD-10) Peroneal tendon injury ?S86.309A - Unspecified injury of muscle(s) and tendon(s) of peroneal muscle group at lower leg level, unspecified leg, initial encounter (ICD-10) Fibula fracture ?S82.409A - Unspecified fracture of shaft of unspecified fibula, initial encounter for closed fracture (ICD-10) Asthma ?J45.909 - Unspecified asthma, uncomplicated (ICD-10) Surgical History History of kidney surgery ?Z98.890 - Other specified postprocedural states (ICD-10) History of carpal tunnel release ?Z98.890 - Other specified postprocedural states (ICD-10) History of elbow surgery ?Z98.890 - Other specified postprocedural states (ICD-10) History of ankle surgery (~07/2021) ?Z98.890 - Other specified postprocedural states (ICD-10) History of appendectomy ?Z90.49 - Acquired absence of other specified parts of digestive tract (ICD-10) Family History Other Cancer Family history of cancer Family history of diabetes mellitus Family history of hypertension Social History Within the past year, how often did you have a drink containing alcohol: 4 or more times a week Within the past year, how many standard drinks containing alcohol did you have on a typical day: 1 or 2 Total score: 0 Score interpretation: A score less than 4 is consistent with normal alcohol consumption. 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 Highest level of school completed/degree received: high school graduate Meds Home Medications and Allergies Home Medications ?Medication ?Instructions ?Recorded ?Confirmed ?Type cyclobenzaprine 10 mg tablet 10 mg PO DAILY PRN muscle spasm 01/29/23 02/14/24 History duloxetine 60 mg capsule,delayed 60 mg PO DAILY 01/29/23 02/14/24 History release tramadol 50 mg tablet 50 mg PO Q8H PRN pain 02/14/23 02/14/24 History ibuprofen 800 mg tablet 800 mg PO Q12H PRN pain 02/19/23 02/14/24 History atogepant 60 mg tablet (Qulipta) 60 mg PO DAILY 01/30/24 02/14/24 History meloxicam 7.5 mg tablet 7.5 mg PO BID PRN pain 01/30/24 02/14/24 History multivitamin (Daily Multi-Vitamin 1 tab PO DAILY 01/30/24 02/14/24 History tablet) sumatriptan succinate 100 mg tablet 100 mg PO Q2H PRN migraine headache 01/30/24 02/14/24 History vitamin B complex 1 tab PO DAILY 01/30/24 02/14/24 History ibuprofen 800 mg tablet 800 mg PO DAILY PRN pain #30 tabs 07/03/24 Rx tramadol 50 mg tablet See Rx Instructions .Route 07/16/24 Rx .COMPLEX PRN pain #45 tabs pregabalin 200 mg capsule (Lyrica) 200 mg PO TID PRN pain #90 caps 09/24/24 Rx tramadol 50 mg tablet See Rx Instructions .Route 10/23/24 Rx .COMPLEX PRN pain #45 tabs tramadol 50 mg tablet 50 mg PO BID PRN pain #60 tabs 11/27/24 Rx duloxetine 60 mg capsule,delayed 60 mg PO BID #60 caps 12/25/24 Rx release pregabalin 200 mg capsule (Lyrica) 200 mg PO TID #90 caps 12/25/24 Rx tramadol 50 mg tablet 50 mg PO BID PRN pain #60 tabs 12/25/24 Rx pregabalin 200 mg capsule (Lyrica) 200 mg PO TID #90 caps 02/04/25 Rx tramadol 50 mg tablet 50 mg PO BID PRN pain #60 tabs 02/04/25 Rx Allergies Allergy/AdvReac Type Severity Reaction Status Date / Time No Known Drug Allergies Allergy Verified 02/14/24 10:39 Exam Narrative Exam Narrative: Psych-alert and oriented x 3. Attentive and appropriate, constitutionally normal, displays normal mood and affect per situation.? There are no obvious deficits in memory, reasoning, or intellect.? Skin-no obvious rashes, bruising, erythema noted to the patient's area of pain. Extremities- extremities are warm with minimal edema and palpable pulses. Tenderness to palpation in right ankle. Slight discoloring and cool temperature noted in right ankle. Lumbar-no significant tenderness to palpation noted in the lumbar spine and paraspinal musculature.? Coordination remains intact.? Gait remains non-antalgic. Assessment and Plan Assessment and Plan (1) Other fracture of upper and lower end of right fibula, initial encounter for closed fracture: (2) Chronic use of opiate for therapeutic purpose: Assessment and Plan: I feel these medications are improving the patient's quality of life and allow them to tolerate activities of daily living as well as participate in recreational activity.? The patient does not report intolerable side effects. The patient is NOT opioid naive and non-pharmacologic and non-opioid treatment has failed to significantly relieve the patient's pain and improve functionality. The patient has a diagnosis that is related to a somatic or visceral pain etiology. ? ?? I reviewed with the patient the potential risks and side effects with the use of? opioid medications including but not limited to respiratory depression,? sedation, and even . Within the last 12 months I have verified the patient has access to naloxone should? these effects occur. The patient was advised to let? their family know they had Naloxone in case they would need to administer? the medication. I advised the patient to avoid the use of any other? sedation substances including alcohol, THC, and benzodiazepines while? taking opioid medications due to the risk of compounding side effects and? detrimental outcomes. within the last 12 months I have reviewed the [employer], pain treatment agreement and urine drug screen.? ?? A drug screen was completed within the last year, and no aberrancies were noted regarding their use of controlled substances. The patient understands they are subject to the terms and conditions of the pain contract that they have signed. ? ?? I have checked an [place] report on this patient today and there are no aberrancies noted in the prescribing history.? Plan continue f/u with podiatry as planned, has declined additional bracing and PT at this time due to work schedule continue duloxetine 60mg BID continue tramadol 50mg BID PRN moderate to severe pain 60 tabs to last 30 days continue lyrica 200mg TID continue HEP as tolerated f/u 3 months for medication management, sooner if needed pt continues to decline appointment to establish care for low back pain, reports he has not established with alternative pain management but is seeing Dr Delgado
== END 2025-02-26 11:30 | disposition home or self-care (01) ==
PROVIDERS: PCP Nurse Practitioner; Visit Provider Nurse Practitioner
DX: S82.831A Other fracture of upper and lower end of right fibula, initial encounter for closed fracture (principal); Z79.891 Long term (current) use of opiate analgesic
CPT/HCPCS: G0463